=== PATIENT | male | born 1985 | race Caucasian/White ===

== ENCOUNTER 2016-11-23 00:36 | Inpatient (IN) | payer OTHER ==
[~2016-11-23] VITALS: Ht 182.9 cm; Wt 66.9 kg
[2016-11-23 00:46] VITALS: Ht 182.9 cm; Wt 66.9 kg
--- NOTE | 2016-11-23 01:23 | ERD ---
ER Documentation Chief Complaint Date/Time DATE: 11/23/16 TIME: 01:20 Chief Complaint Left Leg abscess. HPI 31 year old male presents here in emergency department for complaints of a left lower leg wound for 2 months now, patient injects heroin on it. Patient's Complaining of pain, swelling, sharp pain, 8/10 scale, is worse upon touching the area. Patient denies any fever or chills. Patient denies any one other parts of the body. Patient denies any discharge coming from the wounds. Patient did not take any medications to help with symptoms. Patient has been also having cough with greenish phlegm, episodes of shortness of breath in the last month. Patient denies any chest pain or palpitations. ROS All systems reviewed and are negative except as per history of present illness. Medications Home Meds Reported Medications [none] Unknown Strength No Conflict Check 11/23/16 Allergies Allergies: Coded Allergies: No Known Allergy (Unverified , 11/23/16) PMhx/Soc Hx Cardiac Disorders: Yes (HTN) Hx Alcohol Use: No Hx Substance Use: Yes (iv heroin use) Hx Tobacco Use: Yes (1ppd) Smoking Status: Current every day smoker FmHx Family History: No coronary disease, No diabetes, No other Physical Exam Vitals Vital Signs Date Time Temp Pulse Resp B/P Pulse Ox O2 Delivery O2 Flow Rate FiO2 11/23/16 00:46 96.8 104 18 103/58 98 Physical Exam GENERAL: The patient is well developed and appropriate for usual state of health, in no apparent distress. CHEST: Crackles bilaterally. There are no rales or rhonchi. HEART: Regular rate and rhythm. No murmurs, clicks, rubs or gallops. No S3 or S4. ABDOMEN: Soft, nontender and nondistended. Good bowel sounds. No rebound or guarding. No gross peritonitis. No gross organomegaly or masses. No Rios sign or McBurney point tenderness. BACK: No midline or flank tenderness. EXTREMITIES: Equal pulses bilaterally. There is no peripheral clubbing, cyanosis or edema. No focal swelling or erythema. Full range of motion. Grossly neurovascularly intact. NEURO: Alert and oriented. Cranial nerves 2-12 intact. Motor strength in all 4 extremities with 5/5 strength. Sensation grossly intact. Normal speech and gait. SKIN: 8 x 4 cm open wound noted in the left lower leg extensive to the subcutaneous tissue, with surrounding erythema, tender on palpation, no purulent discharge noted. Noted some areas to be healing. There is no apparent rash or petechia. The skin is warm and dry. HEMATOLOGIC AND LYMPHATIC: There is no evidence of excessive bruising or lymphedema. No gross cervical, axillary, or inguinal lymphadenopathy. Result Diagram: 11/23/16 0340 11/23/16 0340 Results 24 hrs Laboratory Tests Test 11/23/16 03:40 Alanine Aminotransferase (ALT/SGPT) 46IU/L Albumin 2.6g/dl Albumin/Globulin Ratio 0.55 Alkaline Phosphatase 121IU/L Anion Gap 17 Aspartate Amino Transf (AST/SGOT) 90IU/L Blood Urea Nitrogen 45mg/dl Calcium Level 8.2mg/dl Carbon Dioxide Level 30mmol/L Chloride Level 93mmol/L Creatinine 0.75mg/dl Direct Bilirubin 0.00mg/dl Eosinophils # 10^3/ul Eosinophils % % Globulin 4.70g/dl Glucose Level 86mg/dl Hematocrit 32.3% Hemoglobin 9.9g/dl Indirect Bilirubin 0.1mg/dl Lactic Acid Level 1.9mmol/L Lymphocytes # 10^3/ul Lymphocytes % % Mean Corpuscular Hemoglobin 21.5pg Mean Corpuscular Hemoglobin Concent 30.7g/dl Mean Corpuscular Volume 70.2fl Mean Platelet Volume 9.8fl Monocytes # 10^3/ul Monocytes % % Neutrophils # 10^3/ul Neutrophils % % Platelet Count 59006^3/UL Potassium Level 3.0mmol/L Red Blood Count 4.6010^6/ul Red Cell Distribution Width 16.6% Sodium Level 137mmol/L Total Bilirubin 0.1mg/dl Total Protein 7.3g/dl White Blood Count 26.210^3/ul Current Medications Medications (Trade) Dose Ordered Sig/Renea Route PRN Reason Start Time Stop Time Status Last Admin Dose Admin Sodium Chloride (NS) 1,000 ml @ 1,000 mls/hr Q1H ONCE IV 11/23/16 01:30 11/23/16 02:29 DC 11/23/16 01:30 Ketorolac Tromethamine (Toradol) 30 mg ONCE STAT IV 11/23/16 02:36 11/23/16 02:37 DC 11/23/16 02:36 Normal saline IV bolus was given here in emergency department for rehydration, patient tolerated IV fluids. PROCEDURE: Chest. CLINICAL INDICATION: Shortness of breath. TECHNIQUE: 2 frontal views of the chest were obtained. COMPARISON: None. FINDINGS: The cardiac silhouette is within normal limits. The aortic arch is unremarkable. There are bibasilar patchy consolidations and small right pleural effusion. There is no pneumothorax. IMPRESSION: Bibasilar patchy consolidations and small right pleural effusion. .Todd Ruelas MD, Date Time Electronically viewed and signed by .Todd Ruelas MD, MD on 11/23/2016 02:01 .T/ CC: DENTON HOWARD [employer] MANAGER PROCEDURE: Left tibia and fibula. CLINICAL INDICATION: Pain. TECHNIQUE: 4 views including AP and lateral views of the left tibia and fibula were obtained. COMPARISON: None. FINDINGS: There is no fracture, dislocation or bone destruction. The joint spaces are within normal limits. Bone mineralization is within normal limits. There is no radiopaque foreign body or abnormal calcification. There is soft tissue laceration within the proximal calf. IMPRESSION: No evidence of fracture. Soft tissue injury. .Todd Ruelas MD, Date Time Electronically viewed and signed by .Todd Ruelas MD, on 11/23/2016 02:00 .T/ Procedures/[facility] Medical decision making: Patient's symptoms most likely consistent with a wound infection, cellulitis, patient also has bilateral lung consolidation with pleural effusions, most likely can be pneumonia also, she has elevated white count, was tachycardic, is feeling very weak and fatigued, as per discussion with my attending physician, Dr. Mann, the patient will be transferred to ER 1 for admission for further management and care. Departure Diagnosis: Primary Impression: Pneumonia Pneumonia type: due to unspecified organism Laterality: bilateral Lung location: unspecified part of lung Qualified Code: J18.9 - Pneumonia of both lungs due to infectious organism, unspecified part of lung Additional Impressions: Pleural effusion Cellulitis Site of cellulitis: extremity Site of cellulitis of extremity: lower extremity Laterality: left Qualified Code: L03.116 - Cellulitis of left lower extremity Condition: Fair DENTON HOWARD NP Nov 23, 2016 01:23
[2016-11-23] MEDS ORDERED: SOD CHLORIDE 0.9% 1,000 ML IV ONE (01:30)
--- NOTE | 2016-11-23 02:01 | RADRPT ---
PROCEDURE: Chest. CLINICAL INDICATION: Shortness of breath. TECHNIQUE: 2 frontal views of the chest were obtained. COMPARISON: None. FINDINGS: The cardiac silhouette is within normal limits. The aortic arch is unremarkable. There are bibasil ar patchy consolidations and small right pleural effusion. There is no pneumothorax. IMPRESSION: Bibasilar patchy consolidations and small right pleural effusion. .Todd Ruelas MD, MD Date Time Electronically viewed and signed by .Todd Ruelas MD, MD on 11/23/2016 02:01 .T/
--- NOTE | 2016-11-23 02:01 | RADRPT ---
PROCEDURE: Left tibia and fibula. CLINICAL INDICATION: Pain. TECHNIQUE: 4 views including AP and lateral views of the left tibia and fibula were obtained. COMPARISON: None. FINDINGS: There is no fracture, dislocation or bone destruction. The joint spaces are within normal limits. Bone mineralization is within normal limits. There is no radiopaque foreign body or abnormal calcif ication. There is soft tissue laceration within the proximal calf. IMPRESSION: No evidence of fracture. Soft tissue injury. .Todd Ruelas MD, Date Time Electronically viewed and signed by .Todd Ruelas MD, on 11/23/2016 02:00 .T/
[2016-11-23] MEDS ORDERED: KETOROLAC 30 MG INJ IV STA (02:36)
[2016-11-23 03:51] LABS: ADD SCAN DIFF NO
[2016-11-23 04:00] LABS: HEMATOCRIT 32.3 % (42.0-52.0); HEMOGLOBIN 9.9 g/dl (14.0-18.0); MEAN CORPUSCULAR HEMOGLOBIN 21.5 pg (29.0-33.0); MEAN CORPUSCULAR HGB CONC 30.7 g/dl (32.0-37.0); MEAN CORPUSCULAR VOLUME 70.2 fl (82.0-101.0); MEAN PLATELET VOLUME 9.8 fl (7.4-10.4); PLATELET COUNT 409 10^3/UL (140-415); RED CELL DISTRIBUTION WIDTH 16.6 % (11.5-14.5); WHITE BLOOD COUNT 26.2 10^3/ul (4.8-10.8)
[2016-11-23 04:11] LABS: ALBUMIN 2.6 g/dl (3.3-4.9)
[2016-11-23 04:14] LABS: BILIRUBIN,INDIRECT 0.1 mg/dl (0-1.1); BILIRUBIN,TOTAL 0.1 mg/dl (0.2-1.3); CREATININE 0.75 mg/dl (0.61-1.24)
[2016-11-23 04:15] LABS: ALBUMIN/GLOBULIN RATIO 0.55; CALCIUM 8.2 mg/dl (8.4-10.2); TOTAL PROTEIN 7.3 g/dl (6.1-8.1)
[2016-11-23 04:54] LABS: EOSINOPHILS # 0.5 10^3/ul (0.0-0.5); LYMPHOCYTES # 3.4 10^3/ul (0.8-2.9); MONOCYTE # 1.8 10^3/ul (0.3-0.9)
[2016-11-23 04:55] LABS: ANISOCYTOSIS 1+
[2016-11-23 04:56] LABS: HYPOCHROMASIA 1+; STOMATOCYTES 1+
[2016-11-23 04:57] LABS: POLYCHROMASIA FEW
[2016-11-23 04:59] LABS: PLATELET ESTIMATE PLT APPEAR ADEQUATE
[2016-11-23 05:00] LABS: NEUTROPHIL # 20.4 10^3/ul (1.6-7.5)
[2016-11-23 05:51] VITALS: TEMP 97.2
[2016-11-23] MEDS ORDERED: CEFEPIME 2GM/50 ML (PMX) 50 ML IVPB STA (05:52)
[2016-11-23] MEDS ORDERED: VANCOMYCIN 1 GM (PMX) 250 ML IVPB ONE (06:00)
--- NOTE | 2016-11-23 06:19 | HP ---
Date/Time of Note Date/Time of Note DATE: 11/23/16 TIME: 06:18 Assessment/Plan VTE Prophylaxis VTE Prophylaxis Intervention: other (Enoxeparin) Lines/Catheters IV Catheter Type (from Nrs): Saline Lock Assessment/Plan Assessment/Plan 1) Open wound left leg, chronic, site of Heroin injection, Osteomyelitis suspected, but not seen on X-Ray. WBCs elevated at 26 - CONSULT: Dr. Antony Burnette (message left at his office) - Patient NPO for now, awaiting call back. Advance diet if no surgical plans for today - Wound Culture - IV Antibiotics (Vanco and Cefepim) - CBC in AM 2) Bibasilar Pneumonia - On Vanco and Cefepim 3) Hypokalemia, K+ = 3.0 - Replacement ordered 4) Hypoalbuminemia, likely from poor diet, but with elevated globulin, consider Multiple Myeloma, 5) Dehydration, BUN/Cr = 45/0.75 - IV Hydration with NS - 2 L over 8 hours then IVF to 125 mL/hr 6) Microcytic Hypochromic Anemia, likely from poor diet - Recommend protein supplementation when regular diet started 7) Transamminitis - Etoh? - CMP in AM 8) Heroin Addict - Monitor for withdrawls HPI/ROS Admit Date/Time Admit Date/Time Hx of Present Illness Patient was admitted through the Emergency Department. He currently is sleeping and is arousable, but falls back asleep after answering questions. He has no complaints at this time other than feeling tired and having a dry mouth. He requests his water. He was given Cefepime 2 gm IV in the ER and is currently receiving Vancomycin 1 gm IV. He also received 1 L NS and Toradol 60 mg IV. History obtained from the ER Physician: 31 year old male presents here in emergency department for complaints of a left lower leg wound for 2 months now, patient injects heroin on it. Patient's Complaining of pain, swelling, sharp pain, 8/10 scale, is worse upon touching the area. Patient denies any fever or chills. Patient denies any one other parts of the body. Patient denies any discharge coming from the wounds. Patient did not take any medications to help with symptoms. Patient has been also having cough with greenish phlegm, episodes of shortness of breath in the last month. Patient denies any chest pain or palpitations. PMH/Family/Social Past Medical History Medical History: hypertension Family History Significant Family History: other Social History Smoking Status: Current every day smoker Drug Use: heroin Exam/Review of Systems Vital Signs Vitals Vital Signs Date Time Temp Pulse Resp B/P Pulse Ox O2 Delivery O2 Flow Rate FiO2 11/23/16 05:51 97.2 103 18 105/64 97 Room Air Exam Exam GENERAL: The patient is well-developed, and thin, sleeping and in no apparent distress. EYES: No scleral icterus. ENT: No visible discharge from nose or ears. Poor dentition. Oral mucosa and lips dry. CHEST: Crackles bilaterally. There are no rales or rhonchi. HEART: Regular rate and rhythm. No murmurs, clicks, rubs or gallops. No S3 or S4. ABDOMEN: Soft, nontender and nondistended. Good bowel sounds. No rebound or guarding. No HSM or pulsatile masses. No Rios sign or McBurney point tenderness. EXTREMITIES: Equal pulses bilaterally: +2/4 radial and +14 DP. There is no peripheral clubbing or cyanosis. Left pedal edema, trace, to lower 1/3 leg. Grossly neurovascularly intact. NEURO: Arouses easily, but quickly falls back asleep. Cranial nerves 2-12 grossly intact. Motor strength in all 4 extremities with 5/5 strength. Sensation grossly intact. Normal speech. SKIN: 8 x 4 cm open wound noted on the lateral aspect of the left lower leg extensive to the subcutaneous tissue, with surrounding erythema, tender on palpation, no purulent discharge noted but inferior to the wound the tissue is indurated and warm. No fluctuance appreciated. No visible bone to my eye. Noted some areas to be healing. There is no apparent rash or petechia. The skin is warm and dry. HEMATOLOGIC AND LYMPHATIC: There is no evidence of excessive bruising or lymphedema. No gross cervical, axillary, or inguinal lymphadenopathy. Labs Result Diagram: 11/23/16 0340 11/23/16 0340 Medications Medications Current Medications Vancomycin HCl (Vancocin) 250 ml @ 125 mls/hr ONCE ONCE IVPB ; Start 11/23/16 at 06:00; Stop 11/23/16 at 07:59 Procedures Procedures Laboratory Tests Test 11/23/16 03:40 Alanine Aminotransferase (ALT/SGPT) 46IU/L Albumin 2.6g/dl Albumin/Globulin Ratio 0.55 Alkaline Phosphatase 121IU/L Anion Gap 17 Aspartate Amino Transf (AST/SGOT) 90IU/L Blood Urea Nitrogen 45mg/dl Calcium Level 8.2mg/dl Carbon Dioxide Level 30mmol/L Chloride Level 93mmol/L Creatinine 0.75mg/dl Direct Bilirubin 0.00mg/dl Eosinophils # 10^3/ul Eosinophils % % Globulin 4.70g/dl Glucose Level 86mg/dl Hematocrit 32.3% Hemoglobin 9.9g/dl Indirect Bilirubin 0.1mg/dl Lactic Acid Level 1.9mmol/L Lymphocytes # 10^3/ul Lymphocytes % % Mean Corpuscular Hemoglobin 21.5pg Mean Corpuscular Hemoglobin Concent 30.7g/dl Mean Corpuscular Volume 70.2fl Mean Platelet Volume 9.8fl Monocytes # 10^3/ul Monocytes % % Neutrophils # 10^3/ul Neutrophils % % Platelet Count 20665^3/UL Potassium Level 3.0mmol/L Red Blood Count 4.6010^6/ul Red Cell Distribution Width 16.6% Sodium Level 137mmol/L Total Bilirubin 0.1mg/dl Total Protein 7.3g/dl White Blood Count 26.210^3/ul Radiology Results: PROCEDURE: Left tibia and fibula. CLINICAL INDICATION: Pain. TECHNIQUE: 4 views including AP and lateral views of the left tibia and fibula were obtained. COMPARISON: None. FINDINGS: There is no fracture, dislocation or bone destruction. The joint spaces are within normal limits. Bone mineralization is within normal limits. There is no radiopaque foreign body or abnormal calcification. There is soft tissue laceration within the proximal calf. IMPRESSION: No evidence of fracture. Soft tissue injury. ROCEDURE: Chest. CLINICAL INDICATION: Shortness of breath. TECHNIQUE: 2 frontal views of the chest were obtained. COMPARISON: None. FINDINGS: The cardiac silhouette is within normal limits. The aortic arch is unremarkable. There are bibasilar patchy consolidations and small right pleural effusion. There is no pneumothorax. IMPRESSION: Bibasilar patchy consolidations and small right pleural effusion. JOSE A VINSON DO Nov 23, 2016 06:19
[2016-11-23 07:08] VITALS: BP 96/54; PULSE 85; RESP 19
[2016-11-23] MEDS ORDERED: VANCOMYCIN IV PER PHARMACY XX SCH (08:30)
[2016-11-23] MEDS ORDERED: ONDANSETRON 4 MG INJ IV PRN (08:30)
[2016-11-23] MEDS ORDERED: NACL 0.9% 3 ML SYG IV SCH (08:30)
[2016-11-23] MEDS: FAMOTIDINE 20 MG INJ IV SCH ×2 (10:04→20:50)
[2016-11-23] MEDS: SOD CHLORIDE 0.9% 1,000 ML IV SCH ×3 (10:05→16:30)
[2016-11-23] MEDS: ENOXAPARIN 40 MG/0.4 ML SYG SC SCH (10:15)
[2016-11-23] MEDS ORDERED: POTASSIUM CHLORIDE 250 ML IVPB SCH (10:30)
[2016-11-23] MEDS ORDERED: CHLORDIAZEPOXIDE 25 MG CAP PO SCH (13:00)
[2016-11-23] MEDS: LORATADINE 10 MG TAB PO SCH (13:46)
[2016-11-23] MEDS: NICOTINE (21 MG/24 HR) PATCH TRANSDERM SCH (13:46)
[2016-11-23] MEDS ORDERED: VANCOMYCIN 1.75 GM in NS 500 ML IVPB SCH (14:30)
[2016-11-23] MEDS ORDERED: LORAZEPAM 2 MG INJ IV PRN (14:30)
[2016-11-23] MEDS: QUETIAPINE 25 MG TAB PO SCH ×2 (15:04→21:00)
[2016-11-23] MEDS: METHADONE 10 MG TAB PO SCH (15:05)
[2016-11-23 15:08] LABS: HAAIG REFLEX REFLEX FILED
--- NOTE | 2016-11-23 15:25 | CONS ---
DATE OF ADMISSION: 11/23/2016 DATE OF CONSULTATION: 11/23/2016 TYPE OF CONSULTATION: Infectious Disease. REASON FOR CONSULTATION: Antibiotic management. HISTORY OF PRESENT ILLNESS: Jonathan Sahu is a 31-year-old male who was admitted through the emerg ency room with complaints of left lower leg wound for 2 months. Patient injects heroin. He complai ns of swelling and sharp pain 8/10 in the left leg where he did inject the heroin. He denies fever, chills or any discharge coming from the wounds. He has a cough with greenish sputum and some short ness of breath which began last month. The patient was started on cefepime and vancomycin. PAST MEDICAL HISTORY: Positive for hypertension. PAST SURGICAL HISTORY: None. FAMILY HISTORY: Noncontributory. SOCIAL HISTORY: He smokes daily. He is a heroin abuser. ALLERGIES: NONE TO PENICILLIN, SULFA OR FOODS. MEDICATIONS: Per chart. REVIEW OF SYSTEMS: Noncontributory. PHYSICAL EXAMINATION: GENERAL: The patient is a well-developed, well-nourished male who is thin, ill appearing, in no acu te distress. VITAL SIGNS: Stable. He is afebrile. SKIN: Without generalized rash. HEENT: Within normal limits. NECK: Supple. LYMPH NODES: None palpable. CHEST: Decreased breath sounds at the bases. HEART: Without murmur or gallop. ABDOMEN: Soft, nontender without organosplenomegaly or masses. EXTREMITIES: Without cyanosis, clubbing or edema. He has an 8 x 4 cm open wound on the lateral asp ect of the left leg which extends into subcutaneous tissue. He has surrounding erythema and tendern ess on palpation. There is no purulent discharge but the tissue is indurated and warm. There is no fluctuance. RECTAL AND GENITAL: Deferred. NEUROLOGIC: No focal neurological abnormality. ANCILLARY LABORATORY DATA: White count is 26.2, H and H 9.9 and 32.3, platelet count 49,000. BUN a nd creatinine 45/0.75, glucose of 86. IMPRESSION AND PLAN: The patient has an open wound with left lower extremity cellulitis. Wound car e to see the patient. He was started on vancomycin and cefepime. An x-ray of the tibia and fibula shows no fracture or dislocation, no foreign body. There is soft tissue laceration within the proxi mal calf. Chest x-ray shows bibasilar patchy consolidations, small right pleural effusion. IMPRESSION AND PLAN: The patient is currently on appropriate antibiotic therapy with vancomycin and cefepime. Wound care should evaluate him. In the meantime, serology has been done and he was star leena on methadone. An MRI of the lower extremity was ordered. Blood cultures were done. I concur w ith current therapy. I will dictate my findings to Dr. Gutiérrez. Dictated By: MILAGROS FULTON MD, JD/SHABANA Conf#: [id number] DID#: [id number]
--- NOTE | 2016-11-23 15:42 | CONS ---
DATE OF ADMISSION: 11/23/2016 DATE OF CONSULTATION: 11/23/2016 TYPE OF CONSULTATION: Pain management. HISTORY OF PRESENT ILLNESS: History is taken from the patient's medical records as well as from the patient, although he is somewhat a poor historian and has elected to give me a clear and honest his tory of present illness. Some of this information is taken from his brother, who is at bedside who i s a poor historian, also. This gentleman is a 31-year-old gentleman who has longstanding history of IV drug abuse, combination of heroin and speed/methamphetamine. The last time he used was 1 day justine or to this hospitalization. He has been on methadone. The last time he took methadone 45 mg was ap proximately 1 week ago, but that was questionable. He denies other medications, but his brother sta porsha that he overdosed on Xanax approximately 1 week ago using both heroin and Xanax at that time. H e states he has been in 1 drug treatment program and has not been in another one since that time. W hen he was admitted is unknown. The patient once again is a poor historian. Denies any other recre ational drug use, smokes approximately a pack of cigarettes every 3 days. Denies alcohol consumptio n. Denies a past medical history of overdose on medications and it is unclear what this episode was approximately 1 week ago. He states he has had HIV but that it was many years ago and he has never had a hepatitis panel. He does participate in the use of sharing needles. The patient apparently has been walking around with an open wound of his left lateral calf for some unknown period of time. This is the area where he shoots up heroin. He uses bilateral lower extremities and thighs primar riaz and skin pops on occasion he states with the assistance of another person when he is able to fin d a vein. The patient presented to [facility] with increasing shortness of breath and left lower extremity open wound. MEDICATIONS: Please refer to reconciliation. ALLERGIES: THE PATIENT STATES HE HAS NO KNOWN DRUG ALLERGIES. MAJOR MEDICAL PROBLEMS IN THE PAST: He denies hospitalizations or surgical interventions. SOCIAL HISTORY: As per history of present illness. FAMILY HISTORY: Father . Mother is alive, unknown health history. One brother who activel y uses intravenous heroin also. He is single. He has no children. REVIEW OF SYSTEMS: A 12-point review of systems as per history of present illness, otherwise 12-poi nt is otherwise unremarkable. PHYSICAL EXAMINATION: GENERAL: Shows an ill-appearing male, who looks emaciated on examination. VITAL SIGNS: receiving 96/54, pulse 85 and regular, respirations of 19, temperature 97.5 degrees, 9 3% saturation on room air. HEENT: He is normocephalic and atraumatic. Anicteric, acyanotic. CHEST: Shows bilateral inspiratory and expiratory crackles throughout both lung neville from base to apex. COR: S1, S2, without S3, S4, murmur, gallop, rub. Normal rate, normal rhythm. ABDOMEN: Grossly benign. NEUROLOGICAL: He is oriented x3. Cranial nerves II through XII are grossly intact. Motor and sens ory findings grossly within normal limits. LABORATORY TESTS: White blood cell count of 26.2, hemoglobin 9.9, hematocrit 32.3, MCV of 70.2 and platelet count of 409,000. Chemistries: Serum sodium of 137, potassium 3.0, chloride 93, bicarbona te 30, BUN of 45, creatinine 0.75. ALT 46, AST 90, total bilirubin 0.1, albumin 2.6, globulin 4.70. Chest x-ray shows bibasilar patchy consolidation and right pleural effusion. ASSESSMENT AND PLAN: This is an ill 31-year-old gentleman who has an open wound of his left lower e xtremity and bibasilar pneumonia with a history of IV drug abuse with heroin and crystal methampheta mine and is malnourished and dehydrated. From a pain management standpoint, I agree patient is high risk for withdrawal. I will start him off on methadone 60 mg daily since he was on a small dose pr ior to hospitalization. Also start him off on Seroquel and scheduled Ativan p.r.n. I have asked the patient for permission to check his room for any other drugs. Dictated By: TREVOR MURDOCK MD, LP/SHABANA Conf#: [id number] DID#: [id number]
[2016-11-23 16:00] LABS: ADD UMIC YES; URINE BILIRUBIN (Dip) NEGATIVE (NEGATIVE); URINE BLOOD (Dip) NEGATIVE (NEGATIVE); URINE COLOR YELLOW (YELLOW); URINE GLUCOSE (Dip) NEGATIVE (NEGATIVE); URINE KETONES (Dip) NEGATIVE (NEGATIVE); URINE LEUKOCYTE ESTERASE (Dip) NEGATIVE (NEGATIVE); URINE NITRITE (Dip) NEGATIVE (NEGATIVE); URINE TOTAL PROTEIN (Dip) TRACE (NEGATIVE); URINE UROBILINOGEN (Dip) 0.2 E.U./dL (0.1-1.0)
[2016-11-23 16:07] LABS: HEPATITIS B CORE ANTIBODY NEGATIVE (NEGATIVE)
[2016-11-23 16:14] LABS: SQUAMOUS EPITHELIAL CELL,UR RARE; URINE RBCS 0-2 /HPF (0)
--- NOTE | 2016-11-23 17:15 | RADRPT ---
PROCEDURE: MRI of the left lower extremity CLINICAL INDICATION: Left lower extremity pain and swelling, ulceration, concern for osteomyelitis TECHNIQUE: Multiplanar multisequence images of the left lower extremity without contrast utilizing multiple pulse sequences. Images were interpreted at a independent PACS workstation. COMPARISON: Radiographs of the left tibia and fibula performed same day FINDINGS: There is a very large left lateral skin and subcutaneous defect centered approximately 10 cm below t he knee joint, measuring approximately 9 cm and length and 4 cm in anteroposterior dimension. There is adjacent soft tissue swelling and granulation tissue without drainable fluid collection. There is mild nonspecific edema within the peroneal and anterior musculature at this location which could reflect denervation change or infectious/inflammatory myositis. There is no evidence of acute fracture. There is no evidence of osteomyelitis at this time. Limite d assessment of the knee joint is grossly unremarkable. Limited assessment of the right lower extremity is grossly unremarkable. IMPRESSION: 1. Large lateral skin and subcutaneous defect measuring 9 x 4 cm as described above. There is surr ounding soft tissue swelling and granulation tissue without drainable fluid collection. Mild nonspec ific edema within the adjacent peroneal and anterior compartment musculature may reflect denervation change or mild infectious or inflammatory myositis. 2. No evidence of acute fracture or underlying osteomyelitis at this time. RPTAT: UU .Omar Gaspar MD, Date Time Electronically viewed and signed by .Omar Gaspar MD, on 11/23/2016 17:15 .K/
--- NOTE | 2016-11-23 18:13 | CONS ---
Date/Time of Note Date/Time of Note DATE: 11/23/16 TIME: 18:01 Assessment/Plan Assessment/Plan Problems: (1) Infected wound Status: Acute (2) Cellulitis Status: Acute Qualifiers: Qualified Code: L03.116 - Cellulitis of left lower extremity Additional Assessment/Plan The MRI shows no drainable abscess in the left lower leg. No surgery recommended at this time. Daily dressing change with Santyl ointment to the wound to be done. Patient is to continue IV antibiotic treatment. Infectious disease consultation is highly recommended. Source of infection must be evaluated more carefully. Patient will be followed in-house and will be monitored. Thank you very much for involving me in the care of this patient. Consultation Date/Type/Reason Admit Date/Time Date of Consultation: Nov 23, 2016 Type of Consultation: Foot and ankle surgery consult Reason for Consultation Infected left lower extremity open wound Hx of Present Illness Thank you very much for involving me in the care of this patient. As you very well know this is a 31-year-old male patient who with cellulitis and open wound of the left lower extremity. Patient has an extensive past medical history of drug abuse using heroin. Apparently the wound has been present for about 2 months now and patient injects heroin onto it. Patient is lethargic but arousable and was given methadone via doctor's orders. Most of the history has been obtained through chart review. As per history of present illness. Past Medical History As per history of present illness. Medical History: hypertension Past Surgical History As per history of present illness. Social History As per history of present illness. Smoking Status: Current every day smoker Drug Use: heroin Exam/Review of Systems Vital Signs Vitals Vital Signs Date Time Temp Pulse Resp B/P Pulse Ox O2 Delivery O2 Flow Rate FiO2 11/23/16 07:08 97.5 85 19 96/54 93 11/23/16 05:51 Room Air Exam Patient is lethargic and sleeping, easily arousable but for the most part lethargic. Open wound present on the left lower leg, dry with granulation tissue present. There is no underlying fluctuance and no drainage of pus or bleeding. There is edema of bilateral hands and legs. Patient has palpable pedal pulses and delayed capillary refill time. Temperature gradient is decreased bilaterally. MRI shows no drainable fluid collection in the left lower extremity. Results Result Diagram: 11/23/16 0340 11/23/16 0340 Results 24 hrs Laboratory Tests Test 11/23/16 03:30 11/23/16 03:40 11/23/16 15:00 HIV (1&2) Antibody NEGATIVE Hepatitis B Core Total Antibody NEGATIVE Hepatitis B Surface Antigen NEGATIVE Hepatitis C Antibody REACTIVE H Alanine Aminotransferase (ALT/SGPT) 46 Albumin 2.6 L Albumin/Globulin Ratio 0.55 Alkaline Phosphatase 121 Anion Gap 17 H Anisocytosis 1+ Aspartate Amino Transf (AST/SGOT) 90 H Blood Urea Nitrogen 45 H Calcium Level 8.2 L Carbon Dioxide Level 30 Chloride Level 93 L Creatinine 0.75 Differential Comment MANUAL DIFF Direct Bilirubin 0.00 Dohle Bodies Eosinophils # 0.5 Eosinophils % 2.0 Globulin 4.70 H Glucose Level 86 Hematocrit 32.3 L Hemoglobin 9.9 L Hypochromasia 1+ Indirect Bilirubin 0.1 Lactic Acid Level 1.9 Large Platelets FEW Lymphocytes # 3.4 H Lymphocytes % 13.0 L Macrocytosis 1+ Mean Corpuscular Hemoglobin 21.5 L Mean Corpuscular Hemoglobin Concent 30.7 L Mean Corpuscular Volume 70.2 L Mean Platelet Volume 9.8 Monocytes # 1.8 H Monocytes % 7.0 Neutrophils # 20.4 H Neutrophils % 78.0 H Nucleated Red Blood Cells % 1.0 H Platelet Count 409 Platelet Estimate PLT APPEAR ADEQUATE Polychromasia FEW Potassium Level 3.0 L Red Blood Count 4.60 L Red Cell Distribution Width 16.6 H Sodium Level 137 Stomatocytes 1+ Total Bilirubin 0.1 L Total Protein 7.3 Toxic Granulation White Blood Count 26.2 H Urine Bilirubin NEGATIVE Urine Clarity CLEAR Urine Color YELLOW Urine Glucose NEGATIVE Urine Hemoglobin NEGATIVE Urine Ketones NEGATIVE Urine Leukocyte Esterase NEGATIVE Urine Microscopic RBC 0-2 Urine Microscopic WBC 0-2 Urine Nitrite NEGATIVE Urine Specific [place] 1.010 Urine Squamous Epithelial Cells RARE Urine Total Protein TRACE Urine Urobilinogen 0.2 E.U./dL Urine pH 6.0 Medications Medications Current Medications Ondansetron HCl (Zofran Inj) 4 mg Q6H PRN IV NAUSEA AND/OR VOMITING; Start 11/23 at 08:30 Famotidine (Pepcid Iv) 20 mg Q12 IV Last administered on 11/23/16t 10:04; Admin Dose 20 MG; Start 11/23/16 at 11:00 Enoxaparin Sodium (Lovenox) 40 mg DAILY SC Last administered on 11/23/16 10:15 ; Admin Dose 40 MG; Start 11/23/16 at 11:00 Vancomycin HCl 1 ea 1 ea NOTE XX ; Start 11/23/16 at 08:30 Cefepime HCl 50 ml @ 100 mls/hr Q12 IVPB ; Start 11/23/16 at 21:00 Sodium Chloride (NS) 1,000 ml @ 125 mls/hr Q8H IV ; Start 11/23/16 at 16:30 Nicotine (Nicoderm 21 Mg/ 24hr) 1 patch DAILY TRANSDERM Last administered on 13:46; Admin Dose 1 PATCH; Start 11/23/16 at 13:00 Loratadine 10 mg 10 mg DAILY PO Last administered on 11/23/16 13:46; Admin Dose 10 MG; Start 11/23/16 at 13:00 Vancomycin HCl/ Sodium Chloride (Vancocin/NS) 500 ml @ 125 mls/hr ONCE IVPB Last administered on 11/23/16 15:04; Admin Dose 125 MLS/HR; Start 11/23/16 at 14: 30; Stop 11/23/16 at 18:29 Methadone HCl (Methadone) 60 mg DAILY PO Last administered on 11/23/16 15:05; Admin Dose 60 MG; Start 11/23/16 at 14:00 Lorazepam (Ativan) 1 mg Q6H PRN IV AGITATION; Start 11/23/16 at 14:30 Quetiapine Fumarate 25 mg 25 mg BID PO Last administered on 11/23/16 15:04; Admin Dose 25 MG; Start 11/23/16 at 14:30 Vancomycin HCl (Vancocin) 250 ml @ 125 mls/hr Q8H IVPB ; Start 11/24/16 at 00:00 Miscellaneous Information (*Rx Drug Level Order Reminder*) VANCOMYCIN TROUGH 11/24 AT 1500 ONCE ONCE XX ; Start 11/24/16 at 15:00; Stop 11/24/16 at 15:01 MALINI GONZALEZ DPM Nov 23, 2016 18:13
[2016-11-23] MEDS: COLLAGENASE 30 GM TUBE TOP SCH (20:51)
[2016-11-23 21:10] VITALS: BP 111/69; RESP 24
[2016-11-23] MEDS ORDERED: VANCOMYCIN 1 GM in NS 250 ML IVPB SCH (23:00)
[2016-11-23] MEDS: CEFEPIME 2GM/50 ML (PMX) 50 ML IVPB SCH (23:28)
[2016-11-24] MEDS ORDERED: VANCOMYCIN 1 GM in NS 250 ML IVPB SCH
[2016-11-24] MEDS: SOD CHLORIDE 0.9% 1,000 ML IV SCH ×6 (00:30→23:56)
[2016-11-24] MEDS: VANCOMYCIN 1 GM in NS 250 ML IVPB SCH ×3 (04:42→20:18)
[2016-11-24 06:09] LABS: ADD SCAN DIFF NO
[2016-11-24 06:19] LABS: ABNORMAL IP MESSAGE 1; BASOPHILS % 0.3 % (0.0-2.0); EOSINOPHILS # 0.1 10^3/ul (0.0-0.5); EOSINOPHILS % 0.9 % (0.0-7.0); HEMATOCRIT 29.9 % (42.0-52.0); HEMOGLOBIN 9.3 g/dl (14.0-18.0); LYMPHOCYTES # 2.6 10^3/ul (0.8-2.9); MEAN CORPUSCULAR HEMOGLOBIN 21.8 pg (29.0-33.0); MEAN CORPUSCULAR HGB CONC 31.1 g/dl (32.0-37.0); MEAN PLATELET VOLUME 9.7 fl (7.4-10.4); MONOCYTE # 0.7 10^3/ul (0.3-0.9); MONOCYTES % 5.2 % (0.0-11.0); NEUTROPHIL # 9.3 10^3/ul (1.6-7.5); NEUTROPHILS % 67.6 % (39.0-77.0); NUCLEATED RED BLOOD CELLS # 0.1 10^3/ul (0.0-0.0); NUCLEATED RED BLOOD CELLS% 0.7 /100WBC (0.0-0.0); PLATELET COUNT 379 10^3/UL (140-415); RED BLOOD COUNT 4.27 10^6/ul (4.70-6.10); RED CELL DISTRIBUTION WIDTH 16.8 % (11.5-14.5); WHITE BLOOD COUNT 13.7 10^3/ul (4.8-10.8)
[2016-11-24 06:35] LABS: IRON 31 ug/dl (35-150)
[2016-11-24 06:36] LABS: ALBUMIN 2.3 g/dl (3.3-4.9)
[2016-11-24 06:37] LABS: POTASSIUM 3.2 mmol/L (3.5-5.1)
[2016-11-24 06:39] LABS: ALBUMIN/GLOBULIN RATIO 0.54; BILIRUBIN,INDIRECT 0.2 mg/dl (0-1.1); BILIRUBIN,TOTAL 0.2 mg/dl (0.2-1.3); CREATININE 0.56 mg/dl (0.61-1.24); TOTAL PROTEIN 6.5 g/dl (6.1-8.1)
[2016-11-24 06:40] LABS: CALCIUM 7.4 mg/dl (8.4-10.2)
[2016-11-24 06:45] LABS: TOTAL IRON BINDING CAPACITY 271 ug/dl (241-421)
[2016-11-24 06:46] LABS: MAGNESIUM 1.9 mg/dl (1.7-2.5)
[2016-11-24 07:49] LABS: FOLATE 8.1 ng/ml (2.8-20.0)
[2016-11-24 08:02] VITALS: BP 105/59; RESP 18
[2016-11-24] MEDS: CEFEPIME 2GM/50 ML (PMX) 50 ML IVPB SCH ×2 (08:47→21:25)
[2016-11-24] MEDS: LORATADINE 10 MG TAB PO SCH (08:48)
[2016-11-24] MEDS: QUETIAPINE 25 MG TAB PO SCH ×2 (08:48→21:25)
[2016-11-24] MEDS: METHADONE 10 MG TAB PO SCH (08:48)
[2016-11-24] MEDS: COLLAGENASE 30 GM TUBE TOP SCH (08:49)
[2016-11-24] MEDS: NICOTINE (21 MG/24 HR) PATCH TRANSDERM SCH (08:49)
[2016-11-24] MEDS: ENOXAPARIN 40 MG/0.4 ML SYG SC SCH (08:58)
[2016-11-24] MEDS: FAMOTIDINE 20 MG INJ IV SCH (09:02)
--- NOTE | 2016-11-24 10:13 | PN ---
Date/Time of Note Date/Time of Note DATE: 11/24/16 TIME: 10:11 Assessment/Plan VTE Prophylaxis VTE Prophylaxis Intervention: LMWH Lines/Catheters IV Catheter Type (from Nrsg): Peripheral IV Assessment/Plan Assessment/Plan * Large Open wound left leg, chronic, with surrounding cellulitis -site of Heroin injection -Infected with Staph aureus and diphtheroids * Bibasilar Pneumonia * Hypokalemia * Chronic Malnutrition * Microcytic Hypochromic Anemia, likely from poor diet * Heroin Addict * Hepatitis C * Dehydration Plan: * Continue abx/ wound is non surgical per podiatry / appreciate ID input * replace lytes * continue IVF hydration * Continue methadone per pain mgt / appreciate input * obtain final abx regimen from ID and begin discharge planning with shoe parts caser * Plan for d/c once cleared from isolation. PROPHYLAXIS: lovenox Subjective 24 Hr Interval Summary Free Text/Dictation Patient seen and examined. still feels weak, no new complaints spoke with pain mgt and podiatry Exam/Review of Systems Vital Signs Vitals Vital Signs Date Time Temp Pulse Resp B/P Pulse Ox O2 Delivery O2 Flow Rate FiO2 11/24/16 08:02 98.8 59 18 105/59 91 11/23/16 05:51 Room Air Intake and Output 11/23/16 11/23/16 11/24/16 14:59 22:59 06:59 Intake Total 1480 ml 2320 ml Output Total 1500 ml Balance 1480 ml 820 ml Exam GENERAL: The patient is well-developed, and thin, sleeping and in no apparent distress. EYES: No scleral icterus. ENT: No visible discharge from nose or ears. Poor dentition. Oral mucosa and lips dry. CHEST: Crackles bilaterally. There are no rales or rhonchi. HEART: Regular rate and rhythm. No murmurs, clicks, rubs or gallops. No S3 or S4. ABDOMEN: Soft, nontender and nondistended. Good bowel sounds. No rebound or guarding. No HSM or pulsatile masses. No Rios sign or McBurney point tenderness. EXTREMITIES: Equal pulses bilaterally: +2/4 radial and +14 DP. There is no peripheral clubbing or cyanosis. Left pedal edema, trace, to lower 1/3 leg. Grossly neurovascularly intact. NEURO: No focal deficits SKIN: 8 x 4 cm open wound noted on the lateral aspect of the left lower leg extensive to the subcutaneous tissue, with surrounding erythema, tender on palpation, no purulent discharge noted but inferior to the wound the tissue is indurated and warm. No fluctuance appreciated. No visible bone to my eye. Noted some areas to be healing. There is no apparent rash or petechia. The skin is warm and dry. HEMATOLOGIC AND LYMPHATIC: There is no evidence of excessive bruising or lymphedema. No gross cervical, axillary, or inguinal lymphadenopathy. Results Result Diagram: 11/24/16 0540 11/24/16 0540 Results 24 hrs Laboratory Tests Test 11/23/16 15:00 11/24/16 05:40 Urine Bilirubin NEGATIVE Urine Clarity CLEAR Urine Color YELLOW Urine Glucose NEGATIVE Urine Hemoglobin NEGATIVE Urine Ketones NEGATIVE Urine Leukocyte Esterase NEGATIVE Urine Microscopic RBC 0-2 Urine Microscopic WBC 0-2 Urine Nitrite NEGATIVE Urine Specific [place] 1.010 Urine Squamous Epithelial Cells RARE Urine Total Protein TRACE Urine Urobilinogen 0.2 E.U./dL Urine pH 6.0 Alanine Aminotransferase (ALT/SGPT) 34 Albumin 2.3 L Albumin/Globulin Ratio 0.54 Alkaline Phosphatase 120 Anion Gap 13 Aspartate Amino Transf (AST/SGOT) 61 H Basophils # 0.0 Basophils % 0.3 Blood Urea Nitrogen 16 # Calcium Level 7.4 L Carbon Dioxide Level 28 Chloride Level 106 # Creatinine 0.56 L Direct Bilirubin 0.00 Eosinophils # 0.1 Eosinophils % 0.9 Folate 8.1 Globulin 4.20 H Glucose Level 75 Hematocrit 29.9 L Hemoglobin 9.3 L Indirect Bilirubin 0.2 Iron Level 31 L Lymphocytes # 2.6 Lymphocytes % 19.0 Magnesium Level 1.9 Mean Corpuscular Hemoglobin 21.8 L Mean Corpuscular Hemoglobin Concent 31.1 L Mean Corpuscular Volume 70.0 L Mean Platelet Volume 9.7 Monocytes # 0.7 Monocytes % 5.2 Neutrophils # 9.3 H Neutrophils % 67.6 Nucleated Red Blood Cells # 0.1 H Nucleated Red Blood Cells % 0.7 H Percent Iron Saturation 11 L Platelet Count 379 Potassium Level 3.2 L Red Blood Count 4.27 L Red Cell Distribution Width 16.8 H Sodium Level 144 Total Bilirubin 0.2 Total Iron Binding Capacity 271 Total Protein 6.5 Vitamin B12 Level > 1000 H White Blood Count 13.7 #H Medications Medications Current Medications Ondansetron HCl (Zofran Inj) 4 mg Q6H PRN IV NAUSEA AND/OR VOMITING; Start 11/23 at 08:30 Famotidine (Pepcid Iv) 20 mg Q12 IV Last administered on 11/24/16 09:02; Admin Dose 20 MG; Start 11/23/16 at 11:00 Enoxaparin Sodium (Lovenox) 40 mg DAILY SC Last administered on 11/24/16 08:58 ; Admin Dose 40 MG; Start 11/23/16 at 11:00 Vancomycin HCl 1 ea 1 ea NOTE XX ; Start 11/23/16 at 08:30 Cefepime HCl 50 ml @ 100 mls/hr Q12 IVPB Last administered on 11/24/16 08:47; Admin Dose 100 MLS/HR; Start 11/23/16 at 21:00 Sodium Chloride (NS) 1,000 ml @ 125 mls/hr Q8H IV Last administered on 00:54; Admin Dose 125 MLS/HR; Start 11/23/16 at 16:30 Nicotine (Nicoderm 21 Mg/ 24hr) 1 patch DAILY TRANSDERM Last administered on 08:49; Admin Dose 1 PATCH; Start 11/23/16 at 13:00 Loratadine (Claritin) 10 mg DAILY PO Last administered on 11/24/16 08:48; Admin Dose 10 MG; Start 11/23/16 at 13:00 Methadone HCl (Methadone) 60 mg DAILY PO Last administered on 11/24/16 08:48; Admin Dose 60 MG; Start 11/23/16 at 14:00 Lorazepam (Ativan) 1 mg Q6H PRN IV AGITATION; Start 11/23/16 at 14:30 Quetiapine Fumarate (Seroquel) 25 mg BID PO Last administered on 11/24/16 08:48 ; Admin Dose 25 MG; Start 11/23/16 at 14:30 Miscellaneous Information (*Rx Drug Level Order Reminder*) VANCOMYCIN TROUGH 11/24 AT 1500 ONCE ONCE XX ; Start 11/24/16 at 15:00; Stop 11/24/16 at 15:01 Collagenase 1 applic 1 applic DAILY TOP Last administered on 11/24/16 08:49; Admin Dose 1 APPLIC; Start 11/23/16 at 21:00 Vancomycin HCl (Vancocin) 250 ml @ 125 mls/hr Q8H IVPB Last administered on t 04:42; Admin Dose 125 MLS/HR; Start 11/24/16 at 04:00 Procedures Procedures PROCEDURE: MRI of the left lower extremity CLINICAL INDICATION: Left lower extremity pain and swelling, ulceration, concern for osteomyelitis TECHNIQUE: Multiplanar multisequence images of the left lower extremity without contrast utilizing multiple pulse sequences. Images were interpreted at a independent PACS workstation. COMPARISON: Radiographs of the left tibia and fibula performed same day FINDINGS: There is a very large left lateral skin and subcutaneous defect centered approximately 10 cm below the knee joint, measuring approximately 9 cm and length and 4 cm in anteroposterior dimension. There is adjacent soft tissue swelling and granulation tissue without drainable fluid collection. There is mild nonspecific edema within the peroneal and anterior musculature at this location which could reflect denervation change or infectious/inflammatory myositis. There is no evidence of acute fracture. There is no evidence of osteomyelitis at this time. Limited assessment of the knee joint is grossly unremarkable. Limited assessment of the right lower extremity is grossly unremarkable. IMPRESSION: 1. Large lateral skin and subcutaneous defect measuring 9 x 4 cm as described above. There is surrounding soft tissue swelling and granulation tissue without drainable fluid collection. Mild nonspecific edema within the adjacent peroneal and anterior compartment musculature may reflect denervation change or mild infectious or inflammatory myositis. 2. No evidence of acute fracture or underlying osteomyelitis at this time. RPTAT: UU .Omar Gaspar MD, MD Date Time Electronically viewed and signed by .Omar Gaspar MD, on 11/23/2016 17: 15 JEOVANY GREENBERG Nov 24, 2016 10:13
[2016-11-24] MEDS: SOD FERRIC GLUC COMPLX 125 MG in SOD CHLORIDE 0.9% 100 ML IVPB SCH (13:18)
[2016-11-24] MEDS: POTASSIUM CHLORIDE 250 ML IVPB SCH ×2 (13:18→18:14)
--- NOTE | 2016-11-24 13:19 | PN ---
DATE: 11/24/2016 SUBJECTIVE: He states he is feeling better today. Has eaten. Denies nausea, vomiting, chest pain, shortness of breath. Denies rigors or shakes. He is not hallucinating. He is not diaphoretic. OBJECTIVE: VITAL SIGNS: Blood pressure 105/59, pulse is 59 and regular, respirations of 18, temperature 98.8 d egrees, 91% saturation on room air. HEENT: He is normocephalic and atraumatic. Anicteric, acyanotic, somewhat plethoric on examination . CHEST: Distant inspiratory and expiratory breath sounds. No wheezing, no rhonchi on exam. No rale s. NEUROLOGICAL EXAMINATION: He is oriented x3. Cranial nerves II through XII are grossly intact. Mo tor and sensory findings are grossly within normal limits. CHEMISTRIES: White blood cell count of 13.7, hemoglobin 9.3, hematocrit of 29.9, MCV of 70, platele t count of 379,000. Chemistry: Serum sodium 144, potassium 3.2, chloride 106, bicarbonate 28, BUN of 16, creatinine 0.56. SEROLOGY: Hepatitis C antigen negative, core antibody negative, hepatitis C antibody reactive, HIV 1 and 2 antibodies negative. ASSESSMENT AND PLAN: 1. No evidence of withdrawal. Continue with the current dose of methadone. Follow care with Dr. Adelita Petty. I have given him a low dose of Ultram today. I will not escalate his doses of opioids, other than his maintenance use of methadone and a very low dose of Ultram, but will not give him Vi codin, [place], morphine or Dilaudid. 2. Presentation consistent with bibasilar pneumonia, fluid and electrolyte abnormalities, malnutrit ion, hypochromic microcytic anemia. Will follow. Recommendations as above. Dictated By: TREVOR MURDOCK MD, LP/SHABANA Conf#: [id number] DID#: [id number]
--- NOTE | 2016-11-24 13:24 | PN ---
DATE: 11/24/2016 SUBJECTIVE: Overnight, no fevers. The patient is lying comfortably in bed. LABORATORIES: WBC 13.7, H and H 9.3 and 29.9, platelets 379. BUN 16, creatinine 0.56. MICROBIOLOGY: Urinalysis negative, serology for HIV negative, hepatitis C serology came back reacti ve, blood culture negative. Wound culture growing Staphylococcus aureus. DIAGNOSTICS: Chest x-ray on admission revealed bibasilar patchy consolidations and small right pleu ral effusion. ANTIMICROBIALS: The patient is on 1. IV vancomycin. 2. Cefepime. PHYSICAL EXAMINATION: GENERAL: Well-developed young white man who is lying comfortably in bed. HEENT: Head atraumatic, normocephalic. Sclerae anicteric. Buccal mucosa dry. NECK: Supple. CHEST: Rise symmetrical. Breath sounds diminished. HEART: S1, S2. ABDOMEN: Soft, bowel tones present. EXTREMITIES: Without cyanosis. Left lower extremity dressing intact. ASSESSMENT: 1. Left lower extremity cellulitis with chronic wounds. 2. Pneumonia. 3. Hepatitis C virus. 4. Heroin addiction. PLAN: The patient remains stable. Continue present care, antibiotics. Follow chest x-ray. Follow final wound cultures. Consider, podiatry evaluation if it is not done yet. Dictated By: JOSE ELIAS CASTILLO [employer] for [facility] MARK/SHABANA Conf#: [id number] DID#: [id number]
[2016-11-24 19:33] VITALS: BP 100/62; RESP 18
[2016-11-24] MEDS: FAMOTIDINE 20 MG TAB PO SCH (21:25)
--- NOTE | 2016-11-24 23:54 | PN ---
Date/Time of Note Date/Time of Note DATE: 11/24/16 TIME: 23:54 Assessment/Plan Lines/Catheters IV C[facility]ter Type (from [facility]): Peripheral IV Assessment/Plan Chief Complaint/Hosp Course Thank you very much for involving me in the care of this patient. As you very well know this is a 31-year-old male patient who with cellulitis and open wound of the left lower extremity. Patient has an extensive past medical history of drug abuse using heroin. Apparently the wound has been present for about 2 months now and patient injects heroin onto it. Patient is lethargic but arousable and was given methadone via doctor's orders. Most of the history has been obtained through chart review. Problems: Exam/Review of Systems Vital Signs Vitals Vital Signs Date Time Temp Pulse Resp B/P Pulse Ox O2 Delivery O2 Flow Rate FiO2 11/24/16 19:33 97.8 18 100/62 11/24/16 08:02 59 91 11/23/16 05:51 Room Air Intake and Output 11/23/16 11/23/16 11/24/16 15:00 23:00 07:00 Intake Total 1480 ml 2320 ml Output Total 1500 ml Balance 1480 ml 820 ml Results Result Diagram: 11/24/16 0540 11/24/16 0540 MALINI GONZALEZ DPM Nov 24, 2016 23:54
[2016-11-25] MEDS: VANCOMYCIN 1 GM in NS 250 ML IVPB SCH ×3 (04:19→20:06)
[2016-11-25 08:05] VITALS: BP 110/67; RESP 18
[2016-11-25] MEDS: SOD CHLORIDE 0.9% 1,000 ML IV SCH ×2 (08:30→12:45)
[2016-11-25] MEDS: FAMOTIDINE 20 MG TAB PO SCH ×3 (09:00→20:06)
[2016-11-25] MEDS: METHADONE 10 MG TAB PO SCH (09:46)
[2016-11-25] MEDS: LORATADINE 10 MG TAB PO SCH (09:46)
[2016-11-25] MEDS: QUETIAPINE 25 MG TAB PO SCH ×2 (09:46→20:06)
[2016-11-25] MEDS: CEFEPIME 2GM/50 ML (PMX) 50 ML IVPB SCH (09:47)
[2016-11-25] MEDS: COLLAGENASE 30 GM TUBE TOP SCH (09:47)
[2016-11-25] MEDS: NICOTINE (21 MG/24 HR) PATCH TRANSDERM SCH (09:47)
[2016-11-25 09:51] LABS: ADD SCAN DIFF NO
[2016-11-25 09:59] LABS: ABNORMAL IP MESSAGE 1; HEMATOCRIT 31.1 % (42.0-52.0); HEMOGLOBIN 9.7 g/dl (14.0-18.0); MEAN CORPUSCULAR HGB CONC 31.2 g/dl (32.0-37.0); MEAN CORPUSCULAR VOLUME 70.5 fl (82.0-101.0); MEAN PLATELET VOLUME 10.1 fl (7.4-10.4); PLATELET COUNT 385 10^3/UL (140-415); RED BLOOD COUNT 4.41 10^6/ul (4.70-6.10); RED CELL DISTRIBUTION WIDTH 16.6 % (11.5-14.5); WHITE BLOOD COUNT 12.1 10^3/ul (4.8-10.8)
[2016-11-25] MEDS: ENOXAPARIN 40 MG/0.4 ML SYG SC SCH (10:24)
[2016-11-25 10:26] LABS: POTASSIUM 4.2 mmol/L (3.5-5.1)
[2016-11-25 10:29] LABS: CREATININE 0.52 mg/dl (0.61-1.24)
[2016-11-25 10:30] LABS: CALCIUM 7.6 mg/dl (8.4-10.2)
--- NOTE | 2016-11-25 12:07 | CONS ---
Date/Time of Note Date/Time of Note DATE: 11/25/16 TIME: 12:04 Assessment/Plan Assessment/Plan Chief Complaint/Hosp Course SUBJECTIVE: Overnight, no fevers. The patient is lying comfortably in bed. DIAGNOSTICS: Chest x-ray on admission revealed bibasilar patchy consolidations and small right pleural effusion. ANTIMICROBIALS: The patient is on 1. IV vancomycin. 2. Cefepime. PHYSICAL EXAMINATION: GENERAL: Well-developed young white man who is lying comfortably in bed. HEENT: Head atraumatic, normocephalic. Sclerae anicteric. Buccal mucosa dry. NECK: Supple. CHEST: Rise symmetrical. Breath sounds diminished. HEART: S1, S2. ABDOMEN: Soft, bowel tones present. EXTREMITIES: Without cyanosis. Left lower extremity dressing intact. ASSESSMENT: 1. Left lower extremity cellulitis with chronic wound===> cx + MRSA/Strep/ Corynebact. 2. Pneumonia. 3. Hepatitis C virus. 4. Heroin addiction. PLAN: The patient remains stable. Continue IV antibiotics while in house. Follow chest x-ray in am. Follow podiatry rec-s. ?dc isolation==> no symptoms and no radiographic evidence for TB, will ask pulmonary team to evaluate his cxr DW staff Problems: Consultation Date/Type/Reason Admit Date/Time Nov 23, 2016 at 05:53 Initial Consult Date 11/23/16 Type of Consultation: id Exam/Review of Systems Vital Signs Vitals Vital Signs Date Time Temp Pulse Resp B/P Pulse Ox O2 Delivery O2 Flow Rate FiO2 11/25/16 08:05 97.6 88 18 110/67 91 11/23/16 05:51 Room Air Intake and Output 11/24/16 11/24/16 11/25/16 15:00 23:00 07:00 Intake Total 1882.5 ml 1150 ml Output Total 400 ml 700 ml Balance 1482.5 ml 450 ml Results Result Diagram: 11/25/16 0910 11/25/16 0915 Results 24 hrs Laboratory Tests Test 11/24/16 15:15 11/25/16 03:03 11/25/16 09:10 11/25/16 09:15 Vancomycin Level Trough 19.1 13.8 Hematocrit 31.1 L Hemoglobin 9.7 L Lymphocytes # Lymphocytes % Mean Corpuscular Hemoglobin 22.0 L Mean Corpuscular Hemoglobin Concent 31.2 L Mean Corpuscular Volume 70.5 L Mean Platelet Volume 10.1 Monocytes # Monocytes % Neutrophils # Neutrophils % Platelet Count 385 Red Blood Count 4.41 L Red Cell Distribution Width 16.6 H White Blood Count 12.1 H Anion Gap 12 Blood Urea Nitrogen 9 Calcium Level 7.6 L Carbon Dioxide Level 26 Chloride Level 108 Creatinine 0.52 L Glucose Level 77 Potassium Level 4.2 Sodium Level 142 Medications Medications Current Medications Ondansetron HCl (Zofran Inj) 4 mg Q6H PRN IV NAUSEA AND/OR VOMITING; Start 11/23 at 08:30 Enoxaparin Sodium (Lovenox) 40 mg DAILY SC Last administered on 11/25/16 10:24 ; Admin Dose 40 MG; Start 11/23/16 at 11:00 Vancomycin HCl 1 ea 1 ea NOTE XX ; Start 11/23/16 at 08:30 Cefepime HCl 50 ml @ 100 mls/hr Q12 IVPB Last administered on 11/25/16 09:47 ; Admin Dose 100 MLS/HR; Start 11/23/16 at 21:00 Sodium Chloride (NS) 1,000 ml @ 125 mls/hr Q8H IV Last administered on 20:18; Admin Dose 125 MLS/HR; Start 11/23/16 at 16:30 Nicotine (Nicoderm 21 Mg/ 24hr) 1 patch DAILY TRANSDERM Last administered on 09:47; Admin Dose 1 PATCH; Start 11/23/16 at 13:00 Loratadine (Claritin) 10 mg DAILY PO Last administered on 11/25/16 09:46; Admin Dose 10 MG; Start 11/23/16 at 13:00 Methadone HCl (Methadone) 60 mg DAILY PO Last administered on 11/25/16 09:46; Admin Dose 60 MG; Start 11/23/16 at 14:00 Lorazepam (Ativan) 1 mg Q6H PRN IV AGITATION; Start 11/23/16 at 14:30 Quetiapine Fumarate (Seroquel) 25 mg BID PO Last administered on 11/25/16 09: 46; Admin Dose 25 MG; Start 11/23/16 at 14:30 Collagenase 1 applic 1 applic DAILY TOP Last administered on 11/25/16 09:47; Admin Dose 1 APPLIC; Start 11/23/16 at 21:00 Vancomycin HCl 250 ml @ 125 mls/hr Q8H IVPB Last administered on 11/25/16 04: 19; Admin Dose 125 MLS/HR; Start 11/24/16 at 04:00 Ferric Sodium Gluconate Complex/ Sodium Chloride (Ferrlecit/NS) 110 ml @ 100 mls/hr Q24H IVPB Last administered on 11/24/16 13:18; Admin Dose 100 MLS/HR; Start 11/24/16 at 12:00; Stop 11/26/16 at 13:05 Famotidine (Pepcid) 20 mg Q12 PO Last administered on 11/24/16 21:25; Admin Dose 20 MG; Start 11/24/16 at 21:00 JOSE ELIAS CASTILLO NP Nov 25, 2016 12:07
[2016-11-25] MEDS: SOD FERRIC GLUC COMPLX 125 MG in SOD CHLORIDE 0.9% 100 ML IVPB SCH (12:44)
[2016-11-25 12:58] LABS: BASOPHIL # 0.1 10^3/ul (0.0-0.1); EOSINOPHILS # 0.5 10^3/ul (0.0-0.5); LYMPHOCYTES # 2.4 10^3/ul (0.8-2.9); MONOCYTE # 0.6 10^3/ul (0.3-0.9); MYELOCYTES # 0.2; NEUTROPHIL # 6.9 10^3/ul (1.6-7.5)
--- NOTE | 2016-11-25 13:16 | PN ---
Date/Time of Note Date/Time of Note DATE: 11/25/16 TIME: 13:12 Assessment/Plan VTE Prophylaxis VTE Prophylaxis Intervention: LMWH Lines/Catheters IV Catheter Type (from Nrsg): Peripheral IV Assessment/Plan Assessment/Plan * Large Open wound left leg, chronic, with surrounding cellulitis -site of Heroin injection -Infected with Staph aureus and diphtheroids * Bibasilar Pneumonia * Hypokalemia: repleted * Chronic Malnutrition with iron deficiency * Microcytic Hypochromic Anemia, likely from poor diet * Heroin Addict * Hepatitis C - New diagnosis Plan: * Continue abx/ wound is non surgical per podiatry / appreciate ID input * replace lytes * continue IVF hydration * Continue iron supplementation * Continue methadone per pain mgt / appreciate input * obtain final abx regimen from ID and begin discharge planning with case manager PROPHYLAXIS: lovenox Subjective 24 Hr Interval Summary Free Text/Dictation patient still very lethargic, but feeling better Exam/Review of Systems Vital Signs Vitals Vital Signs Date Time Temp Pulse Resp B/P Pulse Ox O2 Delivery O2 Flow Rate FiO2 11/25/16 08:05 97.6 88 18 110/67 91 11/23/16 05:51 Room Air Intake and Output 11/24/16 11/24/16 11/25/16 14:59 22:59 06:59 Intake Total 1882.5 ml 1150 ml Output Total 400 ml 700 ml Balance 1482.5 ml 450 ml Exam Constitutional: oriented Eyes: PERRL Respiratory: clear to auscultation, normal air movement Cardiovascular: nl pulses, regular rate and rhythm Gastrointestinal: bowel sounds, non-tender, soft Musculoskeletal: other (Large dry crusted ulcer, non oozing on lateral side of R leg 9cm, with surrounding cellulitis), No nl extremities to inspection Extremities: normal pulses Neurological: lethargic, nl mental status, nl speech Results Result Diagram: 11/25/16 0910 11/25/16 0915 Results 24 hrs Laboratory Tests Test 11/24/16 15:15 11/25/16 03:03 11/25/16 09:10 11/25/16 09:15 Vancomycin Level Trough 19.1 13.8 Band Neutrophils % 5.0 Basophils # 0.1 Basophils % 1.0 Differential Comment MANUAL DIFF Eosinophils # 0.5 Eosinophils % 4.0 Hematocrit 31.1 L Hemoglobin 9.7 L Lymphocytes # 2.4 Lymphocytes % 20.0 Mean Corpuscular Hemoglobin 22.0 L Mean Corpuscular Hemoglobin Concent 31.2 L Mean Corpuscular Volume 70.5 L Mean Platelet Volume 10.1 Metamyelocytes # 0.7 Metamyelocytes % 6.0 H Monocytes # 0.6 Monocytes % 5.0 Myelocytes # 0.2 Myelocytes % 2.0 H Neutrophils # 6.9 Neutrophils % 57.0 Platelet Count 385 Red Blood Count 4.41 L Red Cell Distribution Width 16.6 H White Blood Count 12.1 H Anion Gap 12 Blood Urea Nitrogen 9 Calcium Level 7.6 L Carbon Dioxide Level 26 Chloride Level 108 Creatinine 0.52 L Glucose Level 77 Potassium Level 4.2 Sodium Level 142 Medications Medications Current Medications Ondansetron HCl (Zofran Inj) 4 mg Q6H PRN IV NAUSEA AND/OR VOMITING; Start 11/23 at 08:30 Enoxaparin Sodium (Lovenox) 40 mg DAILY SC Last administered on 11/25/16 10:24 ; Admin Dose 40 MG; Start 11/23/16 at 11:00 Vancomycin HCl 1 ea 1 ea NOTE XX ; Start 11/23/16 at 08:30 Cefepime HCl 50 ml @ 100 mls/hr Q12 IVPB Last administered on 11/25/16 09:47 ; Admin Dose 100 MLS/HR; Start 11/23/16 at 21:00 Sodium Chloride (NS) 1,000 ml @ 125 mls/hr Q8H IV Last administered on 12:45; Admin Dose 125 MLS/HR; Start 11/23/16 at 16:30 Nicotine (Nicoderm 21 Mg/ 24hr) 1 patch DAILY TRANSDERM Last administered on 09:47; Admin Dose 1 PATCH; Start 11/23/16 at 13:00 Loratadine (Claritin) 10 mg DAILY PO Last administered on 11/25/16 09:46; Admin Dose 10 MG; Start 11/23/16 at 13:00 Methadone HCl (Methadone) 60 mg DAILY PO Last administered on 11/25/16 09:46; Admin Dose 60 MG; Start 11/23/16 at 14:00 Lorazepam (Ativan) 1 mg Q6H PRN IV AGITATION; Start 3/8/17 at 14:30 Quetiapine Fumarate (Seroquel) 25 mg BID PO Last administered on 11/25/16 09: 46; Admin Dose 25 MG; Start 11/23/16 at 14:30 Collagenase 1 applic 1 applic DAILY TOP Last administered on 11/25/16 09:47; Admin Dose 1 APPLIC; Start 11/23/16 at 21:00 Vancomycin HCl 250 ml @ 125 mls/hr Q8H IVPB Last administered on 11/25/16 12: 44; Admin Dose 125 MLS/HR; Start 11/24/16 at 04:00 Ferric Sodium Gluconate Complex/ Sodium Chloride (Ferrlecit/NS) 110 ml @ 100 mls/hr Q24H IVPB Last administered on 11/25/16 12:44; Admin Dose 100 MLS/HR; Start 11/24/16 at 12:00; Stop 11/26/16 at 13:05 Famotidine (Pepcid) 20 mg Q12 PO Last administered on 11/25/16 12:44; Admin Dose 20 MG; Start 11/24/16 at 21:00 Procedures Procedures PROCEDURE: MRI of the left lower extremity CLINICAL INDICATION: Left lower extremity pain and swelling, ulceration, concern for osteomyelitis TECHNIQUE: Multiplanar multisequence images of the left lower extremity without contrast utilizing multiple pulse sequences. Images were interpreted at a independent PACS workstation. COMPARISON: Radiographs of the left tibia and fibula performed same day FINDINGS: There is a very large left lateral skin and subcutaneous defect centered approximately 10 cm below the knee joint, measuring approximately 9 cm and length and 4 cm in anteroposterior dimension. There is adjacent soft tissue swelling and granulation tissue without drainable fluid collection. There is mild nonspecific edema within the peroneal and anterior musculature at this location which could reflect denervation change or infectious/inflammatory myositis. There is no evidence of acute fracture. There is no evidence of osteomyelitis at this time. Limited assessment of the knee joint is grossly unremarkable. Limited assessment of the right lower extremity is grossly unremarkable. IMPRESSION: 1. Large lateral skin and subcutaneous defect measuring 9 x 4 cm as described above. There is surrounding soft tissue swelling and granulation tissue without drainable fluid collection. Mild nonspecific edema within the adjacent peroneal and anterior compartment musculature may reflect denervation change or mild infectious or inflammatory myositis. 2. No evidence of acute fracture or underlying osteomyelitis at this time. RPTAT: UU .Omar Gaspar MD, MD Date Time Electronically viewed and signed by .Omar Gaspar MD, on 11/23/2016 17: 15 .JEOVANY BENITEZ Nov 25, 2016 13:16
--- NOTE | 2016-11-25 14:46 | CONS ---
Date/Time of Note Date/Time of Note DATE: 11/25/16 TIME: 14:40 Assessment/Plan Assessment/Plan Additional Assessment/Plan Chest x-ray was reviewed from 8 of this month which is showing dense bilateral lower lobe consolidation more pronounced right lower lobe. Next Assessment recommendations; 1. Patient admitted with bilateral lower lobe pneumonia community-acquired. Currently there is no suspicion of pulmonary tuberculosis. 2. Left lower extremity skin ulceration/abscess from intravenous drug use. Next Continue current treatment. Add Levaquin 5 mg IV daily. Obtain follow-up chest x-ray in 48 hours. HIV status is pending. But according to him he has been tested negative multiple times in the past. Consultation Date/Type/Reason Admit Date/Time Nov 23, 2016 at 05:53 Date of Consultation: Nov 25, 2016 Reason for Consultation Pulmonary consultation obtained for evaluation of pneumonia , possibly underlying pulmonary tuberculosis. History presenting any; patient is a 31-year-old white male who came into the hospital on the eighth of this month with complaints of cough with production of yellow sputum going on for the last few days prior to presentation to ER patient also was found to have right lower extremity ulcer owing to intravenous drug use. The patient is feeling better still complains of mild shortness of breath cough and production of yellow sputum. Denies any coughing up of blood. Patient did have low-grade fever for 2 days ago with resolution. Denies any abdominal pain nausea vomiting chills. Past medical history; 1. History of extensive intravenous drug use with extensive skin ulcerations and surgical drainages. 2. According to patient he has always been tested negative for HIV. Next 3. No prior history of pneumonia. 4. Most of any recent travel. Medications; were reviewed. Allergies; are none. Next Social history; patient is active intravenous drug user also smokes tobacco half a pack a day. Family history; patient is single, he is homeless. Next Occupational history; patient is disabled. Next Review of systems; denies any headache, seizures, visual changes, sinus symptoms , postnasal drip. Denies any hearing loss. Any dysphagia odynophagia or sore throat, denies any chest pain, comes of cough with yellow sputum production. Denies any hemoptysis. Has lost little weight. Denies any night sweats any further fever chills. Denies any melena, hematochezia any urinary symptoms. Complains of pain at left lower extremity abscess site. Past Medical History Medical History: hypertension Social History Smoking Status: Current every day smoker Drug Use: heroin Exam/Review of Systems Vital Signs Vitals Vital Signs Date Time Temp Pulse Resp B/P Pulse Ox O2 Delivery O2 Flow Rate FiO2 11/25/16 08:05 97.6 88 18 110/67 91 11/23/16 05:51 Room Air Intake and Output 11/24/16 11/24/16 11/25/16 15:00 23:00 07:00 Intake Total 1882.5 ml 1150 ml Output Total 400 ml 700 ml Balance 1482.5 ml 450 ml Exam HEENT exam is; supple neck, no JVD. No lymphadenopathy. Midline trachea. No thyromegaly. Fair dentition. Pharynx is clear. No thrush. Pupils are midsize and reactive to light. Extra ocular movement are intact. Next Chest examination; upper lobes are clear to auscultation with crackles and bronchial breath sounds involving lower lobes more pronounced in left lower lobe. S1-S2 audible, no murmurs. Regular rhythm. Abdomen examination; soft, nontender. No organomegaly. Bowel sounds audible. Extremity examination; multiple skin scars are present in upper and lower extremities with a dressing applied at mid left lower leg 1+ bilaterally. INSTRUMENT CALIBRATOR examination; no focal deficit. Results Result Diagram: 11/25/16 0910 11/25/16 0915 Results 24 hrs Laboratory Tests Test 11/24/16 15:15 11/25/16 03:03 11/25/16 09:10 11/25/16 09:15 Vancomycin Level Trough 19.1 13.8 Band Neutrophils % 5.0 Basophils # 0.1 Basophils % 1.0 Differential Comment MANUAL DIFF Eosinophils # 0.5 Eosinophils % 4.0 Hematocrit 31.1 L Hemoglobin 9.7 L Lymphocytes # 2.4 Lymphocytes % 20.0 Mean Corpuscular Hemoglobin 22.0 L Mean Corpuscular Hemoglobin Concent 31.2 L Mean Corpuscular Volume 70.5 L Mean Platelet Volume 10.1 Metamyelocytes # 0.7 Metamyelocytes % 6.0 H Monocytes # 0.6 Monocytes % 5.0 Myelocytes # 0.2 Myelocytes % 2.0 H Neutrophils # 6.9 Neutrophils % 57.0 Platelet Count 385 Red Blood Count 4.41 L Red Cell Distribution Width 16.6 H White Blood Count 12.1 H Anion Gap 12 Blood Urea Nitrogen 9 Calcium Level 7.6 L Carbon Dioxide Level 26 Chloride Level 108 Creatinine 0.52 L Glucose Level 77 Potassium Level 4.2 Sodium Level 142 Medications Medications Current Medications Ondansetron HCl (Zofran Inj) 4 mg Q6H PRN IV NAUSEA AND/OR VOMITING; Start 11/23 at 08:30 Enoxaparin Sodium (Lovenox) 40 mg DAILY SC Last administered on 11/25/16 10:24 ; Admin Dose 40 MG; Start 11/23/16 at 11:00 Vancomycin HCl 1 ea 1 ea NOTE XX ; Start 11/23/16 at 08:30 Cefepime HCl 50 ml @ 100 mls/hr Q12 IVPB Last administered on 11/25/16 09:47 ; Admin Dose 100 MLS/HR; Start 11/23/16 at 21:00 Sodium Chloride (NS) 1,000 ml @ 125 mls/hr Q8H IV Last administered on 12:45; Admin Dose 125 MLS/HR; Start 11/23/16 at 16:30 Nicotine (Nicoderm 21 Mg/ 24hr) 1 patch DAILY TRANSDERM Last administered on 09:47; Admin Dose 1 PATCH; Start 11/23/16 at 13:00 Loratadine (Claritin) 10 mg DAILY PO Last administered on 11/25/16 09:46; Admin Dose 10 MG; Start 11/23/16 at 13:00 Methadone HCl (Methadone) 60 mg DAILY PO Last administered on 11/25/16 09:46; Admin Dose 60 MG; Start 11/23/16 at 14:00 Lorazepam (Ativan) 1 mg Q6H PRN IV AGITATION; Start 11/23/16 at 14:30 Quetiapine Fumarate (Seroquel) 25 mg BID PO Last administered on 11/25/16 09: 46; Admin Dose 25 MG; Start 11/23/16 at 14:30 Collagenase 1 applic 1 applic DAILY TOP Last administered on 11/25/16 09:47; Admin Dose 1 APPLIC; Start 11/23/16 at 21:00 Vancomycin HCl 250 ml @ 125 mls/hr Q8H IVPB Last administered on 11/25/16 12: 44; Admin Dose 125 MLS/HR; Start 11/24/16 at 04:00 Ferric Sodium Gluconate Complex/ Sodium Chloride (Ferrlecit/NS) 110 ml @ 100 mls/hr Q24H IVPB Last administered on 11/25/16 12:44; Admin Dose 100 MLS/HR; Start 11/24/16 at 12:00; Stop 11/26/16 at 13:05 Famotidine (Pepcid) 20 mg Q12 PO Last administered on 11/25/16 12:44; Admin Dose 20 MG; Start 11/24/16 at 21:00 ABEL BRIONES Nov 25, 2016 14:45
[2016-11-25] MEDS: LEVOFLOXACIN 500MG/D5W (PMX) 100 ML IVPB SCH ×2 (15:00→16:57)
--- NOTE | 2016-11-25 16:17 | RADRPT ---
PROCEDURE: XR Chest. CLINICAL INDICATION: Cough and fever. TECHNIQUE: Single frontal view. COMPARISON: 11/23/2016. FINDINGS: There is air space disease bilaterally in the mid and lower lung zones consistent with bilateral pne umonia, worse than seen previously. Right is worse than left. The heart size is normal. There are probable small bilateral pleural effusions. There is no pneumothorax. IMPRESSION: 1. Bilateral mid and lower lung zone pneumonia with right worse than left. 2. Small bilateral pleural effusions. 3. Worse appearance when compared with 11/23/2016. RPTAT: QQ .Juan Daniel Manning MD, MD Date Time Electronically viewed and signed by .Juan Daniel Manning MD, on 11/25/2016 16:17 .R/
[2016-11-25 20:53] VITALS: BP 108/64; RESP 18
[2016-11-26] MEDS: SOD CHLORIDE 0.9% 1,000 ML IV SCH ×5 (00:30→21:16)
[2016-11-26] MEDS: VANCOMYCIN 1 GM in NS 250 ML IVPB SCH ×4 (04:30→21:19)
[2016-11-26 07:47] VITALS: BP 113/70; RESP 26
[2016-11-26 08:52] VITALS: BP 112/73; PULSE 94
[2016-11-26] MEDS: NICOTINE (21 MG/24 HR) PATCH TRANSDERM SCH (08:53)
[2016-11-26] MEDS: QUETIAPINE 25 MG TAB PO SCH ×2 (08:54→21:13)
[2016-11-26] MEDS: FAMOTIDINE 20 MG TAB PO SCH ×2 (08:54→21:13)
[2016-11-26] MEDS: LORATADINE 10 MG TAB PO SCH (08:54)
[2016-11-26] MEDS: METHADONE 10 MG TAB PO SCH (08:54)
[2016-11-26] MEDS: COLLAGENASE 30 GM TUBE TOP SCH (08:57)
--- NOTE | 2016-11-26 10:17 | PN ---
Date/Time of Note Date/Time of Note DATE: 11/26/16 TIME: 10:15 Assessment/Plan VTE Prophylaxis VTE Prophylaxis Intervention: LMWH Lines/Catheters IV Catheter Type (from Nrsg): Peripheral IV Assessment/Plan Assessment/Plan * Large Open wound left leg, chronic, with surrounding cellulitis -site of Heroin injection -Infected with Staph aureus and diphtheroids * Bibasilar Pneumonia * Hypokalemia: repleted * Chronic Malnutrition with iron deficiency * Microcytic Hypochromic Anemia, likely from poor diet * Heroin Addict * Hepatitis C - New diagnosis Plan: * Continue abx/ wound is non surgical per podiatry / appreciate ID input * replace lytes * continue IVF hydration * Continue iron supplementation * Will reduce dosing from methadone if ok with pain mgt for severe lethargy * D/c isolation precautions per pulm * obtain final abx regimen from ID and begin discharge planning with rehabilitation case coordinator PROPHYLAXIS: lovenox Subjective 24 Hr Interval Summary Free Text/Dictation has been very lethargic for the last 2 days Exam/Review of Systems Vital Signs Vitals Vital Signs Date Time Temp Pulse Resp B/P Pulse Ox O2 Delivery O2 Flow Rate FiO2 11/26/16 08:52 94 112/73 11/26/16 07:47 98.5 26 87 11/23/16 05:51 Room Air Intake and Output 11/25/16 11/25/16 11/26/16 15:00 23:00 07:00 Intake Total 250 ml 1690 ml 1350 ml Output Total 1500 ml 1800 ml Balance 250 ml 190 ml -450 ml Results Result Diagram: 11/25/16 0910 11/25/16 0915 Medications Medications Current Medications Ondansetron HCl (Zofran Inj) 4 mg Q6H PRN IV NAUSEA AND/OR VOMITING; Start 11/23 at 08:30 Enoxaparin Sodium (Lovenox) 40 mg DAILY SC Last administered on 11/25/16 10:24 ; Admin Dose 40 MG; Start 11/23/16 at 11:00 Vancomycin HCl 1 ea 1 ea NOTE XX ; Start 11/23/16 at 08:30 Sodium Chloride (NS) 1,000 ml @ 125 mls/hr Q8H IV Last administered on 06:22; Admin Dose 125 MLS/HR; Start 11/23/16 at 16:30 Nicotine (Nicoderm 21 Mg/ 24hr) 1 patch DAILY TRANSDERM Last administered on 08:53; Admin Dose 1 PATCH; Start 11/23/16 at 13:00 Loratadine (Claritin) 10 mg DAILY PO Last administered on 11/26/16 08:54; Admin Dose 10 MG; Start 11/23/16 at 13:00 Methadone HCl (Methadone) 60 mg DAILY PO Last administered on 11/26/16 08:54; Admin Dose 60 MG; Start 11/23/16 at 14:00 Lorazepam (Ativan) 1 mg Q6H PRN IV AGITATION; Start 11/23/16 at 14:30 Quetiapine Fumarate (Seroquel) 25 mg BID PO Last administered on 11/26/16 08: 54; Admin Dose 25 MG; Start 11/23/16 at 14:30 Collagenase 1 applic 1 applic DAILY TOP Last administered on 11/26/16 08:57; Admin Dose 1 APPLIC; Start 11/23/16 at 21:00 Vancomycin HCl 250 ml @ 125 mls/hr Q8H IVPB Last administered on 11/26/16 04: 30; Admin Dose 125 MLS/HR; Start 11/24/16 at 04:00 Ferric Sodium Gluconate Complex/ Sodium Chloride (Ferrlecit/NS) 110 ml @ 100 mls/hr Q24H IVPB Last administered on 11/25/16 12:44; Admin Dose 100 MLS/HR; Start 11/24/16 at 12:00; Stop 11/26/16 at 13:05 Famotidine 20 mg 20 mg Q12 PO Last administered on 11/26/16 08:54; Admin Dose 20 MG; Start 11/24/16 at 21:00 Levofloxacin/ Dextrose (Levaquin 500mg/ D5W 100 ml (Pmx)) 100 ml @ 100 mls/hr Q24H IVPB Last administered on 11/25/16 16:57; Admin Dose 100 MLS/HR; Start at 15:00 JEOVANY GREENBERG Nov 26, 2016 10:17
[2016-11-26] MEDS: ENOXAPARIN 40 MG/0.4 ML SYG SC SCH (10:37)
[2016-11-26 10:44] LABS: ADD SCAN DIFF NO
[2016-11-26 10:45] LABS: ABNORMAL IP MESSAGE 1; HEMATOCRIT 31.1 % (42.0-52.0); HEMOGLOBIN 9.2 g/dl (14.0-18.0); MEAN CORPUSCULAR HEMOGLOBIN 21.6 pg (29.0-33.0); MEAN CORPUSCULAR HGB CONC 29.6 g/dl (32.0-37.0); MEAN CORPUSCULAR VOLUME 73.2 fl (82.0-101.0); MEAN PLATELET VOLUME 9.8 fl (7.4-10.4); PLATELET COUNT 370 10^3/UL (140-415); RED BLOOD COUNT 4.25 10^6/ul (4.70-6.10); RED CELL DISTRIBUTION WIDTH 18.5 % (11.5-14.5)
[2016-11-26 10:58] LABS: POTASSIUM 4.2 mmol/L (3.5-5.1)
[2016-11-26 11:00] LABS: CREATININE 0.55 mg/dl (0.61-1.24)
[2016-11-26 11:01] LABS: CALCIUM 7.6 mg/dl (8.4-10.2)
[2016-11-26] MEDS: SOD FERRIC GLUC COMPLX 125 MG in SOD CHLORIDE 0.9% 100 ML IVPB SCH (11:25)
[2016-11-26 11:39] LABS: EOSINOPHILS # 0.6 10^3/ul (0.0-0.5); LYMPHOCYTES # 2.2 10^3/ul (0.8-2.9); MONOCYTE # 0.6 10^3/ul (0.3-0.9); MYELOCYTES # 0.2; NEUTROPHIL # 6.8 10^3/ul (1.6-7.5)
[2016-11-26 11:41] LABS: TOXIC GRANULATION 1+
--- NOTE | 2016-11-26 13:10 | CONS ---
Date/Time of Note Date/Time of Note DATE: 11/26/16 TIME: 13:10 Assessment/Plan Assessment/Plan Chief Complaint/Hosp Course ID PROGRESS NOTE TOTAL ABX DAY #4 => Vanco IV + Levaquin s/p Cefepime 24H INTERVAL SUMMARY * Afebrile, VSS, WBC normalizing, c/o wheezing w/increased productive cough -- difficult to cough up * CXR: 11/25 1. Bilateral mid and lower lung zone pneumonia with right worse than left. 2. Small bilateral pleural effusions. Natalie: 11/24/16-629 Rcvd: 11/24/16-1154 Source: SPUTUM Sp Descrip: Microbiology * AFB SMEAR Final ACID FAST BACILLI NONE SEEN * AFB CULTURE Preliminary (held 6 weeks) PHYSICAL EXAMINATION: GENERAL: yo lethargic HEENT: Unremarkable NECK: Supple, full ROM CHEST: Equal chest rise bilaterally, without dyspnea on observation, (+) expiratory wheeze/rhonchi on auscultation HEART: Pulse RRR ABDOMEN: Soft EXTREMITIES: Warm, LLEXT DSG C/D/I SKIN: See hard chart skin assessment ID ASSESSMENT: 31 yo M w/current IVDU-Heroin, (-)HIV Screening admit with: 1. SIRS vs cold sepsis on admission w/Temp 97.4 range, marked leukocytosis, tachycardia, low norm B/P 2nd/2 #1 #2 2. Left lower extremity cellulitis, (+)Myositis = deep tissue infection chronic open wound x 2 months: Per notes, the patient self-injects heroin into the wound. * The MRI shows no drainable abscess in the left lower leg. 11/23/16 MRI FINDINGS : 1. Large lateral skin and subcutaneous defect measuring 9 x 4 cm as described above. There is surrounding soft tissue swelling and granulation tissue without drainable fluid collection. Mild nonspecific edema within the adjacent peroneal and anterior compartment musculature may reflect denervation change or mild infectious or inflammatory myositis. 2. No evidence of acute fracture or underlying osteomyelitis at this time. * WOUND CULTURE Final Organism 1 METHICILLIN RESISTANT S.AUREUS QUANTITY 3+ . MULTI DRUG RESISTANT ORGANISM Organism 2 CORYNEBACTERIUM SPECIES QUANTITY 3+ Organism 3 STREPTOCOCCUS GROUP C QUANTITY RARE 2. Pneumonia=> Bilateral Community Acquired 3. COPD exacerbation asthmatic-bronchitis 4. Tobaccoism 5. Psych DX NOS -> On Quetiapine 6. Hepatitis C virus w/elevated AST ()MRSA Nares -- will check INVASIVES: PIV ABX ALLERGY: KNDA CURRENT ABX: TOTAL ABX DAY #4 => Vanco IV + Levaquin s/p Cefepime ID RECOMMENDATIONS: 1. Continue IV ABX for deep tissue myositis infection w/chronic open wound anticipate 4 weeks IV ABX 2. Wound care per [facility] team 3. Respiratory cx -- nor ordered to date only AFB x3 ? 4. CXR in am -- pt c/o worsening congestion difficult to expectorate 5. Robitussin DM expectorate 6. HHN Albuterol/Atrovent Q6 H -- Pt wheezing 7. When cleared for DC -> consider DC to SNF for wound care and IV ABX under observation . Problems: Consultation Date/Type/Reason Admit Date/Time Nov 23, 2016 at 05:53 Initial Consult Date 11/25/16 Type of Consultation: id Exam/Review of Systems Vital Signs Vitals Vital Signs Date Time Temp Pulse Resp B/P Pulse Ox O2 Delivery O2 Flow Rate FiO2 11/26/16 08:52 94 112/73 11/26/16 07:47 98.5 26 87 11/23/16 05:51 Room Air Intake and Output 11/25/16 11/25/16 11/26/16 15:00 23:00 07:00 Intake Total 250 ml 1690 ml 1350 ml Output Total 1500 ml 1800 ml Balance 250 ml 190 ml -450 ml Results Result Diagram: 11/26/16 1015 11/26/16 1015 Results 24 hrs Laboratory Tests Test 11/26/16 10:15 Anion Gap 13 Band Neutrophils % 4.0 Blood Urea Nitrogen 9 Calcium Level 7.6 L Carbon Dioxide Level 27 Chloride Level 104 Creatinine 0.55 L Eosinophils # 0.6 H Eosinophils % 5.0 Glucose Level 81 Hematocrit 31.1 L Hemoglobin 9.2 L Lymphocytes # 2.2 Lymphocytes % 20.0 Mean Corpuscular Hemoglobin 21.6 L Mean Corpuscular Hemoglobin Concent 29.6 L Mean Corpuscular Volume 73.2 L Mean Platelet Volume 9.8 Metamyelocytes # 0.1 Metamyelocytes % 1.0 H Monocytes # 0.6 Monocytes % 5.0 Myelocytes # 0.2 Myelocytes % 2.0 H Neutrophils # 6.8 Neutrophils % 62.0 Platelet Count 370 Potassium Level 4.2 Promyelocytes # 0.1 Promyelocytes % 1.0 H Red Blood Count 4.25 L Red Cell Distribution Width 18.5 H Sodium Level 140 Toxic Granulation 1+ White Blood Count 11.0 H Medications Medications Current Medications Ondansetron HCl (Zofran Inj) 4 mg Q6H PRN IV NAUSEA AND/OR VOMITING; Start 11/23 at 08:30 Enoxaparin Sodium (Lovenox) 40 mg DAILY SC Last administered on 11/26/16 10:37 ; Admin Dose 40 MG; Start 11/23/16 at 11:00 Vancomycin HCl 1 ea 1 ea NOTE XX ; Start 11/23/16 at 08:30 Sodium Chloride (NS) 1,000 ml @ 125 mls/hr Q8H IV Last administered on 06:22; Admin Dose 125 MLS/HR; Start 11/23/16 at 16:30 Nicotine (Nicoderm 21 Mg/ 24hr) 1 patch DAILY TRANSDERM Last administered on 08:53; Admin Dose 1 PATCH; Start 11/23/16 at 13:00 Loratadine (Claritin) 10 mg DAILY PO Last administered on 11/26/16 08:54; Admin Dose 10 MG; Start 11/23/16 at 13:00 Lorazepam (Ativan) 1 mg Q6H PRN IV AGITATION; Start 11/23/16 at 14:30 Quetiapine Fumarate (Seroquel) 25 mg BID PO Last administered on 11/26/16 08: 54; Admin Dose 25 MG; Start 11/23/16 at 14:30 Collagenase 1 applic 1 applic DAILY TOP Last administered on 11/26/16 08:57; Admin Dose 1 APPLIC; Start 11/23/16 at 21:00 Vancomycin HCl (Vancocin) 250 ml @ 125 mls/hr Q8H IVPB Last administered on 12:41; Admin Dose 125 MLS/HR; Start 11/24/16 at 04:00 Famotidine 20 mg 20 mg Q12 PO Last administered on 11/26/16 08:54; Admin Dose 20 MG; Start 11/24/16 at 21:00 Levofloxacin/ Dextrose (Levaquin 500mg/ D5W 100 ml (Pmx)) 100 ml @ 100 mls/hr Q24H IVPB Last administered on 11/25/16t 16:57; Admin Dose 100 MLS/HR; Start at 15:00 Methadone HCl (Methadone) 20 mg DAILY PO ; Start 11/27/16 at 09:00 Miscellaneous Information (*Rx Drug Level Order Reminder*) VANCOMYCIN TROUGH AT 1900 ONCE ONCE XX ; Start 11/26/16 at 19:00; Stop 11/26/16 at 19:01 HITESH KHAN NP Nov 26, 2016 13:10
[2016-11-26 14:01] LABS: POLYCHROMASIA 1+; TARGET CELLS OCCASIONAL
[2016-11-26] MEDS ORDERED: ALBUTEROL/IPRATROPIUM (NEB) 3 ML AMP HHN ONE (14:30)
[2016-11-26] MEDS: LEVOFLOXACIN 500MG/D5W (PMX) 100 ML IVPB SCH (15:30)
[2016-11-26] MEDS ORDERED: CLOTRIMAZOLE 10 MG TROCHE MT PRN (16:00)
[2016-11-26] MEDS: GUAIFENESIN 20 MG/ML 5ML CUP PO PRN (17:35)
[2016-11-26] MEDS: ALBUTEROL/IPRATROPIUM (NEB) 3 ML AMP HHN SCH (19:50)
[2016-11-26 20:00] VITALS: BP 107/62; RESP 22
[2016-11-27] MEDS: SOD CHLORIDE 0.9% 1,000 ML IV SCH ×3 (00:10→20:45)
[2016-11-27] MEDS: VANCOMYCIN 1 GM in NS 250 ML IVPB SCH ×4 (04:25→20:59)
[2016-11-27] MEDS: ALBUTEROL/IPRATROPIUM (NEB) 3 ML AMP HHN SCH ×3 (08:00→19:55)
[2016-11-27 08:08] VITALS: BP 105/75; RESP 22
[2016-11-27] MEDS: FAMOTIDINE 20 MG TAB PO SCH ×2 (08:31→20:59)
[2016-11-27] MEDS: LORATADINE 10 MG TAB PO SCH (08:31)
[2016-11-27] MEDS: QUETIAPINE 25 MG TAB PO SCH ×2 (08:31→20:59)
[2016-11-27] MEDS: NICOTINE (21 MG/24 HR) PATCH TRANSDERM SCH (08:32)
[2016-11-27] MEDS: METHADONE 10 MG TAB PO SCH (08:32)
[2016-11-27] MEDS: COLLAGENASE 30 GM TUBE TOP SCH (08:34)
--- NOTE | 2016-11-27 09:22 | PN ---
Date/Time of Note Date/Time of Note DATE: 11/27/16 TIME: 09:17 Assessment/Plan VTE Prophylaxis VTE Prophylaxis Intervention: LMWH Lines/Catheters IV Catheter Type (from Nrs): Peripheral IV Assessment/Plan Assessment/Plan Assessment/Plan * Large Open wound left leg, chronic, with surrounding cellulitis -site of Heroin injection -Infected with Staph aureus and diphtheroids * Bibasilar Pneumonia R>>L * Hypokalemia: repleted * Chronic Malnutrition with iron deficiency * Microcytic Hypochromic Anemia, likely from poor diet * Heroin Addict * Hepatitis C - New diagnosis Plan: * Wound reviewed again by podiatry / still no surgical intervention required * Continue abx / appreciate ID input * replace lytes * continue IVF hydration * Continue iron supplementation * Methadone dosing reduced for severe lethargy * Obtain final abx regimen from ID and begin discharge planning with case checker PROPHYLAXIS: lovenox Subjective 24 Hr Interval Summary Free Text/Dictation Patient seen and examined. more alert still coughing a lot Exam/Review of Systems Vital Signs Vitals Vital Signs Date Time Temp Pulse Resp B/P Pulse Ox O2 Delivery O2 Flow Rate FiO2 11/27/16 08:08 98.0 82 22 105/75 91 11/26/16 19:59 2.0 11/26/16 19:59 Nasal Cannula 11/26/16 19:50 21 Intake and Output 11/26/16 11/26/16 11/27/16 15:00 23:00 07:00 Intake Total 2640 ml 1250 ml Output Total 2800 ml 500 ml Balance -160 ml 750 ml Exam Constitutional: alert, oriented Eyes: PERRL Respiratory: clear to auscultation, normal air movement Cardiovascular: nl pulses, regular rate and rhythm Gastrointestinal: bowel sounds, non-tender, soft Musculoskeletal: other (Large dry crusted ulcer, non oozing on lateral side of R leg 9cm, with surrounding cellulitis), No nl extremities to inspection Extremities: normal pulses Neurological: less lethargic, nl mental status, nl speech Results Result Diagram: 11/26/16 1015 11/26/16 1015 Results 24 hrs Laboratory Tests Test 11/26/16 10:15 11/26/16 19:15 Anion Gap 13 Band Neutrophils % 4.0 Blood Urea Nitrogen 9 Calcium Level 7.6 L Carbon Dioxide Level 27 Chloride Level 104 Creatinine 0.55 L Eosinophils # 0.6 H Eosinophils % 5.0 Glucose Level 81 Hematocrit 31.1 L Hemoglobin 9.2 L Lymphocytes # 2.2 Lymphocytes % 20.0 Mean Corpuscular Hemoglobin 21.6 L Mean Corpuscular Hemoglobin Concent 29.6 L Mean Corpuscular Volume 73.2 L Mean Platelet Volume 9.8 Metamyelocytes # 0.1 Metamyelocytes % 1.0 H Monocytes # 0.6 Monocytes % 5.0 Myelocytes # 0.2 Myelocytes % 2.0 H Neutrophils # 6.8 Neutrophils % 62.0 Platelet Count 370 Polychromasia 1+ Potassium Level 4.2 Promyelocytes # 0.1 Promyelocytes % 1.0 H Red Blood Count 4.25 L Red Cell Distribution Width 18.5 H Sodium Level 140 Target Cells OCCASIONAL Toxic Granulation 1+ White Blood Count 11.0 H Vancomycin Level Trough 14.3 Medications Medications Current Medications Ondansetron HCl (Zofran Inj) 4 mg Q6H PRN IV NAUSEA AND/OR VOMITING; Start 11/23 at 08:30 Enoxaparin Sodium (Lovenox) 40 mg DAILY SC Last administered on 11/26/16 10:37 ; Admin Dose 40 MG; Start 11/23/16 at 11:00 Vancomycin HCl 1 ea 1 ea NOTE XX ; Start 11/23/16 at 08:30 Sodium Chloride (NS) 1,000 ml @ 125 mls/hr Q8H IV Last administered on 21:16; Admin Dose 125 MLS/HR; Start 11/23/16 at 16:30 Nicotine (Nicoderm 21 Mg/ 24hr) 1 patch DAILY TRANSDERM Last administered on 08:32; Admin Dose 1 PATCH; Start 11/23/16 at 13:00 Loratadine (Claritin) 10 mg DAILY PO Last administered on 11/27/16 08:31; Admin Dose 10 MG; Start 11/23/16 at 13:00 Lorazepam (Ativan) 1 mg Q6H PRN IV AGITATION; Start 11/23/16 at 14:30 Quetiapine Fumarate (Seroquel) 25 mg BID PO Last administered on 11/27/16 08: 31; Admin Dose 25 MG; Start 11/23/16 at 14:30 Collagenase 1 applic 1 applic DAILY TOP Last administered on 11/27/16 08:34; Admin Dose 1 APPLIC; Start 11/23/16 at 21:00 Vancomycin HCl (Vancocin) 250 ml @ 125 mls/hr Q8H IVPB Last administered on 04:25; Admin Dose 125 MLS/HR; Start 11/24/16 at 04:00 Famotidine 20 mg 20 mg Q12 PO Last administered on 11/27/16 08:31; Admin Dose 20 MG; Start 11/24/16 at 21:00 Levofloxacin/ Dextrose (Levaquin 500mg/ D5W 100 ml (Pmx)) 100 ml @ 100 mls/hr Q24H IVPB Last administered on 11/26/16 15:30; Admin Dose 100 MLS/HR; Start at 15:00 Methadone HCl (Methadone) 20 mg DAILY PO Last administered on 11/27/16 08:32; Admin Dose 20 MG; Start 11/27/16 at 09:00 Guaifenesin (Robitussin Liquid Cup) 100 mg Q4H PRN PO COUGH Last administered on 11/26/16 17:35; Admin Dose 100 MG; Start 11/26/16 at 16:00 Clotrimazole (Mycelex Milad) 10 mg Q6H PRN MT DRY MOUTH Last administered on 17:36; Admin Dose 10 MG; Start 11/26/16 at 16:00 Procedures Procedures PROCEDURE: XR Chest PA and Lateral CLINICAL INDICATION: Worsening pneumonia TECHNIQUE: PA and Lateral views of the chest were obtained. COMPARISON: 11/25/2016 FINDINGS: Cardiovascular: The cardiovascular silhouette appears unremarkable. Lung Scales: Dense alveolar infiltrate with some volume loss is again seen within the lower lung zones bilaterally, unchanged. Pleural Spaces: The right costophrenic angle is obscured assess the a small right pleural fluid accumulation can again not be excluded. No pneumothorax is evident. Osseous Structures: The osseous structures appear intact. Soft Tissues: The soft tissues appear unremarkable. IMPRESSION: 1. No significant interval change to the dense alveolar infiltrates and possibly atelectatic change involving the lung bases bilaterally, again more extensive on the right. 2. Again, a right pleural fluid accumulation cannot be excluded. Stanley Loco Physician Date Time Electronically viewed and signed by Stanley Loco Physician on 11/27/2016 12:01 RH/ CC: HITESH KHAN NP, B[place]AT[place] M. Nov 27, 2016 09:21
[2016-11-27 10:18] LABS: ADD SCAN DIFF NO
[2016-11-27 10:23] LABS: BASOPHILS % 0.4 % (0.0-2.0); EOSINOPHILS # 0.2 10^3/ul (0.0-0.5); EOSINOPHILS % 3.2 % (0.0-7.0); HEMATOCRIT 31.1 % (42.0-52.0); HEMOGLOBIN 9.1 g/dl (14.0-18.0); LYMPHOCYTES # 1.9 10^3/ul (0.8-2.9); LYMPHOCYTES % 25.9 % (15.0-51.0); MEAN CORPUSCULAR HGB CONC 29.3 g/dl (32.0-37.0); MEAN CORPUSCULAR VOLUME 75.1 fl (82.0-101.0); MEAN PLATELET VOLUME 10.4 fl (7.4-10.4); MONOCYTE # 0.6 10^3/ul (0.3-0.9); MONOCYTES % 7.5 % (0.0-11.0); NEUTROPHIL # 4.4 10^3/ul (1.6-7.5); PLATELET COUNT 228 10^3/UL (140-415); RED BLOOD COUNT 4.14 10^6/ul (4.70-6.10); WHITE BLOOD COUNT 7.4 10^3/ul (4.8-10.8)
[2016-11-27 10:30] LABS: POTASSIUM 4.3 mmol/L (3.5-5.1)
[2016-11-27 10:32] LABS: CREATININE 0.6 mg/dl (0.61-1.24)
[2016-11-27 10:33] LABS: CALCIUM 7.7 mg/dl (8.4-10.2)
[2016-11-27] MEDS: ENOXAPARIN 40 MG/0.4 ML SYG SC SCH (11:41)
--- NOTE | 2016-11-27 12:02 | RADRPT ---
PROCEDURE: XR Chest PA and Lateral CLINICAL INDICATION: Worsening pneumonia TECHNIQUE: PA and Lateral views of the chest were obtained. COMPARISON: 11/25/2016 FINDINGS: Cardiovascular: The cardiovascular silhouette appears unremarkable. Lung Scales: Dense alveolar infiltrate with some volume loss is again seen within the lower lung zon es bilaterally, unchanged. Pleural Spaces: The right costophrenic angle is obscured assess the a small right pleural fluid accu mulation can again not be excluded. No pneumothorax is evident. Osseous Structures: The osseous structures appear intact. Soft Tissues: The soft tissues appear unremarkable. IMPRESSION: 1. No significant interval change to the dense alveolar infiltrates and possibly atelectatic change involving the lung bases bilaterally, again more extensive on the right. 2. Again, a right pleural fluid accumulation cannot be excluded. Physician Shlomo Date Time Electronically viewed and signed by Stanley Loco Physician on 11/27/2016 12:01 /
[2016-11-27] MEDS ORDERED: LIDOCAINE 1% (MDV) 20 ML INJ SC ONE (12:30)
[2016-11-27] MEDS: DOCUSATE SODIUM 100 MG CAP PO SCH ×2 (12:30→21:00)
--- NOTE | 2016-11-27 15:20 | PN ---
Date/Time of Note Date/Time of Note DATE: 11/27/16 TIME: 15:19 Assessment/Plan Lines/Catheters IV C[facility]ter Type (from [facility] Saline Lock Assessment/Plan Problems: (1) Non-pressure ulcer of left lower extremity with fat layer exposed Comment: Sig improved; continue Santyl ointment to the wound with daily dressing changes. No surgery recommended at this time. May discharge as per foot surgery; pending d/c planning. (2) Pneumonia Status: Acute Qualifiers: Pneumonia type: due to unspecified organism Laterality: bilateral Lung location: unspecified part of lung Qualified Code: J18.9 - Pneumonia of both lungs due to infectious organism, unspecified part of lung Exam/Review of Systems Vital Signs Vitals Vital Signs Date Time Temp Pulse Resp B/P Pulse Ox O2 Delivery O2 Flow Rate FiO2 11/27/16 14:17 83 22 92 Nasal Cannula 2.0 11/27/16 08:08 98.0 105/75 11/26/16 19:50 21 Intake and Output 11/26/16 11/26/16 11/27/16 15:00 23:00 07:00 Intake Total 2640 ml 1250 ml Output Total 2800 ml 500 ml Balance -160 ml 750 ml Results Result Diagram: 11/27/16 0950 11/27/16 0958 MALINI GONZALEZ DPM Nov 27, 2016 15:20
[2016-11-27] MEDS: LEVOFLOXACIN 500MG/D5W (PMX) 100 ML IVPB SCH (15:57)
--- NOTE | 2016-11-27 16:18 | CONS ---
Date/Time of Note Date/Time of Note DATE: 11/27/16 TIME: 16:09 Assessment/Plan Assessment/Plan Chief Complaint/Hosp Course ID PROGRESS NOTE TOTAL ABX DAY #5 => Vanco IV + Levaquin s/p Cefepime 24H INTERVAL SUMMARY * Awake, alert, still lethargic and weak Afebrile, VSS, WBC normalized * Started on Robitussin expectorant and HHN due to hx of Asthma w/ c/o wheezing w/increased productive cough -- difficult to cough up * AFB (-) X3 AFB SMEAR Final ACID FAST BACILLI NONE SEEN * CXR: 1. Bilateral mid and lower lung zone pneumonia with right worse than left. 2. Small bilateral pleural effusions. * CXR 11/29/15: IMPRESSION: 1. No significant interval change to the dense alveolar infiltrates and possibly atelectatic change involving the lung bases bilaterally, again more extensive on the right. 2. Again, a right pleural fluid accumulation cannot be excluded. Stanley Loco Physician Date Time Natalie: 11/24/16 Rcvd: 11/24/16-1153 Source: SPUTUM Sp Descrip: Microbiology * AFB SMEAR Final ACID FAST BACILLI NONE SEEN * AFB CULTURE Preliminary (held 6 weeks) PHYSICAL EXAMINATION: GENERAL: yo lethargic HEENT: Unremarkable NECK: Supple, full ROM CHEST: Equal chest rise bilaterally, without dyspnea on observation, (+) expiratory wheeze/rhonchi on auscultation HEART: Pulse RRR ABDOMEN: Soft EXTREMITIES: Warm, LLEXT DSG C/D/I SKIN: See hard chart skin assessment ID ASSESSMENT: 31 yo M w/current IVDU-Heroin, (-)HIV Screening admit with: 1. SIRS vs cold sepsis on admission w/Temp 97.4 range, marked leukocytosis, tachycardia, low norm B/P 2nd/2 #1 #2 * Afebrile * WBC normalized today 2. Left lower extremity cellulitis, (+)Myositis = deep tissue infection chronic open wound x 2 months: Per notes, the patient self-injects heroin into the wound. * The MRI shows no drainable abscess in the left lower leg. 11/23/16 MRI FINDINGS : 1. Large lateral skin and subcutaneous defect measuring 9 x 4 cm as described above. There is surrounding soft tissue swelling and granulation tissue without drainable fluid collection. Mild nonspecific edema within the adjacent peroneal and anterior compartment musculature may reflect denervation change or mild infectious or inflammatory myositis. 2. No evidence of acute fracture or underlying osteomyelitis at this time. * WOUND CULTURE Final Organism 1 METHICILLIN RESISTANT S.AUREUS QUANTITY 3+ . MULTI DRUG RESISTANT ORGANISM Organism 2 CORYNEBACTERIUM SPECIES QUANTITY 3+ Organism 3 STREPTOCOCCUS GROUP C QUANTITY RARE 2. Pneumonia=> Bilateral Community Acquired * AFB (-) X3 AFB SMEARs Final ACID FAST BACILLI NONE SEEN 3. COPD exacerbation asthmatic-bronchitis w/intermittent wheezing 4. Tobaccoism 5. Psych DX NOS -> On Quetiapine 6. Hepatitis C virus w/elevated AST ()MRSA Nares -- ordered, pending INVASIVES: PIV ABX ALLERGY: KNDA CURRENT ABX: TOTAL ABX DAY #5 => Vanco IV + Levaquin s/p Cefepime ID RECOMMENDATIONS: 1. Continue IV ABX for deep tissue myositis infection w/chronic open wound anticipate 4 weeks IV ABX 2. f/u on MRSA nares screen 3. Respiratory cx -- ordered ?if sent ? * Robitussin DM expectorate * HHN Albuterol/Atrovent Q6 H -- Pt wheezing 4. Wound care per [facility] team 5. Tobacco cessation and IVDU cessation strongly advocated - Patient will need continued substance abuse tx OP referral 6. When cleared for DC -> consider DC to SNF for wound care and IV ABX under observation * Not a good candidate for PICC line and HH ABX due to high risk self-harm if he uses PICC for IVDU. * If he must be sent out with PICC - ensure he provides SIGNED written consent to Risk of Self-Harm from infection, OD Heroin if he uses the PICC. . Problems: Consultation Date/Type/Reason Admit Date/Time Nov 23, 2016 at 05:53 Initial Consult Date 11/25/16 Type of Consultation: id Exam/Review of Systems Vital Signs Vitals Vital Signs Date Time Temp Pulse Resp B/P Pulse Ox O2 Delivery O2 Flow Rate FiO2 11/27/16 14:17 83 22 92 Nasal Cannula 2.0 11/27/16 08:08 98.0 105/75 11/26/16 19:50 21 Intake and Output 11/26/16 11/26/16 11/27/16 15:00 23:00 07:00 Intake Total 2640 ml 1250 ml Output Total 2800 ml 500 ml Balance -160 ml 750 ml Results Result Diagram: 11/27/16 0950 11/27/16 0958 Results 24 hrs Laboratory Tests Test 11/26/16 19:15 11/27/16 09:50 11/27/16 09:58 Vancomycin Level Trough 14.3 Basophils # 0.0 Basophils % 0.4 Eosinophils # 0.2 Eosinophils % 3.2 Hematocrit 31.1 L Hemoglobin 9.1 L Lymphocytes # 1.9 Lymphocytes % 25.9 Mean Corpuscular Hemoglobin 22.0 L Mean Corpuscular Hemoglobin Concent 29.3 L Mean Corpuscular Volume 75.1 L Mean Platelet Volume 10.4 Monocytes # 0.6 Monocytes % 7.5 Neutrophils # 4.4 Neutrophils % 59.0 Nucleated Red Blood Cells # 0.0 Nucleated Red Blood Cells % 0.0 Platelet Count 228 # Red Blood Count 4.14 L Red Cell Distribution Width 19.0 H White Blood Count 7.4 # Anion Gap 12 Blood Urea Nitrogen 12 Calcium Level 7.7 L Carbon Dioxide Level 28 Chloride Level 102 Creatinine 0.60 L Glucose Level 101 Potassium Level 4.3 Sodium Level 138 Medications Medications Current Medications Ondansetron HCl (Zofran Inj) 4 mg Q6H PRN IV NAUSEA AND/OR VOMITING; Start 11/23 at 08:30 Enoxaparin Sodium (Lovenox) 40 mg DAILY SC Last administered on 11/27/16 11:41 ; Admin Dose 40 MG; Start 11/23/16 at 11:00 Vancomycin HCl 1 ea 1 ea NOTE XX ; Start 11/23/16 at 08:30 Sodium Chloride (NS) 1,000 ml @ 125 mls/hr Q8H IV Last administered on 21:16; Admin Dose 125 MLS/HR; Start 11/23/16 at 16:30 Nicotine (Nicoderm 21 Mg/ 24hr) 1 patch DAILY TRANSDERM Last administered on 08:32; Admin Dose 1 PATCH; Start 11/23/16 at 13:00 Loratadine (Claritin) 10 mg DAILY PO Last administered on 11/27/16 08:31; Admin Dose 10 MG; Start 11/23/16 at 13:00 Lorazepam (Ativan) 1 mg Q6H PRN IV AGITATION; Start 11/23/16 at 14:30 Quetiapine Fumarate (Seroquel) 25 mg BID PO Last administered on 11/27/16 08: 31; Admin Dose 25 MG; Start 11/23/16 at 14:30 Collagenase 1 applic 1 applic DAILY TOP Last administered on 11/27/16 08:34; Admin Dose 1 APPLIC; Start 11/23/16 at 21:00 Vancomycin HCl (Vancocin) 250 ml @ 125 mls/hr Q8H IVPB Last administered on 12:32; Admin Dose 125 MLS/HR; Start 11/24/16 at 04:00 Famotidine 20 mg 20 mg Q12 PO Last administered on 11/27/16 08:31; Admin Dose 20 MG; Start 11/24/16 at 21:00 Levofloxacin/ Dextrose (Levaquin 500mg/ D5W 100 ml (Pmx)) 100 ml @ 100 mls/hr Q24H IVPB Last administered on 11/27/16 15:57; Admin Dose 100 MLS/HR; Start at 15:00 Methadone HCl (Methadone) 20 mg DAILY PO Last administered on 11/27/16 08:32; Admin Dose 20 MG; Start 11/27/16 at 09:00 Guaifenesin (Robitussin Liquid Cup) 100 mg Q4H PRN PO COUGH Last administered on 11/26/16 17:35; Admin Dose 100 MG; Start 11/26/16 at 16:00 Clotrimazole (Mycelex Milad) 10 mg Q6H PRN MT DRY MOUTH Last administered on 17:36; Admin Dose 10 MG; Start 11/26/16 at 16:00 Docusate Sodium (Colace) 100 mg BID PO ; Start 11/27/16 at 12:30 HITESH KHAN NP Nov 27, 2016 16:18
[2016-11-27 19:00] VITALS: BP 119/64; RESP 20
[2016-11-28] MEDS: SOD CHLORIDE 0.9% 1,000 ML IV SCH ×4 (00:24→16:30)
[2016-11-28] MEDS: VANCOMYCIN 1 GM in NS 250 ML IVPB SCH ×3 (04:10→20:30)
[2016-11-28 07:32] VITALS: BP 103/55; RESP 18
[2016-11-28] MEDS: ALBUTEROL/IPRATROPIUM (NEB) 3 ML AMP HHN SCH ×3 (07:44→19:38)
[2016-11-28] MEDS: LORATADINE 10 MG TAB PO SCH (08:41)
[2016-11-28] MEDS: QUETIAPINE 25 MG TAB PO SCH ×2 (08:41→20:30)
[2016-11-28] MEDS: FAMOTIDINE 20 MG TAB PO SCH ×2 (08:41→20:30)
[2016-11-28] MEDS: METHADONE 10 MG TAB PO SCH (08:41)
[2016-11-28] MEDS: DOCUSATE SODIUM 100 MG CAP PO SCH ×2 (08:42→20:29)
[2016-11-28] MEDS: NICOTINE (21 MG/24 HR) PATCH TRANSDERM SCH (08:43)
[2016-11-28] MEDS: COLLAGENASE 30 GM TUBE TOP SCH (08:43)
[2016-11-28] MEDS: ENOXAPARIN 40 MG/0.4 ML SYG SC SCH ×2 (08:50→20:56)
--- NOTE | 2016-11-28 08:53 | RADRPT ---
PROCEDURE: CT Chest without contrast. CLINICAL INDICATION: Pneumonia. TECHNIQUE: CT scan of the chest without contrast was performed on a multidetector high-resolution CT scanner. Coronal and sagittal reformatted images were obtained from the axial source images. The total exam CTDI equals 6.5 mGy and the total exam DLP equals 277 mGy-cm. One or more of the following dose reduction techniques were used: - Automated exposure control. - Adjustment of the mA and/or kV according to patient size. Use of iterative reconstruction technique. COMPARISON: Chest x-ray 11/27/2016. FINDINGS: There are extensive air bronchograms in the right lower lobe and left lower lobe areas consistent wi th pneumonia. There are patchy infiltrates and/or bronchograms in the right middle lobe. Is consol idative infiltrate and atelectasis in the dorsal aspect of the left lingula. There are bilateral pleural effusions. The trachea, thyroid gland, great vessels of the superior mediastinum, aorta, main pulmonary artery and pulmonary artery outflow tracts are normal. The heart is normal in size. No pericardial effusi on is present. There is a 1.1 cm enlarged lymph node in the left supraclavicular area. There are in termediate size right paratracheal lymph nodes. There is a 1.1 cm enlarged lymph node inferior to t he yvette. The liver measures 16 cm AP. The gallbladder is small and contracted. The spleen is unremarkable. The visible portions of the kidneys are normal. There is particulate matter in the stomach without evidence of gastric wall thickening. The adrenal glands are unremarkable. There is no evidence of a hiatal hernia. The bony elements are unremarkable. IMPRESSION: 1. There are infiltrates in the right left lower lobes and in portions of the lingula and right mid dle lobe areas consistent with pneumonia. 2. There are bilateral pleural effusions. 3. Hepatomegaly. RPTAT:AAJJ Physician Rachel Date Time Electronically viewed and signed by Alex Calle Physician on 11/28/2016 08:53 MARIA ESTHER/
--- NOTE | 2016-11-28 12:04 | CONS ---
Date/Time of Note Date/Time of Note DATE: 11/28/16 TIME: 12:03 Assessment/Plan Assessment/Plan Chief Complaint/Hosp Course SUBJECTIVE: no events per report, no fevers ANTIMICROBIALS: 1. IV vancomycin. 2. Levaquin PHYSICAL EXAMINATION: GENERAL: Well-developed young white man who is lying comfortably in bed. HEENT: Head atraumatic, normocephalic. Sclerae anicteric. Buccal mucosa dry. NECK: Supple. CHEST: Rise symmetrical. Breath sounds diminished. HEART: S1, S2. ABDOMEN: Soft, bowel tones present. EXTREMITIES: Without cyanosis. Left lower extremity dressing intact. ASSESSMENT: 1. Left lower extremity cellulitis with chronic wound===> cx + MRSA/Strep/ Corynebact. 2. Pneumonia. 3. Hepatitis C virus. 4. Heroin addiction. PLAN: The patient remains stable. Cleared for dc by podiatry. Given hx of IVDA consider dc on PO Keflex and Bactrim unless pt will be going to SNF [facility] staff Problems: Consultation Date/Type/Reason Admit Date/Time Nov 23, 2016 at 05:53 Initial Consult Date 11/23/16 Type of Consultation: id Exam/Review of Systems Vital Signs Vitals Vital Signs Date Time Temp Pulse Resp B/P Pulse Ox O2 Delivery O2 Flow Rate FiO2 11/28/16 07:45 103 20 93 21 11/28/16 07:32 97.5 103/55 11/28/16 05:45 2.0 11/27/16 19:53 Nasal Cannula Intake and Output 11/27/16 11/27/16 11/28/16 15:00 23:00 07:00 Intake Total 2020 ml 1570 ml Output Total 2100 ml 2750 ml Balance -80 ml -1180 ml Results Result Diagram: 11/27/16 0950 11/27/16 0958 Medications Medications Current Medications Ondansetron HCl (Zofran Inj) 4 mg Q6H PRN IV NAUSEA AND/OR VOMITING; Start 11/23 at 08:30 Enoxaparin Sodium (Lovenox) 40 mg DAILY SC Last administered on 11/28/16t 08:50 ; Admin Dose 40 MG; Start 11/23/16 at 11:00 Vancomycin HCl 1 ea 1 ea NOTE XX ; Start 11/23/16 at 08:30 Sodium Chloride (NS) 1,000 ml @ 125 mls/hr Q8H IV Last administered on 04:11; Admin Dose 125 MLS/HR; Start 11/23/16 at 16:30 Nicotine (Nicoderm 21 Mg/ 24hr) 1 patch DAILY TRANSDERM Last administered on 08:43; Admin Dose 1 PATCH; Start 11/23/16 at 13:00 Loratadine (Claritin) 10 mg DAILY PO Last administered on 11/28/16 08:41; Admin Dose 10 MG; Start 11/23/16 at 13:00 Lorazepam (Ativan) 1 mg Q6H PRN IV AGITATION; Start 11/23/16 at 14:30 Quetiapine Fumarate (Seroquel) 25 mg BID PO Last administered on 11/28/16 08: 41; Admin Dose 25 MG; Start 11/23/16 at 14:30 Collagenase 1 applic 1 applic DAILY TOP Last administered on 11/28/16 08:43; Admin Dose 1 APPLIC; Start 11/23/16 at 21:00 Vancomycin HCl (Vancocin) 250 ml @ 125 mls/hr Q8H IVPB Last administered on 04:10; Admin Dose 125 MLS/HR; Start 11/24/16 at 04:00 Famotidine 20 mg 20 mg Q12 PO Last administered on 11/28/16 08:41; Admin Dose 20 MG; Start 11/24/16 at 21:00 Levofloxacin/ Dextrose (Levaquin 500mg/ D5W 100 ml (Pmx)) 100 ml @ 100 mls/hr Q24H IVPB Last administered on 11/27/16 15:57; Admin Dose 100 MLS/HR; Start at 15:00 Methadone HCl (Methadone) 20 mg DAILY PO Last administered on 11/28/16 08:41; Admin Dose 20 MG; Start 11/27/16 at 09:00 Guaifenesin (Robitussin Liquid Cup) 100 mg Q4H PRN PO COUGH Last administered on 11/26/16 17:35; Admin Dose 100 MG; Start 11/26/16 at 16:00 Clotrimazole (Mycelex Milad) 10 mg Q6H PRN MT DRY MOUTH Last administered on 17:36; Admin Dose 10 MG; Start 11/26/16 at 16:00 Docusate Sodium (Colace) 100 mg BID PO Last administered on 11/28/16t 08:42; Admin Dose 100 MG; Start 11/27/16 at 12:30 Miscellaneous Information (*Rx Drug Level Order Reminder*) VANCOMYCIN TROUGH AT 1100 ONCE ONCE XX ; Start 11/29/16 at 11:00; Stop 11/29/16 at 11:01 JOSE ELIAS CASTILLO NP Nov 28, 2016 12:04
[2016-11-28] MEDS ORDERED: SOD CHLORIDE 0.9% 100 ML ONE (12:18)
--- NOTE | 2016-11-28 13:03 | RADRPT ---
PROCEDURE: XR Chest. CLINICAL INDICATION: PICC placement. TECHNIQUE: Chest x-ray, single view. COMPARISON: 11/27/2016. FINDINGS: The cardiomediastinal silhouette is normal. Low lung volumes with basilar perihilar consolidation i s present and unchanged. A right pleural effusion is also present. A left upper extremity PICC is in place and terminates within the right atrium which is low in position. Skeletal structures and u pper abdomen are unremarkable. IMPRESSION: Low positioning of left upper extremity PICC. Consider retraction by approximately 4.5 cm. Bibasilar perihilar consolidation with right pleural effusion, unchanged. RPTAT: HLST .Inna Mendez MD, MD Date Time Electronically viewed and signed by .Inna Mendez MD, on 11/28/2016 13:02 .T/
--- NOTE | 2016-11-28 13:04 | RADRPT ---
PROCEDURE: XR Chest. CLINICAL INDICATION: PICC placement. TECHNIQUE: Chest x-ray, single view. COMPARISON: 11/28/2016 at 1150 hours. FINDINGS: The cardiomediastinal silhouette is normal. Bibasilar perihilar consolidation with right pleural ef fusion is unchanged. A left upper extremity PICC has been retracted and now terminates at the SVC/r ight atrial junction. Skeletal structures and upper abdomen are unremarkable. IMPRESSION: Satisfactory positioning of left upper extremity PICC. RPTAT: HLST .Inna Mendez MD, MD Date Time Electronically viewed and signed by .Inna Mendez MD, MD on 11/28/2016 13:03 .T/
--- NOTE | 2016-11-28 13:57 | RADRPT ---
PROCEDURE: Ultrasound, PICC. CLINICAL INDICATION: Venous access for PICC placement. TECHNIQUE: Limited sonography of the left upper extremity veins was performed in anticipation of P ICC placement. COMPARISON: None. FINDINGS: Sonographic images demonstrate a patent left upper extremity vein. The PICC line was inserted by the PICC nurse. IMPRESSION: Ultrasound guidance for needle placement in a left upper extremity vein. RPTAT: HLST .Inna Mendez MD, MD Date Time Electronically viewed and signed by .Inna Mendez MD, on 11/28/2016 13:56 .T/
[2016-11-28 14:35] LABS: ADD SCAN DIFF NO; BASOPHILS % 0.3 % (0.0-2.0); EOSINOPHILS # 0.3 10^3/ul (0.0-0.5); EOSINOPHILS % 3.8 % (0.0-7.0); HEMATOCRIT 31.4 % (42.0-52.0); HEMOGLOBIN 9.3 g/dl (14.0-18.0); LYMPHOCYTES # 2.2 10^3/ul (0.8-2.9); LYMPHOCYTES % 30.3 % (15.0-51.0); MEAN CORPUSCULAR HEMOGLOBIN 22.2 pg (29.0-33.0); MEAN CORPUSCULAR HGB CONC 29.6 g/dl (32.0-37.0); MEAN CORPUSCULAR VOLUME 75.1 fl (82.0-101.0); MEAN PLATELET VOLUME 9.2 fl (7.4-10.4); MONOCYTE # 0.6 10^3/ul (0.3-0.9); MONOCYTES % 8.1 % (0.0-11.0); NEUTROPHILS % 56.1 % (39.0-77.0); PLATELET COUNT 404 10^3/UL (140-415); RED BLOOD COUNT 4.18 10^6/ul (4.70-6.10); RED CELL DISTRIBUTION WIDTH 19.6 % (11.5-14.5); WHITE BLOOD COUNT 7.1 10^3/ul (4.8-10.8)
[2016-11-28 15:01] LABS: POTASSIUM 3.9 mmol/L (3.5-5.1)
[2016-11-28 15:05] LABS: CALCIUM 7.8 mg/dl (8.4-10.2); CREATININE 0.56 mg/dl (0.61-1.24); MAGNESIUM 1.7 mg/dl (1.7-2.5)
[2016-11-28] MEDS: LEVOFLOXACIN 500MG/D5W (PMX) 100 ML IVPB SCH (16:04)
--- NOTE | 2016-11-28 18:01 | PN ---
Date/Time of Note Date/Time of Note DATE: 11/28/16 TIME: 17:56 Assessment/Plan VTE Prophylaxis VTE Prophylaxis Intervention: LMWH Assessment/Plan Chief Complaint/Hosp Course 1. Cellulitis with large Open wound secondary to heroin injection ID following, because of history of IV drug use patient is not a good candidate for PICC line unless he can go to SNF otherwise will DC with p.o. antibiotics Wound culture shows staph aureus and diphtheroids Wound reviewed again by podiatry / still no surgical intervention required 2. Bibasilar Pneumonia R>>L Continue antibiotics 3. Chronic Malnutrition with iron deficiency 4. Hepatitis C secondary to IV drug use- New diagnosis 5. Heroin addiction Methadone dosing reduced for severe lethargy PROPHYLAXIS: lovenox Problems: Subjective 24 Hr Interval Summary Constitutional: no complaints Exam/Review of Systems Vital Signs Vitals Vital Signs Date Time Temp Pulse Resp B/P Pulse Ox O2 Delivery O2 Flow Rate FiO2 11/28/16 14:13 98 20 87 21 11/28/16 14:13 2.0 11/28/16 08:00 Nasal Cannula 11/28/16 07:32 97.5 103/55 Intake and Output 11/27/16 11/27/16 11/28/16 15:00 23:00 07:00 Intake Total 2020 ml 1570 ml Output Total 2100 ml 2750 ml Balance -80 ml -1180 ml Exam Constitutional: alert, oriented Respiratory: clear to auscultation Cardiovascular: regular rate and rhythm Gastrointestinal: soft, No distended Musculoskeletal: No nl extremities to inspection Results Result Diagram: 11/28/16 1425 11/28/16 1425 Results 24 hrs Laboratory Tests Test 11/28/16 14:25 Anion Gap 13 Basophils # 0.0 Basophils % 0.3 Blood Urea Nitrogen 12 Calcium Level 7.8 L Carbon Dioxide Level 28 Chloride Level 100 Creatinine 0.56 L Eosinophils # 0.3 Eosinophils % 3.8 Glucose Level 98 Hematocrit 31.4 L Hemoglobin 9.3 L Lymphocytes # 2.2 Lymphocytes % 30.3 Magnesium Level 1.7 Mean Corpuscular Hemoglobin 22.2 L Mean Corpuscular Hemoglobin Concent 29.6 L Mean Corpuscular Volume 75.1 L Mean Platelet Volume 9.2 Monocytes # 0.6 Monocytes % 8.1 Neutrophils # 4.0 Neutrophils % 56.1 Nucleated Red Blood Cells # 0.0 Nucleated Red Blood Cells % 0.0 Platelet Count 404 # Potassium Level 3.9 Red Blood Count 4.18 L Red Cell Distribution Width 19.6 H Sodium Level 137 White Blood Count 7.1 Medications Medications Current Medications Ondansetron HCl (Zofran Inj) 4 mg Q6H PRN IV NAUSEA AND/OR VOMITING; Start 11/23 at 08:30 Enoxaparin Sodium (Lovenox) 40 mg DAILY SC Last administered on 11/28/16 08:50 ; Admin Dose 40 MG; Start 11/23/16 at 11:00 Vancomycin HCl 1 ea 1 ea NOTE XX ; Start 11/23/16 at 08:30 Sodium Chloride (NS) 1,000 ml @ 125 mls/hr Q8H IV Last administered on 04:11; Admin Dose 125 MLS/HR; Start 11/23/16 at 16:30 Nicotine (Nicoderm 21 Mg/ 24hr) 1 patch DAILY TRANSDERM Last administered on 08:43; Admin Dose 1 PATCH; Start 11/23/16 at 13:00 Loratadine (Claritin) 10 mg DAILY PO Last administered on 11/28/16 08:41; Admin Dose 10 MG; Start 11/23/16 at 13:00 Lorazepam (Ativan) 1 mg Q6H PRN IV AGITATION; Start 11/23/16 at 14:30 Quetiapine Fumarate (Seroquel) 25 mg BID PO Last administered on 11/28/16 08: 41; Admin Dose 25 MG; Start 11/23/16 at 14:30 Collagenase 1 applic 1 applic DAILY TOP Last administered on 11/28/16 08:43; Admin Dose 1 APPLIC; Start 11/23/16 at 21:00 Vancomycin HCl (Vancocin) 250 ml @ 125 mls/hr Q8H IVPB Last administered on 13:56; Admin Dose 125 MLS/HR; Start 11/24/16 at 04:00 Famotidine 20 mg 20 mg Q12 PO Last administered on 11/28/16 08:41; Admin Dose 20 MG; Start 11/24/16 at 21:00 Levofloxacin/ Dextrose (Levaquin 500mg/ D5W 100 ml (Pmx)) 100 ml @ 100 mls/hr Q24H IVPB Last administered on 11/28/16 16:04; Admin Dose 100 MLS/HR; Start at 15:00 Methadone HCl (Methadone) 20 mg DAILY PO Last administered on 11/28/16 08:41; Admin Dose 20 MG; Start 11/27/16 at 09:00 Guaifenesin (Robitussin Liquid Cup) 100 mg Q4H PRN PO COUGH Last administered on 11/26/16 17:35; Admin Dose 100 MG; Start 11/26/16 at 16:00 Clotrimazole (Mycelex Milad) 10 mg Q6H PRN MT DRY MOUTH Last administered on 17:36; Admin Dose 10 MG; Start 11/26/16 at 16:00 Docusate Sodium (Colace) 100 mg BID PO Last administered on 11/28/16 08:42; Admin Dose 100 MG; Start 11/27/16 at 12:30 Miscellaneous Information (*Rx Drug Level Order Reminder*) VANCOMYCIN TROUGH AT 1100 ONCE ONCE XX ; Start 11/29/16 at 11:00; Stop 11/29/16 at 11:01 IV Flush (NS 10 ml) 10 ml PRN PRN IV IV PROTOCOL; Start 11/28/16 at 12:30 TORRIE HAYES Nov 28, 2016 18:01
[2016-11-28 20:17] VITALS: BP 115/56; RESP 22
[2016-11-28] MEDS: GUAIFENESIN 20 MG/ML 5ML CUP PO PRN (20:42)
[2016-11-29] MEDS: SOD CHLORIDE 0.9% 1,000 ML IV SCH ×4 (00:30→20:36)
[2016-11-29] MEDS: VANCOMYCIN 1 GM in NS 250 ML IVPB SCH (04:49)
[2016-11-29 05:38] LABS: ADD SCAN DIFF NO
[2016-11-29 05:41] LABS: BASOPHILS % 0.3 % (0.0-2.0); EOSINOPHILS # 0.2 10^3/ul (0.0-0.5); EOSINOPHILS % 2.4 % (0.0-7.0); HEMATOCRIT 32.1 % (42.0-52.0); HEMOGLOBIN 9.4 g/dl (14.0-18.0); LYMPHOCYTES # 1.9 10^3/ul (0.8-2.9); LYMPHOCYTES % 21.1 % (15.0-51.0); MEAN CORPUSCULAR HEMOGLOBIN 22.1 pg (29.0-33.0); MEAN CORPUSCULAR HGB CONC 29.3 g/dl (32.0-37.0); MEAN CORPUSCULAR VOLUME 75.4 fl (82.0-101.0); MEAN PLATELET VOLUME 9.8 fl (7.4-10.4); MONOCYTE # 0.6 10^3/ul (0.3-0.9); NEUTROPHIL # 6.1 10^3/ul (1.6-7.5); NEUTROPHILS % 67.6 % (39.0-77.0); PLATELET COUNT 422 10^3/UL (140-415); RED BLOOD COUNT 4.26 10^6/ul (4.70-6.10); RED CELL DISTRIBUTION WIDTH 19.9 % (11.5-14.5)
[2016-11-29 06:03] LABS: POTASSIUM 4.2 mmol/L (3.5-5.1)
[2016-11-29 06:05] LABS: CREATININE 0.65 mg/dl (0.61-1.24)
[2016-11-29 06:06] LABS: CALCIUM 8.1 mg/dl (8.4-10.2)
[2016-11-29 08:15] VITALS: BP 118/67; RESP 22
[2016-11-29] MEDS: ALBUTEROL/IPRATROPIUM (NEB) 3 ML AMP HHN SCH ×3 (08:24→20:24)
[2016-11-29] MEDS: NICOTINE (21 MG/24 HR) PATCH TRANSDERM SCH (09:00)
[2016-11-29] MEDS: DOCUSATE SODIUM 100 MG CAP PO SCH ×2 (09:00→20:35)
[2016-11-29] MEDS: LORATADINE 10 MG TAB PO SCH (09:00)
[2016-11-29] MEDS: QUETIAPINE 25 MG TAB PO SCH ×2 (09:02→20:35)
[2016-11-29] MEDS: METHADONE 10 MG TAB PO SCH (09:02)
[2016-11-29] MEDS: FAMOTIDINE 20 MG TAB PO SCH ×2 (09:02→20:35)
[2016-11-29] MEDS: GUAIFENESIN 20 MG/ML 5ML CUP PO PRN (09:04)
[2016-11-29] MEDS: ENOXAPARIN 40 MG/0.4 ML SYG SC SCH (09:12)
[2016-11-29] MEDS: COLLAGENASE 30 GM TUBE TOP SCH (11:16)
[2016-11-29] MEDS: VANCOMYCIN 750 MG in SOD CHLORIDE 0.9% 150 ML IVPB SCH (14:40)
--- NOTE | 2016-11-29 15:42 | CONS ---
Date/Time of Note Date/Time of Note DATE: 11/29/16 TIME: 15:41 Assessment/Plan Assessment/Plan Chief Complaint/Hosp Course SUBJECTIVE: no events,no fevers alert, feels good ANTIMICROBIALS: 1. IV vancomycin. 2. Levaquin PHYSICAL EXAMINATION: GENERAL: Well-developed young white man who is lying comfortably in bed. HEENT: Head atraumatic, normocephalic. Sclerae anicteric. Buccal mucosa dry. NECK: Supple. CHEST: Rise symmetrical. Breath sounds diminished. HEART: S1, S2. ABDOMEN: Soft, bowel tones present. EXTREMITIES: Without cyanosis. Left lower extremity dressing intact. ASSESSMENT: 1. Left lower extremity cellulitis with chronic wound===> cx + MRSA/Strep/ Corynebact. 2. Pneumonia. 3. Hepatitis C virus. 4. Heroin addiction. PLAN: Remains stable. Cleared for dc by podiatry. Given hx of IVDA consider dc on PO Keflex and Bactrim unless pt will be going to SNF, local wound care per podiatry rec-s [facility] staff/pt Problems: Consultation Date/Type/Reason Admit Date/Time Nov 23, 2016 at 05:53 Initial Consult Date 11/23/16 Type of Consultation: id Exam/Review of Systems Vital Signs Vitals Vital Signs Date Time Temp Pulse Resp B/P Pulse Ox O2 Delivery O2 Flow Rate FiO2 11/29/16 13:39 110 22 96 Nasal Cannula 2.0 28 11/29/16 08:15 98.0 118/67 Intake and Output 11/28/16 11/28/16 11/29/16 15:00 23:00 07:00 Intake Total 250 ml 2550 ml 810 ml Output Total 1550 ml 700 ml Balance 250 ml 1000 ml 110 ml Results Result Diagram: 11/29/16 0459 11/29/16 0459 Results 24 hrs Laboratory Tests Test 11/29/16 04:59 11/29/16 11:10 Anion Gap 12 Basophils # 0.0 Basophils % 0.3 Blood Urea Nitrogen 15 Calcium Level 8.1 L Carbon Dioxide Level 30 Chloride Level 103 Creatinine 0.65 Eosinophils # 0.2 Eosinophils % 2.4 Glucose Level 108 Hematocrit 32.1 L Hemoglobin 9.4 L Lymphocytes # 1.9 Lymphocytes % 21.1 Magnesium Level 1.7 Mean Corpuscular Hemoglobin 22.1 L Mean Corpuscular Hemoglobin Concent 29.3 L Mean Corpuscular Volume 75.4 L Mean Platelet Volume 9.8 Monocytes # 0.6 Monocytes % 7.0 Neutrophils # 6.1 Neutrophils % 67.6 Nucleated Red Blood Cells # 0.0 Nucleated Red Blood Cells % 0.0 Platelet Count 422 H Potassium Level 4.2 Red Blood Count 4.26 L Red Cell Distribution Width 19.9 H Sodium Level 141 White Blood Count 9.0 # Vancomycin Level Trough 18.8 Medications Medications Current Medications Ondansetron HCl (Zofran Inj) 4 mg Q6H PRN IV NAUSEA AND/OR VOMITING; Start 11/23 at 08:30 Enoxaparin Sodium (Lovenox) 40 mg DAILY SC Last administered on 11/29/16 09:12 ; Admin Dose 40 MG; Start 11/23/16 at 11:00 Vancomycin HCl 1 ea 1 ea NOTE XX ; Start 11/23/16 at 08:30 Sodium Chloride (NS) 1,000 ml @ 125 mls/hr Q8H IV Last administered on 09:00; Admin Dose 125 MLS/HR; Start 11/23/16 at 16:30 Nicotine (Nicoderm 21 Mg/ 24hr) 1 patch DAILY TRANSDERM Last administered on 09:00; Admin Dose 1 PATCH; Start 11/23/16 at 13:00 Loratadine (Claritin) 10 mg DAILY PO Last administered on 11/29/16 09:00; Admin Dose 10 MG; Start 11/23/16 at 13:00 Lorazepam (Ativan) 1 mg Q6H PRN IV AGITATION; Start 11/23/16 at 14:30 Quetiapine Fumarate (Seroquel) 25 mg BID PO Last administered on 11/29/16 09: 02; Admin Dose 25 MG; Start 11/23/16 at 14:30 Collagenase (Santyl) 1 applic DAILY TOP Last administered on 11/29/16 11:16; Admin Dose 1 APPLIC; Start 11/23/16 at 21:00 Famotidine 20 mg 20 mg Q12 PO Last administered on 11/29/16 09:02; Admin Dose 20 MG; Start 11/24/16 at 21:00 Levofloxacin/ Dextrose (Levaquin 500mg/ D5W 100 ml (Pmx)) 100 ml @ 100 mls/hr Q24H IVPB Last administered on 11/28/16 16:04; Admin Dose 100 MLS/HR; Start at 15:00 Methadone HCl (Methadone) 20 mg DAILY PO Last administered on 11/29/16 09:02; Admin Dose 20 MG; Start 11/27/16 at 09:00 Guaifenesin (Robitussin Liquid Cup) 100 mg Q4H PRN PO COUGH Last administered on 11/29/16 09:04; Admin Dose 100 MG; Start 11/26/16 at 16:00 Clotrimazole (Mycelex Milad) 10 mg Q6H PRN MT DRY MOUTH Last administered on 17:36; Admin Dose 10 MG; Start 11/26/16 at 16:00 Docusate Sodium (Colace) 100 mg BID PO Last administered on 11/29/16 09:00; Admin Dose 100 MG; Start 11/27/16 at 12:30 IV Flush 10 ml 10 ml PRN PRN IV IV PROTOCOL; Start 11/28/16 at 12:30 Vancomycin HCl/ Sodium Chloride (Vancocin/NS) 150 ml @ 75 mls/hr Q8H IVPB Last administered on 11/29/16 14:40; Admin Dose 75 MLS/HR; Start 11/29/16 at 14 :30 JOSE ELIAS CASTILLO NP Nov 29, 2016 15:41
[2016-11-29] MEDS: LEVOFLOXACIN 500MG/D5W (PMX) 100 ML IVPB SCH (16:56)
--- NOTE | 2016-11-29 17:01 | PN ---
Date/Time of Note Date/Time of Note DATE: 11/29/16 TIME: 16:56 Assessment/Plan VTE Prophylaxis VTE Prophylaxis Intervention: LMWH Assessment/Plan Chief Complaint/Hosp Course 1. Cellulitis with large Open wound secondary to heroin injection ID following, because of history of IV drug use patient is not a good candidate to go home with a PICC line unless he can go to SNF otherwise will DC with p.o. antibiotics Wound culture shows staph aureus and diphtheroids Wound reviewed again by podiatry / still no surgical intervention required 2. Bibasilar Pneumonia R>>L Continue antibiotics 3. Chronic Malnutrition with iron deficiency 4. Hepatitis C secondary to IV drug use- New diagnosis 5. Heroin addiction Methadone dosing reduced for severe lethargy Disposal: Likely DC in a.m. PROPHYLAXIS: lovenox Problems: Subjective 24 Hr Interval Summary Constitutional: no complaints Exam/Review of Systems Vital Signs Vitals Vital Signs Date Time Temp Pulse Resp B/P Pulse Ox O2 Delivery O2 Flow Rate FiO2 11/29/16 13:39 110 22 96 Nasal Cannula 2.0 28 11/29/16 08:15 98.0 118/67 Intake and Output 11/28/16 11/28/16 11/29/16 15:00 23:00 07:00 Intake Total 250 ml 2550 ml 810 ml Output Total 1550 ml 700 ml Balance 250 ml 1000 ml 110 ml Exam Constitutional: alert, oriented Respiratory: clear to auscultation Cardiovascular: regular rate and rhythm Gastrointestinal: soft, No distended Musculoskeletal: No nl extremities to inspection Results Result Diagram: 11/29/16 0459 11/29/16 0459 Results 24 hrs Laboratory Tests Test 11/29/16 04:59 11/29/16 11:10 Anion Gap 12 Basophils # 0.0 Basophils % 0.3 Blood Urea Nitrogen 15 Calcium Level 8.1 L Carbon Dioxide Level 30 Chloride Level 103 Creatinine 0.65 Eosinophils # 0.2 Eosinophils % 2.4 Glucose Level 108 Hematocrit 32.1 L Hemoglobin 9.4 L Lymphocytes # 1.9 Lymphocytes % 21.1 Magnesium Level 1.7 Mean Corpuscular Hemoglobin 22.1 L Mean Corpuscular Hemoglobin Concent 29.3 L Mean Corpuscular Volume 75.4 L Mean Platelet Volume 9.8 Monocytes # 0.6 Monocytes % 7.0 Neutrophils # 6.1 Neutrophils % 67.6 Nucleated Red Blood Cells # 0.0 Nucleated Red Blood Cells % 0.0 Platelet Count 422 H Potassium Level 4.2 Red Blood Count 4.26 L Red Cell Distribution Width 19.9 H Sodium Level 141 White Blood Count 9.0 # Vancomycin Level Trough 18.8 Medications Medications Current Medications Ondansetron HCl (Zofran Inj) 4 mg Q6H PRN IV NAUSEA AND/OR VOMITING; Start 11/23 at 08:30 Enoxaparin Sodium (Lovenox) 40 mg DAILY SC Last administered on 11/29/16 09:12 ; Admin Dose 40 MG; Start 11/23/16 at 11:00 Vancomycin HCl 1 ea 1 ea NOTE XX ; Start 11/23/16 at 08:30 Sodium Chloride (NS) 1,000 ml @ 125 mls/hr Q8H IV Last administered on 09:00; Admin Dose 125 MLS/HR; Start 11/23/16 at 16:30 Nicotine (Nicoderm 21 Mg/ 24hr) 1 patch DAILY TRANSDERM Last administered on 09:00; Admin Dose 1 PATCH; Start 11/23/16 at 13:00 Loratadine (Claritin) 10 mg DAILY PO Last administered on 11/29/16 09:00; Admin Dose 10 MG; Start 11/23/16 at 13:00 Lorazepam (Ativan) 1 mg Q6H PRN IV AGITATION; Start 11/23/16 at 14:30 Quetiapine Fumarate (Seroquel) 25 mg BID PO Last administered on 11/29/16 09: 02; Admin Dose 25 MG; Start 11/23/16 at 14:30 Collagenase (Santyl) 1 applic DAILY TOP Last administered on 11/29/16 11:16; Admin Dose 1 APPLIC; Start 11/23/16 at 21:00 Famotidine 20 mg 20 mg Q12 PO Last administered on 11/29/16 09:02; Admin Dose 20 MG; Start 11/24/16 at 21:00 Levofloxacin/ Dextrose (Levaquin 500mg/ D5W 100 ml (Pmx)) 100 ml @ 100 mls/hr Q24H IVPB Last administered on 11/28/16 16:04; Admin Dose 100 MLS/HR; Start at 15:00 Methadone HCl (Methadone) 20 mg DAILY PO Last administered on 11/29/16 09:02; Admin Dose 20 MG; Start 11/27/16 at 09:00 Guaifenesin (Robitussin Liquid Cup) 100 mg Q4H PRN PO COUGH Last administered on 11/29/16 09:04; Admin Dose 100 MG; Start 11/26/16 at 16:00 Clotrimazole (Mycelex Milad) 10 mg Q6H PRN MT DRY MOUTH Last administered on 17:36; Admin Dose 10 MG; Start 11/26/16 at 16:00 Docusate Sodium (Colace) 100 mg BID PO Last administered on 11/29/16 09:00; Admin Dose 100 MG; Start 11/27/16 at 12:30 IV Flush 10 ml 10 ml PRN PRN IV IV PROTOCOL; Start 11/28/16 at 12:30 Vancomycin HCl/ Sodium Chloride (Vancocin/NS) 150 ml @ 75 mls/hr Q8H IVPB Last administered on 11/29/16 14:40; Admin Dose 75 MLS/HR; Start 11/29/16 at 14 :30 TORRIE HAYES Nov 29, 2016 17:00
[2016-11-29 20:42] VITALS: BP 110/59; RESP 20
[2016-11-30] MEDS: VANCOMYCIN 750 MG in SOD CHLORIDE 0.9% 150 ML IVPB SCH ×2 (00:04→05:07)
[2016-11-30 05:26] LABS: ADD SCAN DIFF NO
[2016-11-30 06:01] LABS: CREATININE 0.53 mg/dl (0.61-1.24)
[2016-11-30 07:07] LABS: BASOPHILS % 0.6 % (0.0-2.0); EOSINOPHILS # 0.2 10^3/ul (0.0-0.5); EOSINOPHILS % 3.9 % (0.0-7.0); HEMATOCRIT 30.2 % (42.0-52.0); HEMOGLOBIN 8.8 g/dl (14.0-18.0); LYMPHOCYTES # 1.9 10^3/ul (0.8-2.9); LYMPHOCYTES % 34.8 % (15.0-51.0); MEAN CORPUSCULAR HEMOGLOBIN 22.3 pg (29.0-33.0); MEAN CORPUSCULAR HGB CONC 29.1 g/dl (32.0-37.0); MEAN CORPUSCULAR VOLUME 76.6 fl (82.0-101.0); MEAN PLATELET VOLUME 10.1 fl (7.4-10.4); MONOCYTE # 0.6 10^3/ul (0.3-0.9); MONOCYTES % 10.8 % (0.0-11.0); NEUTROPHIL # 2.6 10^3/ul (1.6-7.5); NEUTROPHILS % 49.3 % (39.0-77.0); PLATELET COUNT 405 10^3/UL (140-415); RED BLOOD COUNT 3.94 10^6/ul (4.70-6.10); WHITE BLOOD COUNT 5.4 10^3/ul (4.8-10.8)
[2016-11-30] MEDS: SOD CHLORIDE 0.9% 1,000 ML IV SCH (07:30)
[2016-11-30] MEDS: ALBUTEROL/IPRATROPIUM (NEB) 3 ML AMP HHN SCH (07:47)
[2016-11-30] MEDS: QUETIAPINE 25 MG TAB PO SCH (09:02)
[2016-11-30] MEDS: LORATADINE 10 MG TAB PO SCH (09:02)
[2016-11-30] MEDS: FAMOTIDINE 20 MG TAB PO SCH (09:03)
[2016-11-30] MEDS: METHADONE 10 MG TAB PO SCH (09:03)
[2016-11-30] MEDS: DOCUSATE SODIUM 100 MG CAP PO SCH (09:03)
[2016-11-30] MEDS: COLLAGENASE 30 GM TUBE TOP SCH (09:05)
[2016-11-30] MEDS: NICOTINE (21 MG/24 HR) PATCH TRANSDERM SCH (09:06)
[2016-11-30] MEDS: ENOXAPARIN 40 MG/0.4 ML SYG SC SCH (09:18)
[2016-11-30] MEDS ORDERED: BACTDS PO ×2 (10:38→11:36)
[2016-11-30] MEDS ORDERED: CEPH750C6 PO ×2 (10:38→11:36)
--- NOTE | 2016-11-30 10:39 | PDOCDIS ---
Discharge Instructions CONDITION Patient Condition: Good HOME CARE INSTRUCTIONS: Diet Instructions: Regular ACTIVITY: Activity Restrictions: No Restrictions FOLLOW UP/APPOINTMENTS Appointments F/U WITH A PCP IN 1-2 WEEKS TORRIE HAYES Nov 30, 2016 10:39
--- NOTE | 2016-11-30 16:38 | DS ---
DATE OF ADMISSION: 11/23/2016 DATE OF DISCHARGE: 11/30/2016 DISCHARGE DIAGNOSES: 1. Cellulitis of wound secondary to heroin injection. Extensive IV antibiotics. Discontinued p.o. antibiotics. Patient not safe for the use of PEG secondary to history of IV drug use. Wound cultu re showed Staph aureus and diphtheroids. The patient to continue with wound care and given supplies . 2. Bibasilar pneumonia, status post antibiotics. 3. Chronic malnutrition and iron deficiency. 4. Hepatitis C secondary to IV drug use, newly diagnosed. The patient was told about his diagnosis . 5. Heroin addiction. The patient was seen by a social organization professor given resources. HOSPITAL COURSE: The patient is a 31-year-old male with a history of IV drug use with heroin depend ence. The patient presents with an open wound in the left leg. The patient was injecting heroin in to the wound. Osteomyelitis was suspected, but was not seen on x-ray. The patient was seen by Dr. Burnette and by ID and was reviewed by podiatry. No surgical intervention required. The patient was given supplies for wound care. It was felt that the patient cannot be discontinued with a PICC line secondary to his IV drug use and hence was felt that the p.o. antibiotics would be suitable for his wound and myositis. The patient was not felt to be suitable for detention and detention was unlikely to take this patient with a history of drug use and noncompliance. The patient did not wan t to go to a detention anyway, hence p.o. antibiotics was felt to be appropriate for this patient . The patient did receive IV antibiotics for his bilateral pneumonia. His condition did improve an d he was felt to be stable for discharge. On the day of discharge, the patient's vitals, labs, phys ical exam were stable. He had no further signs of sepsis. The patient's questions were answered an d he had no other acute issues. Of note, he was seen by a social organization professor and was given resources for his current addiction. CONDITION ON DISCHARGE: Stable. DISPOSITION: To home. MEDICATIONS: The patient was given a prescription for Keflex 500 mg p.o. b.i.d. for 2 weeks and Maria Luisa trim double strength 1 tab p.o. b.i.d. for 2 weeks. The patient is to continue his other home medic ations, which appear to be methadone. He has no other reported medications as his home meds are [facility], but it appears this he is only taking methadone. The patient will continue followup at [facility]. FOLLOWUP: The patient is to followup with a PCP in 1 to 2 weeks. Greater than 30 minutes was spent coordinating discharge of patient. Dictated By: TORRIE HAYES MD BS/NTS Conf#: [id number] DID#: [id number]
[2016-12-05] MEDS ORDERED: BACTDS PO (11:20)
[2016-12-05] MEDS ORDERED: CEPH500C PO (11:21)
== END 2016-11-30 13:40 | disposition home or self-care (01) | DRG 194 ==
LOC: FTE 00:36 → MS2 05:53
PROVIDERS: ADMIT Family Medicine; ATTEND Family Medicine
DX: J18.9 Pneumonia, unspecified organism (principal); L03.116 Cellulitis of left lower limb; E46 Unspecified protein-calorie malnutrition; B17.10 Acute hepatitis C without hepatic coma; F11.20 Opioid dependence, uncomplicated; L97.222 Non-pressure chronic ulcer of left calf with fat layer exposed; F15.10 Other stimulant abuse, uncomplicated; D50.9 Iron deficiency anemia, unspecified; B19.20 Unspecified viral hepatitis C without hepatic coma; E86.0 Dehydration; E87.6 Hypokalemia; M60.9 Myositis, unspecified; B95.62 Methicillin resistant Staphylococcus aureus infection as the cause of diseases classified elsewhere; Z68.20 Body mass index [BMI] 20.0-20.9, adult; Z91.19 Patient's noncompliance with other medical treatment and regimen
CPT/HCPCS: 36569; 71010; 71020; 71250; 73590; 73718; 76937; 80048; 80053; 80202; 81001; 81003; 82607; 82746; 83540; 83605; 83735; 85025; 86703; 86704; 86709; 86803; 87040; 87070; 87081; 87116; 87340; 94640; 94664; 96374; 96375; 97162; J0692; J1650; J1885; J1956; J2916; J3370; J3480; J7030; J7040

== ENCOUNTER 2016-12-05 09:42 | Emergency (ER) | END 2016-12-05 11:48 | disposition home or self-care (01) | DX: Z76.0 Encounter for issue of repeat prescription (principal); F17.210 Nicotine dependence, cigarettes, uncomplicated ==

== ENCOUNTER 2017-04-02 23:29 | Inpatient (IN) | payer OTHER ==
[~2017-04-02] VITALS: Ht 182.9 cm; Wt 73.9 kg
[~2017-04-02 23:29] MED LIST: BACTDS PO; CEPH500C PO; CEPH750C6 PO
[2017-04-02 23:35] VITALS: Ht 182.9 cm; Wt 73.9 kg
[2017-04-03 00:01] LABS: URINE BLOOD (Dip) POC 2+ (NEGATIVE)
[2017-04-03] MEDS ORDERED: morphine 4 MG/ML VIAL IV STA (00:01)
[2017-04-03] MEDS ORDERED: SOD CHLORIDE 0.9% 1,000 ML IV STA (00:01)
[2017-04-03] MEDS ORDERED: ONDANSETRON 4 MG INJ IV STA (00:01)
[2017-04-03 00:15] VITALS: TEMP 97.8
[2017-04-03 00:37] LABS: ADD SCAN DIFF NO
[2017-04-03 00:39] LABS: BASOPHIL # 0.1 10^3/ul (0.0-0.1); BASOPHILS % 0.3 % (0.0-2.0); EOSINOPHILS # 0.2 10^3/ul (0.0-0.5); EOSINOPHILS % 1.3 % (0.0-7.0); HEMATOCRIT 29.3 % (42.0-52.0); LYMPHOCYTES # 2.6 10^3/ul (0.8-2.9); MEAN CORPUSCULAR HEMOGLOBIN 22.3 pg (29.0-33.0); MEAN CORPUSCULAR HGB CONC 30.7 g/dl (32.0-37.0); MEAN CORPUSCULAR VOLUME 72.7 fl (82.0-101.0); MEAN PLATELET VOLUME 9.4 fl (7.4-10.4); MONOCYTE # 1.2 10^3/ul (0.3-0.9); MONOCYTES % 7.9 % (0.0-11.0); NEUTROPHIL # 11.1 10^3/ul (1.6-7.5); NEUTROPHILS % 72.8 % (39.0-77.0); PLATELET COUNT 506 10^3/UL (140-415); RED BLOOD COUNT 4.03 10^6/ul (4.70-6.10); RED CELL DISTRIBUTION WIDTH 16.6 % (11.5-14.5); WHITE BLOOD COUNT 15.3 10^3/ul (4.8-10.8)
[2017-04-03] MEDS ORDERED: HYDROmorphONE 1 MG/ML SYG IV STA (00:52)
[2017-04-03 00:54] LABS: ADD UMIC YES; UR AMORPHOUS CRYSTAL MANY /HPF (NONE SEEN); UR ASCORBIC ACID NEGATIVE (NEGATIVE); UR BACTERIA FEW /HPF (NONE SEEN); UR BILIRUBIN (Dip) NEGATIVE (NEGATIVE); UR BLOOD (Dip) 2+ mg/dL (NEGATIVE); UR CLARITY TURBID (CLEAR); UR COLOR YELLOW (YELLOW); UR GLUCOSE (Dip) NEGATIVE (NEGATIVE); UR KETONES (Dip) NEGATIVE (NEGATIVE); UR LEUKOCYTE ESTERASE (Dip) 3+ Leu/ul (NEGATIVE); UR MUCUS MANY /HPF (NONE SEEN); UR NITRITE (Dip) NEGATIVE (NEGATIVE); UR RBC 10 /HPF (0-5); UR SPECIFIC GRAVITY (Dip) 1.023 (1.003-1.030); UR TOTAL PROTEIN (Dip) 1+ mg/dl (NEGATIVE); UR UROBILINOGEN (Dip) 2+ mg/dL (NEGATIVE); UR WBC CLUMPS OCCASIONAL /HPF (NONE SEEN)
[2017-04-03 01:12] LABS: ALBUMIN 3.6 g/dl (3.3-4.9); ALBUMIN/GLOBULIN RATIO 0.75; CALCIUM 9.1 mg/dl (8.4-10.2); CREATININE 0.81 mg/dl (0.61-1.24); POTASSIUM 3.5 mmol/L (3.5-5.1); TOTAL PROTEIN 8.4 g/dl (6.1-8.1)
[2017-04-03] MEDS ORDERED: PIPER-TAZO 3.375 GM IV (PMX) 100 ML IVPB STA (01:33)
--- NOTE | 2017-04-03 01:37 | RADRPT ---
PROCEDURE: CT Abdomen and pelvis without contrast. CLINICAL INDICATION: Abdominal pain. TECHNIQUE: CT scan of the abdomen and pelvis was performed on a multi-detector high-resolution CT scanner. Contiguous axial images were obtained from the lung bases to the ischial tuberosities wit hout intravenous contrast. Coronal and sagittal reformatted images were also obtained. Images were reviewed on the PACS workstation. One or more of the following dose reduction techniques were used: - Automated exposure control. - Adjustment of the mA and/or kV according to patient size. - Use of iterative reconstruction technique. Exam CTD/vol = 6.50 mGy. Total exam DLP = 417.24 mGy-cm. COMPARISON: None. FINDINGS: Evaluation of the lung bases demonstrates minimal bibasilar atelectasis. Abdomen: The liver is increased in size. There is no focal mass or dilatation of the biliary tree. The gallbladder is not distended. The spleen is mildly enlarged. The pancreas and bilateral adre nal glands are within normal limits. Bilateral kidneys are normal in size with no contour deforming mass identified. There is no radiopaque renal or ureteral calculus identified. There is no hydron ephrosis or hydroureter. There are multiple small periaortic lymph nodes. The abdominal aorta is o f normal caliber. There is increased soft tissue within the right posterior pararenal space extendin g to the posterior upper abdominal wall measuring approximately 4.5 cm AP by 9.0 cm transverse by 8. 0 cm sagittal. There is anterior deviation of the right kidney. There is a small umbilical hernia containing fat. There is moderate retained stool within the colon . There is no bowel obstruction or free air. A normal appendix is identified. There is no diverti culosis or diverticulitis. There is no ascites. Pelvis: The bladder is unremarkable. The prostate is moderately enlarged. There are small inguinal lymph nodes bilaterally with the largest on the left measuring 1.8 x 1.4 cm. There is no significan t pelvic free fluid. Evaluation of the osseous structures demonstrates no suspicious lytic or blastic lesion. IMPRESSION: Soft tissue density within the right posterior pararenal space extending to the posterior upper abdo shayne wall measuring 4.5 x 9.0 x 8.0 cm. Findings could represent hemorrhage, abscess or mass. Furt her evaluation can be made by CT or MRI with contrast. Moderately enlarged prostate suspicious for infectious/inflammatory process or underlying mass. Fur ther evaluation is recommended. Mild hepatosplenomegaly. Shotty retroperitoneal and bilateral inguinal lymph nodes. Moderate retained stool within the colon. Small umbilical hernia containing fat. A call report was made to Dr. Mann at 01:33 a.m. .Todd Ruelas MD, MD Date Time Electronically viewed and signed by .Todd Ruelas MD, MD on 04/03/2017 01:36 .T/
[2017-04-03] MEDS ORDERED: VANCOMYCIN 1 GM (PMX) 250 ML IVPB ONE (02:00)
[2017-04-03] MEDS: HYDROmorphONE 1 MG/ML SYG IV PRN ×5 (02:45→22:24)
[2017-04-03] MEDS ORDERED: IOHEXOL 300MG/ML 150 ML BTL ONE (02:46)
[2017-04-03] MEDS ORDERED: SOD CHLORIDE 0.9% 100 ML ONE (02:46)
--- NOTE | 2017-04-03 03:20 | RADRPT ---
PROCEDURE: CT Abdomen and pelvis with contrast. CLINICAL INDICATION: Abdominal pain. TECHNIQUE: CT scan of the abdomen and pelvis with contrast was performed on a multi-detector high -resolution CT scanner. The patient was scanned following the uncomplicated administration of 100 c c of Omnipaque 300 intravenous contrast. Coronal and sagittal reformatted images were obtained from the axial source images. Images were reviewed on a high-resolution PACS workstation. One or more of the following dose reduction techniques were used: - Automated exposure control. - Adjustment of the mA and/or kV according to patient size. - Use of iterative reconstruction technique. Exam CTD/vol = 6.08 mGy. Total exam DLP = 393.92 mGy-cm. COMPARISON: 04/03/2017. FINDINGS: Evaluation of the lung bases demonstrates minimal bibasilar atelectasis. Abdomen: The liver is increased in size. There is no focal mass or dilatation of the biliary tree. T he gallbladder is contracted. The spleen is mildly enlarged. The pancreas and bilateral adrenal glan ds are within normal limits. Bilateral kidneys are normal in size. There are areas of patchy decrea sed enhancement within the posterior right kidney with mild perinephric stranding and fluid. There i s no focal mass, hydronephrosis or hydroureter. There are multiple small periaortic lymph nodes. The abdominal aorta is of normal caliber. There is a complex collection within the right posterior para renal space extending to the posterior upper abdominal wall measuring approximately 5.5 cm AP by 6.5 cm transverse by 7.7 cm sagittal. There is anterior deviation of the right kidney. There is a small umbilical hernia containing fat. There is moderate retained stool within the colon. There is no bowel obstruction or free air. A normal appendix is identified. There is no diverticulo sis or diverticulitis. There is no ascites. Pelvis: The bladder is unremarkable. The prostate is moderately enlarged and contains a complex hete rogeneous collection measuring 4.8 cm AP by 4.7 cm transverse by 8.0 cm sagittal. There are enlarged lymph nodes along bilateral iliac chains and pelvic sidewall with the largest on the left measuring 2.9 x 2.2 cm. There are small inguinal lymph nodes bilaterally with the largest on the left measur ing 1.8 x 1.4 cm. There is trace pelvic free fluid. Evaluation of the osseous structures demonstrates no suspicious lytic or blastic lesion. IMPRESSION: Complex collection within the right posterior pararenal space extending to the posterior upper abdom inal wall measuring 5.5 x 6.5 x 7.7 cm. Findings are most consistent with an abscess given patient's history of intravenous drug use. Necrotic neoplasm is less likely. Moderately enlarged prostate with a complex collection measuring 4.8 x 4.7 x 8.0 cm most consistent with abscess. Mild hepatosplenomegaly. Mild pelvic lymphadenopathy. Trace pelvic free fluid. Moderate retained stool within the colon. Small umbilical hernia containing fat. .Todd Ruelas MD, MD Date Time Electronically viewed and signed by .Todd Ruelas MD, MD on 04/03/2017 03:20 .T/
[2017-04-03 04:00] VITALS: BP 114/60; RESP 20
--- NOTE | 2017-04-03 04:43 | HP ---
Date/Time of Note Date/Time of Note DATE: 04/03/17 TIME: 04:41 Assessment/Plan VTE Prophylaxis VTE Prophylaxis Intervention: SCD's Assessment/Plan Chief Complaint/Hosp Course This is a 31-year-old male being admitted to the [facility] floor for: #1 multiple abscess: Repeat CT scan with contrast showed: Complex collection within the right posterior pararenal space extending to the posterior upper abdominal wall measuring 5.5 x 6.5 x 7.7 cm. Findings are most consistent with an abscess given patient's history of intravenous drug use. Necrotic neoplasm is less likely. Moderately enlarged prostate with a complex collection measuring 4.8 x 4.7 x 8.0 cm most consistent with abscess. At the current time patient was started on IV vancomycin and Zosyn in the ED will continue this regimen. IV pain control. We will keep the patient n.p.o. and resume will likely need to go to surgery, the on-call surgeon has been contacted by the ED. IV fluid hydration with normal saline. May need urology consult secondary to the enlarged prostate and complex collection around the prostate. #2 urinary tract infection: UA was positive for leukoesterase. Currently on IV antibiotics as per #1. No signs of hydronephrosis on CT scan. #3 IV drug abuse: Patient's most recent use of heroin was within the last 24 hours. Continue to monitor for symptoms of withdrawal. #4 hypertension: Patient is not on any home medications apparently. Will continue to monitor blood pressure, and start on any antihypertensives prior to discharge if indicated. #5 DVT and GI prophylaxis: SCDs, Protonix Further treatment strategy will be implemented as per the clinical course. Problems: HPI/ROS Admit Date/Time Admit Date/Time Apr 03, 2017 at 01:38 Hx of Present Illness Chief complaint: Back pain, abdominal pain 1 week This is a 31-year-old male with a past medical history of IV drug use who comes in today with abdominal pain and back pain 1 week. Patient states his most recent use of heroin was within the last 24 hours. He reports right-sided back pain as well as abdominal pain, he does report dysuria and urinary frequency. Subjective fevers. Denies any shortness of breath or chest pain. Denies any nausea vomiting or bloody stool. Allergies: NKDA Medications: See ALEXYS LE Const: As per HPI Eyes : No pain discharge or redness or change in visual acuity ENT: No pain, sore throat, congestion, congestion, dysphagia or discharge Respiratory: No shortness of breath, cough, sputum, wheezing, or pleuritic pain Cardiovascular: No chest pain, palpitation, PND, or edema GI : As per HPI Genitourinary: As per HPI Musculoskeletal: As per HPI Skin: No rash, bruising or hives Neuro: No headache, dizziness, syncope, seizure, focal weakness Endocrine: No polyuria, polydipsia, temperature intolerance Psych: No hallucination, depression, anxiety or suicidal ideation PMH/Family/Social Past Medical History Hypertension Past Surgical History Past Surgical Hx: no surgical history Family History Significant Family History: no pertinent family hx Social History Smoking Status: Current every day smoker Drug Use: heroin (Most recent injection performed within 24 hours) Exam/Review of Systems Vital Signs Vitals Vital Signs Date Time Temp Pulse Resp B/P Pulse Ox O2 Delivery O2 Flow Rate FiO2 04/03/17 04:00 98.4 84 20 114/60 96 04/03/17 02:09 Room Air Exam Exam General: Patient is lethargic but easily arousable he is able to answer questions appropriately currently in no pain after receiving pain medication. HEENT: Atraumatic, normocephalic. The pupils are equal, round and reactive. Extraocular motor are intact Neck: Supple with full range of motion. No rigidity or meningismus Chest: Nontender Lungs: Clear to auscultation bilaterally no crackles rales or wheezing Heart: Normal S1-S2, Regular rhythm and rate. No murmur, S3, or S4 Abdomen: Right suprapubic pain to palpation, right flank pain to palpation, normal bowel sounds. Extremities: Normal to inspection, no edema no cyanosis Neurologic: Patient is lethargic and sleeping, however he is easily arousable and he is answering questions appropriately. Additional Comments PROCEDURE: CT Abdomen and pelvis without contrast. CLINICAL INDICATION: Abdominal pain. TECHNIQUE: CT scan of the abdomen and pelvis was performed on a multi- detector high-resolution CT scanner. Contiguous axial images were obtained from the lung bases to the ischial tuberosities without intravenous contrast. Coronal and sagittal reformatted images were also obtained. Images were reviewed on the PACS workstation. One or more of the following dose reduction techniques were used: - Automated exposure control. - Adjustment of the mA and/or kV according to patient size. - Use of iterative reconstruction technique. Exam CTD/vol = 6.50 mGy. Total exam DLP = 417.24 mGy-cm. COMPARISON: None. FINDINGS: Evaluation of the lung bases demonstrates minimal bibasilar atelectasis. Abdomen: The liver is increased in size. There is no focal mass or dilatation of the biliary tree. The gallbladder is not distended. The spleen is mildly enlarged. The pancreas and bilateral adrenal glands are within normal limits. Bilateral kidneys are normal in size with no contour deforming mass identified. There is no radiopaque renal or ureteral calculus identified. There is no hydronephrosis or hydroureter. There are multiple small periaortic lymph nodes. The abdominal aorta is of normal caliber. There is increased soft tissue within the right posterior pararenal space extending to the posterior upper abdominal wall measuring approximately 4.5 cm AP by 9.0 cm transverse by 8.0 cm sagittal. There is anterior deviation of the right kidney. There is a small umbilical hernia containing fat. There is moderate retained stool within the colon. There is no bowel obstruction or free air. A normal appendix is identified. There is no diverticulosis or diverticulitis. There is no ascites. Pelvis: The bladder is unremarkable. The prostate is moderately enlarged. There are small inguinal lymph nodes bilaterally with the largest on the left measuring 1.8 x 1.4 cm. There is no significant pelvic free fluid. Evaluation of the osseous structures demonstrates no suspicious lytic or blastic lesion. IMPRESSION: Soft tissue density within the right posterior pararenal space extending to the posterior upper abdominal wall measuring 4.5 x 9.0 x 8.0 cm. Findings could represent hemorrhage, abscess or mass. Further evaluation can be made by CT or MRI with contrast. Moderately enlarged prostate suspicious for infectious/inflammatory process or underlying mass. Further evaluation is recommended. Mild hepatosplenomegaly. Shotty retroperitoneal and bilateral inguinal lymph nodes. Moderate retained stool within the colon. Small umbilical hernia containing fat. A call report was made to Dr. Mann at 01:33 a.m. .Todd Ruelas MD, Date Time Electronically viewed and signed by .Todd Ruelas MD, on 04/03/2017 01:36 PROCEDURE: CT Abdomen and pelvis with contrast. CLINICAL INDICATION: Abdominal pain. TECHNIQUE: CT scan of the abdomen and pelvis with contrast was performed on a multi-detector high-resolution CT scanner. The patient was scanned following the uncomplicated administration of 100 cc of Omnipaque 300 intravenous contrast. Coronal and sagittal reformatted images were obtained from the axial source images. Images were reviewed on a high-resolution PACS workstation. One or more of the following dose reduction techniques were used: - Automated exposure control. - Adjustment of the mA and/or kV according to patient size. - Use of iterative reconstruction technique. Exam CTD/vol = 6.08 mGy. Total exam DLP = 393.92 mGy-cm. COMPARISON: 04/03/2017. FINDINGS: Evaluation of the lung bases demonstrates minimal bibasilar atelectasis. Abdomen: The liver is increased in size. There is no focal mass or dilatation of the biliary tree. The gallbladder is contracted. The spleen is mildly enlarged. The pancreas and bilateral adrenal glands are within normal limits. Bilateral kidneys are normal in size. There are areas of patchy decreased enhancement within the posterior right kidney with mild perinephric stranding and fluid. There is no focal mass, hydronephrosis or hydroureter. There are multiple small periaortic lymph nodes. The abdominal aorta is of normal caliber. There is a complex collection within the right posterior pararenal space extending to the posterior upper abdominal wall measuring approximately 5.5 cm AP by 6.5 cm transverse by 7.7 cm sagittal. There is anterior deviation of the right kidney. There is a small umbilical hernia containing fat. There is moderate retained stool within the colon. There is no bowel obstruction or free air. A normal appendix is identified. There is no diverticulosis or diverticulitis. There is no ascites. Pelvis: The bladder is unremarkable. The prostate is moderately enlarged and contains a complex heterogeneous collection measuring 4.8 cm AP by 4.7 cm transverse by 8.0 cm sagittal. There are enlarged lymph nodes along bilateral iliac chains and pelvic sidewall with the largest on the left measuring 2.9 x 2.2 cm. There are small inguinal lymph nodes bilaterally with the largest on the left measuring 1.8 x 1.4 cm. There is trace pelvic free fluid. Evaluation of the osseous structures demonstrates no suspicious lytic or blastic lesion. IMPRESSION: Complex collection within the right posterior pararenal space extending to the posterior upper abdominal wall measuring 5.5 x 6.5 x 7.7 cm. Findings are most consistent with an abscess given patient's history of intravenous drug use. Necrotic neoplasm is less likely. Moderately enlarged prostate with a complex collection measuring 4.8 x 4.7 x 8.0 cm most consistent with abscess. Mild hepatosplenomegaly. Mild pelvic lymphadenopathy. Trace pelvic free fluid. Moderate retained stool within the colon. Small umbilical hernia containing fat. .Todd Ruelas MD, MD Date Time Electronically viewed and signed by .Todd Ruelas MD, on 04/03/2017 03:20 Labs Result Diagram: 04/03/17 0001 04/03/17 0001 Medications Medications Current Medications Hydromorphone HCl (Dilaudid) 1 mg Q4 PRN IV PAIN Last administered on t 02:45; Admin Dose 1 MG; Start 04/03/17 at 02:30 EVELIA GIL Apr 03, 2017 04:42
--- NOTE | 2017-04-03 04:48 | ERD ---
ER Documentation Chief Complaint Date/Time DATE: 04/03/17 TIME: 04:47 Chief Complaint Pt reports back & Abd pain, dysuria, juandice skin, pt reports using heroin HPI This is a 11 mL who comes in because of back pain abdominal pain for the past week. Result was a fever. No nausea no longer chills but no other current complaints. ROS All systems reviewed and are negative except as per history of present illness. Medications Home Meds Active Scripts Cephalexin* (Cephalexin*) 500 Mg Capsule, 500 MG PO BID for 14 Days, #28 CAP Prov:SAMARA,MIYA C 12/05/16 Sulfamethoxazole-Trimethoprim* (Bactrim* DS) 800-160 Mg Tab, 1 TAB PO BID for 14 Days, TAB Prov:SAMARAMIYA C 12/05/16 Cephalexin* (Cephalexin*) 750 Mg Capsule, 500 MG PO BID for 14 Days, CAP Prov:ABIGAILNICHOLAS LIZARRAGAA 11/30/16 Sulfamethoxazole-Trimethoprim* (Bactrim* DS) 800-160 Mg Tab, 1 TAB PO BID for 14 Days, TAB Prov:NICHOLAS HAYESA 11/30/16 Reported Medications [none] Unknown Strength No Conflict Check 11/23/16 Allergies Allergies: Coded Allergies: No Known Allergy (Unverified , 11/23/16) PMhx/Soc History of Surgery: No Anesthesia Reaction: No Hx Neurological Disorder: No Hx Respiratory Disorders: No Hx Cardiac Disorders: No Hx Psychiatric Problems: No Hx Miscellaneous Medical Probl: No Hx Alcohol Use: No Hx Substance Use: Yes Hx Tobacco Use: Yes Smoking Status: Current every day smoker Physical Exam Vitals Vital Signs Date Time Temp Pulse Resp B/P Pulse Ox O2 Delivery O2 Flow Rate FiO2 04/03/17 00:15 97.8 101 18 111/60 100 Room Air 04/02/17 23:35 98.9 110 16 113/67 98 Physical Exam Const: [] Head: Atraumatic Eyes: Normal Conjunctiva ENT: Normal External Ears, Nose and Mouth. Neck: Full range of motion..~ No meningismus. Resp: Clear to auscultation bilaterally Cardio: Regular rate and rhythm, no murmurs Abd: Soft, non tender, non distended. Normal bowel sounds Skin: No petechiae or rashes Back: No midline or flank tenderness Ext: No cyanosis, or edema Neur: Awake and alert Psych: Normal Mood and Affect Result Diagram: 04/03/17 0001 04/03/17 0001 Results 24 hrs Laboratory Tests Test 04/03/17 00:01 04/03/17 00:05 White Blood Count 15.310^3/ul Red Blood Count 4.0310^6/ul Hemoglobin 9.0g/dl Hematocrit 29.3% Mean Corpuscular Volume 72.7fl Mean Corpuscular Hemoglobin 22.3pg Mean Corpuscular Hemoglobin Concent 30.7g/dl Red Cell Distribution Width 16.6% Platelet Count 75267^3/UL Mean Platelet Volume 9.4fl Neutrophils % 72.8% Lymphocytes % 17.0% Monocytes % 7.9% Eosinophils % 1.3% Basophils % 0.3% Nucleated Red Blood Cells % 0.0/100WBC Neutrophils # 11.110^3/ul Lymphocytes # 2.610^3/ul Monocytes # 1.210^3/ul Eosinophils # 0.210^3/ul Basophils # 0.110^3/ul Nucleated Red Blood Cells # 0.010^3/ul Urine Color YELLOW Urine Clarity TURBID Urine pH 5.0 Urine Specific [place] 1.023 Urine Ketones NEGATIVEmg/dL Urine Nitrite NEGATIVEmg/dL Urine Bilirubin NEGATIVEmg/dL Urine Urobilinogen 2+mg/dL Urine Leukocyte Esterase 3+Cande/ul Urine Microscopic RBC 10/HPF Urine Microscopic WBC 156/HPF Urine Amorphous Crystals MANY/HPF Urine Bacteria FEW/HPF Urine Mucus MANY/HPF Urine Hemoglobin 2+mg/dL Urine Glucose NEGATIVEmg/dL Urine Total Protein 1+mg/dl Sodium Level 140mmol/L Potassium Level 3.5mmol/L Chloride Level 95mmol/L Carbon Dioxide Level 30mmol/L Anion Gap 19 Blood Urea Nitrogen 15mg/dl Creatinine 0.81mg/dl Glucose Level 103mg/dl Calcium Level 9.1mg/dl Total Bilirubin 0.0mg/dl Direct Bilirubin 0.00mg/dl Indirect Bilirubin 0.0mg/dl Aspartate Amino Transf (AST/SGOT) 70IU/L Alanine Aminotransferase (ALT/SGPT) 80IU/L Alkaline Phosphatase 164IU/L Total Protein 8.4g/dl Albumin 3.6g/dl Globulin 4.80g/dl Albumin/Globulin Ratio 0.75 Lipase 33U/L Bedside Urine pH (LAB) 5.5 Bedside Urine Protein (LAB) 2+ Bedside Urine Glucose (UA) Negative Bedside Urine Ketones (LAB) Negative Bedside Urine Blood 2+ Bedside Urine Nitrite (LAB) Negative Bedside Urine Leukocyte Esterase (L Trace Current Medications Medications (Trade) Dose Ordered Sig/Renea Route PRN Reason Start Time Stop Time Status Last Admin Dose Admin Sodium Chloride (NS) 1,000 ml @ 1,000 mls/hr Q1H STAT IV 04/03/17 00:01 04/03/17 01:00 DC 04/03/17 00:23 Morphine Sulfate (morphine) 4 mg ONCE STAT IV 04/03/17 00:01 04/03/17 00:06 DC 04/03/17 00:23 Ondansetron HCl (Zofran Inj) 4 mg ONCE STAT IV 04/03/17 00:01 04/03/17 00:06 DC 04/03/17 00:23 Hydromorphone HCl 1 mg 1 mg ONCE STAT IV 04/03/17 00:52 04/03/17 00:56 DC 04/03/17 01:01 Vancomycin HCl 250 ml @ 125 mls/hr ONCE ONCE IVPB 04/03/17 02:00 04/03/17 03:59 Piperacillin Sod/ Tazobactam Sod (Zosyn 3.375gm/ 100 ml (Pmx)) 100 ml @ 200 mls/hr ONCE STAT IVPB 04/03/17 01:33 04/03/17 02:02 Procedures/MDM CT abdomen shows retroperitoneal ultrasound Medical decision-makin oh retroperitoneal abscess. Patient admitted to hospitalist. Surgery on-call notified. Departure Diagnosis: Primary Impression: Retroperitoneal abscess Condition: Serious ROBER ETIENNE Apr 03, 2017 04:48
[2017-04-03] MEDS ORDERED: ONDANSETRON 4 MG INJ IV PRN (05:00)
[2017-04-03] MEDS ORDERED: NACL 0.9% 3 ML SYG IV SCH (05:00)
[2017-04-03] MEDS ORDERED: ACETAMINOPHEN 325 MG TAB PO PRN (05:00)
[2017-04-03] MEDS ORDERED: HYDROmorphONE 1 MG/ML SYG IV PRN (05:00)
[2017-04-03] MEDS: SOD CHLORIDE 0.9% 1,000 ML IV SCH ×2 (05:19→14:58)
[2017-04-03] MEDS ORDERED: VANCOMYCIN IV PER PHARMACY XX SCH (05:30)
[2017-04-03] MEDS: PANTOPRAZOLE 40 MG INJ IV SCH (06:08)
[2017-04-03] MEDS: PIPER-TAZO 3.375 GM IV (PMX) 100 ML IVPB SCH ×3 (06:09→17:18)
[2017-04-03] MEDS ORDERED: VANCOMYCIN 1.25 GM in SOD CHLORIDE 0.9% 250 ML IVPB SCH (10:00)
[2017-04-03 14:09] VITALS: BP 109/67; RESP 18
--- NOTE | 2017-04-03 16:38 | CONS ---
DATE OF ADMISSION: 04/03/2017 DATE OF CONSULTATION: 04/03/2017 REASON FOR CONSULTATION: Right retroperitoneal abscess. HISTORY OF PRESENT ILLNESS: The patient is a 31-year-old gentleman who is an IV drug abuser. He presented with 1 week history of pain in the right back and abdomen. A CT scan showed a 7.7 cm retroperitoneal abscess. Also shown was a enlarged prostate with a 8 cm fluid collection, most likely abscess. The patient has been started on intravenous antibiotics. A urology consultation has been sought and arrangements are being made for a CT-guided drainage of the right flank. PAST MEDICAL HISTORY: No previous abdominal surgeries. Unknown hospitalizations. REVIEW OF SYSTEMS: HEENT: Unremarkable. PULMONARY: No history of shortness of breath or asthma. CARDIOVASCULAR: No history of chest pain, HI or arrhythmia. ABDOMEN: In the HPI. GENITOURINARY: In the HPI. OUTPATIENT MEDICATIONS: Outlined in the chart. ALLERGIES: NONE. PHYSICAL EXAMINATION: GENERAL APPEARANCE: The patient is a thin 31-year-old male who is awake and is in no acute distress. HEENT: Within normal limits. LUNGS: Clear. HEART: Regular rhythm. ABDOMEN: Soft. There is tenderness in the right flank. There is also tenderness in the right suprapubic area. EXTREMITIES: Unremarkable. LABORATORY: The patient's hematocrit is 29 with a white count of 15,300. Imaging as noted above. IMPRESSION: Right retroperitoneal and prostatic abscess. PLAN: The patient will undergo CT drainage of the flank abscess. The prostatic abscess will be evaluated by urology. Further recommendations will be forthcoming based on the patient's further work up and clinical course. Dictated By: Joel Solomon MD /carlin/ec /Document#: [id number]
[2017-04-03] MEDS: VANCOMYCIN 1 GM in NS 250 ML IVPB SCH (17:18)
[2017-04-03] MEDS ORDERED: VANCOMYCIN 1 GM in NS 250 ML IVPB SCH (18:00)
[2017-04-03 18:34] LABS: INR 1.07; PROTIME 13.9 Sec (12.2-14.2); PT RATIO 1.1
[2017-04-03 18:35] LABS: PARTIAL THROMBOPLASTIN TIME 40.6 Sec (25.0-35.0)
--- NOTE | 2017-04-03 18:47 | CONS ---
Date/Time of Note Date/Time of Note DATE: 04/03/17 TIME: 18:39 Assessment/Plan Assessment/Plan Additional Assessment/Plan Perinephric abscess needs IR drainage Prostaic adscess needs long lines operator IV ab If not improved would require Transurethral drainage and SP tube, pt not interested in that Will observe and repeat CT in 1 week Consultation Date/Type/Reason Admit Date/Time Apr 03, 2017 at 01:38 Date of Consultation: Apr 03, 2017 Type of Consultation: Urology Reason for Consultation brigitte renal abscess, possible prostatic abscess Hx of Present Illness Pt with active IV heroin abuse presents with flank pain and dysuria Ct shows perirenal abscess and enlarged prostate R/o abscess Pt with blunt deraining well,uncomfortable Genitourinary: bleeding, discharge, dysuria, flank pain, hematuria, no complaints, other Past Surgical History Past Surgical Hx: no surgical history Social History Smoking Status: Current every day smoker Drug Use: heroin (Most recent injection performed within 24 hours) Exam/Review of Systems Vital Signs Vitals Vital Signs Date Time Temp Pulse Resp B/P Pulse Ox O2 Delivery O2 Flow Rate FiO2 04/03/17 14:09 97.9 54 18 109/67 100 04/03/17 02:09 Room Air Intake and Output 04/02/17 04/02/17 04/03/17 15:00 23:00 07:00 Intake Total 350 ml Balance 350 ml Exam Genitourinary - Male: CVA tenderness, discharge, nl penis, nl scrotum, other Results Result Diagram: 04/03/17 0001 04/03/17 0001 Results 24 hrs Laboratory Tests Test 04/03/17 00:01 04/03/17 00:05 04/03/17 01:00 04/03/17 18:10 White Blood Count 15.3 #H Red Blood Count 4.03 L Hemoglobin 9.0 L Hematocrit 29.3 L Mean Corpuscular Volume 72.7 L Mean Corpuscular Hemoglobin 22.3 L Mean Corpuscular Hemoglobin Concent 30.7 L Red Cell Distribution Width 16.6 H Platelet Count 506 #H Mean Platelet Volume 9.4 Neutrophils % 72.8 Lymphocytes % 17.0 Monocytes % 7.9 Eosinophils % 1.3 Basophils % 0.3 Nucleated Red Blood Cells % 0.0 Neutrophils # 11.1 H Lymphocytes # 2.6 Monocytes # 1.2 H Eosinophils # 0.2 Basophils # 0.1 Nucleated Red Blood Cells # 0.0 Urine Color YELLOW Urine Clarity TURBID A Urine pH 5.0 Urine Specific [place] 1.023 Urine Ketones NEGATIVE Urine Nitrite NEGATIVE Urine Bilirubin NEGATIVE Urine Urobilinogen 2+ H Urine Leukocyte Esterase 3+ H Urine Microscopic RBC 10 H Urine Microscopic WBC 156 H Urine Amorphous Crystals MANY A Urine Bacteria FEW A Urine Mucus MANY A Urine Hemoglobin 2+ H Urine Glucose NEGATIVE Urine Total Protein 1+ H Sodium Level 140 Potassium Level 3.5 Chloride Level 95 L Carbon Dioxide Level 30 Anion Gap 19 H Blood Urea Nitrogen 15 Creatinine 0.81 Glucose Level 103 Calcium Level 9.1 Total Bilirubin 0.0 L Direct Bilirubin 0.00 Indirect Bilirubin 0.0 Aspartate Amino Transf (AST/SGOT) 70 H Alanine Aminotransferase (ALT/SGPT) 80 H Alkaline Phosphatase 164 H Total Protein 8.4 H Albumin 3.6 Globulin 4.80 H Albumin/Globulin Ratio 0.75 Lipase 33 Bedside Urine pH (LAB) 5.5 Bedside Urine Protein (LAB) 2+ H Bedside Urine Glucose (UA) Negative Bedside Urine Ketones (LAB) Negative Bedside Urine Blood 2+ H Bedside Urine Nitrite (LAB) Negative Bedside Urine Leukocyte Esterase (L Trace H Prostate Specific Antigen 1.0 Prothrombin Time 13.9 Prothrombin Time Ratio 1.1 INR International Normalized Ratio 1.07 Activated Partial Thromboplast Time 40.6 H Medications Medications Current Medications Hydromorphone HCl 1 mg 1 mg Q4 PRN IV PAIN Last administered on 04/03/17 18:13 ; Admin Dose 1 MG; Start 04/03/17 at 02:30 Sodium Chloride (NS) 1,000 ml @ 100 mls/hr Q10H IV Last administered on 05:19; Admin Dose 100 MLS/HR; Start 04/03/17 at 04:58 Ondansetron HCl (Zofran Inj) 4 mg Q6H PRN IV NAUSEA AND/OR VOMITING; Start at 05:00 Acetaminophen (Tylenol Tab) 650 mg Q6H PRN PO PAIN LEVEL 1-3 OR FEVER; Start at 05:00 Pantoprazole 40 mg 40 mg DAILY@06 IV Last administered on 04/03/17 06:08; Admin Dose 40 MG; Start 04/03/17 at 06:00 Piperacillin Sod/ Tazobactam Sod 100 ml @ 200 mls/hr Q6 IVPB Last administered on 04/03/17 17:18; Admin Dose 200 MLS/HR; Start 04/03/17 at 06:00 Vancomycin HCl (Vancocin) 250 ml @ 125 mls/hr Q8H IVPB Last administered on t 17:18; Admin Dose 125 MLS/HR; Start 04/03/17 at 17:00 Miscellaneous Information (*Rx Drug Level Order Reminder*) VANCOMYCIN TROUGH AT 1600 ONCE ONCE XX ; Start 04/04/17 at 16:00; Stop 04/04/17 at 16:01 Methadone HCl (Methadone) 30 mg BID PO ; Start 04/03/17 at 21:00 MARJORIE BURKS MD Apr 03, 2017 18:47
[2017-04-03 19:59] VITALS: BP 116/74; RESP 18
[2017-04-03] MEDS: METHADONE 10 MG TAB PO SCH (21:16)
[2017-04-04] MEDS: SOD CHLORIDE 0.9% 1,000 ML IV SCH ×3 (00:09→18:55)
[2017-04-04] MEDS: PIPER-TAZO 3.375 GM IV (PMX) 100 ML IVPB SCH ×5 (00:09→23:52)
[2017-04-04] MEDS: VANCOMYCIN 1 GM in NS 250 ML IVPB SCH ×3 (01:07→13:03)
[2017-04-04 02:00] VITALS: BP 110/71; RESP 20
[2017-04-04] MEDS: HYDROmorphONE 1 MG/ML SYG IV PRN ×5 (03:04→23:52)
[2017-04-04] MEDS: PANTOPRAZOLE 40 MG INJ IV SCH (06:06)
[2017-04-04 07:54] LABS: ADD SCAN DIFF NO
[2017-04-04 07:56] LABS: BASOPHILS % 0.3 % (0.0-2.0); EOSINOPHILS # 0.2 10^3/ul (0.0-0.5); EOSINOPHILS % 1.1 % (0.0-7.0); HEMATOCRIT 29.7 % (42.0-52.0); HEMOGLOBIN 8.9 g/dl (14.0-18.0); LYMPHOCYTES # 2.3 10^3/ul (0.8-2.9); LYMPHOCYTES % 15.6 % (15.0-51.0); MEAN CORPUSCULAR VOLUME 73.3 fl (82.0-101.0); MEAN PLATELET VOLUME 9.2 fl (7.4-10.4); MONOCYTE # 1.1 10^3/ul (0.3-0.9); MONOCYTES % 7.2 % (0.0-11.0); NEUTROPHIL # 11.3 10^3/ul (1.6-7.5); NEUTROPHILS % 75.3 % (39.0-77.0); PLATELET COUNT 468 10^3/UL (140-415); RED BLOOD COUNT 4.05 10^6/ul (4.70-6.10); RED CELL DISTRIBUTION WIDTH 17.2 % (11.5-14.5)
[2017-04-04 07:59] VITALS: BP 116/69; RESP 20
[2017-04-04 08:14] LABS: ALBUMIN 2.5 g/dl (3.3-4.9); ALBUMIN/GLOBULIN RATIO 0.54; BILIRUBIN,INDIRECT 0.1 mg/dl (0-1.1); BILIRUBIN,TOTAL 0.1 mg/dl (0.2-1.3); CALCIUM 8.4 mg/dl (8.4-10.2); CHOL/HDL RATIO 7.9 RATIO; CREATININE 0.73 mg/dl (0.61-1.24); POTASSIUM 3.7 mmol/L (3.5-5.1); TOTAL PROTEIN 7.1 g/dl (6.1-8.1)
[2017-04-04] MEDS: METHADONE 10 MG TAB PO SCH ×2 (09:05→21:04)
[2017-04-04 09:36] LABS: THYROID STIMULATING HORMONE 0.418 MIU/L (0.465-4.680)
--- NOTE | 2017-04-04 10:03 | CONS ---
Date/Time of Note Date/Time of Note DATE: 04/04/17 TIME: 09:54 Consult Date/Type/Reason Admit Date/Time Apr 03, 2017 at 01:38 Initial Consult Date 04/03/17 Type of Consultation: Pain management Reason for Consultation This is a 31-year-old very unfortunate gentleman who is well known to me from prior hospitalization. He is a history of IV drug abuse heroin. Genia uses at least four times per day but his requirements have increased over the last few days prior to this hospitalization. I am asked to assist with his methadone usage during his hospitalization. This gentleman also has a history of sharing needles he is hepatitis C positive he has not followed up with a physician after last discharge, his last hospitalization showed he is negative for HIV. This admission was prompted for multiple abscesses para [place] region please refer to formal dictate reports from radiology. Urinary tract infection. And patient is homeless. Genia was admitted to a drug rehab program in [place] at formerly named [facility] at least two years prior to his presentation., He is unemployed also. He has had multiple complications related to IV drug abuse last admission was for left lower extremity open complex abscess which required surgical intervention for debridement and follow-up care. Patient did not follow up with primary care physician. My last involvement with this gentleman I started him off on 60 mg of methadone a day based on his current usage in the community. He also states that he does take Xanax as needed but frankly denies any other illicit street drugs. He smokes half a pack of cigarettes per day. Objective he is afebrile vital signs stable gestures clear breath sounds, cardiac regular rate and rhythm abdomen grossly benign neurological examination grossly unremarkable, he is oriented times three, cranial nerves to the trouble grossly intact, motor or sensory findings grossly within normal limitsPlan suggest restarting methadone 60 mg in divided doses hold on any other Pain control medications withhold the use of sedatives for sleepers emphasize the patient and his brother not to use any other non-prescribed medications while hospitalized, close nursing follow-up Objective Vital Signs Date Time Temp Pulse Resp B/P Pulse Ox O2 Delivery O2 Flow Rate FiO2 04/04/17 07:59 97.4 56 20 116/69 100 04/03/17 02:09 Room Air Intake and Output 04/03/17 04/03/17 04/04/17 15:00 23:00 07:00 Intake Total 350 ml 1150 ml 1250 ml Output Total 1700 ml 400 ml Balance 350 ml -550 ml 850 ml Results/Medications Result Diagram: 04/04/1772504/04/17725 Results 24 hrs Laboratory Tests Test 04/03/17 18:10 04/04/17 07:26 04/04/17 07:29 Prothrombin Time 13.9 Prothrombin Time Ratio 1.1 INR International Normalized Ratio 1.07 Activated Partial Thromboplast Time 40.6 H White Blood Count 15.0 H Red Blood Count 4.05 L Hemoglobin 8.9 L Hematocrit 29.7 L Mean Corpuscular Volume 73.3 L Mean Corpuscular Hemoglobin 22.0 L Mean Corpuscular Hemoglobin Concent 30.0 L Red Cell Distribution Width 17.2 H Platelet Count 468 H Mean Platelet Volume 9.2 Neutrophils % 75.3 Lymphocytes % 15.6 Monocytes % 7.2 Eosinophils % 1.1 Basophils % 0.3 Nucleated Red Blood Cells % 0.0 Neutrophils # 11.3 H Lymphocytes # 2.3 Monocytes # 1.1 H Eosinophils # 0.2 Basophils # 0.0 Nucleated Red Blood Cells # 0.0 Sodium Level 143 Potassium Level 3.7 Chloride Level 105 # Carbon Dioxide Level 28 Anion Gap 14 Blood Urea Nitrogen 10 Creatinine 0.73 Glucose Level 88 Calcium Level 8.4 Total Bilirubin 0.1 L Direct Bilirubin 0.00 Indirect Bilirubin 0.1 Aspartate Amino Transf (AST/SGOT) 34 # Alanine Aminotransferase (ALT/SGPT) 53 Alkaline Phosphatase 121 Total Protein 7.1 # Albumin 2.5 #L Globulin 4.60 H Albumin/Globulin Ratio 0.54 Triglycerides Level 130 Cholesterol Level 87 L LDL Cholesterol, Calculated 50 HDL Cholesterol 11 L Cholesterol/HDL Ratio 7.9 Thyroid Stimulating Hormone (TSH) 0.418 L Hemoglobin A1c 5.9 Medications Current Medications Hydromorphone HCl 1 mg 1 mg Q4 PRN IV PAIN Last administered on 04/04/17 08:02 ; Admin Dose 1 MG; Start 04/03/17 at 02:30 Sodium Chloride (NS) 1,000 ml @ 100 mls/hr Q10H IV Last administered on 00:09; Admin Dose 100 MLS/HR; Start 04/03/17 at 04:58 Ondansetron HCl (Zofran Inj) 4 mg Q6H PRN IV NAUSEA AND/OR VOMITING; Start at 05:00 Acetaminophen (Tylenol Tab) 650 mg Q6H PRN PO PAIN LEVEL 1-3 OR FEVER; Start at 05:00 Pantoprazole 40 mg 40 mg DAILY@06 IV Last administered on 04/04/17 06:06; Admin Dose 40 MG; Start 04/03/17 at 06:00 Piperacillin Sod/ Tazobactam Sod 100 ml @ 200 mls/hr Q6 IVPB Last administered on 04/04/17 06:06; Admin Dose 200 MLS/HR; Start 04/03/17 at 06:00 Vancomycin HCl (Vancocin) 250 ml @ 125 mls/hr Q8H IVPB Last administered on 01:07; Admin Dose 125 MLS/HR; Start 04/03/17 at 17:00 Miscellaneous Information (*Rx Drug Level Order Reminder*) VANCOMYCIN TROUGH AT 1600 ONCE ONCE XX ; Start 04/04/17 at 16:00; Stop 04/04/17 at 16:01 Methadone HCl (Methadone) 30 mg BID PO Last administered on 04/04/17 09:05; Admin Dose 30 MG; Start 04/03/17 at 21:00 Assessment/Plan Additional Assessment/Plan Upon discharge this gentleman should be given counseling once again to go to a rehab center. His long-term prognosis is extremely poor especially since his brother has discontinued the use of heroin but he has not. Otherwise he has no other social support system nor family members. TREVOR MURDOCK Apr 04, 2017 10:02
--- NOTE | 2017-04-04 11:45 | RADRPT ---
PROCEDURE: CT guided left posterior flank drainage. CLINICAL INDICATION: Left posterior flank pain. Left renal abscess extending to the left posterio r flank.. TECHNIQUE: Informed consent was obtained. The procedure, risks, benefits, complications and alternatives were explained to the patient. Risks including bleeding and infection were explained. The patient underst ood and was willing to proceed. A procedural pause was performed. The patient's name, date of , and procedure to be performed were verified. One or more of the following dose reduction techniq ues were used: Automated exposure control, adjustment of the mA and/or kV according to patient size, use of iterative reconstruction technique. Using local anesthetic, sterile technique and CT guidance, a 19-gauge Yueh needle was advanced into the fluid collection in the left posterior flank. CT scan was performed confirming position. Purul ent fluid was also aspirated confirming position. The needle from the Yueh catheter was removed, le aving the Yueh catheter in place within the fluid collection. A 0.035-inch Amplatz guidewire was ad vanced through the Yueh catheter into the fluid collection. The Yueh catheter was removed. The tra ct was dilated to 10 Italian and a 10.2 Italian multipurpose drainage catheter was advanced over the g uidewire into the fluid collection. The guidewire was removed. Additional scanning was performed c onfirming position. The catheter was then sutured to the patient's skin with 2-0 silk. Approximate ly 20 ml of purulent fluid was aspirated. The catheter was connected to a drainage bag. A dressing was applied. The patient tolerated procedure well. COMPARISON: CT scan of the abdomen and pelvis dated 04/03/2017. FINDINGS: Final images demonstrate the drainage catheter in satisfactory position within the left posterior fl ank abscess. IMPRESSION: 1. Successful CT guided left posterior flank abscess drainage. RPTAT: QQ .Juan Daniel Manning MD, MD Date Time Electronically viewed and signed by .Juan Daniel Manning MD, on 04/04/2017 11:44 .R/
--- NOTE | 2017-04-04 14:28 | CONS ---
Date/Time of Note Date/Time of Note DATE: 04/04/17 TIME: 14:27 Consultation Date/Type/Reason Admit Date/Time Apr 03, 2017 at 01:38 Type of Consultation: ID Reason for Consultation This is Dr. Milagros Fulton dictating infectious consult on Jonathan Sahu, date of dictation 04/02/2017 date of consultation and dictation 04/04/2017, the reason for consultation is antibiotic management. Jonathan Fitzgerald is a 31-year-old male who is admitted with back pain and abdominal pain for 1 week. He has a past medical history of IV drug abuse his most recent use of heroin was within the last 24 hours. He complains of right-sided back pain as well as abdominal pain. He reports dysuria and urinary frequency as well as subjective fevers. There is no shortness of breath or chest pain. On admission his white count was 15.3 H&H of 9 and 29.3, platelet count of 506, 000. BUN/creatinine 15/0.81 urine was turbid had 3+ leukocyte esterase 156 white cells per high-powered field with few bacteria. Microbiology blood cultures are negative but urine is growing out staph aureus and gram-negative rods. CT scan of the abdomen and pelvis was done and showed a collection complex within the right posterior pararenal space extending to the posterior upper abdominal wall measuring 5.5 x 6.5 x 7.7. Findings are most consistent with an abscess given the patient's history of IV drug abuse he also has moderately enlarged prostate with a complex collection most consistent with abscess. He had a successful CT-guided left posterior flank abscess drainage with the drainage catheter in satisfactory position within the left posterior flank abscess. Patient was being on vancomycin and Zosyn. Past medical history: Hypertension No past surgical history Family history is noncontributory Social history: Patient is a current everyday smoker and a heroin abuser Allergies none to penicillin sulfa foods Medications per chart Review of systems per dictation On physical examination patient is lethargic but easily arousable. Vital signs are stable he is afebrile. Skin without generalized rash HEENT within normal limits Neck is supple without neck vein distention Chest decreased breath sounds at the bases Heart without murmur gallop Abdomen: Right suprapubic pain, right flank pain to palpation. Extremities: Without cyanosis clubbing or edema Rectal/genital exams: Deferred Neurological exam: No focal neurological abnormalities. Impression plan: Patient is an IV drug abuser who now has evidence of a perinephric abscess which was drained and he has most likely a prostatic abscess which if it does not improve will require transurethral drainage and SP tube according to Dr. Madden, urology. Patient should have a 2D echocardiogram done. His blood cultures so far negative. We will continue him on his coverage with vancomycin and Zosyn. I want to thank the hospitalists and consultants for seeing this patient. Thank you for this take up operator. Genitourinary: bleeding, discharge, dysuria, flank pain, hematuria, no complaints, other Past Surgical History Past Surgical Hx: no surgical history Social History Smoking Status: Current every day smoker Drug Use: heroin (Most recent injection performed within 24 hours) Exam/Review of Systems Vital Signs Vitals Vital Signs Date Time Temp Pulse Resp B/P Pulse Ox O2 Delivery O2 Flow Rate FiO2 04/04/17 07:59 97.4 56 20 116/69 100 04/03/17 02:09 Room Air Intake and Output 04/03/17 04/03/17 04/04/17 14:59 22:59 06:59 Intake Total 350 ml 1150 ml 1250 ml Output Total 1700 ml 400 ml Balance 350 ml -550 ml 850 ml Results Result Diagram: 04/04/17 0704/04/17 0726 Results 24 hrs Laboratory Tests Test 04/03/17 18:10 04/04/17 07:26 04/04/17 07:29 Prothrombin Time 13.9 Prothrombin Time Ratio 1.1 INR International Normalized Ratio 1.07 Activated Partial Thromboplast Time 40.6 H White Blood Count 15.0 H Red Blood Count 4.05 L Hemoglobin 8.9 L Hematocrit 29.7 L Mean Corpuscular Volume 73.3 L Mean Corpuscular Hemoglobin 22.0 L Mean Corpuscular Hemoglobin Concent 30.0 L Red Cell Distribution Width 17.2 H Platelet Count 468 H Mean Platelet Volume 9.2 Neutrophils % 75.3 Lymphocytes % 15.6 Monocytes % 7.2 Eosinophils % 1.1 Basophils % 0.3 Nucleated Red Blood Cells % 0.0 Neutrophils # 11.3 H Lymphocytes # 2.3 Monocytes # 1.1 H Eosinophils # 0.2 Basophils # 0.0 Nucleated Red Blood Cells # 0.0 Sodium Level 143 Potassium Level 3.7 Chloride Level 105 # Carbon Dioxide Level 28 Anion Gap 14 Blood Urea Nitrogen 10 Creatinine 0.73 Glucose Level 88 Calcium Level 8.4 Total Bilirubin 0.1 L Direct Bilirubin 0.00 Indirect Bilirubin 0.1 Aspartate Amino Transf (AST/SGOT) 34 # Alanine Aminotransferase (ALT/SGPT) 53 Alkaline Phosphatase 121 Total Protein 7.1 # Albumin 2.5 #L Globulin 4.60 H Albumin/Globulin Ratio 0.54 Triglycerides Level 130 Cholesterol Level 87 L LDL Cholesterol, Calculated 50 HDL Cholesterol 11 L Cholesterol/HDL Ratio 7.9 Thyroid Stimulating Hormone (TSH) 0.418 L Hemoglobin A1c 5.9 Medications Medications Current Medications Hydromorphone HCl 1 mg 1 mg Q4 PRN IV PAIN Last administered on 04/04/17 12:11 ; Admin Dose 1 MG; Start 04/03/17 at 02:30 Sodium Chloride (NS) 1,000 ml @ 100 mls/hr Q10H IV Last administered on 00:09; Admin Dose 100 MLS/HR; Start 04/03/17 at 04:58 Ondansetron HCl (Zofran Inj) 4 mg Q6H PRN IV NAUSEA AND/OR VOMITING; Start at 05:00 Acetaminophen (Tylenol Tab) 650 mg Q6H PRN PO PAIN LEVEL 1-3 OR FEVER; Start at 05:00 Pantoprazole 40 mg 40 mg DAILY@06 IV Last administered on 04/04/17 06:06; Admin Dose 40 MG; Start 04/03/17 at 06:00 Piperacillin Sod/ Tazobactam Sod 100 ml @ 200 mls/hr Q6 IVPB Last administered on 04/04/17 12:19; Admin Dose 200 MLS/HR; Start 04/03/17 at 06:00 Vancomycin HCl (Vancocin) 250 ml @ 125 mls/hr Q8H IVPB Last administered on 13:03; Admin Dose 125 MLS/HR; Start 04/03/17 at 17:00 Methadone HCl (Methadone) 30 mg BID PO Last administered on 04/04/17 09:05; Admin Dose 30 MG; Start 04/03/17 at 21:00 MILAGROS FULTON MD Apr 04, 2017 14:28
--- NOTE | 2017-04-04 14:42 | PN ---
Date/Time of Note Date/Time of Note DATE: 04/04/17 TIME: 14:36 Assessment/Plan VTE Prophylaxis VTE Prophylaxis Intervention: SCD's Lines/Catheters IV Catheter Type (from Nrsg): Saline Lock Urinary Cath still in place: Yes Reason Cath still needed: other (indicate) (montior I&O) Assessment/Plan Chief Complaint/Hosp Course Assessment and plan 1. Pararenal abscess. Patient did undergo CT drainage of abscess. Follow-up in result. ID consult to follow. Continue with antibiotics. Surgeon following. 2. Prostate abscess. Urologist consulted. Continue on antibiotics for now. Possible transurethral drainage is not improved with antibiotics. Will follow up with recommendations. 3. Heroin abuse. Pain management physician and health social work professor to follow. 4. UTI. mrsa. Recommendations. 5. Hypertension. Will provide antihypertensives as needed. 6. Lower extremity wound. Wound care nurse consulted. Will follow up with recommendations. Disposition plan: Follow-up on cultures of her renal abscess drainage. Continue antibiotics per ID. Await for clinical improvement. We will follow-up Discussed plan of care with Dr. Orta Problems: Subjective 24 Hr Interval Summary Free Text/Dictation Reports generalized pain at this time. Exam/Review of Systems Vital Signs Vitals Vital Signs Date Time Temp Pulse Resp B/P Pulse Ox O2 Delivery O2 Flow Rate FiO2 04/04/17 07:59 97.4 56 20 116/69 100 04/03/17 02:09 Room Air Intake and Output 04/03/17 04/03/17 04/04/17 15:00 23:00 07:00 Intake Total 350 ml 1150 ml 1250 ml Output Total 1700 ml 400 ml Balance 350 ml -550 ml 850 ml Exam Constitutional: alert, oriented Psych: anxiety Head: normocephalic Respiratory: clear to auscultation Cardiovascular: other (regular rate ) Gastrointestinal: non-tender, soft Extremities: other (LLE scaby wound ) Neurological: nl mental status, nl speech Results Result Diagram: 04/04/1772504/04/17725 Results 24 hrs Laboratory Tests Test 04/03/17 18:10 04/04/17 07:26 04/04/17 07:29 Prothrombin Time 13.9 Prothrombin Time Ratio 1.1 INR International Normalized Ratio 1.07 Activated Partial Thromboplast Time 40.6 H White Blood Count 15.0 H Red Blood Count 4.05 L Hemoglobin 8.9 L Hematocrit 29.7 L Mean Corpuscular Volume 73.3 L Mean Corpuscular Hemoglobin 22.0 L Mean Corpuscular Hemoglobin Concent 30.0 L Red Cell Distribution Width 17.2 H Platelet Count 468 H Mean Platelet Volume 9.2 Neutrophils % 75.3 Lymphocytes % 15.6 Monocytes % 7.2 Eosinophils % 1.1 Basophils % 0.3 Nucleated Red Blood Cells % 0.0 Neutrophils # 11.3 H Lymphocytes # 2.3 Monocytes # 1.1 H Eosinophils # 0.2 Basophils # 0.0 Nucleated Red Blood Cells # 0.0 Sodium Level 143 Potassium Level 3.7 Chloride Level 105 # Carbon Dioxide Level 28 Anion Gap 14 Blood Urea Nitrogen 10 Creatinine 0.73 Glucose Level 88 Calcium Level 8.4 Total Bilirubin 0.1 L Direct Bilirubin 0.00 Indirect Bilirubin 0.1 Aspartate Amino Transf (AST/SGOT) 34 # Alanine Aminotransferase (ALT/SGPT) 53 Alkaline Phosphatase 121 Total Protein 7.1 # Albumin 2.5 #L Globulin 4.60 H Albumin/Globulin Ratio 0.54 Triglycerides Level 130 Cholesterol Level 87 L LDL Cholesterol, Calculated 50 HDL Cholesterol 11 L Cholesterol/HDL Ratio 7.9 Thyroid Stimulating Hormone (TSH) 0.418 L Hemoglobin A1c 5.9 Medications Medications Current Medications Hydromorphone HCl 1 mg 1 mg Q4 PRN IV PAIN Last administered on 04/04/17 12:11 ; Admin Dose 1 MG; Start 04/03/17 at 02:30 Sodium Chloride (NS) 1,000 ml @ 100 mls/hr Q10H IV Last administered on 00:09; Admin Dose 100 MLS/HR; Start 04/03/17 at 04:58 Ondansetron HCl (Zofran Inj) 4 mg Q6H PRN IV NAUSEA AND/OR VOMITING; Start at 05:00 Acetaminophen (Tylenol Tab) 650 mg Q6H PRN PO PAIN LEVEL 1-3 OR FEVER; Start at 05:00 Pantoprazole 40 mg 40 mg DAILY@06 IV Last administered on 04/04/17 06:06; Admin Dose 40 MG; Start 04/03/17 at 06:00 Piperacillin Sod/ Tazobactam Sod 100 ml @ 200 mls/hr Q6 IVPB Last administered on 04/04/17 12:19; Admin Dose 200 MLS/HR; Start 04/03/17 at 06:00 Vancomycin HCl (Vancocin) 250 ml @ 125 mls/hr Q8H IVPB Last administered on 13:03; Admin Dose 125 MLS/HR; Start 04/03/17 at 17:00 Methadone HCl (Methadone) 30 mg BID PO Last administered on 04/04/17 09:05; Admin Dose 30 MG; Start 04/03/17 at 21:00 JOHN UPTON Apr 04, 2017 14:41
--- NOTE | 2017-04-04 17:18 | RADRPT ---
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 Physician: JOHN UPTON Quality: Adequate Procedures: Transthoracic echocardiogram with complete 2D, M-Mode, and doppler examination. Indications: Bacteremia with possible valve etiology. 2D/M Mode Doppler Measurement Value Normal Ranges Measurement Value Normal Ranges LVIDd 2D 4.7 3.5 - 5.6 cm AV Peak Jeff 1.3 m/sec LVIDs 2D 3.1 2.1 - 4.1 cm AV Peak PG 7.0 mmHg LVPWd 2D 0.9 0.6 - 1.1 cm LVOT Peak Jeff 1.0 m/sec IVSd 2D 0.8 0.6 - 1.1 cm LVOT Peak PG 4.0 mmHg AoR Diam 2D 2.5 2.0 - 3.7 cm MV E Peak Jeff 0.9 m/sec EF 2D 64.4 50.0 - 65.0 % MV A Peak Jeff 0.5 m/sec LA Dimen 2D 3.3 2.3 - 4.0 cm MV E/A 1.9 MV Decel Time 246 msec MV E/A 1.9 TR Peak Jeff 2.0 m/sec TR Peak PG 17.0 mmHg RVSP 20.0 mmHg Findings Left Ventricle: Lower limits of normal systolic function. Normal left ventricular cavity size. Normal left ventricular wall thickness. Ejection fraction is visually estimated at 5055 %. Right Ventricle: Normal right ventricular size. Normal right ventricular systolic function. Left Atrium: The left atrium is normal in size. Right Atrium: The right atrium is normal in size. Mitral Valve: Mild mitral leaflet calcification. Mild mitral annular calcification. Trace mitral regurgitation. Aortic Valve: Normal appearance of the aortic valve. No significant aortic stenosis or insufficiency. Tricuspid Valve: Normal appearance of the tricuspid valve. Estimated peak PA systolic pressure 20 mmHg. There is trace tricuspid regurgitation. Pulmonic Valve: Normal pulmonic valve appearance. There is trace pulmonic regurgitation. Pericardium: Normal pericardium with no significant pericardial effusion. Aorta: Normal aortic root. IVC: Normal size and normal respiratory collapse consistent with normal right atrial pressure. Conclusions 1.Lower limits of normal systolic function. Normal left ventricular cavity size. Normal left ventricular wall thickness. Ejection fraction is visually estimated at 50-55 %. 2.Mild mitral leaflet calcification. Mild mitral annular calcification. Trace mitral regurgitation. 3.Normal appearance of the tricuspid valve. Estimated peak PA systolic pressure 20 mmHg. There is trace tricuspid regurgitation. 4.Normal pulmonic valve appearance. There is trace pulmonic regurgitation. Electronically Signed By: Marc Blair 04-Apr-2017 17:18:13 0700 Patient Name: MAXINE ZIMMER Study Date: 04-Apr-2017 [id number]
[2017-04-04 19:23] VITALS: BP 106/56; RESP 18
[2017-04-04] MEDS ORDERED: VANCOMYCIN 1 GM in NS 250 ML IVPB SCH (21:00)
[2017-04-05 02:00] VITALS: BP 104/59; RESP 18
[2017-04-05 03:49] LABS: ADD SCAN DIFF NO
[2017-04-05 04:10] LABS: CALCIUM 8.2 mg/dl (8.4-10.2); CREATININE 0.85 mg/dl (0.61-1.24); POTASSIUM 3.7 mmol/L (3.5-5.1)
[2017-04-05 04:11] LABS: BASOPHILS % 0.3 % (0.0-2.0); EOSINOPHILS # 0.2 10^3/ul (0.0-0.5); EOSINOPHILS % 1.4 % (0.0-7.0); HEMATOCRIT 28.1 % (42.0-52.0); HEMOGLOBIN 8.6 g/dl (14.0-18.0); LYMPHOCYTES # 2.8 10^3/ul (0.8-2.9); LYMPHOCYTES % 21.1 % (15.0-51.0); MEAN CORPUSCULAR HEMOGLOBIN 22.1 pg (29.0-33.0); MEAN CORPUSCULAR HGB CONC 30.6 g/dl (32.0-37.0); MEAN CORPUSCULAR VOLUME 72.2 fl (82.0-101.0); MEAN PLATELET VOLUME 9.3 fl (7.4-10.4); MONOCYTE # 0.9 10^3/ul (0.3-0.9); MONOCYTES % 7.1 % (0.0-11.0); NEUTROPHIL # 9.2 10^3/ul (1.6-7.5); NEUTROPHILS % 69.3 % (39.0-77.0); PLATELET COUNT 466 10^3/UL (140-415); RED BLOOD COUNT 3.89 10^6/ul (4.70-6.10); RED CELL DISTRIBUTION WIDTH 17.5 % (11.5-14.5); WHITE BLOOD COUNT 13.3 10^3/ul (4.8-10.8)
[2017-04-05] MEDS: HYDROmorphONE 1 MG/ML SYG IV PRN (05:11)
[2017-04-05] MEDS: PANTOPRAZOLE 40 MG INJ IV SCH (05:12)
[2017-04-05] MEDS: PIPER-TAZO 3.375 GM IV (PMX) 100 ML IVPB SCH ×3 (05:13→18:26)
[2017-04-05] MEDS: VANCOMYCIN 750 MG in SOD CHLORIDE 0.9% 150 ML IVPB SCH ×3 (05:55→21:16)
[2017-04-05] MEDS: SOD CHLORIDE 0.9% 1,000 ML IV SCH ×2 (06:58→13:12)
[2017-04-05 08:25] VITALS: BP 107/66; RESP 16
[2017-04-05] MEDS: METHADONE 10 MG TAB PO SCH ×2 (09:35→21:18)
--- NOTE | 2017-04-05 09:35 | CONS ---
Date/Time of Note Date/Time of Note DATE: 04/05/17 TIME: 09:22 Assessment/Plan Assessment/Plan Chief Complaint/Hosp Course Pt with active IV heroin abuse presents with flank pain and dysuria Ct shows perirenal abscess and enlarged prostate R/o abscess Pt with blunt deraining well,uncomfortable Problems: Additional Assessment/Plan Urine c/s MRSA and Ecoli I have reviewed the literature for tx of prostatic abscess which is quite rare Tur drainage is only indicated for failure of multiple US guided aspirations, as risks of sepsis bleeding and retrograde ejaculation is high These are always done under local anesthesia usually by IR Pt only wants general anesthesia for any procedures Pt will padmini IV ab for extended period of time and drain prostate if not improved Would ask IR if willing to do drainage by Transrectal US if abscess not improved by MRI with ROSA next week Consultation Date/Type/Reason Admit Date/Time Apr 03, 2017 at 01:38 Initial Consult Date 04/03/17 Type of Consultation: ID Reason for Consultation prostatic abscess Exam/Review of Systems Vital Signs Vitals Vital Signs Date Time Temp Pulse Resp B/P Pulse Ox O2 Delivery O2 Flow Rate FiO2 04/05/17 08:25 98.1 65 16 107/66 98 04/03/17 02:09 Room Air Intake and Output 04/04/17 04/04/17 04/05/17 15:00 23:00 07:00 Intake Total 350 ml 2190 ml 440 ml Output Total 950 ml 530 ml Balance 350 ml 1240 ml -90 ml Results Rectal exam reveals large soft tender prostate Result Diagram: 04/05/17 0345 04/05/17 0345 Results 24 hrs Laboratory Tests Test 04/05/17 03:45 White Blood Count 13.3 H Red Blood Count 3.89 L Hemoglobin 8.6 L Hematocrit 28.1 L Mean Corpuscular Volume 72.2 L Mean Corpuscular Hemoglobin 22.1 L Mean Corpuscular Hemoglobin Concent 30.6 L Red Cell Distribution Width 17.5 H Platelet Count 466 H Mean Platelet Volume 9.3 Neutrophils % 69.3 Lymphocytes % 21.1 Monocytes % 7.1 Eosinophils % 1.4 Basophils % 0.3 Nucleated Red Blood Cells % 0.0 Neutrophils # 9.2 H Lymphocytes # 2.8 Monocytes # 0.9 Eosinophils # 0.2 Basophils # 0.0 Nucleated Red Blood Cells # 0.0 Sodium Level 141 Potassium Level 3.7 Chloride Level 103 Carbon Dioxide Level 28 Anion Gap 14 Blood Urea Nitrogen 9 Creatinine 0.85 Glucose Level 93 Calcium Level 8.2 L Vancomycin Level Trough 19.0 Medications Medications Current Medications Sodium Chloride (NS) 1,000 ml @ 100 mls/hr Q10H IV Last administered on 18:55; Admin Dose 100 MLS/HR; Start 04/03/17 at 04:58 Ondansetron HCl (Zofran Inj) 4 mg Q6H PRN IV NAUSEA AND/OR VOMITING; Start at 05:00 Acetaminophen (Tylenol Tab) 650 mg Q6H PRN PO PAIN LEVEL 1-3 OR FEVER; Start at 05:00 Pantoprazole 40 mg 40 mg DAILY@06 IV Last administered on 04/05/17 05:12; Admin Dose 40 MG; Start 04/03/17 at 06:00 Piperacillin Sod/ Tazobactam Sod (Zosyn 3.375gm/ 100 ml (Pmx)) 100 ml @ 200 mls /hr Q6 IVPB Last administered on 04/05/17 05:13; Admin Dose 200 MLS/HR; Start 04/03/17 at 06:00 Methadone HCl 30 mg 30 mg BID PO Last administered on 04/04/17 21:04; Admin Dose 30 MG; Start 04/03/17 at 21:00 Vancomycin HCl/ Sodium Chloride (Vancocin/NS) 150 ml @ 75 mls/hr Q8H IVPB Last administered on 04/05/17 05:55; Admin Dose 75 MLS/HR; Start 04/05/17 at 05 :00 Hydromorphone HCl (Dilaudid) 2 mg Q4H PRN PO PAIN; Start 04/05/17 at 09:30; Status UNV Docusate Sodium (Colace) 200 mg BID PO ; Start 04/05/17 at 09:30; Status ALECIAV MARJORIE BURKS MD Apr 05, 2017 09:33
[2017-04-05] MEDS: DOCUSATE SODIUM 100 MG CAP PO SCH ×2 (11:15→21:16)
[2017-04-05] MEDS: NICOTINE (14 MG/24 HR) PATCH TRANSDERM SCH (11:15)
--- NOTE | 2017-04-05 13:04 | CONS ---
Date/Time of Note Date/Time of Note DATE: 04/05/17 TIME: 13:03 Assessment/Plan Assessment/Plan Chief Complaint/Hosp Course No acute events patient is lying comfortably in bed no fevers WBC today 13.3 platelets 4 6 neutrophils 89.3 BN 9 creatinine 0.85 Microbiology: Urine culture grew MRSA and E. coli, abdominal fluid culture growing staph aureus preliminary, blood cultures are negative Antibiotics: Vancomycin Zosyn Physical examination: This is well-nourished well-developed middle-aged white man who is alert in no distress. Head atraumatic normocephalic, sclera nonicteric. Neck is supple, trachea midline. Chest rise symmetrical breath sounds diminished basis. Heart: S1-S2. Abdomen soft bowel sounds present, patient has right perinephric drainage catheter with purulent drainage. Extremities no cyanosis Assessment: 1. Systemic inflammatory response syndrome 2. Left posterior flank abscess status post CT-guided drainage with catheter placement 3. Polymicrobial UTI 4. Prostatic abscess 5. Lower extremity wound 6. Heroin abuse Plan: Remains stable, 2D echo revealed no vegetations, as per urology recommendations will require long-term IV antibiotics if no improvement will require prostatic abscess drainage. Patient is not a candidate for being discharged with a PICC line, rn case manager hospice need to find a placement Problems: Consultation Date/Type/Reason Admit Date/Time Apr 03, 2017 at 01:38 Initial Consult Date 04/03/17 Type of Consultation: ID Exam/Review of Systems Vital Signs Vitals Vital Signs Date Time Temp Pulse Resp B/P Pulse Ox O2 Delivery O2 Flow Rate FiO2 04/05/17 08:25 98.1 65 16 107/66 98 04/03/17 02:09 Room Air Intake and Output 04/04/17 04/04/17 04/05/17 14:59 22:59 06:59 Intake Total 100 ml 2190 ml 690 ml Output Total 950 ml 530 ml Balance 100 ml 1240 ml 160 ml Results Result Diagram: 04/05/17 0345 04/05/17 0345 Results 24 hrs Laboratory Tests Test 04/05/17 03:45 White Blood Count 13.3 H Red Blood Count 3.89 L Hemoglobin 8.6 L Hematocrit 28.1 L Mean Corpuscular Volume 72.2 L Mean Corpuscular Hemoglobin 22.1 L Mean Corpuscular Hemoglobin Concent 30.6 L Red Cell Distribution Width 17.5 H Platelet Count 466 H Mean Platelet Volume 9.3 Neutrophils % 69.3 Lymphocytes % 21.1 Monocytes % 7.1 Eosinophils % 1.4 Basophils % 0.3 Nucleated Red Blood Cells % 0.0 Neutrophils # 9.2 H Lymphocytes # 2.8 Monocytes # 0.9 Eosinophils # 0.2 Basophils # 0.0 Nucleated Red Blood Cells # 0.0 Sodium Level 141 Potassium Level 3.7 Chloride Level 103 Carbon Dioxide Level 28 Anion Gap 14 Blood Urea Nitrogen 9 Creatinine 0.85 Glucose Level 93 Calcium Level 8.2 L Vancomycin Level Trough 19.0 Medications Medications Current Medications Sodium Chloride (NS) 1,000 ml @ 100 mls/hr Q10H IV Last administered on 18:55; Admin Dose 100 MLS/HR; Start 04/03/17 at 04:58 Ondansetron HCl (Zofran Inj) 4 mg Q6H PRN IV NAUSEA AND/OR VOMITING; Start at 05:00 Acetaminophen (Tylenol Tab) 650 mg Q6H PRN PO PAIN LEVEL 1-3 OR FEVER; Start at 05:00 Pantoprazole 40 mg 40 mg DAILY@06 IV Last administered on 04/05/17 05:12; Admin Dose 40 MG; Start 04/03/17 at 06:00 Piperacillin Sod/ Tazobactam Sod (Zosyn 3.375gm/ 100 ml (Pmx)) 100 ml @ 200 mls /hr Q6 IVPB Last administered on 04/05/17 11:15; Admin Dose 200 MLS/HR; Start 04/03/17 at 06:00 Methadone HCl 30 mg 30 mg BID PO Last administered on 04/05/17 09:35; Admin Dose 30 MG; Start 04/03/17 at 21:00 Vancomycin HCl/ Sodium Chloride (Vancocin/NS) 150 ml @ 75 mls/hr Q8H IVPB Last administered on 04/05/17 05:55; Admin Dose 75 MLS/HR; Start 04/05/17 at 05 :00 Hydromorphone HCl (Dilaudid) 2 mg Q4H PRN PO PAIN; Start 04/05/17 at 09:30 Docusate Sodium (Colace) 200 mg BID PO Last administered on 04/05/17 11:15; Admin Dose 200 MG; Start 04/05/17 at 09:30 Nicotine (Nicoderm 14 Mg/ 24hr) 1 patch DAILY TRANSDERM Last administered on t 11:15; Admin Dose 1 PATCH; Start 04/05/17 at 10:00 JOSE ELIAS CASTILLO NP Apr 05, 2017 13:03
[2017-04-05 14:50] VITALS: BP 104/71; RESP 16
--- NOTE | 2017-04-05 16:23 | PN ---
Date/Time of Note Date/Time of Note DATE: 04/05/17 TIME: 16:20 Assessment/Plan VTE Prophylaxis VTE Prophylaxis Intervention: SCD's Lines/Catheters IV Catheter Type (from Nrsg): Peripheral IV Urinary Cath still in place: Yes Reason Cath still needed: other (indicate) (montior I&O) Assessment/Plan Chief Complaint/Hosp Course Assessment and plan 1. Pararenal abscess. Patient did undergo CT drainage of abscess. Wound culture did show staph aureus.. ID consult to follow. Continue with antibiotics. Surgeon following. 2. Prostate abscess. Urologist consulted. Continue on antibiotics for now. Possible transurethral drainage is not improved with antibiotics. Will follow up with recommendations. 3. Heroin abuse. Pain management physician and health social work professor to follow. 4. UTI. MRSA. Recommendations. 5. Hypertension. Will provide antihypertensives as needed. 6. Lower extremity wound. Wound care nurse consulted. Will follow up with recommendations. Disposition plan: Continue antibiotics. Will likely need placement for antibiotics regimen. Will follow up with case management Discussed plan of care with Dr. Orta Problems: Subjective 24 Hr Interval Summary Free Text/Dictation No distress noted at this time. Exam/Review of Systems Vital Signs Vitals Vital Signs Date Time Temp Pulse Resp B/P Pulse Ox O2 Delivery O2 Flow Rate FiO2 04/05/17 14:50 97.5 54 16 104/71 99 04/03/17 02:09 Room Air Intake and Output 04/04/17 04/04/17 04/05/17 15:00 23:00 07:00 Intake Total 350 ml 2190 ml 440 ml Output Total 950 ml 530 ml Balance 350 ml 1240 ml -90 ml Exam Constitutional: alert, oriented Head: normocephalic Neck: supple, No jvd Respiratory: normal air movement Cardiovascular: regular rate and rhythm Gastrointestinal: non-tender, soft Musculoskeletal: nl extremities to inspection Extremities: other (Noted with left lower extremity wound) Neurological: UPSETTER HELPER II-XII intact, nl mental status, nl speech Results Result Diagram: 04/05/17 0345 04/05/17 0345 Results 24 hrs Laboratory Tests Test 04/05/17 03:45 White Blood Count 13.3 H Red Blood Count 3.89 L Hemoglobin 8.6 L Hematocrit 28.1 L Mean Corpuscular Volume 72.2 L Mean Corpuscular Hemoglobin 22.1 L Mean Corpuscular Hemoglobin Concent 30.6 L Red Cell Distribution Width 17.5 H Platelet Count 466 H Mean Platelet Volume 9.3 Neutrophils % 69.3 Lymphocytes % 21.1 Monocytes % 7.1 Eosinophils % 1.4 Basophils % 0.3 Nucleated Red Blood Cells % 0.0 Neutrophils # 9.2 H Lymphocytes # 2.8 Monocytes # 0.9 Eosinophils # 0.2 Basophils # 0.0 Nucleated Red Blood Cells # 0.0 Sodium Level 141 Potassium Level 3.7 Chloride Level 103 Carbon Dioxide Level 28 Anion Gap 14 Blood Urea Nitrogen 9 Creatinine 0.85 Glucose Level 93 Calcium Level 8.2 L Vancomycin Level Trough 19.0 Medications Medications Current Medications Sodium Chloride (NS) 1,000 ml @ 100 mls/hr Q10H IV Last administered on 13:12; Admin Dose 100 MLS/HR; Start 04/03/17 at 04:58 Ondansetron HCl (Zofran Inj) 4 mg Q6H PRN IV NAUSEA AND/OR VOMITING; Start at 05:00 Acetaminophen (Tylenol Tab) 650 mg Q6H PRN PO PAIN LEVEL 1-3 OR FEVER; Start at 05:00 Pantoprazole 40 mg 40 mg DAILY@06 IV Last administered on 04/05/17 05:12; Admin Dose 40 MG; Start 04/03/17 at 06:00 Piperacillin Sod/ Tazobactam Sod (Zosyn 3.375gm/ 100 ml (Pmx)) 100 ml @ 200 mls /hr Q6 IVPB Last administered on 04/05/17 11:15; Admin Dose 200 MLS/HR; Start 04/03/17 at 06:00 Methadone HCl 30 mg 30 mg BID PO Last administered on 04/05/17 09:35; Admin Dose 30 MG; Start 04/03/17 at 21:00 Vancomycin HCl/ Sodium Chloride (Vancocin/NS) 150 ml @ 75 mls/hr Q8H IVPB Last administered on 04/05/17 13:12; Admin Dose 75 MLS/HR; Start 04/05/17 at 05 :00 Hydromorphone HCl (Dilaudid) 2 mg Q4H PRN PO PAIN; Start 04/05/17 at 09:30 Docusate Sodium (Colace) 200 mg BID PO Last administered on 04/05/17 11:15; Admin Dose 200 MG; Start 04/05/17 at 09:30 Nicotine (Nicoderm 14 Mg/ 24hr) 1 patch DAILY TRANSDERM Last administered on 11:15; Admin Dose 1 PATCH; Start 04/05/17 at 10:00 Miscellaneous Information (*Rx Drug Level Order Reminder*) VANCO TROUGH ON 03/19... ONCE ONCE XX ; Start 04/06/17 at 04:00; Stop 04/06/17 at 04:01 JOHN UPTON Apr 05, 2017 16:23
[2017-04-05 17:19] LABS: PSA, FREE <0.1 ng/mL
[2017-04-05 20:00] VITALS: BP 112/70; RESP 16
[2017-04-06] MEDS: PIPER-TAZO 3.375 GM IV (PMX) 100 ML IVPB SCH ×5 (00:33→23:15)
[2017-04-06 02:48] VITALS: BP 102/60; RESP 18
[2017-04-06] MEDS: SOD CHLORIDE 0.9% 1,000 ML IV SCH ×4 (02:58→23:15)
[2017-04-06 04:10] LABS: ADD SCAN DIFF NO
[2017-04-06 04:12] LABS: BASOPHIL # 0.1 10^3/ul (0.0-0.1); BASOPHILS % 0.5 % (0.0-2.0); EOSINOPHILS # 0.3 10^3/ul (0.0-0.5); HEMOGLOBIN 9.1 g/dl (14.0-18.0); LYMPHOCYTES # 2.5 10^3/ul (0.8-2.9); MEAN CORPUSCULAR HEMOGLOBIN 21.6 pg (29.0-33.0); MEAN CORPUSCULAR HGB CONC 29.4 g/dl (32.0-37.0); MEAN CORPUSCULAR VOLUME 73.6 fl (82.0-101.0); MEAN PLATELET VOLUME 8.9 fl (7.4-10.4); MONOCYTE # 0.8 10^3/ul (0.3-0.9); MONOCYTES % 8.5 % (0.0-11.0); NEUTROPHIL # 6.2 10^3/ul (1.6-7.5); NEUTROPHILS % 62.6 % (39.0-77.0); PLATELET COUNT 471 10^3/UL (140-415); RED BLOOD COUNT 4.21 10^6/ul (4.70-6.10); RED CELL DISTRIBUTION WIDTH 17.5 % (11.5-14.5); WHITE BLOOD COUNT 9.9 10^3/ul (4.8-10.8)
[2017-04-06 04:51] LABS: CALCIUM 8.6 mg/dl (8.4-10.2); CREATININE 0.82 mg/dl (0.61-1.24); POTASSIUM 3.6 mmol/L (3.5-5.1)
[2017-04-06] MEDS: PANTOPRAZOLE 40 MG INJ IV SCH (05:08)
[2017-04-06] MEDS: HYDROmorphONE 2 MG TAB PO PRN (05:17)
[2017-04-06] MEDS: VANCOMYCIN 750 MG in SOD CHLORIDE 0.9% 150 ML IVPB SCH ×3 (06:02→21:02)
[2017-04-06 07:51] VITALS: BP 101/62; RESP 18
--- NOTE | 2017-04-06 09:09 | PN ---
Date/Time of Note Date/Time of Note DATE: 04/06/17 TIME: 09:08 Assessment/Plan Lines/Catheters IV Catheter Type (from Nrs): Saline Lock Jackson in Place (from Nrsg): Yes Assessment/Plan Assessment/Plan Continue medical management Repeat CT next week per urology Subjective 24 Hr Interval Summary Continued symptomatic improvement Abdominal examination is benign Leukocytosis improving Exam/Review of Systems Vital Signs Vitals Vital Signs Date Time Temp Pulse Resp B/P Pulse Ox O2 Delivery O2 Flow Rate FiO2 04/06/17 07:51 98.0 60 18 101/62 96 04/03/17 02:09 Room Air Intake and Output 04/05/17 04/05/17 04/06/17 15:00 23:00 07:00 Intake Total 1250 ml 1600 ml 2070 ml Output Total 2605 ml 1510 ml Balance 1250 ml -1005 ml 560 ml Results Result Diagram: 04/06/17 0405 04/06/17 0405 HOLLY BENITEZ MD Apr 06, 2017 09:09
[2017-04-06] MEDS: DOCUSATE SODIUM 100 MG CAP PO SCH ×2 (09:20→21:03)
[2017-04-06] MEDS: NICOTINE (14 MG/24 HR) PATCH TRANSDERM SCH (09:20)
[2017-04-06] MEDS: METHADONE 10 MG TAB PO SCH ×2 (09:21→21:03)
--- NOTE | 2017-04-06 14:37 | CONS ---
Date/Time of Note Date/Time of Note DATE: 04/06/17 TIME: 14:36 Assessment/Plan Assessment/Plan Chief Complaint/Hosp Course No acute events patient is lying comfortably in bed no fevers Microbiology: Urine culture grew MRSA and E. coli, abdominal fluid culture growing staph aureus preliminary, blood cultures are negative Antibiotics: Vancomycin Zosyn Physical examination: This is well-nourished well-developed middle-aged white man who is in no distress. Head atraumatic normocephalic, sclera nonicteric. Neck is supple, trachea midline. Chest rise symmetrical breath sounds diminished basis. Heart: S1-S2. Abdomen soft bowel sounds present, patient has right perinephric drainage catheter with purulent drainage. Extremities no cyanosis Assessment: 1. Systemic inflammatory response syndrome 2. Left posterior flank abscess status post CT-guided drainage with catheter placement 3. Polymicrobial UTI 4. Prostatic abscess 5. Lower extremity wound 6. Heroin abuse Plan: Remains stable, 2D echo revealed no vegetations, as per urology recommendations will require long-term IV antibiotics if no improvement will require prostatic abscess drainage. Pending placement for IV antibiotics Problems: Consultation Date/Type/Reason Admit Date/Time Apr 03, 2017 at 01:38 Initial Consult Date 04/03/17 Type of Consultation: ID Exam/Review of Systems Vital Signs Vitals Vital Signs Date Time Temp Pulse Resp B/P Pulse Ox O2 Delivery O2 Flow Rate FiO2 04/06/17 07:51 98.0 60 18 101/62 96 04/03/17 02:09 Room Air Intake and Output 04/05/17 04/05/17 04/06/17 15:00 23:00 07:00 Intake Total 1250 ml 1600 ml 2070 ml Output Total 2605 ml 1510 ml Balance 1250 ml -1005 ml 560 ml Results Result Diagram: 04/06/17 0405 04/06/17 0405 Results 24 hrs Laboratory Tests Test 04/06/17 04:05 White Blood Count 9.9 # Red Blood Count 4.21 L Hemoglobin 9.1 L Hematocrit 31.0 L Mean Corpuscular Volume 73.6 L Mean Corpuscular Hemoglobin 21.6 L Mean Corpuscular Hemoglobin Concent 29.4 L Red Cell Distribution Width 17.5 H Platelet Count 471 H Mean Platelet Volume 8.9 Neutrophils % 62.6 Lymphocytes % 25.0 Monocytes % 8.5 Eosinophils % 3.0 Basophils % 0.5 Nucleated Red Blood Cells % 0.0 Neutrophils # 6.2 Lymphocytes # 2.5 Monocytes # 0.8 Eosinophils # 0.3 Basophils # 0.1 Nucleated Red Blood Cells # 0.0 Sodium Level 144 Potassium Level 3.6 Chloride Level 106 Carbon Dioxide Level 28 Anion Gap 14 Blood Urea Nitrogen 7 Creatinine 0.82 Glucose Level 86 Calcium Level 8.6 Vancomycin Level Trough 16.5 Medications Medications Current Medications Sodium Chloride (NS) 1,000 ml @ 100 mls/hr Q10H IV Last administered on 06:03; Admin Dose 100 MLS/HR; Start 04/03/17 at 04:58 Ondansetron HCl (Zofran Inj) 4 mg Q6H PRN IV NAUSEA AND/OR VOMITING; Start at 05:00 Acetaminophen (Tylenol Tab) 650 mg Q6H PRN PO PAIN LEVEL 1-3 OR FEVER; Start at 05:00 Pantoprazole 40 mg 40 mg DAILY@06 IV Last administered on 04/06/17 05:08; Admin Dose 40 MG; Start 04/03/17 at 06:00 Piperacillin Sod/ Tazobactam Sod (Zosyn 3.375gm/ 100 ml (Pmx)) 100 ml @ 200 mls /hr Q6 IVPB Last administered on 04/06/17 12:52; Admin Dose 200 MLS/HR; Start 04/03/17 at 06:00 Methadone HCl 30 mg 30 mg BID PO Last administered on 04/06/17 09:21; Admin Dose 30 MG; Start 04/03/17 at 21:00 Vancomycin HCl/ Sodium Chloride (Vancocin/NS) 150 ml @ 75 mls/hr Q8H IVPB Last administered on 04/06/17 13:37; Admin Dose 75 MLS/HR; Start 04/05/17 at 05 :00 Hydromorphone HCl (Dilaudid) 2 mg Q4H PRN PO PAIN Last administered on 05:17; Admin Dose 2 MG; Start 04/05/17 at 09:30 Docusate Sodium (Colace) 200 mg BID PO Last administered on 04/06/17 09:20; Admin Dose 200 MG; Start 04/05/17 at 09:30 Nicotine (Nicoderm 14 Mg/ 24hr) 1 patch DAILY TRANSDERM Last administered on t 09:20; Admin Dose 1 PATCH; Start 04/05/17 at 10:00 JOSE ELIAS CASTILLO NP Apr 06, 2017 14:37
[2017-04-06 14:47] VITALS: BP 107/65; RESP 18
--- NOTE | 2017-04-06 17:54 | PN ---
Date/Time of Note Date/Time of Note DATE: 04/06/17 TIME: 17:52 Assessment/Plan VTE Prophylaxis VTE Prophylaxis Intervention: SCD's Lines/Catheters IV Catheter Type (from Nrsg): Saline Lock Urinary Cath still in place: Yes Reason Cath still needed: other (indicate) (montior I&O) Assessment/Plan Chief Complaint/Hosp Course Assessment and plan 1. Pararenal abscess. Patient did undergo CT drainage of abscess. Wound culture did show staph aureus... Continue with antibiotics. Surgeon following. 2. Prostate abscess. Urologist consulted. Continue on antibiotics for now. Possible transurethral drainage is not improved with antibiotics. Will follow up with recommendations. 3. Heroin abuse. Pain management physician and transition social worker to follow. 4. UTI. Continue antibiotics per ID recommendations 5. Hypertension. Will provide antihypertensives as needed. 6. Lower extremity wound. Wound care nurse consulted. Will follow up with recommendations. Disposition plan: Awaiting placement. continue abx Discussed plan of care with Dr. Orta Problems: Subjective 24 Hr Interval Summary Free Text/Dictation Resting bed. No apparent distress. Exam/Review of Systems Vital Signs Vitals Vital Signs Date Time Temp Pulse Resp B/P Pulse Ox O2 Delivery O2 Flow Rate FiO2 04/06/17 14:47 98.2 68 18 107/65 96 04/03/17 02:09 Room Air Intake and Output 04/05/17 04/05/17 04/06/17 15:00 23:00 07:00 Intake Total 1250 ml 1600 ml 2070 ml Output Total 2605 ml 1510 ml Balance 1250 ml -1005 ml 560 ml Exam Constitutional: alert, oriented Head: normocephalic Neck: supple, No jvd Respiratory: normal air movement Cardiovascular: regular rate and rhythm Gastrointestinal: non-tender, soft Musculoskeletal: nl extremities to inspection Extremities: other (Noted with left lower extremity wound) Neurological: AIR MOTOR REPAIRER II-XII intact, nl mental status, nl speech Results Result Diagram: 04/06/1740404/06/17404 Results 24 hrs Laboratory Tests Test 04/06/17 04:05 White Blood Count 9.9 # Red Blood Count 4.21 L Hemoglobin 9.1 L Hematocrit 31.0 L Mean Corpuscular Volume 73.6 L Mean Corpuscular Hemoglobin 21.6 L Mean Corpuscular Hemoglobin Concent 29.4 L Red Cell Distribution Width 17.5 H Platelet Count 471 H Mean Platelet Volume 8.9 Neutrophils % 62.6 Lymphocytes % 25.0 Monocytes % 8.5 Eosinophils % 3.0 Basophils % 0.5 Nucleated Red Blood Cells % 0.0 Neutrophils # 6.2 Lymphocytes # 2.5 Monocytes # 0.8 Eosinophils # 0.3 Basophils # 0.1 Nucleated Red Blood Cells # 0.0 Sodium Level 144 Potassium Level 3.6 Chloride Level 106 Carbon Dioxide Level 28 Anion Gap 14 Blood Urea Nitrogen 7 Creatinine 0.82 Glucose Level 86 Calcium Level 8.6 Vancomycin Level Trough 16.5 Medications Medications Current Medications Sodium Chloride (NS) 1,000 ml @ 100 mls/hr Q10H IV Last administered on 06:03; Admin Dose 100 MLS/HR; Start 04/03/17 at 04:58 Ondansetron HCl (Zofran Inj) 4 mg Q6H PRN IV NAUSEA AND/OR VOMITING; Start at 05:00 Acetaminophen (Tylenol Tab) 650 mg Q6H PRN PO PAIN LEVEL 1-3 OR FEVER; Start at 05:00 Pantoprazole 40 mg 40 mg DAILY@06 IV Last administered on 04/06/17 05:08; Admin Dose 40 MG; Start 04/03/17 at 06:00 Piperacillin Sod/ Tazobactam Sod (Zosyn 3.375gm/ 100 ml (Pmx)) 100 ml @ 200 mls /hr Q6 IVPB Last administered on 04/06/17 17:46; Admin Dose 200 MLS/HR; Start 04/03/17 at 06:00 Methadone HCl 30 mg 30 mg BID PO Last administered on 04/06/17 09:21; Admin Dose 30 MG; Start 04/03/17 at 21:00 Vancomycin HCl/ Sodium Chloride (Vancocin/NS) 150 ml @ 75 mls/hr Q8H IVPB Last administered on 04/06/17 13:37; Admin Dose 75 MLS/HR; Start 04/05/17 at 05 :00 Hydromorphone HCl (Dilaudid) 2 mg Q4H PRN PO PAIN Last administered on 05:17; Admin Dose 2 MG; Start 04/05/17 at 09:30 Docusate Sodium (Colace) 200 mg BID PO Last administered on 04/06/17 09:20; Admin Dose 200 MG; Start 04/05/17 at 09:30 Nicotine (Nicoderm 14 Mg/ 24hr) 1 patch DAILY TRANSDERM Last administered on 09:20; Admin Dose 1 PATCH; Start 04/05/17 at 10:00 JOHN UPTON Apr 06, 2017 17:53
[2017-04-06 19:52] VITALS: BP 106/7; RESP 20
[2017-04-07 02:00] VITALS: BP 108/68; RESP 20
[2017-04-07] MEDS: PIPER-TAZO 3.375 GM IV (PMX) 100 ML IVPB SCH ×2 (05:29→12:26)
[2017-04-07] MEDS: PANTOPRAZOLE (EC) 40 MG TAB PO SCH (05:30)
[2017-04-07] MEDS: VANCOMYCIN 750 MG in SOD CHLORIDE 0.9% 150 ML IVPB SCH ×3 (06:00→21:13)
[2017-04-07 08:35] VITALS: BP 109/66; RESP 16
[2017-04-07] MEDS: SOD CHLORIDE 0.9% 1,000 ML IV SCH ×3 (08:58→18:58)
[2017-04-07] MEDS: DOCUSATE SODIUM 100 MG CAP PO SCH ×2 (09:00→21:12)
[2017-04-07] MEDS: METHADONE 10 MG TAB PO SCH ×2 (09:01→21:12)
[2017-04-07] MEDS: NICOTINE (14 MG/24 HR) PATCH TRANSDERM SCH (09:01)
--- NOTE | 2017-04-07 09:57 | PN ---
Date/Time of Note Date/Time of Note DATE: 04/07/17 TIME: 09:54 Assessment/Plan VTE Prophylaxis VTE Prophylaxis Intervention: SCD's Lines/Catheters IV Catheter Type (from Nrs): Saline Lock Urinary Cath still in place: Yes Reason Cath still needed: other (indicate) (montior I&O) Assessment/Plan Chief Complaint/Hosp Course Assessment and plan 1. Pararenal abscess. Patient did undergo CT drainage of abscess. Wound culture did show staph aureus... Continue with antibiotics. Surgeon following. 2. Prostate abscess. Urologist consulted. Continue on antibiotics for now. Possible transurethral drainage is not improved with antibiotics. Will follow up with recommendations. 3. Heroin abuse. Pain management physician and social science teacher to follow. 4. UTI. Continue antibiotics per ID recommendations 5. Hypertension. Will provide antihypertensives as needed. 6. Lower extremity wound. Wound care nurse consulted. Will follow up with recommendations. Disposition plan: Patient difficult placement due to age, history of heroin abuse and IV drug use and need for long-term antibiotics. Following up with case management for hopeful placement. Will follow up. Repeat imaging of prostate abscess per urologist. Continue inpatient monitoring for now. Discussed plan of care with Dr. Orta Problems: Subjective 24 Hr Interval Summary Free Text/Dictation Reports this pain at this time. Comfortable at present. No specific complaints. Exam/Review of Systems Vital Signs Vitals Vital Signs Date Time Temp Pulse Resp B/P Pulse Ox O2 Delivery O2 Flow Rate FiO2 04/07/17 08:35 97.8 82 16 109/66 97 Intake and Output 04/06/17 04/06/17 04/07/17 15:00 23:00 07:00 Intake Total 250 ml 1970 ml 1250 ml Output Total 5 ml 2010 ml 10 ml Balance 245 ml -40 ml 1240 ml Exam Constitutional: alert, oriented Psych: nl mood/affect Respiratory: normal air movement Cardiovascular: regular rate and rhythm Gastrointestinal: non-tender, soft Neurological: STEREO EQUIPMENT INSTALLER II-XII intact, nl mental status, nl speech Skin: other (Surgical drain noted on right flank. Noted also with left lower extremity wound) Results Result Diagram: 04/06/1740404/06/17404 Medications Medications Current Medications Sodium Chloride (NS) 1,000 ml @ 100 mls/hr Q10H IV Last administered on t 23:15; Admin Dose 100 MLS/HR; Start 04/03/17 at 04:58 Ondansetron HCl (Zofran Inj) 4 mg Q6H PRN IV NAUSEA AND/OR VOMITING; Start at 05:00 Acetaminophen 650 mg 650 mg Q6H PRN PO PAIN LEVEL 1-3 OR FEVER; Start 04/03/17 at 05:00 Piperacillin Sod/ Tazobactam Sod (Zosyn 3.375gm/ 100 ml (Pmx)) 100 ml @ 200 mls /hr Q6 IVPB Last administered on 04/07/17 05:29; Admin Dose 200 MLS/HR; Start 04/03/17 at 06:00 Methadone HCl 30 mg 30 mg BID PO Last administered on 04/07/17 09:01; Admin Dose 30 MG; Start 04/03/17 at 21:00 Vancomycin HCl/ Sodium Chloride (Vancocin/NS) 150 ml @ 75 mls/hr Q8H IVPB Last administered on 04/07/17 06:00; Admin Dose 75 MLS/HR; Start 04/05/17 at 05 :00 Hydromorphone HCl (Dilaudid) 2 mg Q4H PRN PO PAIN Last administered on 05:17; Admin Dose 2 MG; Start 04/05/17 at 09:30 Docusate Sodium (Colace) 200 mg BID PO Last administered on 04/07/17 09:00; Admin Dose 200 MG; Start 04/05/17 at 09:30 Nicotine (Nicoderm 14 Mg/ 24hr) 1 patch DAILY TRANSDERM Last administered on 09:01; Admin Dose 1 PATCH; Start 04/05/17 at 10:00 Pantoprazole (Protonix Tab) 40 mg DAILY@06 PO Last administered on 04/07/17 05 :30; Admin Dose 40 MG; Start 04/07/17 at 06:00 JOHN UPTON Apr 07, 2017 09:57
[2017-04-07 12:25] LABS: ADD SCAN DIFF NO
[2017-04-07 12:31] LABS: BASOPHILS % 0.3 % (0.0-2.0); EOSINOPHILS # 0.3 10^3/ul (0.0-0.5); EOSINOPHILS % 3.5 % (0.0-7.0); HEMATOCRIT 30.3 % (42.0-52.0); LYMPHOCYTES % 20.9 % (15.0-51.0); MEAN CORPUSCULAR HGB CONC 29.7 g/dl (32.0-37.0); MEAN CORPUSCULAR VOLUME 74.1 fl (82.0-101.0); MEAN PLATELET VOLUME 9.3 fl (7.4-10.4); MONOCYTE # 0.7 10^3/ul (0.3-0.9); NEUTROPHIL # 6.3 10^3/ul (1.6-7.5); NEUTROPHILS % 67.8 % (39.0-77.0); PLATELET COUNT 476 10^3/UL (140-415); RED BLOOD COUNT 4.09 10^6/ul (4.70-6.10); RED CELL DISTRIBUTION WIDTH 17.2 % (11.5-14.5); WHITE BLOOD COUNT 9.3 10^3/ul (4.8-10.8)
[2017-04-07] MEDS: HYDROmorphONE 2 MG TAB PO PRN (12:31)
[2017-04-07 12:50] LABS: CALCIUM 8.6 mg/dl (8.4-10.2); CREATININE 0.82 mg/dl (0.61-1.24); POTASSIUM 3.8 mmol/L (3.5-5.1)
[2017-04-07 14:00] VITALS: BP 100/57; RESP 16
--- NOTE | 2017-04-07 15:18 | CONS ---
Date/Time of Note Date/Time of Note DATE: 04/07/17 TIME: 15:16 Assessment/Plan Assessment/Plan Chief Complaint/Hosp Course No acute events, alert, feels good, no fevers Microbiology: Urine culture grew MRSA and E. coli, abdominal fluid culture growing staph aureus preliminary, blood cultures are negative Antibiotics: Vancomycin Zosyn Physical examination: This is well-nourished well-developed middle-aged white man who is in no distress. Head atraumatic normocephalic, sclera nonicteric. Neck is supple, trachea midline. Chest rise symmetrical breath sounds diminished basis. Heart: S1-S2. Abdomen soft bowel sounds present, patient has right perinephric drainage catheter with purulent drainage. Extremities no cyanosis Assessment: 1. Systemic inflammatory response syndrome 2. Left posterior flank abscess status post CT-guided drainage with catheter placement 3. Polymicrobial UTI 4. Prostatic abscess 5. Lower extremity wound 6. Heroin abuse Plan: Remains stable, 2D echo revealed no vegetations, as per urology recommendations will require long-term IV antibiotics if no improvement will require prostatic abscess drainage. Pending placement for IV vancomycin, change Zosyn to oral ciprofloxacin to cover E. coli, abdominal fluid culture was negative for anaerobes Problems: Consultation Date/Type/Reason Admit Date/Time Apr 03, 2017 at 01:38 Initial Consult Date 04/03/17 Type of Consultation: ID Exam/Review of Systems Vital Signs Vitals Vital Signs Date Time Temp Pulse Resp B/P Pulse Ox O2 Delivery O2 Flow Rate FiO2 04/07/17 14:00 98.1 60 16 100/57 96 Intake and Output 04/06/17 04/06/17 04/07/17 15:00 23:00 07:00 Intake Total 250 ml 1970 ml 1250 ml Output Total 5 ml 2010 ml 10 ml Balance 245 ml -40 ml 1240 ml Results Result Diagram: 04/07/17 1158 04/07/17 1155 Results 24 hrs Laboratory Tests Test 04/07/17 11:55 04/07/17 11:58 Sodium Level 145 H Potassium Level 3.8 Chloride Level 103 Carbon Dioxide Level 30 Anion Gap 16 Blood Urea Nitrogen 6 L Creatinine 0.82 Glucose Level 100 Calcium Level 8.6 White Blood Count 9.3 Red Blood Count 4.09 L Hemoglobin 9.0 L Hematocrit 30.3 L Mean Corpuscular Volume 74.1 L Mean Corpuscular Hemoglobin 22.0 L Mean Corpuscular Hemoglobin Concent 29.7 L Red Cell Distribution Width 17.2 H Platelet Count 476 H Mean Platelet Volume 9.3 Neutrophils % 67.8 Lymphocytes % 20.9 Monocytes % 7.0 Eosinophils % 3.5 Basophils % 0.3 Neutrophils # 6.3 Lymphocytes # 2.0 Monocytes # 0.7 Eosinophils # 0.3 Basophils # 0.0 Nucleated Red Blood Cells # 0.0 Medications Medications Current Medications Sodium Chloride (NS) 1,000 ml @ 100 mls/hr Q10H IV Last administered on 13:35; Admin Dose 100 MLS/HR; Start 04/03/17 at 04:58 Ondansetron HCl (Zofran Inj) 4 mg Q6H PRN IV NAUSEA AND/OR VOMITING; Start at 05:00 Acetaminophen 650 mg 650 mg Q6H PRN PO PAIN LEVEL 1-3 OR FEVER; Start 04/03/17 at 05:00 Piperacillin Sod/ Tazobactam Sod (Zosyn 3.375gm/ 100 ml (Pmx)) 100 ml @ 200 mls /hr Q6 IVPB Last administered on 04/07/17 12:26; Admin Dose 200 MLS/HR; Start 04/03/17 at 06:00 Methadone HCl 30 mg 30 mg BID PO Last administered on 04/07/17 09:01; Admin Dose 30 MG; Start 04/03/17 at 21:00 Vancomycin HCl/ Sodium Chloride (Vancocin/NS) 150 ml @ 75 mls/hr Q8H IVPB Last administered on 04/07/17 13:35; Admin Dose 75 MLS/HR; Start 04/05/17 at 05 :00 Hydromorphone HCl (Dilaudid) 2 mg Q4H PRN PO PAIN Last administered on 12:31; Admin Dose 2 MG; Start 04/05/17 at 09:30 Docusate Sodium (Colace) 200 mg BID PO Last administered on 04/07/17 09:00; Admin Dose 200 MG; Start 04/05/17 at 09:30 Nicotine (Nicoderm 14 Mg/ 24hr) 1 patch DAILY TRANSDERM Last administered on 09:01; Admin Dose 1 PATCH; Start 04/05/17 at 10:00 Pantoprazole (Protonix Tab) 40 mg DAILY@06 PO Last administered on 04/07/17t 05 :30; Admin Dose 40 MG; Start 04/07/17 at 06:00 JOSE ELIAS CASTILLO NP Apr 07, 2017 15:17
[2017-04-07] MEDS: CIPROFLOXACIN 250 MG TAB GTB SCH (18:17)
[2017-04-07 19:49] VITALS: BP 106/57; RESP 18
[2017-04-08] MEDS: HYDROmorphONE 2 MG TAB PO PRN ×2 (03:25→13:01)
[2017-04-08] MEDS: SOD CHLORIDE 0.9% 1,000 ML IV SCH ×3 (04:47→19:15)
[2017-04-08] MEDS: CIPROFLOXACIN 250 MG TAB GTB SCH ×2 (05:11→18:00)
[2017-04-08] MEDS: VANCOMYCIN 750 MG in SOD CHLORIDE 0.9% 150 ML IVPB SCH ×3 (05:11→23:36)
[2017-04-08] MEDS: PANTOPRAZOLE (EC) 40 MG TAB PO SCH (05:11)
[2017-04-08 07:29] LABS: BASOPHIL # 0.1 10^3/ul (0.0-0.1); BASOPHILS % 0.5 % (0.0-2.0); EOSINOPHILS # 0.3 10^3/ul (0.0-0.5); EOSINOPHILS % 2.4 % (0.0-7.0); HEMATOCRIT 30.2 % (42.0-52.0); HEMOGLOBIN 8.8 g/dl (14.0-18.0); LYMPHOCYTES # 2.7 10^3/ul (0.8-2.9); LYMPHOCYTES % 25.1 % (15.0-51.0); MEAN CORPUSCULAR HEMOGLOBIN 21.6 pg (29.0-33.0); MEAN CORPUSCULAR HGB CONC 29.1 g/dl (32.0-37.0); MEAN PLATELET VOLUME 9.2 fl (7.4-10.4); MONOCYTE # 0.8 10^3/ul (0.3-0.9); MONOCYTES % 7.6 % (0.0-11.0); NEUTROPHILS % 63.9 % (39.0-77.0); PLATELET COUNT 470 10^3/UL (140-415); RED BLOOD COUNT 4.08 10^6/ul (4.70-6.10); RED CELL DISTRIBUTION WIDTH 17.4 % (11.5-14.5); WHITE BLOOD COUNT 10.9 10^3/ul (4.8-10.8)
[2017-04-08 07:44] LABS: CALCIUM 8.6 mg/dl (8.4-10.2); CREATININE 0.77 mg/dl (0.61-1.24); POTASSIUM 4.1 mmol/L (3.5-5.1)
[2017-04-08 07:56] VITALS: BP 101/66; RESP 18
--- NOTE | 2017-04-08 08:12 | CONS ---
Date/Time of Note Date/Time of Note DATE: 04/08/17 TIME: 08:05 Consult Date/Type/Reason Admit Date/Time Apr 03, 2017 at 01:38 Initial Consult Date 04/03/17 Type of Consultation: Pain Mnagement Subjective This is a postdated note on this 31-year-old gentleman history of active IV heroin use who presents with bladder abscess . I was asked to see patient for methadone maintenance during his hospitalization and pain management. He is currently stable denies severe discomfort only pain he complains about is from the drain. Denies nausea vomiting chest pain shortness of breath cough. Objective Vital Signs Date Time Temp Pulse Resp B/P Pulse Ox O2 Delivery O2 Flow Rate FiO2 04/08/17 07:56 97.9 63 18 101/66 96 Intake and Output 04/07/17 04/07/17 04/08/17 15:00 23:00 07:00 Intake Total 700 ml 2130 ml 2150 ml Output Total 2135 ml 2825 ml Balance 700 ml -5 ml -675 ml Exam Normocephalic atraumatic anicteric acyanotic In general comfortable appearing Neurological examination He is oriented 3 Cranial nerves II through XII grossly intact Motor sensory findings grossly within normal Results/Medications Result Diagram: 04/08/17 0636 04/08/17 0636 Results 24 hrs Laboratory Tests Test 04/07/17 11:55 04/07/17 11:58 04/08/17 06:36 Sodium Level 145 H 143 Potassium Level 3.8 4.1 Chloride Level 103 101 Carbon Dioxide Level 30 30 Anion Gap 16 16 Blood Urea Nitrogen 6 L 6 L Creatinine 0.82 0.77 Glucose Level 100 76 Calcium Level 8.6 8.6 White Blood Count 9.3 10.9 H Red Blood Count 4.09 L 4.08 L Hemoglobin 9.0 L 8.8 L Hematocrit 30.3 L 30.2 L Mean Corpuscular Volume 74.1 L 74.0 L Mean Corpuscular Hemoglobin 22.0 L 21.6 L Mean Corpuscular Hemoglobin Concent 29.7 L 29.1 L Red Cell Distribution Width 17.2 H 17.4 H Platelet Count 476 H 470 H Mean Platelet Volume 9.3 9.2 Neutrophils % 67.8 63.9 Lymphocytes % 20.9 25.1 Monocytes % 7.0 7.6 Eosinophils % 3.5 2.4 Basophils % 0.3 0.5 Neutrophils # 6.3 7.0 Lymphocytes # 2.0 2.7 Monocytes # 0.7 0.8 Eosinophils # 0.3 0.3 Basophils # 0.0 0.1 Nucleated Red Blood Cells # 0.0 0.0 Nucleated Red Blood Cells % 0.0 Medications Current Medications Sodium Chloride (NS) 1,000 ml @ 100 mls/hr Q10H IV Last administered on 04:47; Admin Dose 100 MLS/HR; Start 04/03/17 at 04:58 Ondansetron HCl (Zofran Inj) 4 mg Q6H PRN IV NAUSEA AND/OR VOMITING; Start at 05:00 Acetaminophen (Tylenol Tab) 650 mg Q6H PRN PO PAIN LEVEL 1-3 OR FEVER; Start at 05:00 Methadone HCl 30 mg 30 mg BID PO Last administered on 04/07/17 21:12; Admin Dose 30 MG; Start 04/03/17 at 21:00 Vancomycin HCl/ Sodium Chloride (Vancocin/NS) 150 ml @ 75 mls/hr Q8H IVPB Last administered on 04/08/17 05:11; Admin Dose 75 MLS/HR; Start 04/05/17 at 05 :00 Hydromorphone HCl (Dilaudid) 2 mg Q4H PRN PO PAIN Last administered on 03:25; Admin Dose 2 MG; Start 04/05/17 at 09:30 Docusate Sodium (Colace) 200 mg BID PO Last administered on 04/07/17 21:12; Admin Dose 200 MG; Start 04/05/17 at 09:30 Nicotine (Nicoderm 14 Mg/ 24hr) 1 patch DAILY TRANSDERM Last administered on 09:01; Admin Dose 1 PATCH; Start 04/05/17 at 10:00 Pantoprazole (Protonix Tab) 40 mg DAILY@06 PO Last administered on 04/08/17 05 :11; Admin Dose 40 MG; Start 04/07/17 at 06:00 Ciprofloxacin (Cipro) 750 mg BID@06,18 GTB Last administered on 04/08/17 05:11 ; Admin Dose 750 MG; Start 04/07/17 at 18:00 Assessment/Plan Additional Assessment/Plan Active heroin use Acute on chronic pain control Bladder abscess Retroperitoneal abscess Past medical history left lower extremity open wound, patient did not follow-up with physicians after prior hospitalization. Home Patient is not complaining of pruritus mental cloudiness sweating fatigue drowsiness overall severity of his pain is mild he is not except for increasing dosages or shorter interval he does not appear to be oversedated, he is unkempt pain level is 3 worst pain level described prior to medication is 10 it is not interfering with his physical functioning at this time mood or sleeping. Plan no changes in his current pain control regimen TREVOR MURDOCK Apr 08, 2017 08:12
[2017-04-08] MEDS: DOCUSATE SODIUM 100 MG CAP PO SCH ×2 (09:27→21:38)
[2017-04-08] MEDS: METHADONE 10 MG TAB PO SCH ×2 (09:28→21:38)
[2017-04-08] MEDS: NICOTINE (14 MG/24 HR) PATCH TRANSDERM SCH (09:29)
--- NOTE | 2017-04-08 13:17 | PN ---
Date/Time of Note Date/Time of Note DATE: 04/08/17 TIME: 13:15 Assessment/Plan VTE Prophylaxis VTE Prophylaxis Intervention: SCD's Lines/Catheters IV Catheter Type (from Nrsg): Saline Lock Urinary Cath still in place: Yes Reason Cath still needed: other (indicate) (montior I&O) Assessment/Plan Chief Complaint/Hosp Course Assessment and plan 1. Pararenal abscess. Patient did undergo CT drainage of abscess. Wound culture did show staph aureus... Continue with antibiotics. Surgeon following. 2. Prostate abscess. Urologist consulted. Continue on antibiotics for now. Possible transurethral drainage is not improved with antibiotics. Will follow up with recommendations. 3. Heroin abuse. Pain management physician and social services technician to follow. 4. UTI. Continue antibiotics per ID recommendations 5. Hypertension. Will provide antihypertensives as needed. 6. Lower extremity wound. Wound care nurse consulted. Will follow up with recommendations. Disposition plan: Patient difficult placement due to age, history of heroin abuse and IV drug use and possible need for long-term antibiotics. Follow-up with urologist recommendations. Await for clinical improvement. Continue in- house monitoring Discussed plan of care with Dr. Orta Problems: Subjective 24 Hr Interval Summary Free Text/Dictation Reports no pain at this time. Comfortable at present. Exam/Review of Systems Vital Signs Vitals Vital Signs Date Time Temp Pulse Resp B/P Pulse Ox O2 Delivery O2 Flow Rate FiO2 04/08/17 07:56 97.9 63 18 101/66 96 Intake and Output 04/07/17 04/07/17 04/08/17 15:00 23:00 07:00 Intake Total 700 ml 2130 ml 2150 ml Output Total 2135 ml 2825 ml Balance 700 ml -5 ml -675 ml Exam Constitutional: alert, oriented Psych: no complaints Eyes: nl conjunctiva Neck: supple, No jvd Respiratory: clear to auscultation Cardiovascular: regular rate and rhythm Gastrointestinal: soft, No non-tender Musculoskeletal: nl extremities to inspection, nl gait and stance Neurological: ELECTRICAL AND [employer] MECH[employer]IC II-XII intact, nl mental status Skin: other (Left lower extremity wound and also noted drainage bag on right flank) Results Result Diagram: 04/08/17 0636 04/08/17 0636 Results 24 hrs Laboratory Tests Test 04/08/17 06:36 White Blood Count 10.9 H Red Blood Count 4.08 L Hemoglobin 8.8 L Hematocrit 30.2 L Mean Corpuscular Volume 74.0 L Mean Corpuscular Hemoglobin 21.6 L Mean Corpuscular Hemoglobin Concent 29.1 L Red Cell Distribution Width 17.4 H Platelet Count 470 H Mean Platelet Volume 9.2 Neutrophils % 63.9 Lymphocytes % 25.1 Monocytes % 7.6 Eosinophils % 2.4 Basophils % 0.5 Nucleated Red Blood Cells % 0.0 Neutrophils # 7.0 Lymphocytes # 2.7 Monocytes # 0.8 Eosinophils # 0.3 Basophils # 0.1 Nucleated Red Blood Cells # 0.0 Sodium Level 143 Potassium Level 4.1 Chloride Level 101 Carbon Dioxide Level 30 Anion Gap 16 Blood Urea Nitrogen 6 L Creatinine 0.77 Glucose Level 76 Calcium Level 8.6 Medications Medications Current Medications Sodium Chloride (NS) 1,000 ml @ 100 mls/hr Q10H IV Last administered on 04:47; Admin Dose 100 MLS/HR; Start 04/03/17 at 04:58 Ondansetron HCl (Zofran Inj) 4 mg Q6H PRN IV NAUSEA AND/OR VOMITING; Start at 05:00 Acetaminophen (Tylenol Tab) 650 mg Q6H PRN PO PAIN LEVEL 1-3 OR FEVER; Start at 05:00 Methadone HCl 30 mg 30 mg BID PO Last administered on 04/08/17 09:28; Admin Dose 30 MG; Start 04/03/17 at 21:00 Vancomycin HCl/ Sodium Chloride (Vancocin/NS) 150 ml @ 75 mls/hr Q8H IVPB Last administered on 04/08/17 12:56; Admin Dose 75 MLS/HR; Start 04/05/17 at 05 :00 Hydromorphone HCl (Dilaudid) 2 mg Q4H PRN PO PAIN Last administered on 13:01; Admin Dose 2 MG; Start 04/05/17 at 09:30 Docusate Sodium (Colace) 200 mg BID PO Last administered on 04/08/17 09:27; Admin Dose 200 MG; Start 04/05/17 at 09:30 Nicotine (Nicoderm 14 Mg/ 24hr) 1 patch DAILY TRANSDERM Last administered on 09:29; Admin Dose 1 PATCH; Start 04/05/17 at 10:00 Pantoprazole (Protonix Tab) 40 mg DAILY@06 PO Last administered on 04/08/17 05 :11; Admin Dose 40 MG; Start 04/07/17 at 06:00 Ciprofloxacin (Cipro) 750 mg BID@06,18 GTB Last administered on 04/08/17 05:11 ; Admin Dose 750 MG; Start 04/07/17 at 18:00 Miscellaneous Information (*Rx Drug Level Order Reminder*) VANCOMYCIN TROUGH AT 2000 ONCE ONCE XX ; Start 04/08/17 at 20:00; Stop 04/08/17 at 20:01 JOHN UPTON Apr 08, 2017 13:17
[2017-04-08 13:20] VITALS: BP_SYST 100; BP_SYST 98; BP_DIAS 60; RESP 20
--- NOTE | 2017-04-08 14:05 | CONS ---
Date/Time of Note Date/Time of Note DATE: 04/08/17 TIME: 14:04 Assessment/Plan Assessment/Plan Chief Complaint/Hosp Course No acute events, alert, feels good, no fevers Microbiology: Urine culture grew MRSA and E. coli, abdominal fluid culture growing staph aureus preliminary, blood cultures are negative Antibiotics: Vancomycin Cipro Physical examination: This is well-nourished well-developed middle-aged white man who is in no distress. Head atraumatic normocephalic, sclera nonicteric. Neck is supple, trachea midline. Chest rise symmetrical breath sounds diminished basis. Heart: S1-S2. Abdomen soft bowel sounds present, patient has right perinephric drainage catheter with purulent drainage. Extremities no cyanosis Assessment: 1. Systemic inflammatory response syndrome 2. Left posterior flank abscess status post CT-guided drainage with catheter placement 3. Polymicrobial UTI 4. Prostatic abscess 5. Lower extremity wound 6. Heroin abuse Plan: Remains stable, 2D echo revealed no vegetations, as per urology recommendations will require long-term IV antibiotics and if no improvement will require prostatic abscess drainage. Pending placement for IV vancomycin, continue oral ciprofloxacin to cover E. coli, abdominal fluid culture was negative for anaerobes, pain management Problems: Consultation Date/Type/Reason Admit Date/Time Apr 03, 2017 at 01:38 Initial Consult Date 04/03/17 Type of Consultation: id Exam/Review of Systems Vital Signs Vitals Vital Signs Date Time Temp Pulse Resp B/P Pulse Ox O2 Delivery O2 Flow Rate FiO2 04/08/17 13:20 97.7 64 20 100/60 95 Intake and Output 04/07/17 04/07/17 04/08/17 15:00 23:00 07:00 Intake Total 700 ml 2130 ml 2150 ml Output Total 2135 ml 2825 ml Balance 700 ml -5 ml -675 ml Results Result Diagram: 04/08/17 0636 04/08/17 0636 Results 24 hrs Laboratory Tests Test 04/08/17 06:36 White Blood Count 10.9 H Red Blood Count 4.08 L Hemoglobin 8.8 L Hematocrit 30.2 L Mean Corpuscular Volume 74.0 L Mean Corpuscular Hemoglobin 21.6 L Mean Corpuscular Hemoglobin Concent 29.1 L Red Cell Distribution Width 17.4 H Platelet Count 470 H Mean Platelet Volume 9.2 Neutrophils % 63.9 Lymphocytes % 25.1 Monocytes % 7.6 Eosinophils % 2.4 Basophils % 0.5 Nucleated Red Blood Cells % 0.0 Neutrophils # 7.0 Lymphocytes # 2.7 Monocytes # 0.8 Eosinophils # 0.3 Basophils # 0.1 Nucleated Red Blood Cells # 0.0 Sodium Level 143 Potassium Level 4.1 Chloride Level 101 Carbon Dioxide Level 30 Anion Gap 16 Blood Urea Nitrogen 6 L Creatinine 0.77 Glucose Level 76 Calcium Level 8.6 Medications Medications Current Medications Sodium Chloride (NS) 1,000 ml @ 100 mls/hr Q10H IV Last administered on 04:47; Admin Dose 100 MLS/HR; Start 04/03/17 at 04:58 Ondansetron HCl (Zofran Inj) 4 mg Q6H PRN IV NAUSEA AND/OR VOMITING; Start at 05:00 Acetaminophen (Tylenol Tab) 650 mg Q6H PRN PO PAIN LEVEL 1-3 OR FEVER; Start at 05:00 Methadone HCl 30 mg 30 mg BID PO Last administered on 04/08/17 09:28; Admin Dose 30 MG; Start 04/03/17 at 21:00 Vancomycin HCl/ Sodium Chloride (Vancocin/NS) 150 ml @ 75 mls/hr Q8H IVPB Last administered on 04/08/17 12:56; Admin Dose 75 MLS/HR; Start 04/05/17 at 05 :00 Hydromorphone HCl (Dilaudid) 2 mg Q4H PRN PO PAIN Last administered on 13:01; Admin Dose 2 MG; Start 04/05/17 at 09:30 Docusate Sodium (Colace) 200 mg BID PO Last administered on 04/08/17 09:27; Admin Dose 200 MG; Start 04/05/17 at 09:30 Nicotine (Nicoderm 14 Mg/ 24hr) 1 patch DAILY TRANSDERM Last administered on 09:29; Admin Dose 1 PATCH; Start 04/05/17 at 10:00 Pantoprazole (Protonix Tab) 40 mg DAILY@06 PO Last administered on 04/08/17 05 :11; Admin Dose 40 MG; Start 04/07/17 at 06:00 Ciprofloxacin (Cipro) 750 mg BID@06,18 GTB Last administered on 04/08/17t 05:11 ; Admin Dose 750 MG; Start 04/07/17 at 18:00 Miscellaneous Information (*Rx Drug Level Order Reminder*) VANCOMYCIN TROUGH AT 2000 ONCE ONCE XX ; Start 04/08/17 at 20:00; Stop 04/08/17 at 20:01 JOSE ELIAS CASTILLO NP Apr 08, 2017 14:05
[2017-04-08 19:46] VITALS: BP 100/62; RESP 19
[2017-04-09] MEDS: SOD CHLORIDE 0.9% 1,000 ML IV SCH ×3 (00:58→20:31)
[2017-04-09 02:00] VITALS: BP 109/62; RESP 16
[2017-04-09] MEDS: CIPROFLOXACIN 250 MG TAB GTB SCH ×2 (05:44→18:22)
[2017-04-09] MEDS: PANTOPRAZOLE (EC) 40 MG TAB PO SCH (05:44)
[2017-04-09] MEDS: VANCOMYCIN 750 MG in SOD CHLORIDE 0.9% 150 ML IVPB SCH ×3 (05:44→20:30)
[2017-04-09 07:44] VITALS: BP 109/63; RESP 20
[2017-04-09] MEDS: DOCUSATE SODIUM 100 MG CAP PO SCH ×2 (08:21→20:30)
[2017-04-09] MEDS: METHADONE 10 MG TAB PO SCH ×2 (08:22→20:30)
[2017-04-09] MEDS: NICOTINE (14 MG/24 HR) PATCH TRANSDERM SCH (08:22)
[2017-04-09 10:09] LABS: BASOPHIL # 0.1 10^3/ul (0.0-0.1); BASOPHILS % 0.6 % (0.0-2.0); EOSINOPHILS # 0.3 10^3/ul (0.0-0.5); EOSINOPHILS % 3.4 % (0.0-7.0); HEMATOCRIT 31.1 % (42.0-52.0); HEMOGLOBIN 9.2 g/dl (14.0-18.0); LYMPHOCYTES # 2.5 10^3/ul (0.8-2.9); LYMPHOCYTES % 24.9 % (15.0-51.0); MEAN CORPUSCULAR HEMOGLOBIN 21.9 pg (29.0-33.0); MEAN CORPUSCULAR HGB CONC 29.6 g/dl (32.0-37.0); MEAN CORPUSCULAR VOLUME 73.9 fl (82.0-101.0); MEAN PLATELET VOLUME 9.7 fl (7.4-10.4); MONOCYTE # 0.7 10^3/ul (0.3-0.9); MONOCYTES % 6.8 % (0.0-11.0); NEUTROPHIL # 6.3 10^3/ul (1.6-7.5); NEUTROPHILS % 63.8 % (39.0-77.0); PLATELET COUNT 475 10^3/UL (140-415); RED BLOOD COUNT 4.21 10^6/ul (4.70-6.10); RED CELL DISTRIBUTION WIDTH 17.5 % (11.5-14.5); WHITE BLOOD COUNT 9.8 10^3/ul (4.8-10.8)
[2017-04-09 10:11] LABS: CREATININE 0.78 mg/dl (0.61-1.24); POTASSIUM 4.1 mmol/L (3.5-5.1)
[2017-04-09] MEDS: HYDROmorphONE 2 MG TAB PO PRN (13:00)
--- NOTE | 2017-04-09 14:02 | PN ---
Date/Time of Note Date/Time of Note DATE: 04/09/17 TIME: 13:58 Assessment/Plan VTE Prophylaxis VTE Prophylaxis Intervention: SCD's Lines/Catheters IV Catheter Type (from Nrs): Saline Lock Urinary Cath still in place: Yes Reason Cath still needed: other (indicate) (montior I&O) Assessment/Plan Chief Complaint/Hosp Course Assessment and plan 1. Pararenal abscess. Patient did undergo CT drainage of abscess. Wound culture did show staph aureus... Continue with antibiotics. Surgeon following. 2. Prostate abscess. Urologist consulted. Continue on antibiotics for now. Possible transurethral drainage is not improved with antibiotics. Will follow up with recommendations. 3. Heroin abuse. Pain management physician and rn social services to follow. 4. UTI. Continue antibiotics per ID recommendations 5. Hypertension. Will provide antihypertensives as needed. 6. Lower extremity wound. Wound care nurse consulted. Will follow up with recommendations. Disposition plan: Patient difficult placement due to age, history of heroin abuse and IV drug use and possible need for long-term antibiotics. Repeat imaging of abdominal and pelvic area per urologist. Will follow up with recommendations. Follow-up with surgeon for removal of drainage back on right flank Discussed plan of care with Dr. Orta Problems: Subjective 24 Hr Interval Summary Free Text/Dictation No reported pain at this time. Comfortable at present Exam/Review of Systems Vital Signs Vitals Vital Signs Date Time Temp Pulse Resp B/P Pulse Ox O2 Delivery O2 Flow Rate FiO2 04/09/17 07:44 97.9 62 20 109/63 97 Intake and Output 04/08/17 04/08/17 04/09/17 15:00 23:00 07:00 Intake Total 150 ml 2060 ml 1050 ml Output Total 2230 ml Balance 150 ml -170 ml 1050 ml Exam Constitutional: alert, oriented Head: normocephalic Neck: No jvd Respiratory: clear to auscultation, normal air movement Cardiovascular: regular rate and rhythm Gastrointestinal: non-tender, soft Extremities: other (Wound seen on left lower extremity) Neurological: DRILL FOREMAN II-XII intact, nl mental status, nl speech Skin: other (Drainage bag noted on) Results Result Diagram: 04/09/17 0844 04/09/17 0844 Results 24 hrs Laboratory Tests Test 04/08/17 22:00 04/09/17 08:44 Vancomycin Level Trough 13.8 White Blood Count 9.8 Red Blood Count 4.21 L Hemoglobin 9.2 L Hematocrit 31.1 L Mean Corpuscular Volume 73.9 L Mean Corpuscular Hemoglobin 21.9 L Mean Corpuscular Hemoglobin Concent 29.6 L Red Cell Distribution Width 17.5 H Platelet Count 475 H Mean Platelet Volume 9.7 Neutrophils % 63.8 Lymphocytes % 24.9 Monocytes % 6.8 Eosinophils % 3.4 Basophils % 0.6 Nucleated Red Blood Cells % 0.0 Neutrophils # 6.3 Lymphocytes # 2.5 Monocytes # 0.7 Eosinophils # 0.3 Basophils # 0.1 Nucleated Red Blood Cells # 0.0 Sodium Level 145 H Potassium Level 4.1 Chloride Level 102 Carbon Dioxide Level 31 Anion Gap 16 Blood Urea Nitrogen 7 Creatinine 0.78 Glucose Level 83 Calcium Level 9.0 Medications Medications Current Medications Sodium Chloride (NS) 1,000 ml @ 100 mls/hr Q10H IV Last administered on 11:18; Admin Dose 100 MLS/HR; Start 04/03/17 at 04:58 Ondansetron HCl (Zofran Inj) 4 mg Q6H PRN IV NAUSEA AND/OR VOMITING; Start at 05:00 Acetaminophen (Tylenol Tab) 650 mg Q6H PRN PO PAIN LEVEL 1-3 OR FEVER; Start at 05:00 Methadone HCl 30 mg 30 mg BID PO Last administered on 04/09/17 08:22; Admin Dose 30 MG; Start 04/03/17 at 21:00 Vancomycin HCl/ Sodium Chloride (Vancocin/NS) 150 ml @ 75 mls/hr Q8H IVPB Last administered on 04/09/17 12:57; Admin Dose 75 MLS/HR; Start 04/05/17 at 05 :00 Hydromorphone HCl (Dilaudid) 2 mg Q4H PRN PO PAIN Last administered on 13:00; Admin Dose 2 MG; Start 04/05/17 at 09:30 Docusate Sodium (Colace) 200 mg BID PO Last administered on 04/09/17 08:21; Admin Dose 200 MG; Start 04/05/17 at 09:30 Nicotine (Nicoderm 14 Mg/ 24hr) 1 patch DAILY TRANSDERM Last administered on 08:22; Admin Dose 1 PATCH; Start 04/05/17 at 10:00 Pantoprazole (Protonix Tab) 40 mg DAILY@06 PO Last administered on 04/09/17 05 :44; Admin Dose 40 MG; Start 04/07/17 at 06:00 Ciprofloxacin (Cipro) 750 mg BID@06,18 GTB Last administered on 04/09/17 05:44 ; Admin Dose 750 MG; Start 04/07/17 at 18:00 JOHN UPTON Apr 09, 2017 14:02
[2017-04-09 14:23] VITALS: BP 108/66; RESP 20
--- NOTE | 2017-04-09 15:06 | CONS ---
Date/Time of Note Date/Time of Note DATE: 04/09/17 TIME: 15:04 Assessment/Plan Assessment/Plan Chief Complaint/Hosp Course No acute events, alert, feels good, no fevers Microbiology: Urine culture grew MRSA and E. coli, abdominal fluid culture growing staph aureus preliminary, blood cultures are negative Antibiotics: Vancomycin Cipro Physical examination: This is well-nourished well-developed middle-aged white man who is in no distress. Head atraumatic normocephalic, sclera nonicteric. Neck is supple, trachea midline. Chest rise symmetrical breath sounds diminished basis. Heart: S1-S2. Abdomen soft bowel sounds present, patient has right perinephric drainage catheter with purulent drainage. Extremities no cyanosis Assessment: 1. Systemic inflammatory response syndrome 2. Left posterior flank abscess status post CT-guided drainage with catheter placement 3. Polymicrobial UTI 4. Prostatic abscess 5. Lower extremity wound 6. Heroin abuse Plan: Remains stable, pending placement, patient will require long-term IV vancomycin. Follow with urology, may require prostatic abscess drainage if no response to antibiotics. Discussed with Problems: Consultation Date/Type/Reason Admit Date/Time Apr 03, 2017 at 01:38 Initial Consult Date 04/03/17 Type of Consultation: id Exam/Review of Systems Vital Signs Vitals Vital Signs Date Time Temp Pulse Resp B/P Pulse Ox O2 Delivery O2 Flow Rate FiO2 04/09/17 14:23 98.5 63 20 108/66 96 Intake and Output 04/08/17 04/08/17 04/09/17 15:00 23:00 07:00 Intake Total 150 ml 2060 ml 1050 ml Output Total 2230 ml Balance 150 ml -170 ml 1050 ml Results Result Diagram: 04/09/17 0844 04/09/17 0844 Results 24 hrs Laboratory Tests Test 04/08/17 22:00 04/09/17 08:44 Vancomycin Level Trough 13.8 White Blood Count 9.8 Red Blood Count 4.21 L Hemoglobin 9.2 L Hematocrit 31.1 L Mean Corpuscular Volume 73.9 L Mean Corpuscular Hemoglobin 21.9 L Mean Corpuscular Hemoglobin Concent 29.6 L Red Cell Distribution Width 17.5 H Platelet Count 475 H Mean Platelet Volume 9.7 Neutrophils % 63.8 Lymphocytes % 24.9 Monocytes % 6.8 Eosinophils % 3.4 Basophils % 0.6 Nucleated Red Blood Cells % 0.0 Neutrophils # 6.3 Lymphocytes # 2.5 Monocytes # 0.7 Eosinophils # 0.3 Basophils # 0.1 Nucleated Red Blood Cells # 0.0 Sodium Level 145 H Potassium Level 4.1 Chloride Level 102 Carbon Dioxide Level 31 Anion Gap 16 Blood Urea Nitrogen 7 Creatinine 0.78 Glucose Level 83 Calcium Level 9.0 Medications Medications Current Medications Sodium Chloride (NS) 1,000 ml @ 100 mls/hr Q10H IV Last administered on 11:18; Admin Dose 100 MLS/HR; Start 04/03/17 at 04:58 Ondansetron HCl (Zofran Inj) 4 mg Q6H PRN IV NAUSEA AND/OR VOMITING; Start at 05:00 Acetaminophen (Tylenol Tab) 650 mg Q6H PRN PO PAIN LEVEL 1-3 OR FEVER; Start at 05:00 Methadone HCl 30 mg 30 mg BID PO Last administered on 04/09/17 08:22; Admin Dose 30 MG; Start 04/03/17 at 21:00 Vancomycin HCl/ Sodium Chloride (Vancocin/NS) 150 ml @ 75 mls/hr Q8H IVPB Last administered on 04/09/17 12:57; Admin Dose 75 MLS/HR; Start 04/05/17 at 05 :00 Hydromorphone HCl (Dilaudid) 2 mg Q4H PRN PO PAIN Last administered on 13:00; Admin Dose 2 MG; Start 04/05/17 at 09:30 Docusate Sodium (Colace) 200 mg BID PO Last administered on 04/09/17 08:21; Admin Dose 200 MG; Start 04/05/17 at 09:30 Nicotine (Nicoderm 14 Mg/ 24hr) 1 patch DAILY TRANSDERM Last administered on 08:22; Admin Dose 1 PATCH; Start 04/05/17 at 10:00 Pantoprazole (Protonix Tab) 40 mg DAILY@06 PO Last administered on 04/09/17 05 :44; Admin Dose 40 MG; Start 04/07/17 at 06:00 Ciprofloxacin (Cipro) 750 mg BID@06,18 GTB Last administered on 04/09/17 05:44 ; Admin Dose 750 MG; Start 04/07/17 at 18:00 JOSE ELIAS CASTILLO NP Apr 09, 2017 15:06
[2017-04-09 19:54] VITALS: BP 101/61; RESP 18
[2017-04-10] MEDS: HYDROmorphONE 2 MG TAB PO PRN (01:25)
[2017-04-10 02:40] VITALS: BP 99/55; RESP 18
[2017-04-10] MEDS: VANCOMYCIN 750 MG in SOD CHLORIDE 0.9% 150 ML IVPB SCH ×3 (05:13→21:00)
[2017-04-10] MEDS: SOD CHLORIDE 0.9% 1,000 ML IV SCH ×2 (06:09→17:06)
[2017-04-10] MEDS: PANTOPRAZOLE (EC) 40 MG TAB PO SCH (06:09)
[2017-04-10] MEDS: CIPROFLOXACIN 250 MG TAB GTB SCH ×2 (06:09→18:01)
[2017-04-10 07:41] VITALS: BP 110/67; RESP 20
[2017-04-10] MEDS: DOCUSATE SODIUM 100 MG CAP PO SCH ×2 (09:28→21:00)
[2017-04-10] MEDS: SENNA TAB PO SCH ×2 (09:28→21:00)
[2017-04-10] MEDS: QUETIAPINE 25 MG TAB PO SCH ×2 (09:28→21:00)
[2017-04-10] MEDS: METHADONE 10 MG TAB PO SCH ×3 (09:28→21:45)
[2017-04-10] MEDS: NICOTINE (14 MG/24 HR) PATCH TRANSDERM SCH (09:28)
[2017-04-10] MEDS ORDERED: BARIUM SULF 2% 450 ML BTL (BERRY SMOOTHIE) PO ONE (09:30)
--- NOTE | 2017-04-10 09:39 | PN ---
Date/Time of Note Date/Time of Note DATE: 04/10/17 TIME: 09:35 Assessment/Plan VTE Prophylaxis VTE Prophylaxis Intervention: ambulation Lines/Catheters IV Catheter Type (from Nrs): Peripheral IV Urinary Cath still in place: Yes Reason Cath still needed: other (indicate) (montior I&O) Assessment/Plan Chief Complaint/Hosp Course Assessment and plan 1. Pararenal abscess. Patient did undergo CT drainage of abscess. Wound culture did show staph aureus... Continue with antibiotics. Surgeon following. 2. Prostate abscess. Urologist consulted. Continue on antibiotics for now. Possible transurethral drainage is not improved with antibiotics. Will follow up with recommendations. 3. Heroin abuse. Pain management physician and social studies teacher to follow. 4. UTI. Continue antibiotics per ID recommendations 5. Hypertension. Will provide antihypertensives as needed. 6. Lower extremity wound. Wound care nurse consulted. Will follow up with recommendations. Disposition plan: Patient difficult placement due to age, history of heroin abuse and IV drug use and possible need for long-term antibiotics. Plan for repeat CT scan of abdomen and pelvis today. Awaiting urology recommendations. We will follow-up with result. Discussed plan of care with Dr. Green Problems: Subjective 24 Hr Interval Summary Free Text/Dictation Comfortable at present. RN at bedside. No specific complaints at this time. Exam/Review of Systems Vital Signs Vitals Vital Signs Date Time Temp Pulse Resp B/P Pulse Ox O2 Delivery O2 Flow Rate FiO2 04/10/17 07:41 97.9 63 20 110/67 97 Intake and Output 04/09/17 04/09/17 04/10/17 15:00 23:00 07:00 Intake Total 920 ml 1410 ml 1700 ml Output Total 2970 ml 2540 ml 2210 ml Balance -2050 ml -1130 ml -510 ml Exam Constitutional: alert, oriented Head: normocephalic Neck: No jvd Respiratory: clear to auscultation, normal air movement Cardiovascular: regular rate and rhythm Gastrointestinal: non-tender, soft Extremities: other (Wound seen on left lower extremity) Neurological: HOGSHEAD INSPECTOR II-XII intact, nl mental status, nl speech Skin: other (Drainage bag noted on) Results Result Diagram: 04/09/17 0844 04/09/1744 Medications Medications Current Medications Sodium Chloride (NS) 1,000 ml @ 100 mls/hr Q10H IV Last administered on 11:18; Admin Dose 100 MLS/HR; Start 04/03/17 at 04:58 Ondansetron HCl (Zofran Inj) 4 mg Q6H PRN IV NAUSEA AND/OR VOMITING; Start at 05:00 Acetaminophen (Tylenol Tab) 650 mg Q6H PRN PO PAIN LEVEL 1-3 OR FEVER; Start at 05:00 Methadone HCl 30 mg 30 mg BID PO Last administered on 04/10/17 09:28; Admin Dose 30 MG; Start 04/03/17 at 21:00 Vancomycin HCl/ Sodium Chloride (Vancocin/NS) 150 ml @ 75 mls/hr Q8H IVPB Last administered on 04/10/17 05:13; Admin Dose 75 MLS/HR; Start 04/05/17 at 05 :00 Hydromorphone HCl (Dilaudid) 2 mg Q4H PRN PO PAIN Last administered on 01:25; Admin Dose 2 MG; Start 04/05/17 at 09:30 Docusate Sodium (Colace) 200 mg BID PO Last administered on 04/10/17 09:28; Admin Dose 200 MG; Start 04/05/17 at 09:30 Nicotine (Nicoderm 14 Mg/ 24hr) 1 patch DAILY TRANSDERM Last administered on 09:28; Admin Dose 1 PATCH; Start 04/05/17 at 10:00 Pantoprazole (Protonix Tab) 40 mg DAILY@06 PO Last administered on 04/10/17 06 :09; Admin Dose 40 MG; Start 04/07/17 at 06:00 Ciprofloxacin (Cipro) 750 mg BID@06,18 GTB Last administered on 04/10/17 06:09 ; Admin Dose 750 MG; Start 04/07/17 at 18:00 Senna (Senokot) 2 tab BID PO Last administered on 04/10/17 09:28; Admin Dose 2 TAB; Start 04/10/17 at 09:30 Quetiapine Fumarate (Seroquel) 25 mg BID PO Last administered on 04/10/17 09: 28; Admin Dose 25 MG; Start 04/10/17 at 09:30 JOHN UPTON Apr 10, 2017 09:39
[2017-04-10] MEDS ORDERED: IOHEXOL 300MG/ML 150 ML BTL ONE (10:09)
[2017-04-10] MEDS ORDERED: SOD CHLORIDE 0.9% 100 ML ONE (10:09)
--- NOTE | 2017-04-10 13:14 | CONS ---
Date/Time of Note Date/Time of Note DATE: 04/10/17 TIME: 13:14 Assessment/Plan Assessment/Plan Chief Complaint/Hosp Course No acute events, no fevers Microbiology: Urine culture grew MRSA and E. coli, abdominal fluid culture growing staph aureus preliminary, blood cultures are negative Antibiotics: Vancomycin Cipro Physical examination: This is well-nourished well-developed middle-aged white man who is in no distress. Head atraumatic normocephalic, sclera nonicteric. Neck is supple, trachea midline. Chest rise symmetrical breath sounds diminished basis. Heart: S1-S2. Abdomen soft bowel sounds present, patient has right perinephric drainage catheter with purulent drainage. Extremities no cyanosis Assessment: 1. Systemic inflammatory response syndrome 2. Left posterior flank abscess status post CT-guided drainage with catheter placement 3. Polymicrobial UTI 4. Prostatic abscess 5. Lower extremity wound 6. Heroin abuse Plan: Remains stable, pending placement, patient will require long-term IV vancomycin. Follow with urology, may require prostatic abscess drainage if no response to antibiotics. Discussed with Problems: Consultation Date/Type/Reason Admit Date/Time Apr 03, 2017 at 01:38 Initial Consult Date 04/03/17 Type of Consultation: id Exam/Review of Systems Vital Signs Vitals Vital Signs Date Time Temp Pulse Resp B/P Pulse Ox O2 Delivery O2 Flow Rate FiO2 04/10/17 07:41 97.9 63 20 110/67 97 Intake and Output 04/09/17 04/09/17 04/10/17 15:00 23:00 07:00 Intake Total 920 ml 1410 ml 1700 ml Output Total 2970 ml 2540 ml 2210 ml Balance -2050 ml -1130 ml -510 ml Results Result Diagram: 04/09/17 0844 04/09/17 0844 Medications Medications Current Medications Sodium Chloride (NS) 1,000 ml @ 100 mls/hr Q10H IV Last administered on t 11:18; Admin Dose 100 MLS/HR; Start 04/03/17 at 04:58 Ondansetron HCl (Zofran Inj) 4 mg Q6H PRN IV NAUSEA AND/OR VOMITING; Start at 05:00 Acetaminophen (Tylenol Tab) 650 mg Q6H PRN PO PAIN LEVEL 1-3 OR FEVER; Start at 05:00 Methadone HCl 30 mg 30 mg BID PO Last administered on 04/10/17 09:28; Admin Dose 30 MG; Start 04/03/17 at 21:00 Vancomycin HCl/ Sodium Chloride (Vancocin/NS) 150 ml @ 75 mls/hr Q8H IVPB Last administered on 04/10/17 12:49; Admin Dose 75 MLS/HR; Start 04/05/17 at 05 :00 Hydromorphone HCl (Dilaudid) 2 mg Q4H PRN PO PAIN Last administered on 01:25; Admin Dose 2 MG; Start 04/05/17 at 09:30 Docusate Sodium (Colace) 200 mg BID PO Last administered on 04/10/17 09:28; Admin Dose 200 MG; Start 04/05/17 at 09:30 Nicotine (Nicoderm 14 Mg/ 24hr) 1 patch DAILY TRANSDERM Last administered on 09:28; Admin Dose 1 PATCH; Start 04/05/17 at 10:00 Pantoprazole (Protonix Tab) 40 mg DAILY@06 PO Last administered on 04/10/17 06 :09; Admin Dose 40 MG; Start 04/07/17 at 06:00 Ciprofloxacin (Cipro) 750 mg BID@06,18 GTB Last administered on 04/10/17 06:09 ; Admin Dose 750 MG; Start 04/07/17 at 18:00 Senna (Senokot) 2 tab BID PO Last administered on 04/10/17 09:28; Admin Dose 2 TAB; Start 04/10/17 at 09:30 Quetiapine Fumarate (Seroquel) 25 mg BID PO Last administered on 04/10/17 09: 28; Admin Dose 25 MG; Start 04/10/17 at 09:30 JOSE ELIAS CASTILLO NP Apr 10, 2017 13:14
--- NOTE | 2017-04-10 14:39 | RADRPT ---
PROCEDURE: CT abdomen and pelvis with contrast. CLINICAL INDICATION: History right flank and prostate apices, status post right flank drain placemen t on 04/04/2017. Reported history of intravenous drug use. TECHNIQUE: CT of the abdomen/pelvis was performed utilizing axial images with reconstructions in s agittal and coronal planes following the intravenous administration of 100 cc Omnipaque-300 contrast . The administered radiation dose is CTDI 5.37 mGy, DLP. 342.92 mGy-cm. One or more of the followin g dose reduction techniques were used: Automated exposure control, Adjustment of the mA and/or kV ac cording to patient size, or Use of iterative reconstruction technique. COMPARISON: There are no similar studies submitted for comparison. FINDINGS: Lung bases: Respiration artifact limits evaluation of the partially imaged lung bases. There is incr eased bibasilar posterior dependent atelectasis. Right middle lobe nonspecific 3 mm pleural based n odule stable. A second nonspecific 3 mm peripheral nodule with adjacent pleural based atelectasis or scarring is stable. A nonspecific 2-3 mm peripheral nodule in the right lower lobe near the major fissure is partially imaged. The partially imaged heart is normal size without evidence of pericard ial effusion. CT ABDOMEN: Gastrointestinal tract: There is no bowel obstruction. There is a large amount of retained fecal mat erial throughout the colon, increased compared to prior study. No abnormal colonic wall thickening is identified.There is no pneumoperitoneum. There is trace perihepatic free fluid. Liver: The liver is enlarged, measuring up to 18.9 cm at the right mid clavicular line. . No discre te hepatic mass lesion is identified. There is no intrahepatic ductal dilatation. Gallbladder: The gallbladder is grossly unremarkable. Pancreas: The pancreas is grossly unremarkable. Spleen: Spleen remains mildly enlarged and again demonstrates a nonspecific heterogeneous enhancemen t. Kidneys: There is a new percutaneous pigtail drainage catheter extending from the right posterior pa rarenal space into the posterior upper abdominal wall. There are small foci of gas and trace fluid w ithin the soft tissues adjacent to the drain, presumably related to its recent placement. The previo usly seen organized loculated collection is no longer seen. There are inflammatory changes and fasc ial thickening extending to the right posterior upper abdominal wall into the right posterior parare nal space and right pararenal space posteriorly. There remain patchy areas of decreased enhancement within the posterior right kidney, although slightly decreased in extent as compared to prior study. No renal calculi are identified.There is no evidence of hydronephrosis. Adrenal glands: The bilateral adrenal glands are unremarkable. Retroperitoneum: Para-aortic lymphadenopathy persists. The aorta is normal in caliber. CT PELVIS: Pelvic organs: The prostate gland remains large and contains complex heterogeneous collection measur ing 4.1 cm x 3.1 cm by 7.2 cm (AP by TR x CC) as compared to 4.8 cm by 4.7 cm x 8.0 cm on prior stud y dated 04/03/2017. Bladder: Urinary bladder contains a Jackson catheter. Newly seen air fluid level within the urinary b ladder is presumably a terminal to recent Jackson catheter insertion. Diffuse mild bladder wall thick ening is nonspecific, but cystitis is not excluded. There is persistent lymphadenopathy is the bilateral iliac chains, pelvic side lyle, and bilateral inguinal regions, not significantly change compared to prior study. Osseous structures: No destructive lytic or blastic osseous lesion is identified. Tiny fat containing umbilical hernia, stable. IMPRESSION: 1. Interval placement of percutaneous pigtail drainage catheter in the right flank/posterior upper abdominal wall and right posterior pararenal space. The previously seen large right posterior parare nal / flank complex fluid collection has nearly completely resolved. Inflammatory changes persist, extending from the right posterior upper abdominal wall into the right posterior pararenal space and into the right perirenal space posteriorly. Patchy hypo enhancement in the right kidney posteriorly persists, but has decreased compared to prior study; this may represent focal pyelonephritis and / or renal infarct. 2. Interval slight decrease in complex heterogeneous collection within an enlarged prostate gland. Although difficult to measure, this collection currently measures .1 cm x 3.1 cm by 7.2 cm (AP by TR x CC) as compared to 4.8 cm by 4.7 cm x 8.0 cm on prior study dated 04/03/2017. 3. Persistent mild para-aortic lymphadenopathy and persistent pelvic and inguinal lymphadenopathy, not significantly changed. 4. Large amount of retained stool throughout the colon, increased compared to prior study. 5. Hepatomegaly. 6. Trace perihepatic fluid. 7. Interval placement of Jackson catheter within the bladder. New gas within the urinary bladder is p resumably related to Jackson catheter insertion. 8. Stable nonspecific peripheral pulmonary nodules measuring up to 3 mm within the partially imaged lung bases. RPTAT: PP Kiran Campos, Physician Date Time Electronically viewed and signed by Kiran Campos, Physician on 04/10/2017 14:39 RC/
[2017-04-10 15:01] VITALS: BP 94/58; RESP 20
[2017-04-10 19:32] VITALS: BP 93/55; RESP 18
[2017-04-11] MEDS: HYDROmorphONE 2 MG TAB PO PRN ×2 (01:49→02:32)
[2017-04-11 02:00] VITALS: BP 93/52; RESP 18
[2017-04-11] MEDS: SOD CHLORIDE 0.9% 1,000 ML IV SCH ×4 (02:58→23:04)
[2017-04-11] MEDS: VANCOMYCIN 750 MG in SOD CHLORIDE 0.9% 150 ML IVPB SCH ×3 (05:21→21:14)
[2017-04-11 05:32] LABS: BASOPHIL # 0.1 10^3/ul (0.0-0.1); BASOPHILS % 0.6 % (0.0-2.0); EOSINOPHILS # 0.3 10^3/ul (0.0-0.5); HEMATOCRIT 31.4 % (42.0-52.0); HEMOGLOBIN 9.6 g/dl (14.0-18.0); LYMPHOCYTES # 2.8 10^3/ul (0.8-2.9); LYMPHOCYTES % 30.4 % (15.0-51.0); MEAN CORPUSCULAR HEMOGLOBIN 22.4 pg (29.0-33.0); MEAN CORPUSCULAR HGB CONC 30.6 g/dl (32.0-37.0); MEAN CORPUSCULAR VOLUME 73.4 fl (82.0-101.0); MEAN PLATELET VOLUME 8.9 fl (7.4-10.4); MONOCYTE # 0.7 10^3/ul (0.3-0.9); MONOCYTES % 7.4 % (0.0-11.0); NEUTROPHIL # 5.4 10^3/ul (1.6-7.5); NEUTROPHILS % 58.2 % (39.0-77.0); PLATELET COUNT 465 10^3/UL (140-415); RED BLOOD COUNT 4.28 10^6/ul (4.70-6.10); RED CELL DISTRIBUTION WIDTH 17.5 % (11.5-14.5); WHITE BLOOD COUNT 9.3 10^3/ul (4.8-10.8)
[2017-04-11] MEDS: PANTOPRAZOLE (EC) 40 MG TAB PO SCH (06:43)
[2017-04-11] MEDS: CIPROFLOXACIN 250 MG TAB GTB SCH ×2 (06:43→18:32)
[2017-04-11 06:48] LABS: CALCIUM 9.3 mg/dl (8.4-10.2); CREATININE 0.89 mg/dl (0.61-1.24); POTASSIUM 4.2 mmol/L (3.5-5.1)
[2017-04-11 07:40] VITALS: BP 99/58; RESP 20
--- NOTE | 2017-04-11 08:41 | CONS ---
Date/Time of Note Date/Time of Note DATE: 04/11/17 TIME: 08:38 Consultation Date/Type/Reason Admit Date/Time Apr 03, 2017 at 01:38 Initial Consult Date 04/03/17 Type of Consultation: Pain Management 24 HR Interval Summary Free Text/Dictation This is a postdated note on this 31-year-old gentleman history of active IV heroin use who presents with bladder abscess . I was asked to see patient for methadone maintenance during his hospitalization and pain management. He is currently stable denies severe discomfort only pain he complains about is from the drain. Denies nausea vomiting chest pain shortness of breath cough. Postdated note for visit April 10, 2017 patient is significantly improved today and is not actively asking for higher doses of pain control. Denies nausea vomiting chest pain shortness of breath cough. Not requesting higher doses or increasing intervals of pain control medication, not negotiating for pain medications or different medications. Pain level is better today to over 10 compared to 10/10 on admission. Denies nausea vomiting itching mental confusion sweating fatigue drowsiness. Overall severity side effects are none physical functioning social relationships mood sleeping patterns unchanged. Exam/Review of Systems Vital Signs Vitals Vital Signs Date Time Temp Pulse Resp B/P Pulse Ox O2 Delivery O2 Flow Rate FiO2 04/11/17 07:40 98.9 67 20 99/58 97 Intake and Output 04/10/17 04/10/17 04/11/17 14:59 22:59 06:59 Intake Total 200 ml 2080 ml 1650 ml Output Total 2910 ml 1860 ml Balance 200 ml -830 ml -210 ml Exam Psych: No anxiety, No confusion, No depression, No nl mood/affect, No no complaints, No other, No suicidal Neurological: No MORTGAGE LOAN FUNDER II-XII intact, No DTR's symmetric, No confused, No focal weakness, No lethargic, No nl mental status, No nl speech, No nl strength, No numbness, No other, No reflexes, No unresponsive Results Result Diagram: 04/11/17 0512 04/11/17511 Results 24 hrs Laboratory Tests Test 04/11/17 05:12 White Blood Count 9.3 Red Blood Count 4.28 L Hemoglobin 9.6 L Hematocrit 31.4 L Mean Corpuscular Volume 73.4 L Mean Corpuscular Hemoglobin 22.4 L Mean Corpuscular Hemoglobin Concent 30.6 L Red Cell Distribution Width 17.5 H Platelet Count 465 H Mean Platelet Volume 8.9 Neutrophils % 58.2 Lymphocytes % 30.4 Monocytes % 7.4 Eosinophils % 3.0 Basophils % 0.6 Nucleated Red Blood Cells % 0.0 Neutrophils # 5.4 Lymphocytes # 2.8 Monocytes # 0.7 Eosinophils # 0.3 Basophils # 0.1 Nucleated Red Blood Cells # 0.0 Sodium Level 145 H Potassium Level 4.2 Chloride Level 101 Carbon Dioxide Level 30 Anion Gap 18 H Blood Urea Nitrogen 14 Creatinine 0.89 Glucose Level 84 Calcium Level 9.3 Medications Medications Current Medications Sodium Chloride (NS) 1,000 ml @ 100 mls/hr Q10H IV Last administered on 05:21; Admin Dose 100 MLS/HR; Start 04/03/17 at 04:58 Ondansetron HCl (Zofran Inj) 4 mg Q6H PRN IV NAUSEA AND/OR VOMITING; Start at 05:00 Acetaminophen (Tylenol Tab) 650 mg Q6H PRN PO PAIN LEVEL 1-3 OR FEVER; Start at 05:00 Methadone HCl 30 mg 30 mg BID PO Last administered on 04/10/17 21:45; Admin Dose 30 MG; Start 04/03/17 at 21:00 Vancomycin HCl/ Sodium Chloride (Vancocin/NS) 150 ml @ 75 mls/hr Q8H IVPB Last administered on 04/11/17 05:21; Admin Dose 75 MLS/HR; Start 04/05/17 at 05 :00 Hydromorphone HCl (Dilaudid) 2 mg Q4H PRN PO PAIN Last administered on 02:32; Admin Dose 2 MG; Start 04/05/17 at 09:30 Docusate Sodium (Colace) 200 mg BID PO Last administered on 04/10/17 21:00; Admin Dose 200 MG; Start 04/05/17 at 09:30 Nicotine (Nicoderm 14 Mg/ 24hr) 1 patch DAILY TRANSDERM Last administered on 09:28; Admin Dose 1 PATCH; Start 04/05/17 at 10:00 Pantoprazole (Protonix Tab) 40 mg DAILY@06 PO Last administered on 04/11/17 06 :43; Admin Dose 40 MG; Start 04/07/17 at 06:00 Ciprofloxacin (Cipro) 750 mg BID@,18 GTB Last administered on 04/11/17 06:43 ; Admin Dose 750 MG; Start 04/07/17 at 18:00 Senna (Senokot) 2 tab BID PO Last administered on 04/10/17 21:00; Admin Dose 2 TAB; Start 04/10/17 at 09:30 Quetiapine Fumarate (Seroquel) 25 mg BID PO Last administered on 04/10/17 21: 00; Admin Dose 25 MG; Start 04/10/17 at 09:30 TREVOR MURDOCK Apr 11, 2017 08:41
[2017-04-11] MEDS: QUETIAPINE 25 MG TAB PO SCH ×2 (09:01→23:03)
[2017-04-11] MEDS: DOCUSATE SODIUM 100 MG CAP PO SCH ×2 (09:01→21:15)
[2017-04-11] MEDS: SENNA TAB PO SCH ×2 (09:01→21:15)
[2017-04-11] MEDS: METHADONE 10 MG TAB PO SCH ×2 (09:02→21:16)
[2017-04-11] MEDS: NICOTINE (14 MG/24 HR) PATCH TRANSDERM SCH (09:03)
--- NOTE | 2017-04-11 12:03 | RADRPT ---
PROCEDURE: US upper extremity Venous. CLINICAL INDICATION: Right arm edema TECHNIQUE: Multiple sonographic images of the right upper extremity venous system was obtained uti lizing grayscale, color-flow, compressive sonography and doppler imaging with augmentation. The jerel ges were reviewed on a PACS workstation. COMPARISON: None. FINDINGS: There is normal compressibility and flow within the right internal jugular vein, subclavian vein, ax illary vein, brachial, basilic, cephalic, radial and ulnar veins. RPTAT: AA IMPRESSION: No sonographic evidence for venous thrombosis. .Naren Simpson MD, MD Date Time Electronically viewed and signed by .Naren Simpson MD, on 04/11/2017 12:03 .S/
--- NOTE | 2017-04-11 12:21 | CONS ---
Date/Time of Note Date/Time of Note DATE: 04/11/17 TIME: 12:16 Assessment/Plan Assessment/Plan Chief Complaint/Hosp Course Assessment/Plan Chief Complaint/Hosp Course No acute events. Denies pain. No Acute Distress. Microbiology: Urine culture grew MRSA and E. coli, abdominal fluid culture growing staph aureus preliminary, blood cultures are negative Antibiotics: Vancomycin Cipro Physical examination: This is well-nourished well-developed middle-aged white man who is in no distress. Head atraumatic normocephalic, sclera nonicteric. Neck is supple, trachea midline. Chest rise symmetrical breath sounds diminished basis. Heart: S1-S2. Abdomen soft bowel sounds present, patient has right perinephric drainage catheter with purulent drainage. Extremities no cyanosis Assessment: 1. Systemic inflammatory response syndrome 2. Left posterior flank abscess status post CT-guided drainage with catheter placement 3. Polymicrobial UTI 4. Prostatic abscess 5. Lower extremity wound 6. Heroin abuse 7. Anemia Plan: Remains stable. Pending placement. Patient will require long-term IV vancomycin. Follow with urology. May require prostatic abscess drainage if no response to antibiotics. Monitor Labs. Discussed with staff. Problems: Consultation Date/Type/Reason Admit Date/Time Apr 03, 2017 at 01:38 Initial Consult Date 04/03/17 Type of Consultation: id Exam/Review of Systems Vital Signs Vitals Vital Signs Date Time Temp Pulse Resp B/P Pulse Ox O2 Delivery O2 Flow Rate FiO2 04/11/17 07:40 98.9 67 20 99/58 97 Intake and Output 04/10/17 04/10/17 04/11/17 15:00 23:00 07:00 Intake Total 200 ml 2230 ml 1500 ml Output Total 2910 ml 1860 ml Balance 200 ml -680 ml -360 ml Results Result Diagram: 04/11/17 0512 04/11/17 0512 Results 24 hrs Laboratory Tests Test 04/11/17 05:12 White Blood Count 9.3 Red Blood Count 4.28 L Hemoglobin 9.6 L Hematocrit 31.4 L Mean Corpuscular Volume 73.4 L Mean Corpuscular Hemoglobin 22.4 L Mean Corpuscular Hemoglobin Concent 30.6 L Red Cell Distribution Width 17.5 H Platelet Count 465 H Mean Platelet Volume 8.9 Neutrophils % 58.2 Lymphocytes % 30.4 Monocytes % 7.4 Eosinophils % 3.0 Basophils % 0.6 Nucleated Red Blood Cells % 0.0 Neutrophils # 5.4 Lymphocytes # 2.8 Monocytes # 0.7 Eosinophils # 0.3 Basophils # 0.1 Nucleated Red Blood Cells # 0.0 Sodium Level 145 H Potassium Level 4.2 Chloride Level 101 Carbon Dioxide Level 30 Anion Gap 18 H Blood Urea Nitrogen 14 Creatinine 0.89 Glucose Level 84 Calcium Level 9.3 Medications Medications Current Medications Sodium Chloride (NS) 1,000 ml @ 100 mls/hr Q10H IV Last administered on 05:21; Admin Dose 100 MLS/HR; Start 04/03/17 at 04:58 Ondansetron HCl (Zofran Inj) 4 mg Q6H PRN IV NAUSEA AND/OR VOMITING; Start at 05:00 Acetaminophen 650 mg 650 mg Q6H PRN PO PAIN LEVEL 1-3 OR FEVER; Start 04/03/17 at 05:00 Vancomycin HCl/ Sodium Chloride (Vancocin/NS) 150 ml @ 75 mls/hr Q8H IVPB Last administered on 04/11/17 05:21; Admin Dose 75 MLS/HR; Start 04/05/17 at 05 :00 Hydromorphone HCl (Dilaudid) 2 mg Q4H PRN PO PAIN Last administered on 02:32; Admin Dose 2 MG; Start 04/05/17 at 09:30 Docusate Sodium (Colace) 200 mg BID PO Last administered on 04/11/17 09:01; Admin Dose 200 MG; Start 04/05/17 at 09:30 Nicotine (Nicoderm 14 Mg/ 24hr) 1 patch DAILY TRANSDERM Last administered on 09:03; Admin Dose 1 PATCH; Start 04/05/17 at 10:00 Pantoprazole (Protonix Tab) 40 mg DAILY@06 PO Last administered on 04/11/17 06 :43; Admin Dose 40 MG; Start 04/07/17 at 06:00 Ciprofloxacin (Cipro) 750 mg BID@06,18 GTB Last administered on 04/11/17 06:43 ; Admin Dose 750 MG; Start 04/07/17 at 18:00 Senna (Senokot) 2 tab BID PO Last administered on 7/25/17at 09:01; Admin Dose 2 TAB; Start 04/10/17 at 09:30 Quetiapine Fumarate (Seroquel) 25 mg BID PO Last administered on 04/11/17 09: 01; Admin Dose 25 MG; Start 04/10/17 at 09:30 Methadone HCl (Methadone) 30 mg BID PO Last administered on 04/11/17 09:02; Admin Dose 30 MG; Start 04/11/17 at 09:00 ARMAAN GROVE NP Apr 11, 2017 12:21
--- NOTE | 2017-04-11 13:29 | PN ---
Date/Time of Note Date/Time of Note DATE: 04/11/17 TIME: 13:27 Assessment/Plan VTE Prophylaxis VTE Prophylaxis Intervention: SCD's Lines/Catheters IV Catheter Type (from Nrs): Peripheral IV Assessment/Plan Chief Complaint/Hosp Course 1. Pararenal abscess-improved status post CT drainage of abscess Wound culture did show staph aureus, Continue with antibiotics ID on case recommendation is for long-term vancomycin 2. Prostate abscess. Urologist consulted. Continue on antibiotics for now. Possible transurethral drainage is not improved with antibiotics. Will follow up with recommendations. 3. Heroin abuse. Pain management physician and social services analyst to follow. 4. UTI. Continue antibiotics per ID recommendations 5. Hypertension. Will provide antihypertensives as needed. 6. Lower extremity wound. Wound care nurse consulted. Will follow up with recommendations. Prophylaxis: SCDs Disposition plan: Patient difficult placement due to age, history of heroin abuse and IV drug use and possible need for long-term antibiotics Problems: Subjective 24 Hr Interval Summary Constitutional: no complaints Exam/Review of Systems Vital Signs Vitals Vital Signs Date Time Temp Pulse Resp B/P Pulse Ox O2 Delivery O2 Flow Rate FiO2 04/11/17 07:40 98.9 67 20 99/58 97 Intake and Output 04/10/17 04/10/17 04/11/17 15:00 23:00 07:00 Intake Total 200 ml 2230 ml 1500 ml Output Total 2910 ml 1860 ml Balance 200 ml -680 ml -360 ml Exam Constitutional: alert Respiratory: clear to auscultation Cardiovascular: regular rate and rhythm Gastrointestinal: soft, No distended Musculoskeletal: No nl extremities to inspection Results Result Diagram: 04/11/17 0512 04/11/17 0512 Results 24 hrs Laboratory Tests Test 04/11/17 05:12 White Blood Count 9.3 Red Blood Count 4.28 L Hemoglobin 9.6 L Hematocrit 31.4 L Mean Corpuscular Volume 73.4 L Mean Corpuscular Hemoglobin 22.4 L Mean Corpuscular Hemoglobin Concent 30.6 L Red Cell Distribution Width 17.5 H Platelet Count 465 H Mean Platelet Volume 8.9 Neutrophils % 58.2 Lymphocytes % 30.4 Monocytes % 7.4 Eosinophils % 3.0 Basophils % 0.6 Nucleated Red Blood Cells % 0.0 Neutrophils # 5.4 Lymphocytes # 2.8 Monocytes # 0.7 Eosinophils # 0.3 Basophils # 0.1 Nucleated Red Blood Cells # 0.0 Sodium Level 145 H Potassium Level 4.2 Chloride Level 101 Carbon Dioxide Level 30 Anion Gap 18 H Blood Urea Nitrogen 14 Creatinine 0.89 Glucose Level 84 Calcium Level 9.3 Medications Medications Current Medications Sodium Chloride (NS) 1,000 ml @ 100 mls/hr Q10H IV Last administered on 05:21; Admin Dose 100 MLS/HR; Start 04/03/17 at 04:58 Ondansetron HCl (Zofran Inj) 4 mg Q6H PRN IV NAUSEA AND/OR VOMITING; Start at 05:00 Acetaminophen 650 mg 650 mg Q6H PRN PO PAIN LEVEL 1-3 OR FEVER; Start 04/03/17 at 05:00 Vancomycin HCl/ Sodium Chloride (Vancocin/NS) 150 ml @ 75 mls/hr Q8H IVPB Last administered on 04/11/17 05:21; Admin Dose 75 MLS/HR; Start 04/05/17 at 05 :00 Hydromorphone HCl (Dilaudid) 2 mg Q4H PRN PO PAIN Last administered on 02:32; Admin Dose 2 MG; Start 04/05/17 at 09:30 Docusate Sodium (Colace) 200 mg BID PO Last administered on 04/11/17 09:01; Admin Dose 200 MG; Start 04/05/17 at 09:30 Nicotine (Nicoderm 14 Mg/ 24hr) 1 patch DAILY TRANSDERM Last administered on 09:03; Admin Dose 1 PATCH; Start 04/05/17 at 10:00 Pantoprazole (Protonix Tab) 40 mg DAILY@06 PO Last administered on 04/11/17 06 :43; Admin Dose 40 MG; Start 04/07/17 at 06:00 Ciprofloxacin (Cipro) 750 mg BID@06,18 GTB Last administered on 04/11/17 06:43 ; Admin Dose 750 MG; Start 04/07/17 at 18:00 Senna (Senokot) 2 tab BID PO Last administered on 04/11/17 09:01; Admin Dose 2 TAB; Start 04/10/17 at 09:30 Quetiapine Fumarate (Seroquel) 25 mg BID PO Last administered on 04/11/17 09: 01; Admin Dose 25 MG; Start 04/10/17 at 09:30 Methadone HCl (Methadone) 30 mg BID PO Last administered on 04/11/17 09:02; Admin Dose 30 MG; Start 04/11/17 at 09:00 TORRIE HAYES Apr 11, 2017 13:29
[2017-04-11 14:21] VITALS: BP 94/51; RESP 20
--- NOTE | 2017-04-11 16:50 | CONS ---
Date/Time of Note Date/Time of Note DATE: 04/11/17 TIME: 16:42 Assessment/Plan Assessment/Plan Chief Complaint/Hosp Course Pt with active IV heroin abuse presents with flank pain and dysuria Ct shows perirenal abscess and enlarged prostate R/o abscess Pt with blunt deraining well,uncomfortable Problems: Additional Assessment/Plan I have reviewed his repeat CT The prostatic abscess is smaller but still significant I have spoken to Dr. Manning from IR about transrectal ultrasonic guided aspiration of the abscess. He told me [facility] does not have the equipment for this procedure. The pt seems to have little symptoms from the prostate except for blunt irritation. Suggest dc blunt and see how he does, and replace it only of he has problem voiding. Would refer him to [facility] facility where he can have outpt drainage of the abscess under local anesthesia Consultation Date/Type/Reason Admit Date/Time Apr 03, 2017 at 01:38 Initial Consult Date 04/03/17 Type of Consultation: id Exam/Review of Systems Vital Signs Vitals Vital Signs Date Time Temp Pulse Resp B/P Pulse Ox O2 Delivery O2 Flow Rate FiO2 04/11/17 14:21 98.8 65 20 94/51 97 Intake and Output 04/10/17 04/10/17 04/11/17 15:00 23:00 07:00 Intake Total 200 ml 2230 ml 1500 ml Output Total 2910 ml 1860 ml Balance 200 ml -680 ml -360 ml Results Result Diagram: 04/11/17 0512 04/11/17 0512 Results 24 hrs Laboratory Tests Test 04/11/17 05:12 White Blood Count 9.3 Red Blood Count 4.28 L Hemoglobin 9.6 L Hematocrit 31.4 L Mean Corpuscular Volume 73.4 L Mean Corpuscular Hemoglobin 22.4 L Mean Corpuscular Hemoglobin Concent 30.6 L Red Cell Distribution Width 17.5 H Platelet Count 465 H Mean Platelet Volume 8.9 Neutrophils % 58.2 Lymphocytes % 30.4 Monocytes % 7.4 Eosinophils % 3.0 Basophils % 0.6 Nucleated Red Blood Cells % 0.0 Neutrophils # 5.4 Lymphocytes # 2.8 Monocytes # 0.7 Eosinophils # 0.3 Basophils # 0.1 Nucleated Red Blood Cells # 0.0 Sodium Level 145 H Potassium Level 4.2 Chloride Level 101 Carbon Dioxide Level 30 Anion Gap 18 H Blood Urea Nitrogen 14 Creatinine 0.89 Glucose Level 84 Calcium Level 9.3 Medications Medications Current Medications Sodium Chloride (NS) 1,000 ml @ 100 mls/hr Q10H IV Last administered on 05:21; Admin Dose 100 MLS/HR; Start 04/03/17 at 04:58 Ondansetron HCl (Zofran Inj) 4 mg Q6H PRN IV NAUSEA AND/OR VOMITING; Start at 05:00 Acetaminophen 650 mg 650 mg Q6H PRN PO PAIN LEVEL 1-3 OR FEVER; Start 04/03/17 at 05:00 Vancomycin HCl/ Sodium Chloride (Vancocin/NS) 150 ml @ 75 mls/hr Q8H IVPB Last administered on 04/11/17 13:47; Admin Dose 75 MLS/HR; Start 04/05/17 at 05 :00 Hydromorphone HCl (Dilaudid) 2 mg Q4H PRN PO PAIN Last administered on 02:32; Admin Dose 2 MG; Start 04/05/17 at 09:30 Docusate Sodium (Colace) 200 mg BID PO Last administered on 04/11/17 09:01; Admin Dose 200 MG; Start 04/05/17 at 09:30 Nicotine (Nicoderm 14 Mg/ 24hr) 1 patch DAILY TRANSDERM Last administered on 09:03; Admin Dose 1 PATCH; Start 04/05/17 at 10:00 Pantoprazole (Protonix Tab) 40 mg DAILY@06 PO Last administered on 04/11/17 06 :43; Admin Dose 40 MG; Start 04/07/17 at 06:00 Ciprofloxacin (Cipro) 750 mg BID@06,18 GTB Last administered on 04/11/17 06:43 ; Admin Dose 750 MG; Start 04/07/17 at 18:00 Senna (Senokot) 2 tab BID PO Last administered on 04/11/17 09:01; Admin Dose 2 TAB; Start 04/10/17 at 09:30 Quetiapine Fumarate (Seroquel) 25 mg BID PO Last administered on 04/11/17 09: 01; Admin Dose 25 MG; Start 04/10/17 at 09:30 Methadone HCl (Methadone) 30 mg BID PO Last administered on 04/11/17 09:02; Admin Dose 30 MG; Start 04/11/17 at 09:00 Miscellaneous Information (*Rx Drug Level Order Reminder*) 1 ONCE ONCE XX ; Start 04/12/17 at 04:00; Stop 04/12/17 at 04:01 MARJORIE BURKS MD Apr 11, 2017 16:50
[2017-04-11 17:15] LABS: BARBITURATES NEGATIVE (NEGATIVE); BENZODIAZEPINES NEGATIVE (NEGATIVE); CANNABINOIDS NEGATIVE (NEGATIVE); COCAINE NEGATIVE (NEGATIVE); OPIATES POSITIVE (NEGATIVE)
[2017-04-11 19:23] VITALS: BP 99/63; RESP 20
[2017-04-11 21:16] VITALS: BP 109/65; PULSE 74
[2017-04-12 01:39] VITALS: BP 105/64; RESP 20
[2017-04-12 04:28] LABS: BASOPHIL # 0.1 10^3/ul (0.0-0.1); BASOPHILS % 0.5 % (0.0-2.0); EOSINOPHILS # 0.3 10^3/ul (0.0-0.5); HEMATOCRIT 32.1 % (42.0-52.0); HEMOGLOBIN 9.6 g/dl (14.0-18.0); LYMPHOCYTES # 2.7 10^3/ul (0.8-2.9); LYMPHOCYTES % 27.7 % (15.0-51.0); MEAN CORPUSCULAR HEMOGLOBIN 21.9 pg (29.0-33.0); MEAN CORPUSCULAR HGB CONC 29.9 g/dl (32.0-37.0); MEAN CORPUSCULAR VOLUME 73.1 fl (82.0-101.0); MEAN PLATELET VOLUME 9.4 fl (7.4-10.4); MONOCYTE # 0.7 10^3/ul (0.3-0.9); MONOCYTES % 7.4 % (0.0-11.0); NEUTROPHIL # 5.9 10^3/ul (1.6-7.5); NEUTROPHILS % 61.1 % (39.0-77.0); PLATELET COUNT 485 10^3/UL (140-415); RED BLOOD COUNT 4.39 10^6/ul (4.70-6.10); RED CELL DISTRIBUTION WIDTH 17.4 % (11.5-14.5); WHITE BLOOD COUNT 9.7 10^3/ul (4.8-10.8)
[2017-04-12 04:52] LABS: CALCIUM 9.2 mg/dl (8.4-10.2); CREATININE 0.97 mg/dl (0.61-1.24); POTASSIUM 4.2 mmol/L (3.5-5.1)
[2017-04-12 04:55] LABS: MAGNESIUM 1.7 mg/dl (1.7-2.5)
[2017-04-12] MEDS: PANTOPRAZOLE (EC) 40 MG TAB PO SCH (05:15)
[2017-04-12] MEDS: CIPROFLOXACIN 250 MG TAB GTB SCH ×2 (05:35→18:22)
--- NOTE | 2017-04-12 05:54 | PN ---
DATE: 04/04/2017 The patient is now status post successful drainage of right psoas abscess. He feels symptomatically improved and overall is in good spirits. His abdominal examination remains benign. LABORATORY DATA: Hematocrit today is 29 with a white count of 15,000. IMPRESSION: Status post successful CT drainage. PLAN: Continue medical management. There are no new surgical recommendations. Dictated By: Joel Solomon MD /carlin/ /Document#: [id number]
--- NOTE | 2017-04-12 05:59 | PN ---
DATE: 04/05/[address] drainage right blank abscess day number 1. The patient has been afebrile throughout and the symptomatically improved. His drainage is 80 cc and less purulent. LABORATORY DATA: Shows white count has come down to 13,300,. IMPRESSION: Improving nicely. PLAN: Continue medical management. We will see again p.r.n. Dictated By: Joel Solomon MD /[email or web address]/jose /Document#: [id number]
[2017-04-12 07:18] VITALS: BP 102/58; RESP 16
[2017-04-12] MEDS: SOD CHLORIDE 0.9% 1,000 ML IV SCH ×2 (08:58→10:46)
[2017-04-12] MEDS ORDERED: VANCOMYCIN 750 MG in SOD CHLORIDE 0.9% 150 ML IVPB SCH (09:00)
[2017-04-12] MEDS: NICOTINE (14 MG/24 HR) PATCH TRANSDERM SCH (09:06)
[2017-04-12] MEDS: SENNA TAB PO SCH ×2 (09:07→21:38)
[2017-04-12] MEDS: DOCUSATE SODIUM 100 MG CAP PO SCH ×2 (09:07→21:38)
[2017-04-12] MEDS: QUETIAPINE 25 MG TAB PO SCH ×2 (09:07→22:30)
[2017-04-12] MEDS: METHADONE 10 MG TAB PO SCH ×2 (09:09→21:39)
[2017-04-12] MEDS ORDERED: VANCOMYCIN 1.25 GM in SOD CHLORIDE 0.9% 250 ML IVPB SCH (10:00)
[2017-04-12 14:17] VITALS: BP 98/55; RESP 18
--- NOTE | 2017-04-12 19:17 | CONS ---
Date/Time of Note Date/Time of Note DATE: 04/12/17 TIME: 18:37 Assessment/Plan Assessment/Plan Chief Complaint/Hosp Course ID PROGRESS NOTE 24H INTERVAL SUMMARY CURRENT ABX DAY #10 => Vanco IV + Cipro * A/A/O -> no fevers, VSS, NAD ->calm, not eager to TNS to SNF for long-term IV ABX * Ct shows pararenal abscess and enlarged prostate R/o abscess-> he is s/p perirenal abscess drainage in IR w/(+)MRSA fluid * He tells me he was offered drainage of 2nd abscess/prostatic and declined, he is interested in re-considering, nurses tell me this must be done at [facility] with anesthesia per Dr. Manning recommendation * Lost IV access today -- pending new IV start difficult stick * LABS: 04/12/17 0349 04/12/17 0345 Exam Constitutional: alert, oriented, well developed Psych: nl mood/affect, no complaints Head: atraumatic, normocephalic Eyes: EOMI, nl conjunctiva, anicteric ENMT: Unremarkable Neck: non-tender, supple Respiratory: Normal air movement, No intercostal retraction, No labored breathing Cardiovascular: nl pulses, regular rate and rhythm, Gastrointestinal: non-tender, soft, : (+) R-flank perinephretic drain w/scant serosanguinous fluid Extremities: WArm, IVDU scars BUEXT extremities Neurological: SOLAR INSTALLER TECHNICIAN II-XII intact, Skin: No rash, no diaphoresis, IVDU scarring extremities ID ASSESSMENT 31 yo M w/current IVDU admit with: 1. SIRS w/leukocytosis on admission -> RESOLVED * 04/03/17 BCx (-) 2. Polymicrobial complicated UTI 04/03/17 URINE CULTURE Final Organism 1 METHICILLIN RESISTANT S.AUREUS COLONY COUNT 60,000 - 70,000 CFU/ml . MULTI DRUG RESISTANT ORGANISM Organism 2 ESCHERICHIA COLI COLONY COUNT <10,000 CFU/ml 3. Prostatic abscess-> needs TNS to [facility] for drainage under anesthesia 4. Left posterior flank pararenal (+)MRSA abscess status post CT-guided drainage with catheter placement on 04/04/17 5. Lower extremity wound 2/2 IVDU 6. BUEXT extensive scarring 2/2 IVDU 7. Poor peripheral BUEXT IV venous access 2/2 hx of IVDU -> Right arm edema 2/2 IV Fluids/ABX, s/p PIV removed 8. Poor candidate for PICC Line due to high risk self injury if he uses PICC -> risk of infection, risk of opioid overdose from mainlining 9. (+)HCV; (-)HBV; (-)HIV screening 11/23/16 10. Tobaccoism -> Nicotine patch 11. Psych Dx; Substance abuse issues, chronic pain 12. Socioeconomic barriers to care: unemployed, self-care deficit MRSA Nares -> ordered screen today ABX ALLERGIES: KNDA CURRENT ABX: DAY #10 => Vanco IV + Cipro po high dose => Lost PIV Access will change to PO Doxy #1 + Bactrim #1 ID RECOMMENDATIONS 1. Swab nares for MRSA screen, swab LLEXT wound for C&S 2. Pt needs PICC line to continue long-term IV ABX; since he is at high risk for self-injury from infection; bleeding; opioid OD if PICC is self-injected mainline would recommend SNF placement observation for continued IV ABX via PICC. 3. Pt has lost PIV access, nurses have difficulty placing PIV which do not last long, now with RUEXT edema PIV infiltration => DC Vanco IV 4. Start Bactrim DS 1 TAB PO BID + Doxycycline 100mg PO Q12 = "Double Cover" for MRSA abscess + continue high dose Cipro PO for E.Coli prostatic abscess coverage * HIgh dose po ABX and "double cover MRSA" warranted due to inability to drain prostatic abscess and concern self harm if PICC line is placed. * NOTE: Zyvox and Rifampin are contraindicated with his psych and methadone meds * All of the above d/w patient who expresses understanding/gratitude/agreement with plan of care. . Problems: Consultation Date/Type/Reason Admit Date/Time Apr 03, 2017 at 01:38 Initial Consult Date 04/03/17 Type of Consultation: id Exam/Review of Systems Vital Signs Vitals Vital Signs Date Time Temp Pulse Resp B/P Pulse Ox O2 Delivery O2 Flow Rate FiO2 04/12/17 14:17 98.1 81 18 98/55 97 Intake and Output 04/11/17 04/11/17 04/12/17 15:00 23:00 07:00 Intake Total 150 ml 2130 ml 3270 ml Output Total 2500 ml 2605 ml Balance 150 ml -370 ml 665 ml Results Result Diagram: 04/12/17 0349 04/12/17 0345 Results 24 hrs Laboratory Tests Test 04/12/17 03:45 04/12/17 03:49 Sodium Level 143 Potassium Level 4.2 Chloride Level 100 Carbon Dioxide Level 30 Anion Gap 17 H Blood Urea Nitrogen 16 Creatinine 0.97 Glucose Level 91 Calcium Level 9.2 White Blood Count 9.7 Red Blood Count 4.39 L Hemoglobin 9.6 L Hematocrit 32.1 L Mean Corpuscular Volume 73.1 L Mean Corpuscular Hemoglobin 21.9 L Mean Corpuscular Hemoglobin Concent 29.9 L Red Cell Distribution Width 17.4 H Platelet Count 485 H Mean Platelet Volume 9.4 Neutrophils % 61.1 Lymphocytes % 27.7 Monocytes % 7.4 Eosinophils % 3.0 Basophils % 0.5 Nucleated Red Blood Cells % 0.0 Neutrophils # 5.9 Lymphocytes # 2.7 Monocytes # 0.7 Eosinophils # 0.3 Basophils # 0.1 Nucleated Red Blood Cells # 0.0 Phosphorus Level 5.0 H Magnesium Level 1.7 Vancomycin Level Trough 19.9 Medications Medications Current Medications Sodium Chloride (NS) 1,000 ml @ 100 mls/hr Q10H IV Last administered on 10:46; Admin Dose 100 MLS/HR; Start 04/03/17 at 04:58 Ondansetron HCl (Zofran Inj) 4 mg Q6H PRN IV NAUSEA AND/OR VOMITING; Start at 05:00 Acetaminophen (Tylenol Tab) 650 mg Q6H PRN PO PAIN LEVEL 1-3 OR FEVER; Start at 05:00 Hydromorphone HCl (Dilaudid) 2 mg Q4H PRN PO PAIN Last administered on 02:32; Admin Dose 2 MG; Start 04/05/17 at 09:30 Docusate Sodium (Colace) 200 mg BID PO Last administered on 04/12/17 09:07; Admin Dose 200 MG; Start 04/05/17 at 09:30 Nicotine (Nicoderm 14 Mg/ 24hr) 1 patch DAILY TRANSDERM Last administered on 09:06; Admin Dose 1 PATCH; Start 04/05/17 at 10:00 Pantoprazole (Protonix Tab) 40 mg DAILY@06 PO Last administered on 04/12/17 05 :15; Admin Dose 40 MG; Start 04/07/17 at 06:00 Ciprofloxacin (Cipro) 750 mg BID@06,18 GTB Last administered on 04/12/17 18:22 ; Admin Dose 750 MG; Start 04/07/17 at 18:00 Senna (Senokot) 2 tab BID PO Last administered on 04/12/17 09:07; Admin Dose 2 TAB; Start 04/10/17 at 09:30 Quetiapine Fumarate (Seroquel) 25 mg BID PO Last administered on 04/12/17 09: 07; Admin Dose 25 MG; Start 04/10/17 at 09:30 Methadone HCl 30 mg 30 mg BID PO Last administered on 04/12/17 09:09; Admin Dose 30 MG; Start 04/11/17 at 09:00 Vancomycin HCl/ Sodium Chloride (Vancocin/NS) 250 ml @ 83.333 mls/ hr Q12H IVPB Last administered on 04/12/17 10:42; Admin Dose 83.333 MLS/HR; Start at 10:00 HITESH KHAN NP Apr 12, 2017 18:47
[2017-04-12 19:27] VITALS: BP 109/61; RESP 20
[2017-04-12] MEDS ORDERED: DOXYCYCLINE 100 MG TAB PO SCH (19:30)
[2017-04-12] MEDS: DOXYCYCLINE 100 MG TAB PO SCH (19:48)
[2017-04-12] MEDS: TRIMETHOPRIM/SULFAMETHOX (DS) TAB PO SCH (21:39)
[2017-04-13 01:50] VITALS: BP 109/65; RESP 20
[2017-04-13] MEDS: HYDROmorphONE 2 MG TAB PO PRN ×3 (02:33→23:32)
[2017-04-13] MEDS: CIPROFLOXACIN 250 MG TAB GTB SCH ×2 (05:59→17:15)
[2017-04-13] MEDS: PANTOPRAZOLE (EC) 40 MG TAB PO SCH (05:59)
[2017-04-13 06:49] LABS: BASOPHIL # 0.1 10^3/ul (0.0-0.1); BASOPHILS % 0.9 % (0.0-2.0); EOSINOPHILS # 0.3 10^3/ul (0.0-0.5); EOSINOPHILS % 3.2 % (0.0-7.0); HEMOGLOBIN 9.8 g/dl (14.0-18.0); LYMPHOCYTES # 2.8 10^3/ul (0.8-2.9); LYMPHOCYTES % 26.6 % (15.0-51.0); MEAN CORPUSCULAR HEMOGLOBIN 21.7 pg (29.0-33.0); MEAN CORPUSCULAR HGB CONC 29.7 g/dl (32.0-37.0); MEAN PLATELET VOLUME 9.3 fl (7.4-10.4); MONOCYTE # 0.8 10^3/ul (0.3-0.9); MONOCYTES % 7.7 % (0.0-11.0); NEUTROPHIL # 6.4 10^3/ul (1.6-7.5); NEUTROPHILS % 61.2 % (39.0-77.0); PLATELET COUNT 488 10^3/UL (140-415); RED BLOOD COUNT 4.52 10^6/ul (4.70-6.10); RED CELL DISTRIBUTION WIDTH 17.7 % (11.5-14.5); WHITE BLOOD COUNT 10.5 10^3/ul (4.8-10.8)
[2017-04-13 07:31] VITALS: BP 107/59; RESP 16
[2017-04-13 07:41] LABS: CALCIUM 9.6 mg/dl (8.4-10.2); POTASSIUM 4.3 mmol/L (3.5-5.1)
[2017-04-13] MEDS: DOXYCYCLINE 100 MG TAB PO SCH ×2 (08:10→21:27)
[2017-04-13] MEDS: DOCUSATE SODIUM 100 MG CAP PO SCH ×2 (08:12→21:27)
[2017-04-13] MEDS: SENNA TAB PO SCH ×2 (08:12→21:28)
[2017-04-13] MEDS: METHADONE 10 MG TAB PO SCH ×2 (08:13→21:28)
[2017-04-13] MEDS: TRIMETHOPRIM/SULFAMETHOX (DS) TAB PO SCH ×2 (08:13→21:28)
[2017-04-13] MEDS: QUETIAPINE 25 MG TAB PO SCH ×2 (08:14→21:28)
[2017-04-13] MEDS: NICOTINE (14 MG/24 HR) PATCH TRANSDERM SCH (08:15)
--- NOTE | 2017-04-13 08:39 | PN ---
Date/Time of Note Date/Time of Note DATE: 04/13/17 TIME: 08:35 Assessment/Plan VTE Prophylaxis VTE Prophylaxis Intervention: SCD's Lines/Catheters IV Catheter Type (from Nrsg): Peripheral IV Urinary Cath still in place: Yes Reason Cath still needed: urinary retention Assessment/Plan Chief Complaint/Hosp Course A/P: 31 M with: 1. Pararenal abscess-improved status post CT drainage of abscess - Wound culture did show staph aureus. - per ID, continue with Bactrim DS 1 TAB PO BID + Doxycycline 100mg PO Q12 = "Double Cover" for MRSA abscess + continue high dose Cipro PO for E.Coli prostatic abscess coverage - ID on [place], f/u their recommendation 2. Prostate abscess. Urologist consulted. - Continue on antibiotics for now. Possible transurethral drainage if not improved with antibiotics (but [facility] - Will follow up with recommendations. 3. Heroin abuse. Pain management physician and certified social workers in health care to follow. 4. UTI. Continue antibiotics per ID recommendations (see # 1) 5. Hypertension. Will provide antihypertensives as needed. 6. Lower extremity wound. Wound care nurse consulted. Will follow up with recommendations. Prophylaxis: SCDs Disposition plan: Patient difficult placement due to age, history of heroin abuse and IV drug use and possible need for long-term antibiotics Problems: Subjective 24 Hr Interval Summary Free Text/Dictation No acute events overnight. Exam/Review of Systems Vital Signs Vitals Vital Signs Date Time Temp Pulse Resp B/P Pulse Ox O2 Delivery O2 Flow Rate FiO2 04/13/17 07:31 98.0 75 16 107/59 97 Intake and Output 04/12/17 04/12/17 04/13/17 15:00 23:00 07:00 Intake Total 650 ml 1480 ml 1040 ml Output Total 2100 ml 1450 ml Balance 650 ml -620 ml -410 ml Exam Constitutional: alert, eating food Respiratory: clear to auscultation Cardiovascular: regular rate and rhythm Gastrointestinal: soft, No distended Musculoskeletal: No nl extremities to inspection Results Result Diagram: 04/13/17 0557 04/13/17 0557 Results 24 hrs Laboratory Tests Test 04/13/17 05:57 White Blood Count 10.5 Red Blood Count 4.52 L Hemoglobin 9.8 L Hematocrit 33.0 L Mean Corpuscular Volume 73.0 L Mean Corpuscular Hemoglobin 21.7 L Mean Corpuscular Hemoglobin Concent 29.7 L Red Cell Distribution Width 17.7 H Platelet Count 488 H Mean Platelet Volume 9.3 Neutrophils % 61.2 Lymphocytes % 26.6 Monocytes % 7.7 Eosinophils % 3.2 Basophils % 0.9 Nucleated Red Blood Cells % 0.0 Neutrophils # 6.4 Lymphocytes # 2.8 Monocytes # 0.8 Eosinophils # 0.3 Basophils # 0.1 Nucleated Red Blood Cells # 0.0 Sodium Level 143 Potassium Level 4.3 Chloride Level 98 Carbon Dioxide Level 31 Anion Gap 18 H Blood Urea Nitrogen 16 Creatinine 1.00 Glucose Level 90 Calcium Level 9.6 Medications Medications Current Medications Ondansetron HCl (Zofran Inj) 4 mg Q6H PRN IV NAUSEA AND/OR VOMITING; Start at 05:00 Acetaminophen (Tylenol Tab) 650 mg Q6H PRN PO PAIN LEVEL 1-3 OR FEVER; Start at 05:00 Hydromorphone HCl (Dilaudid) 2 mg Q4H PRN PO PAIN Last administered on 02:33; Admin Dose 2 MG; Start 04/05/17 at 09:30 Docusate Sodium (Colace) 200 mg BID PO Last administered on 04/13/17 08:12; Admin Dose 200 MG; Start 04/05/17 at 09:30 Nicotine (Nicoderm 14 Mg/ 24hr) 1 patch DAILY TRANSDERM Last administered on 08:15; Admin Dose 1 PATCH; Start 04/05/17 at 10:00 Pantoprazole (Protonix Tab) 40 mg DAILY@06 PO Last administered on 04/13/17 05 :59; Admin Dose 40 MG; Start 04/07/17 at 06:00 Ciprofloxacin (Cipro) 750 mg BID@06,18 GTB Last administered on 04/13/17 05:59 ; Admin Dose 750 MG; Start 04/07/17 at 18:00 Senna (Senokot) 2 tab BID PO Last administered on 04/13/17 08:12; Admin Dose 2 TAB; Start 04/10/17 at 09:30 Quetiapine Fumarate (Seroquel) 25 mg BID PO Last administered on 04/13/17 08: 14; Admin Dose 25 MG; Start 04/10/17 at 09:30 Methadone HCl (Methadone) 30 mg BID PO Last administered on 04/13/17 08:13; Admin Dose 30 MG; Start 04/11/17 at 09:00 Trimethoprim/ Sulfamethoxazole (Bactrim (Ds)) 1 tab BID PO Last administered on 04/13/17 08:13; Admin Dose 1 TAB; Start 04/12/17 at 21:00 Doxycycline Hyclate (Vibramycin) 100 mg BID PO Last administered on 04/13/17 08:10; Admin Dose 100 MG; Start 04/12/17 at 19:30 ABRAHAM ERNST Apr 13, 2017 08:39
--- NOTE | 2017-04-13 09:17 | PN ---
Date/Time of Note Date/Time of Note DATE: 04/13/17 TIME: 09:15 Assessment/Plan Lines/Catheters IV Catheter Type (from Nrs): Peripheral IV Jackson in Place (from Nrsg): Yes Assessment/Plan Assessment/Plan I removed the pigtail catheter at the bedside. Further recommendations per urology As there are no further general surgical recommendations, will sign off and see again prn your request Subjective 24 Hr Interval Summary Yesterday's CT shows complete resolution of right flank abscess The patient's abdominal examination is benign Exam/Review of Systems Vital Signs Vitals Vital Signs Date Time Temp Pulse Resp B/P Pulse Ox O2 Delivery O2 Flow Rate FiO2 04/13/17 07:31 98.0 75 16 107/59 97 Intake and Output 04/12/17 04/12/17 04/13/17 15:00 23:00 07:00 Intake Total 650 ml 1480 ml 1040 ml Output Total 2100 ml 1450 ml Balance 650 ml -620 ml -410 ml Results Result Diagram: 04/13/17 0557 04/13/17 0557 HOLLY BENITEZ MD Apr 13, 2017 09:17
[2017-04-13 13:33] VITALS: BP 102/58; RESP 16
[2017-04-13 17:16] VITALS: PULSE 82
--- NOTE | 2017-04-13 18:15 | CONS ---
Date/Time of Note Date/Time of Note DATE: 04/13/17 TIME: 18:06 Assessment/Plan Assessment/Plan Chief Complaint/Hosp Course ID PROGRESS NOTE 24H INTERVAL SUMMARY CURRENT ABX DAY #12 => Cipro #12 + Bactrim DS 1 TAB PO BID + Doxycycline 100mg PO Q12 = "Double Cover" for MRSA abscess * Pigtail catheter removed today * Lost PIV access == poor venous access due to IVDU * s/p perirenal abscess drainage in IR w/(+)MRSA fluid * Drainage of 2nd abscess/prostatic must be done at [facility] with anesthesia per Dr. 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 SIRS w/leukocytosis on admission -> RESOLVED * 04/03/17 BCx (-) 2. Polymicrobial complicated UTI 04/03/17 URINE CULTURE Final Organism 1 METHICILLIN RESISTANT S.AUREUS COLONY COUNT 60,000 - 70,000 CFU/ml . MULTI DRUG RESISTANT ORGANISM Organism 2 ESCHERICHIA COLI COLONY COUNT <10,000 CFU/ml 3. Prostatic abscess-> needs TNS to [facility] for drainage under anesthesia 4. Left posterior flank pararenal (+)MRSA abscess status post CT-guided drainage with catheter placement on 04/04/17 * Pigtail drain removed 04/13/17 5. Lower extremity wound 2/2 IVDU 6. BUEXT extensive scarring 2/2 IVDU 7. Poor peripheral BUEXT IV venous access 2/2 hx of IVDU -> Right arm edema 2/2 IV Fluids/ABX, s/p PIV removed 8. Poor candidate for PICC Line due to high risk self injury if he uses PICC -> risk of infection, risk of opioid overdose from mainlining 9. (+)HCV; (-)HBV; (-)HIV screening 11/23/16 10. Tobaccoism -> Nicotine patch 11. Psych Dx; Substance abuse issues, chronic pain 12. Socioeconomic barriers to care: unemployed, self-care deficit MRSA Nares -> ordered screen today ABX ALLERGIES: KNDA CURRENT ABX: DAY #11 => Cipro #12 + Bactrim DS 1 TAB PO BID + Doxycycline 100mg PO Q12 = "Double Cover" for MRSA abscess s/p Vanco ID RECOMMENDATIONS 1. Swab nares for MRSA screen, swab LLEXT wound for C&S 2. Pt lost IV access -> changed to PO ABX * Pt needs PICC line to continue long-term IV ABX; since he is at high risk for self-injury from infection; bleeding; opioid OD if PICC is self-injected mainline would recommend SNF placement observation for continued IV ABX via PICC. 3. Continue Bactrim DS 1 TAB PO BID + Doxycycline 100mg PO Q12 = "Double Cover" for MRSA abscess + continue high dose Cipro PO for E.Coli prostatic abscess coverage * HIgh dose po ABX and "double cover MRSA" warranted due to inability to drain prostatic abscess and concern self harm if PICC line is placed. * NOTE: Zyvox and Rifampin are contraindicated with his psych and methadone meds 4. MRSA nares and LLEXT wound cx pending 5. Anticipate DC on PO ABX 4 weeks with repeat imaging to see if prostatic abscess has resolved. . . Problems: Consultation Date/Type/Reason Admit Date/Time Apr 03, 2017 at 01:38 Initial Consult Date 04/03/17 Type of Consultation: id Exam/Review of Systems Vital Signs Vitals Vital Signs Date Time Temp Pulse Resp B/P Pulse Ox O2 Delivery O2 Flow Rate FiO2 04/13/17 17:16 82 04/13/17 13:33 98.2 16 102/58 96 Intake and Output 04/12/17 04/12/17 04/13/17 15:00 23:00 07:00 Intake Total 650 ml 1480 ml 1040 ml Output Total 2100 ml 1450 ml Balance 650 ml -620 ml -410 ml Results Result Diagram: 04/13/17 0557 04/13/17 0557 Results 24 hrs Laboratory Tests Test 04/13/17 05:57 White Blood Count 10.5 Red Blood Count 4.52 L Hemoglobin 9.8 L Hematocrit 33.0 L Mean Corpuscular Volume 73.0 L Mean Corpuscular Hemoglobin 21.7 L Mean Corpuscular Hemoglobin Concent 29.7 L Red Cell Distribution Width 17.7 H Platelet Count 488 H Mean Platelet Volume 9.3 Neutrophils % 61.2 Lymphocytes % 26.6 Monocytes % 7.7 Eosinophils % 3.2 Basophils % 0.9 Nucleated Red Blood Cells % 0.0 Neutrophils # 6.4 Lymphocytes # 2.8 Monocytes # 0.8 Eosinophils # 0.3 Basophils # 0.1 Nucleated Red Blood Cells # 0.0 Sodium Level 143 Potassium Level 4.3 Chloride Level 98 Carbon Dioxide Level 31 Anion Gap 18 H Blood Urea Nitrogen 16 Creatinine 1.00 Glucose Level 90 Calcium Level 9.6 Medications Medications Current Medications Ondansetron HCl (Zofran Inj) 4 mg Q6H PRN IV NAUSEA AND/OR VOMITING; Start at 05:00 Acetaminophen (Tylenol Tab) 650 mg Q6H PRN PO PAIN LEVEL 1-3 OR FEVER; Start at 05:00 Hydromorphone HCl (Dilaudid) 2 mg Q4H PRN PO PAIN Last administered on 17:15; Admin Dose 2 MG; Start 04/05/17 at 09:30 Docusate Sodium (Colace) 200 mg BID PO Last administered on 04/13/17 08:12; Admin Dose 200 MG; Start 04/05/17 at 09:30 Nicotine (Nicoderm 14 Mg/ 24hr) 1 patch DAILY TRANSDERM Last administered on 08:15; Admin Dose 1 PATCH; Start 04/05/17 at 10:00 Pantoprazole (Protonix Tab) 40 mg DAILY@06 PO Last administered on 04/13/17 05 :59; Admin Dose 40 MG; Start 04/07/17 at 06:00 Ciprofloxacin (Cipro) 750 mg BID@06,18 GTB Last administered on 04/13/17 17:15 ; Admin Dose 750 MG; Start 04/07/17 at 18:00 Senna (Senokot) 2 tab BID PO Last administered on 04/13/17 08:12; Admin Dose 2 TAB; Start 04/10/17 at 09:30 Quetiapine Fumarate (Seroquel) 25 mg BID PO Last administered on 04/13/17 08: 14; Admin Dose 25 MG; Start 04/10/17 at 09:30 Methadone HCl (Methadone) 30 mg BID PO Last administered on 04/13/17 08:13; Admin Dose 30 MG; Start 04/11/17 at 09:00 Trimethoprim/ Sulfamethoxazole (Bactrim (Ds)) 1 tab BID PO Last administered on 04/13/17 08:13; Admin Dose 1 TAB; Start 04/12/17 at 21:00 Doxycycline Hyclate (Vibramycin) 100 mg BID PO Last administered on 04/13/17 08:10; Admin Dose 100 MG; Start 04/12/17 at 19:30 HITESH KHAN NP Apr 13, 2017 18:15
[2017-04-13 20:07] VITALS: BP 106/59; RESP 16
[2017-04-14 02:00] VITALS: BP 106/63; RESP 16
[2017-04-14] MEDS: PANTOPRAZOLE (EC) 40 MG TAB PO SCH (06:21)
[2017-04-14] MEDS: CIPROFLOXACIN 250 MG TAB GTB SCH ×2 (06:21→18:06)
[2017-04-14 06:23] LABS: BASOPHIL # 0.1 10^3/ul (0.0-0.1); BASOPHILS % 0.8 % (0.0-2.0); EOSINOPHILS # 0.3 10^3/ul (0.0-0.5); EOSINOPHILS % 3.2 % (0.0-7.0); HEMATOCRIT 34.8 % (42.0-52.0); HEMOGLOBIN 10.3 g/dl (14.0-18.0); LYMPHOCYTES # 2.7 10^3/ul (0.8-2.9); LYMPHOCYTES % 27.4 % (15.0-51.0); MEAN CORPUSCULAR HEMOGLOBIN 22.2 pg (29.0-33.0); MEAN CORPUSCULAR HGB CONC 29.6 g/dl (32.0-37.0); MEAN CORPUSCULAR VOLUME 74.8 fl (82.0-101.0); MEAN PLATELET VOLUME 10.6 fl (7.4-10.4); MONOCYTE # 0.8 10^3/ul (0.3-0.9); MONOCYTES % 7.9 % (0.0-11.0); NEUTROPHIL # 5.9 10^3/ul (1.6-7.5); NEUTROPHILS % 60.2 % (39.0-77.0); PLATELET COUNT 342 10^3/UL (140-415); RED BLOOD COUNT 4.65 10^6/ul (4.70-6.10); RED CELL DISTRIBUTION WIDTH 17.6 % (11.5-14.5); WHITE BLOOD COUNT 9.8 10^3/ul (4.8-10.8)
[2017-04-14 07:36] VITALS: BP 104/60; RESP 16
[2017-04-14 07:39] LABS: CALCIUM 9.6 mg/dl (8.4-10.2); CREATININE 0.93 mg/dl (0.61-1.24); POTASSIUM 4.9 mmol/L (3.5-5.1)
[2017-04-14] MEDS: DOCUSATE SODIUM 100 MG CAP PO SCH ×2 (08:10→21:20)
[2017-04-14] MEDS: TRIMETHOPRIM/SULFAMETHOX (DS) TAB PO SCH ×2 (08:11→21:20)
[2017-04-14] MEDS: SENNA TAB PO SCH ×2 (08:11→21:21)
[2017-04-14] MEDS: QUETIAPINE 25 MG TAB PO SCH ×2 (08:11→21:20)
[2017-04-14] MEDS: DOXYCYCLINE 100 MG TAB PO SCH ×2 (08:11→21:20)
[2017-04-14] MEDS: NICOTINE (14 MG/24 HR) PATCH TRANSDERM SCH (08:11)
[2017-04-14] MEDS: METHADONE 10 MG TAB PO SCH ×2 (09:25→21:21)
[2017-04-14] MEDS: LACTULOSE 30ML CUP GTB SCH ×2 (12:23→18:00)
--- NOTE | 2017-04-14 19:02 | CONS ---
Date/Time of Note Date/Time of Note DATE: 04/14/17 TIME: 18:50 Assessment/Plan Assessment/Plan Chief Complaint/Hosp Course ID PROGRESS NOTE 24H INTERVAL SUMMARY CURRENT ABX DAY #13 => Cipro #1 + Bactrim DS 1 TAB PO BID + Doxycycline 100mg PO Q12 = "Double Cover" for MRSA abscess * A/A/O -- doing well tolerating PO ABX well -- no complaints * Pigtail catheter removed yesterday -- patient tells me surgery wanted to follow him weekly to see if abscess resolves ? weekly CT scans> * Lost PIV access == poor venous access due to IVDU * s/p perirenal abscess drainage in IR w/(+)MRSA fluid * Drainage of 2nd abscess/prostatic must be done at [facility] with anesthesia per Dr. 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 SIRS w/leukocytosis on admission -> RESOLVED * 04/03/17 BCx (-) 2. Polymicrobial complicated UTI 04/03/17 URINE CULTURE Final Organism 1 METHICILLIN RESISTANT S.AUREUS COLONY COUNT 60,000 - 70,000 CFU/ml . MULTI DRUG RESISTANT ORGANISM Organism 2 ESCHERICHIA COLI COLONY COUNT <10,000 CFU/ml 3. Prostatic abscess-> needs TNS to [facility] for drainage under anesthesia 4. Left posterior flank pararenal (+)MRSA abscess status post CT-guided drainage with catheter placement on 04/04/17 * Pigtail drain removed 04/13/17 5. Lower extremity wound 2/2 IVDU 6. BUEXT extensive scarring 2/2 IVDU 7. Poor peripheral BUEXT IV venous access 2/2 hx of IVDU -> Right arm edema 2/2 IV Fluids/ABX, s/p PIV removed 8. Poor candidate for PICC Line due to high risk self injury if he uses PICC -> risk of infection, risk of opioid overdose from mainlining 9. (+)HCV; (-)HBV; (-)HIV screening 11/23/16 10. Tobaccoism -> Nicotine patch 11. Psych Dx; Substance abuse issues, chronic pain 12. Socioeconomic barriers to care: unemployed, self-care deficit (+)MRSA Nares -> Start Bactroban & Hibiclens Bath [id number] ABX ALLERGIES: KNDA CURRENT ABX: DAY #13 => Cipro #13 + Bactrim DS 1 TAB PO BID + Doxycycline 100mg PO Q12 = "Double Cover" for MRSA abscess s/p Vanco ID RECOMMENDATIONS 1. Patient needs 28 days PO ABX for concern prostatic abscess with weekly f/u with Dr. Solomon and repeat imaging next week. * Pt lost IV access -> changed to PO ABX Since he is high risk for self-injury , including if PICC line where to be placed, and patient were to be sent out with IV; it is reasonable to attempt PO ABX treatment for total of 28 days. 2. When cleared for DC home: patient may DC home on current PO ABX for a total of 28 days. 3. Continue Bactrim DS 1 TAB PO BID + Doxycycline 100mg PO Q12 = "Double Cover" for MRSA abscess + continue high dose Cipro PO for E.Coli prostatic abscess coverage * HIgh dose po ABX and "double cover MRSA" warranted due to inability to drain prostatic abscess and concern self harm if PICC line is placed. * NOTE: Zyvox and Rifampin are contraindicated with his psych and methadone meds 4. Bactroban oint-> bilateral nares Q12 hours x 10 days + Hibiclens bath Q12 hours while inpatient ordered. * Patient tells me he has enough money to purchase 28 days supply of ABX and I encouraged him to discuss possible for DC on PO ABX with primary team tomorrow. . . . Problems: Consultation Date/Type/Reason Admit Date/Time Apr 03, 2017 at 01:38 Initial Consult Date 04/03/17 Type of Consultation: id Exam/Review of Systems Vital Signs Vitals Vital Signs Date Time Temp Pulse Resp B/P Pulse Ox O2 Delivery O2 Flow Rate FiO2 7/28/17 07:36 97.6 71 16 104/60 97 Intake and Output 04/13/17 04/13/17 04/14/17 15:00 23:00 07:00 Intake Total 840 ml 750 ml Output Total 0 ml 1200 ml 650 ml Balance 0 ml -360 ml 100 ml Results Result Diagram: 04/14/17 0521 04/14/17 0521 Results 24 hrs Laboratory Tests Test 04/14/17 05:21 White Blood Count 9.8 Red Blood Count 4.65 L Hemoglobin 10.3 L Hematocrit 34.8 L Mean Corpuscular Volume 74.8 L Mean Corpuscular Hemoglobin 22.2 L Mean Corpuscular Hemoglobin Concent 29.6 L Red Cell Distribution Width 17.6 H Platelet Count 342 # Mean Platelet Volume 10.6 H Neutrophils % 60.2 Lymphocytes % 27.4 Monocytes % 7.9 Eosinophils % 3.2 Basophils % 0.8 Nucleated Red Blood Cells % 0.0 Neutrophils # 5.9 Lymphocytes # 2.7 Monocytes # 0.8 Eosinophils # 0.3 Basophils # 0.1 Nucleated Red Blood Cells # 0.0 Sodium Level 142 Potassium Level 4.9 Chloride Level 99 Carbon Dioxide Level 24 Anion Gap 24 H Blood Urea Nitrogen 15 Creatinine 0.93 Glucose Level 79 Calcium Level 9.6 Medications Medications Current Medications Ondansetron HCl (Zofran Inj) 4 mg Q6H PRN IV NAUSEA AND/OR VOMITING; Start at 05:00 Acetaminophen (Tylenol Tab) 650 mg Q6H PRN PO PAIN LEVEL 1-3 OR FEVER Last administered on 04/14/17 18:17; Admin Dose 650 MG; Start 04/03/17 at 05:00 Hydromorphone HCl (Dilaudid) 2 mg Q4H PRN PO PAIN Last administered on 23:32; Admin Dose 2 MG; Start 04/05/17 at 09:30 Docusate Sodium (Colace) 200 mg BID PO Last administered on 04/14/17 08:10; Admin Dose 200 MG; Start 04/05/17 at 09:30 Nicotine (Nicoderm 14 Mg/ 24hr) 1 patch DAILY TRANSDERM Last administered on 08:11; Admin Dose 1 PATCH; Start 04/05/17 at 10:00 Pantoprazole (Protonix Tab) 40 mg DAILY@06 PO Last administered on 04/14/17 06 :21; Admin Dose 40 MG; Start 04/07/17 at 06:00 Ciprofloxacin (Cipro) 750 mg BID@06,18 GTB Last administered on 04/14/17 18:06 ; Admin Dose 750 MG; Start 04/07/17 at 18:00 Senna (Senokot) 2 tab BID PO Last administered on 04/14/17 08:11; Admin Dose 2 TAB; Start 04/10/17 at 09:30 Quetiapine Fumarate (Seroquel) 25 mg BID PO Last administered on 04/14/17 08: 11; Admin Dose 25 MG; Start 04/10/17 at 09:30 Methadone HCl (Methadone) 30 mg BID PO Last administered on 04/14/17 09:25; Admin Dose 30 MG; Start 04/11/17 at 09:00 Trimethoprim/ Sulfamethoxazole (Bactrim (Ds)) 1 tab BID PO Last administered on 04/14/17 08:11; Admin Dose 1 TAB; Start 04/12/17 at 21:00 Doxycycline Hyclate (Vibramycin) 100 mg BID PO Last administered on 04/14/17 08:11; Admin Dose 100 MG; Start 04/12/17 at 19:30 Lactulose (Enulose) 20 gm Q6 GTB Last administered on 04/14/17 12:23; Admin Dose 20 GM; Start 04/14/17 at 12:00 HITESH KHAN NP Apr 14, 2017 19:02
[2017-04-14 20:00] VITALS: BP 112/65; RESP 18
[2017-04-14] MEDS: MUPIROCIN 2% 22 GM OINT TOP SCH (21:20)
[2017-04-15] MEDS: LACTULOSE 30ML CUP GTB SCH ×3 (00:32→12:00)
[2017-04-15 02:00] VITALS: BP 115/64; RESP 20
[2017-04-15] MEDS: CIPROFLOXACIN 250 MG TAB GTB SCH (05:23)
[2017-04-15] MEDS: PANTOPRAZOLE (EC) 40 MG TAB PO SCH (05:23)
[2017-04-15 07:47] LABS: BASOPHIL # 0.1 10^3/ul (0.0-0.1); BASOPHILS % 0.9 % (0.0-2.0); EOSINOPHILS # 0.4 10^3/ul (0.0-0.5); EOSINOPHILS % 3.6 % (0.0-7.0); HEMATOCRIT 33.1 % (42.0-52.0); LYMPHOCYTES # 2.2 10^3/ul (0.8-2.9); LYMPHOCYTES % 22.7 % (15.0-51.0); MEAN CORPUSCULAR HEMOGLOBIN 22.2 pg (29.0-33.0); MEAN CORPUSCULAR HGB CONC 30.2 g/dl (32.0-37.0); MEAN CORPUSCULAR VOLUME 73.4 fl (82.0-101.0); MEAN PLATELET VOLUME 9.3 fl (7.4-10.4); MONOCYTE # 0.8 10^3/ul (0.3-0.9); MONOCYTES % 7.6 % (0.0-11.0); NEUTROPHIL # 6.4 10^3/ul (1.6-7.5); NEUTROPHILS % 64.5 % (39.0-77.0); PLATELET COUNT 462 10^3/UL (140-415); RED BLOOD COUNT 4.51 10^6/ul (4.70-6.10); RED CELL DISTRIBUTION WIDTH 17.3 % (11.5-14.5); WHITE BLOOD COUNT 9.8 10^3/ul (4.8-10.8)
[2017-04-15 08:08] LABS: ALBUMIN 3.9 g/dl (3.3-4.9); ALBUMIN/GLOBULIN RATIO 0.68; CALCIUM 9.7 mg/dl (8.4-10.2); CREATININE 1.04 mg/dl (0.61-1.24); POTASSIUM 4.3 mmol/L (3.5-5.1); TOTAL PROTEIN 9.6 g/dl (6.1-8.1)
[2017-04-15 08:15] VITALS: BP 109/63; RESP 18
[2017-04-15] MEDS: DOCUSATE SODIUM 100 MG CAP PO SCH (09:00)
[2017-04-15] MEDS: SENNA TAB PO SCH (09:00)
[2017-04-15] MEDS: NICOTINE (14 MG/24 HR) PATCH TRANSDERM SCH (09:16)
[2017-04-15] MEDS: METHADONE 10 MG TAB PO SCH (09:16)
[2017-04-15] MEDS: DOXYCYCLINE 100 MG TAB PO SCH (09:16)
[2017-04-15] MEDS: QUETIAPINE 25 MG TAB PO SCH (09:16)
[2017-04-15] MEDS: TRIMETHOPRIM/SULFAMETHOX (DS) TAB PO SCH (09:16)
[2017-04-15] MEDS: MUPIROCIN 2% 22 GM OINT TOP SCH (09:19)
--- NOTE | 2017-04-15 09:36 | PN ---
Date/Time of Note Date/Time of Note DATE: 04/14/17 TIME: 09:35 Assessment/Plan VTE Prophylaxis VTE Prophylaxis Intervention: SCD's Lines/Catheters IV Catheter Type (from Nrsg): Peripheral IV Urinary Cath still in place: Yes Reason Cath still needed: terminal illness/intractable pain Assessment/Plan Assessment/Plan 1. Pararenal abscess-improved status post CT drainage of abscess - Wound culture MRSA - cont abx per ID - CT from 04/10: shows the previously seen large right posterior pararenal / flank complex fluid collection has nearly completely resolved. 2. Prostate abscess. Urologist consulted. - Continue on antibiotics for now. IR recommending transurethral drainage to be at [facility] under anesthesia - Will follow up with recommendations. 3. Heroin abuse. Pain management physician and social media coordinator following. 4. UTI. Continue antibiotics per ID recommendations 5. Hypertension. Will provide antihypertensives as needed. 6. Lower extremity wound. Wound care nurse following. cont abx. ID following Prophylaxis: SCDs Subjective 24 Hr Interval Summary Free Text/Dictation no acute overnight issues Exam/Review of Systems Vital Signs Vitals Vital Signs Date Time Temp Pulse Resp B/P Pulse Ox O2 Delivery O2 Flow Rate FiO2 04/15/17 08:15 98.3 94 18 109/63 96 Intake and Output 04/14/17 04/14/17 04/15/17 15:00 23:00 07:00 Intake Total 1200 ml 480 ml Output Total 1200 ml 750 ml Balance 0 ml -270 ml Exam Constitutional: alert, oriented Head: atraumatic, normocephalic Eyes: EOMI, PERRL Respiratory: clear to auscultation, normal air movement Cardiovascular: nl pulses, regular rate and rhythm Gastrointestinal: soft Results Result Diagram: 04/15/17 0725 04/15/17 0725 Results 24 hrs Laboratory Tests Test 04/15/17 07:25 White Blood Count 9.8 Red Blood Count 4.51 L Hemoglobin 10.0 L Hematocrit 33.1 L Mean Corpuscular Volume 73.4 L Mean Corpuscular Hemoglobin 22.2 L Mean Corpuscular Hemoglobin Concent 30.2 L Red Cell Distribution Width 17.3 H Platelet Count 462 #H Mean Platelet Volume 9.3 Neutrophils % 64.5 Lymphocytes % 22.7 Monocytes % 7.6 Eosinophils % 3.6 Basophils % 0.9 Nucleated Red Blood Cells % 0.0 Neutrophils # 6.4 Lymphocytes # 2.2 Monocytes # 0.8 Eosinophils # 0.4 Basophils # 0.1 Nucleated Red Blood Cells # 0.0 Sodium Level 144 Potassium Level 4.3 Chloride Level 100 Carbon Dioxide Level 30 Anion Gap 18 H Blood Urea Nitrogen 16 Creatinine 1.04 Glucose Level 87 Calcium Level 9.7 Total Bilirubin 0.0 L Direct Bilirubin 0.00 Indirect Bilirubin 0.0 Aspartate Amino Transf (AST/SGOT) 27 Alanine Aminotransferase (ALT/SGPT) 23 Alkaline Phosphatase 116 Total Protein 9.6 H Albumin 3.9 Globulin 5.70 H Albumin/Globulin Ratio 0.68 Medications Medications Current Medications Ondansetron HCl (Zofran Inj) 4 mg Q6H PRN IV NAUSEA AND/OR VOMITING; Start at 05:00 Acetaminophen (Tylenol Tab) 650 mg Q6H PRN PO PAIN LEVEL 1-3 OR FEVER Last administered on 04/14/17 18:17; Admin Dose 650 MG; Start 04/03/17 at 05:00 Hydromorphone HCl (Dilaudid) 2 mg Q4H PRN PO PAIN Last administered on 23:32; Admin Dose 2 MG; Start 04/05/17 at 09:30 Docusate Sodium (Colace) 200 mg BID PO Last administered on 04/14/17 21:20; Admin Dose 200 MG; Start 04/05/17 at 09:30 Nicotine (Nicoderm 14 Mg/ 24hr) 1 patch DAILY TRANSDERM Last administered on 09:16; Admin Dose 1 PATCH; Start 04/05/17 at 10:00 Pantoprazole (Protonix Tab) 40 mg DAILY@06 PO Last administered on 04/15/17 05 :23; Admin Dose 40 MG; Start 04/07/17 at 06:00 Ciprofloxacin (Cipro) 750 mg BID@06,18 GTB Last administered on 04/15/17 05:23 ; Admin Dose 750 MG; Start 04/07/17 at 18:00 Senna (Senokot) 2 tab BID PO Last administered on 04/14/17 21:21; Admin Dose 2 TAB; Start 04/10/17 at 09:30 Quetiapine Fumarate (Seroquel) 25 mg BID PO Last administered on 7/29/17at 09: 16; Admin Dose 25 MG; Start 04/10/17 at 09:30 Methadone HCl (Methadone) 30 mg BID PO Last administered on 04/15/17 09:16; Admin Dose 30 MG; Start 04/11/17 at 09:00 Trimethoprim/ Sulfamethoxazole (Bactrim (Ds)) 1 tab BID PO Last administered on 04/15/17 09:16; Admin Dose 1 TAB; Start 04/12/17 at 21:00 Doxycycline Hyclate (Vibramycin) 100 mg BID PO Last administered on 04/15/17 09:16; Admin Dose 100 MG; Start 04/12/17 at 19:30 Lactulose (Enulose) 20 gm Q6 GTB Last administered on 04/15/17 05:23; Admin Dose 20 GM; Start 04/14/17 at 12:00 Mupirocin (Bactroban) 1 applic BID TOP Last administered on 04/15/17 09:19; Admin Dose 1 APPLIC; Start 04/14/17 at 21:00 ROBER JAQUEZ MD Apr 15, 2017 09:36 ROBER JAQUEZ MD Apr 15, 2017 09:36
[2017-04-15] MEDS ORDERED: LACT20SO12 GTB (09:55)
[2017-04-15] MEDS ORDERED: HYDR-902 PO (09:55)
[2017-04-15] MEDS ORDERED: SENN-53 PO (09:55)
[2017-04-15] MEDS ORDERED: ACET325T40 PO (09:55)
[2017-04-15] MEDS ORDERED: Nicotine (14 Mg/24 Hr) TRANSDERM (09:55)
[2017-04-15] MEDS ORDERED: Trimethoprim/Sulfamethox (Ds) PO (09:55)
--- NOTE | 2017-04-15 09:58 | PDOCDIS ---
Discharge Instructions CONDITION Patient Condition: Stable HOME CARE INSTRUCTIONS: Special Diet: REGULAR ACTIVITY: Activity Restrictions: Slowly Increase Activity FOLLOW UP/APPOINTMENTS Follow-up Plan follow-up at [facility] for prostate drainage OTHER ORDERS: Other Orders: Call 911 and go to the nearest emergency department if you have any fever, severe abdominal pain, shortness of breath, vomiting or bleeding ROBER JAQUEZ MD Apr 15, 2017 09:58
[2017-04-15] MEDS ORDERED: CIPR-193 GTB (10:01)
[2017-04-15] MEDS ORDERED: DOXY100T2 PO (10:01)
--- NOTE | 2017-04-15 12:19 | CONS ---
Date/Time of Note Date/Time of Note DATE: 04/15/17 TIME: 12:09 Assessment/Plan Assessment/Plan Chief Complaint/Hosp Course ID PROGRESS NOTE 24H INTERVAL SUMMARY CURRENT ABX DAY #14 => Cipro #14 + Bactrim DS 1 TAB PO BID + Doxycycline 100mg PO Q12 = "Double Cover" for MRSA abscess * Doing well -- working with PTx with plans to DC home on "Triple-ABX" for prostatic/pelvic abscess not easily drainable by IR. * Per CM, insurance will pay for Doxy and Bactrim; however not clear if prior auth needed for high dose Cipro? 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 SIRS w/leukocytosis on admission -> RESOLVED * 04/03/17 BCx (-) 2. Polymicrobial complicated UTI 04/03/17 URINE CULTURE Final Organism 1 METHICILLIN RESISTANT S.AUREUS COLONY COUNT 60,000 - 70,000 CFU/ml . MULTI DRUG RESISTANT ORGANISM Organism 2 ESCHERICHIA COLI COLONY COUNT <10,000 CFU/ml 3. Prostatic abscess-> needs TNS to [facility] for drainage under anesthesia 4. Left posterior flank pararenal (+)MRSA abscess status post CT-guided drainage with catheter placement on 04/04/17 * Pigtail drain removed 04/13/17 5. Lower extremity wound 2/2 IVDU 6. BUEXT extensive scarring 2/2 IVDU 7. Poor peripheral BUEXT IV venous access 2/2 hx of IVDU -> Right arm edema 2/2 IV Fluids/ABX, s/p PIV removed 8. Poor candidate for PICC Line due to high risk self injury if he uses PICC -> risk of infection, risk of opioid overdose from mainlining 9. (+)HCV; (-)HBV; (-)HIV screening 11/23/16 10. Tobaccoism -> Nicotine patch 11. Psych Dx; Substance abuse issues, chronic pain 12. Socioeconomic barriers to care: unemployed, self-care deficit (+)MRSA Nares -> Start Bactroban & Hibiclens Bath [id number] ABX ALLERGIES: KNDA CURRENT ABX: DAY #14 => Cipro #14 + Bactrim DS 1 TAB PO BID + Doxycycline 100mg PO Q12 = "Double Cover" for MRSA abscess s/p Vanco ID RECOMMENDATIONS 1. Patient needs 28 days PO ABX for concern prostatic abscess with weekly f/u with Dr. Solomon and repeat imaging next week. * Pt lost IV access -> changed to PO ABX Since he is high risk for self-injury , including if PICC line where to be placed, and patient were to be sent out with IV; it is reasonable to attempt PO ABX treatment for total of 28 days. 2. When cleared for DC home: => DC home PO ABX below for a total of 28 days w/OP follow up for repeat CT and appointment w/Dr. Solomon. * Bactrim DS 1 tab po Q12H with full glass H20 x28 days * Doxycycline 100mg PO Q12H x 28 days * Cipro 500mg po Q12 x 28 days . . . . Problems: Consultation Date/Type/Reason Admit Date/Time Apr 03, 2017 at 01:38 Initial Consult Date 04/03/17 Type of Consultation: id Exam/Review of Systems Vital Signs Vitals Vital Signs Date Time Temp Pulse Resp B/P Pulse Ox O2 Delivery O2 Flow Rate FiO2 04/15/17 08:15 98.3 94 18 109/63 96 Intake and Output 04/14/17 04/14/17 04/15/17 15:00 23:00 07:00 Intake Total 1200 ml 480 ml Output Total 1200 ml 750 ml Balance 0 ml -270 ml Results Result Diagram: 04/15/17 0725 04/15/17 0725 Results 24 hrs Laboratory Tests Test 04/15/17 07:25 White Blood Count 9.8 Red Blood Count 4.51 L Hemoglobin 10.0 L Hematocrit 33.1 L Mean Corpuscular Volume 73.4 L Mean Corpuscular Hemoglobin 22.2 L Mean Corpuscular Hemoglobin Concent 30.2 L Red Cell Distribution Width 17.3 H Platelet Count 462 #H Mean Platelet Volume 9.3 Neutrophils % 64.5 Lymphocytes % 22.7 Monocytes % 7.6 Eosinophils % 3.6 Basophils % 0.9 Nucleated Red Blood Cells % 0.0 Neutrophils # 6.4 Lymphocytes # 2.2 Monocytes # 0.8 Eosinophils # 0.4 Basophils # 0.1 Nucleated Red Blood Cells # 0.0 Sodium Level 144 Potassium Level 4.3 Chloride Level 100 Carbon Dioxide Level 30 Anion Gap 18 H Blood Urea Nitrogen 16 Creatinine 1.04 Glucose Level 87 Calcium Level 9.7 Total Bilirubin 0.0 L Direct Bilirubin 0.00 Indirect Bilirubin 0.0 Aspartate Amino Transf (AST/SGOT) 27 Alanine Aminotransferase (ALT/SGPT) 23 Alkaline Phosphatase 116 Total Protein 9.6 H Albumin 3.9 Globulin 5.70 H Albumin/Globulin Ratio 0.68 Medications Medications Current Medications Ondansetron HCl (Zofran Inj) 4 mg Q6H PRN IV NAUSEA AND/OR VOMITING; Start at 05:00 Acetaminophen (Tylenol Tab) 650 mg Q6H PRN PO PAIN LEVEL 1-3 OR FEVER Last administered on 04/14/17 18:17; Admin Dose 650 MG; Start 04/03/17 at 05:00 Hydromorphone HCl (Dilaudid) 2 mg Q4H PRN PO PAIN Last administered on 23:32; Admin Dose 2 MG; Start 04/05/17 at 09:30 Docusate Sodium (Colace) 200 mg BID PO Last administered on 04/14/17 21:20; Admin Dose 200 MG; Start 04/05/17 at 09:30 Nicotine (Nicoderm 14 Mg/ 24hr) 1 patch DAILY TRANSDERM Last administered on 09:16; Admin Dose 1 PATCH; Start 04/05/17 at 10:00 Pantoprazole (Protonix Tab) 40 mg DAILY@06 PO Last administered on 04/15/17 05 :23; Admin Dose 40 MG; Start 04/07/17 at 06:00 Ciprofloxacin (Cipro) 750 mg BID@06,18 GTB Last administered on 04/15/17 05:23 ; Admin Dose 750 MG; Start 04/07/17 at 18:00 Senna (Senokot) 2 tab BID PO Last administered on 04/14/17 21:21; Admin Dose 2 TAB; Start 04/10/17 at 09:30 Quetiapine Fumarate (Seroquel) 25 mg BID PO Last administered on 04/15/17 09: 16; Admin Dose 25 MG; Start 04/10/17 at 09:30 Methadone HCl (Methadone) 30 mg BID PO Last administered on 04/15/17 09:16; Admin Dose 30 MG; Start 04/11/17 at 09:00 Trimethoprim/ Sulfamethoxazole (Bactrim (Ds)) 1 tab BID PO Last administered on 04/15/17 09:16; Admin Dose 1 TAB; Start 04/12/17 at 21:00 Doxycycline Hyclate (Vibramycin) 100 mg BID PO Last administered on 04/15/17 09:16; Admin Dose 100 MG; Start 04/12/17 at 19:30 Lactulose (Enulose) 20 gm Q6 GTB Last administered on 04/15/17 05:23; Admin Dose 20 GM; Start 04/14/17 at 12:00 Mupirocin (Bactroban) 1 applic BID TOP Last administered on 04/15/17 09:19; Admin Dose 1 APPLIC; Start 04/14/17 at 21:00 HITESH KHAN NP Apr 15, 2017 12:19
[2017-04-15 14:06] VITALS: BP 105/63; RESP 18
[2017-04-15] MEDS ORDERED: CIPROFLOXACIN 500 MG TAB GTB SCH (18:00)
--- NOTE | 2017-04-16 11:32 | PQ ---
Date/Time of Note Date/Time of Note DATE: 04/16/17 TIME: 11:28 Physician Query Documentation Clarification Dear Dr. Crump, A review of the medical record found a need for documentation clarification. progress note --Pararenal abscess-improved status post CT drainage of abscess - Wound culture MRSA Prostate abscess. Urologist consulted. UTI ID consult -- SIRS w/leukocytosis on admission -> RESOLVED 04/15 WBC = 15.3 (adm) HR = 110 ABT - Vancomycin , Ciprofloxacin Please clarify a diagnosis being treated. To facilitate accurate and complete coding, please jonh ( x ) the suspected diagnosis that apply: ( ) SIRS with Sepsis ( ) SIRS without Sepsis ( ) Others Please provide your response by clicking edit document, making your choice ( x ), click ok/save and finally click sign. You may also document your response on your progress notes. Thank you for your time. With appreciation, Jovanni Davila RN, BSN, CCS, CCDS Clinical Grab Setter Health Information Management, CDI and Coding Services [phone] Room # 1525 - [address]~ [id number] JOVANNI DAVILA Apr 16, 2017 11:32
== END 2017-04-15 16:45 | disposition home or self-care (01) | DRG 690 ==
LOC: E/R 23:29 → MS2 04-03 01:38
PROVIDERS: ADMIT Family Medicine; ATTEND Family Medicine
PROC: 0W9H30Z Drainage of Retroperitoneum with Drainage Device, Percutaneous Approach (ICD-10-PCS; principal; 2017-04-04)
DX: N15.1 Renal and perinephric abscess (principal); R65.10 Systemic inflammatory response syndrome (SIRS) of non-infectious origin without acute organ dysfunction; N41.2 Abscess of prostate; F17.210 Nicotine dependence, cigarettes, uncomplicated; F11.10 Opioid abuse, uncomplicated; I10 Essential (primary) hypertension; B95.62 Methicillin resistant Staphylococcus aureus infection as the cause of diseases classified elsewhere; S81.802A Unspecified open wound, left lower leg, initial encounter; N30.80 Other cystitis without hematuria; D64.9 Anemia, unspecified; G89.29 Other chronic pain
CPT/HCPCS: 36415; 74176; 74177; 77012; 80048; 80053; 80061; 80202; 80307; 81001; 81003; 83036; 83690; 83735; 84100; 84153; 84154; 84443; 85025; 85610; 85730; 87040; 87070; 87075; 87081; 87086; 88104; 88305; 93306; 93971; 96365; 96375; 96376; 97162; C9113; J1170; J2270; J2405; J2543; J3370; J7030; J7050; Q9967

== ENCOUNTER 2017-08-31 03:49 | Inpatient (IN) | END 2017-10-03 09:25 | disposition left against medical advice (07) | DRG 871 ==

== ENCOUNTER 2018-05-20 01:28 | Inpatient (IN) | END 2018-05-25 17:54 | disposition home or self-care (01) | DRG 871 ==

== ENCOUNTER 2018-08-09 09:59 | Emergency (ER) | END 2018-08-09 13:50 | disposition left against medical advice (07) ==

== ENCOUNTER 2018-09-17 03:03 | Inpatient (IN) | payer OTHER ==
[~2018-09-17] VITALS: Ht 172.7 cm; Wt 71.5 kg
[2018-09-17] VITALS (11 sets, daily range): BP systolic 87–110; BP diastolic 44–66; PULSE 66–111; RESP 18–22; Ht 172.7 cm; Wt 71.5 kg
[2018-09-17] MEDS ORDERED: ONDANSETRON 4 MG INJ IV PRN (04:30)
[2018-09-17] MEDS ORDERED: ACETAMINOPHEN 325 MG TAB PO PRN ×2 (04:30→05:30)
[2018-09-17] MEDS ORDERED: DOCUSATE SODIUM 100 MG CAP PO PRN (05:30)
[2018-09-17] MEDS ORDERED: LORAZEPAM 4 MG/ML VIAL IV PRN (05:30)
[2018-09-17] MEDS ORDERED: NACL 0.9% 3 ML SYG IV SCH (05:30)
[2018-09-17] MEDS ORDERED: BISACODYL (EC) 5 MG TAB PO PRN (05:30)
[2018-09-17] MEDS ORDERED: ONDANSETRON 4 MG TAB PO PRN (05:30)
--- NOTE | 2018-09-17 05:38 | ERD ---
ER Documentation Chief Complaint Chief Complaint states still feels worse after leaving ama at [facility] for sepsis HPI This is a 33-year-old male with a past medical history of IV drug use, acute on chronic renal failure previously requiring dialysis, a recent diagnosis of a right lower lobe pneumonia and sepsis, admitted to the [facility] 2 days ago for which he left AGAINST MEDICAL ADVICE today with concerns of poor treatment regarding his withdrawal symptoms. The patient reports last using heroin a few hours prior to coming to the emergency department at [place]. When he was admitted to the hospital, the patient had a left tunneled dialysis catheter that was removed due to concerns of bacteremia. This was removed. The patient was being treated with vancomycin and Zosyn, with the help of pharmacy due to his renal failure. The patient does continue to urinate. The patient remains tachycardic and endorses continued fever, shortness of breath and a congested cough. He left today because he was feeling withdrawal effects of tremulous, anxiety, nausea, general body aches and pains. The patient reports that last time he was admitted to [facility], they managed his withdrawal symptoms better. The patient has had no headache or vision changes. The patient does not endorse neck or back pain. The patient denies lightheadedness or dizziness. The patient has had no chest pain. The patient denies vomiting. The patient denies abdominal pain. The patient denies changes to bowel movements or urination. The patient has had no focal deficits. The patient has had no weakness or numbness or tingling to the face or extremities. ROS All systems reviewed and are negative except as per history of present illness. Medications Home Meds No Active Prescriptions or Reported Meds Allergies Allergies: Coded Allergies: No Known Allergy (Unverified , 08/09/18) PMhx/Soc History of Surgery: Yes (COSMETIC SCAR) Anesthesia Reaction: No Hx Neurological Disorder: No Hx Respiratory Disorders: No Hx Cardiac Disorders: Yes (HTN) Hx Psychiatric Problems: No Hx Miscellaneous Medical Probl: Yes (Heroin abuse. Hep C.ESRD) Hx Alcohol Use: No Hx Substance Use: No Hx Tobacco Use: Yes Smoking Status: Current every day smoker FmHx Family History: No diabetes Physical Exam Vitals Vital Signs Date Temp Pulse Resp B/P (MAP) Pulse Ox O2 O2 Flow FiO2 Time Delivery Rate 09/17/18 99.8 112 20 114/66 97 03:08 (82) Physical Exam Const: No apparent distress, well-developed. Cachectic. Head: Normocephalic, Atraumatic Eyes: Normal Conjunctiva. Extraocular movements intact. Pupils equal, round and reactive to light ENT: Normal External Ears, Nose and Mouth. Neck: Full range of motion. No meningismus. Resp: Coarse breath sounds. Cardio: Regular rhythm. Tachycardia. No murmurs, rubs or gallops Abd: Soft, non tender, non distended. Normal bowel sounds Skin: No petechiae or rashes. Multiple tattoos. Back: No midline tenderness. No CVA tenderness Ext: No cyanosis, or edema Neur: Awake and alert, oriented 4. Cranial nerves intact. No facial droop. Normal strength, sensation and coordination. Psych: Anxious Result Diagram: 09/17/18 0432 09/17/18 0432 Results 24 hrs Laboratory Tests Test 09/17/18 04:30 09/17/18 04:32 09/17/18 04:33 09/17/18 04:44 Random 9.5 ug/ml Vancomycin Level White Blood 17.4 10^3/ul Count Red Blood Count 3.07 10^6/ul Hemoglobin 7.5 g/dl Hematocrit 23.2 % Mean 75.6 fl Corpuscular Volume Mean 24.4 pg Corpuscular Hemoglobin Mean 32.3 g/dl Corpuscular Hemoglobin Conc ent Red Cell 18.9 % Distribution Width Platelet Count 124 10^3/UL Mean Platelet 10.9 fl Volume Immature 1.400 % Granulocytes % Neutrophils % 72.5 % Lymphocytes % 15.8 % Monocytes % 9.1 % Eosinophils % 0.9 % Basophils % 0.3 % Nucleated Red 0.0 /100WBC Blood Cells % Immature 0.240 10^3/ul Granulocytes # Neutrophils # 12.6 10^3/ul Lymphocytes # 2.8 10^3/ul Monocytes # 1.6 10^3/ul Eosinophils # 0.2 10^3/ul Basophils # 0.1 10^3/ul Nucleated Red 0.0 10^3/ul Blood Cells # Prothrombin 15.3 Sec Time Prothrombin 1.2 Time Ratio INR 1.19 International Normalized Rati o Activated 49.0 Sec Partial Thrombo plast Time Sodium Level 138 mmol/L Potassium Level 3.0 mmol/L Chloride Level 103 mmol/L Carbon Dioxide 24 mmol/L Level Anion Gap 11 Blood Urea 41 mg/dl Nitrogen Creatinine 3.97 mg/dl Est Glomerular 18 mL/min Filtrat Rate mL/min Glucose Level 111 mg/dl POC Venous 1.3 mmol/L 1.2 mmol/L Lactate Calcium Level 8.6 mg/dl Troponin I < 0.012 ng/ml Urine Color RED Urine Clarity CLOUDY Urine pH 6.0 Urine Specific 1.008 [place] Urine Ketones NEGATIVE mg/dL Urine Nitrite NEGATIVE mg/dL Urine Bilirubin NEGATIVE mg/dL Urine NEGATIVE mg/dL Urobilinogen Urine Leukocyte NEGATIVE Cande/ul Esterase Urine > 182 /HPF Microscopic RBC Urine 16 /HPF Microscopic WBC Urine Squamous FEW /HPF Epithelial Cell s Urine Bacteria FEW /HPF Urine Mucus FEW /HPF Urine 3+ mg/dL Hemoglobin Urine Glucose 1+ mg/dL Urine Total 2+ mg/dl Protein Current Medications Medications Dose Sig/Renea Start Time Status Last (Trade) Ordered Route PRN Stop Time Admin Dose Reason Admin Ondansetron 4 mg ER BRIDGE 09/17/18 HCl (Zofran PRN IV 04:30 09/18/18 Inj) NAUSEA AND/OR 04:29 VOMITING 650 mg ER BRIDGE 09/17/18 Acetaminophen PRN PO MILD 04:30 09/18/18 (Tylenol PAIN(1-3)OR 04:29 Tab) ELEVATED TEMP Procedures/MDM MDM The patient's presentation warrants further investigation. Previous medical records, if available, were reviewed. LABS The patient's laboratory testing was obtained and reviewed. No emergent treatment was required unless described below. CBC: Leukocytosis concerning for an infection. Microcytic anemia and thrombocytopenia also evident. BMP: No E/o severe acidosis or alkalosis or diabetic ketoacidosis. Elevated BUN and creatinine, concerning for acute on chronic renal failure. Hypokalemia, nonemergent. PT/INR: No E/o significant coagulopathy Lactate: No E/o severe sepsis Urine: E/o acute infection with hematuria Tox: UDS pending EKG EKG read by me: Rate/Rhythm: Sinus tachycardia at 103 bpm Intervals: Normal [place]: Normal Impression: Nonspecific repolarization changes without evidence of acute ischemia. Sinus tachycardia. IMAGING Imaging and Radiology interpretation reviewed. CXR FINDINGS: SUPPORT DEVICES: None CARDIAC AND MEDIASTINAL SILHOUETTES: Normal in size. . LUNGS AND PLEURAL SPACE: There is interval appearing dense bibasilar at electasis and/or pneumonia. Probable small bilateral pleural effusions. PNEUMOTHORAX: None. OSSEOUS STRUCTURES: Unremarkable. IMPRESSION: 1. Interval appearing dense bibasilar atelectasis and/or pneumonia. 2. Probable small bilateral pleural effusions. Electronically viewed and signed by Marni Phelps Physician on 09/17/2018 04:09 TREATMENT/DISPOSITION The patient presents to the [facility] emergency department after leaving AGAINST MEDICAL ADVICE from [place]. I actually assessed the patient during my shift at [facility] and admitted the patient to the facility. The patient is quite sick. He has acute on chronic renal failure. He has a right lower lobe pneumonia. The patient was actively being treated for sepsis. He is tachycardic with a significant leukocytosis. The patient does meet criteria for severe sepsis with his acute renal failure. I do not imm ediately treat the patient with antibiotics as he has been actively treated with vancomycin and Zosyn over the last 2 days at [facility]. The patient will require renal dosed antibiotics in the hospital. Vancomycin levels will be sent off. The patient was given a liter of normal saline. The patient's lactic acid is normal. He already received his sepsis bolus of fluids when he was first adm itted to [facility]. I do not feel the patient requires a repeat sepsis bolus. SEPSIS NOTE Sepsis Criteria: Tachycardia, leukocytosis Infectious source: PNA End organ damage indicated by: Cr > 2.0 SEPSIS MANAGEMENT Time of recognition of sepsis: Upon arrival Time of recognition of severe sepsis: Upon arrival Time of recognition of septic shock: No septic shock at this time. 3 HOUR BUNDLE Blood cultures x 2 before broad-spectrum antibiotics: Yes 30 ml/kg NS bolus Not completed, as the patient's sepsis course was initiated 2 days ago at a different hospital Initial lactate 1.3 Repeat lactate 1.2 SEPTIC SHOCK ASSESSMENT: NO lactic acid > 4.0 NO persistent hypotension (SBP < 90 or 40 mmHg drop, MAP < 65) despite 30 L/kg IV fluid bolus CRITICAL CARE Critical care time 35 minutes Emergent fluid management while maintaining close respiratory support. Provision of immediate and broad-spectrum antibiotic therapy. Simultaneous assessment for possible sources in order to direct targeted therapy. Consideration for invasive and chemical support to prevent cardiopulmonary collapse. Critical care time is independent of procedures performed. ADMISSION The patient will be admitted to [facility] in accordance with the patient's insurance. The patient was accepted by Dr. Kraus to Telemetry on 09/17/2018. Disclaimer: Inadvertent spelling and grammatical errors are likely due to EHR/dictation software use and do not reflect on the overall quality of patient care. Note that the electronic time recorded on this note does not necessarily reflect the actual time of the patient encounter. Departure Diagnosis: Primary Impression: Severe sepsis Additional Impressions: Shortness of breath Cough Right lower lobe pneumonia Pneumonia type: due to unspecified organism Qualified Codes: J18.1 - Lobar pneumonia, unspecified organism Tachycardia Leukocytosis Leukocytosis type: unspecified Qualified Codes: D72.829 - Elevated white blood cell count, unspecified Microcytic anemia Thrombocytopenia Hyponatremia Acute on chronic renal failure Acute renal failure type: unspecified Chronic kidney disease stage: unspecified stage Qualified Codes: N17.9 - Acute kidney failure, unspecified; N18.9 - Chronic kidney disease, unspecified Heroin withdrawal Urinary tract infection with hematuria Urinary tract infection type: acute cystitis Qualified Codes: N30.01 - Acute cystitis with hematuria Condition: Serious DEUCE SALAS MD Sep 17, 2018 05:38
[2018-09-17] MEDS ORDERED: POTASSIUM CHLORIDE (SR) 20 MEQ TAB PO STA (05:50)
[2018-09-17] MEDS ORDERED: SOD CHLORIDE 0.9% 1,000 ML IV ONE (06:00)
[2018-09-17] MEDS ORDERED: PIPER-TAZO 2.25 GM (PMX) 50 ML IVPB SCH (06:00)
--- NOTE | 2018-09-17 06:20 | NUR ---
Received patient at 0615, vitals stable at this time, patient sitting comfortably in bed, no complaints at this time. Will endorse to day shift.
--- NOTE | 2018-09-17 06:34 | HP ---
Date/Time of Note Date/Time of Note DATE: 09/17/18 TIME: 05:57 Assessment/Plan VTE Prophylaxis SCD applied (from Nsg): Yes Pharmacological prophylaxis: NA/contraindicated Pharm contraindication: low risk/ambulating Lines/Catheters IV Catheter Type (from Nrsg): Mid Line Assessment/Plan Hospital Course This is a 33-year-old male being admitted to the telemetry floor for: #1 sepsis: Secondary to pneumonia and possible line sepsis: Patient did have a permacatheter which she was using for dialysis while hospitalized that was removed at [facility]. Chest x-ray does show signs of pneumonia. At the current time we will resume patient on vancomycin and Zosyn, renally dose. Lactic acid is within normal limits. Patient has been recultured in the emergency department, will also need to confirm any culture results with [facility]. Consult infectious disease Dr. Haskins. #2 community acquired pneumonia: Given his history of IV drug use as well as his bacteremia, we will put the patient on vancomycin and Zosyn at the current time #3 bacteremia: Possibly secondary to his permacatheter which was removed at [facility]. Continue vancomycin and Zosyn. He has been recultured here at [facility]. #4 nonoliguric, acute versus acute on chronic kidney disease: Patient in May had normal renal function, in July he did have elevated creatinine of 3.5. 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 Upon review of lab work from [facility] on 09/15 his creatinine there was 5 with a potassium of 2.8. Will provide IV fluid hydration with supplementation of KCl. Monitor renal function. Consult nephrology Dr. Barba. #5 iron deficiency anemia: Patient had a hemoglobin of 5.4/hematocrit of 17 on 09/15 at [facility]. We will need to confirm regarding blood transfusion, he did receive IV iron. At the current time his hemoglobin is 7.5. Will check a stool occult blood. CBC every 6 hours. #6 History of IV drug use: Patient has a history of IV drug use. He has been on methadone in the past. Of note he does have a history of being found to using drugs while in his inpatient room. And he also had bradycardia which were at likely was brought on by methadone use along with increased illicit drug use. At the current time I will put him on 20 mg twice daily of methadone. We will need to monitor heart rate closely on telemetry. Consider consultation with pain management. #7 DVT GI prophylaxis: SCDs, no GI prophylaxis indicated Further treatment strategy will be implemented as per the clinical course. We will need to maintain a close eye on the patient as he does have a history of using illicit drugs as an inpatient in the past. Result Diagram: 09/17/18 0432 09/17/18 0432 Results 24hrs Laboratory Tests Test 09/17/18 04:30 09/17/18 04:32 09/17/18 04:33 09/17/18 04:44 Random 9.5 Vancomycin Level White Blood 17.4 #H Count Red Blood Count 3.07 L Hemoglobin 7.5 L Hematocrit 23.2 L Mean Corpuscular 75.6 L Volume Mean Corpuscular 24.4 L Hemoglobin Mean Corpuscular 32.3 Hemoglobin Sabrina nt Red Cell 18.9 H Distribution Width Platelet Count 124 #L Mean Platelet 10.9 H Volume Immature 1.400 H Granulocytes % Neutrophils % 72.5 Lymphocytes % 15.8 Monocytes % 9.1 Eosinophils % 0.9 Basophils % 0.3 Nucleated Red 0.0 Blood Cells % Immature 0.240 H Granulocytes # Neutrophils # 12.6 H Lymphocytes # 2.8 Monocytes # 1.6 H Eosinophils # 0.2 Basophils # 0.1 Nucleated Red 0.0 Blood Cells # Prothrombin Time 15.3 H Prothrombin Time 1.2 Ratio INR 1.19 International Normalized Ratio Activated 49.0 H Partial Thrombop last Time Sodium Level 138 Potassium Level 3.0 L Chloride Level 103 Carbon Dioxide 24 Level Anion Gap 11 Blood Urea 41 H Nitrogen Creatinine 3.97 H Est Glomerular 18 L Filtrat Rate mL/min Glucose Level 111 POC Venous 1.3 1.2 Lactate Calcium Level 8.6 Troponin I < 0.012 Urine Color RED Urine Clarity CLOUDY A Urine pH 6.0 Urine Specific 1.008 [place] Urine Ketones NEGATIVE Urine Nitrite NEGATIVE Urine Bilirubin NEGATIVE Urine NEGATIVE Urobilinogen Urine Leukocyte NEGATIVE Esterase Urine > 182 H Microscopic RBC Urine 16 H Microscopic WBC Urine Squamous FEW Epithelial Cells Urine Bacteria FEW A Urine Mucus FEW A Urine Hemoglobin 3+ H Urine Glucose 1+ H Urine Total 2+ H Protein HPI/ROS Admit Date/Time Admit Date/Time Hx of Present Illness Chief complaint: Feeling worse after being diagnosed with sepsis at [facility] This is a 33-year-old male with a past medical history of IV drug use who presents to [facility] after leaving AMA from [facility]. Patient was admitted to [facility] recently and was diagnosed with sepsis, pneumonia and bacteremia possibly from a permacath. Patient was started vancomycin and Zosyn. Patient reported that he left the hospital AGAINST MEDICAL ADVICE as his pain was was not being properly treated according to him. he does have a significant history of IV drug use. He does report that he receives methadone from his clinic and is on 30 mg twice daily. Pertinent laboratory findings from the transfer facility: 09/15: White blood eric ls 27.7/hemoglobin 5.4/hematocrit 17/platelets 117/MCV 17/potassium 2.8/creatinine 5.0/magnesium 1.2. His most recent labs from 09/16 showed a hemoglobin of 7.4/potassium of 2.9 and creatinine of 4.4. Allergies: NKDA Medications: None ROS Const: As per HPI Eyes : No pain discharge or redness or change in visual acuity ENT: No pain, sore throat, congestion, congestion, dysphagia or discharge Respiratory: As per HPI Cardiovascular: No chest pain, palpitation, PND, or edema GI : no change in appetite, abdominal pain, nausea, vomiting, diarrhea, constipation, or change in the color his stool Genitourinary: No dysuria, hematuria, flank pain , discharge or CVA tenderness Musculoskeletal: No joint pain, back pain, neck pain, restricted range of motion in neck or joints Skin: No rash, bruising or hives Neuro: No headache, dizziness, syncope, seizure, focal weakness Endocrine: No polyuria, polydipsia, temperature intolerance Psych: No hallucination, depression, anxiety or suicidal ideation PMH/Family/Social Past Medical History IV drug use disorder, 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, iron deficiency anemia, history of infectious glomerulonephritis requiring HD,History of sternal osteomyelitis, MRSA flank abscess and MRSA bacteremia Medications Current Medications Ondansetron HCl (Zofran Inj) 4 mg ER BRIDGE PRN IV NAUSEA AND/OR VOMITING; Start 09/17/18 at 04:30; Stop 09/18/18 at 04:29 Acetaminophen (Tylenol Tab) 650 mg ER BRIDGE PRN PO MILD PAIN(1-3)OR ELEVATED TEMP; Start 09/17/18 at 04:30; Stop 09/18/18 at 04:29 IV Flush (NS 3 ml) 3 ml PER PROTOCOL IV ; Start 09/17/18 at 05:30 Lorazepam (Ativan) 0.5 mg Q6H PRN IV ANXIETY; Start 09/17/18 at 05:30 Ondansetron HCl (Zofran Tab) 4 mg Q6H PRN PO NAUSEA AND/OR VOMITING; Start 09/17/18 at 05:30 Acetaminophen (Tylenol Tab) 650 mg Q6H PRN PO PAIN LEVEL 1-3 OR FEVER; Start 09/17/18 at 05:30 Docusate Sodium (Colace) 100 mg Q12H PRN PO CONSTIPATION; Start 09/17/18 at 05:30 Bisacodyl (Dulcolax) 5 mg DAILY PRN PO CONSTIPATION; Start 09/17/18 at 05:30 Methadone HCl (Methadone) 20 mg Q12 PO ; Start 09/17/18 at 09:00 Vancomycin HCl (Vanco Iv Per Pharmacy) VANCOMYCIN PER PHARMACY PER PROTOCOL XX ; Start 09/17/18 at 07:00 Piperacillin Sod/ Tazobactam Sod 50 ml @ 100 mls/hr Q12 IVPB ; Start 09/17/18 at 06:00 Sodium Chloride 1,000 ml @ 1,000 mls/hr Q1H ONCE IV ; Start 09/17/18 at 06:00; Stop 09/17/18 at 06:59 Potassium Chloride 30 meq/ Sodium Chloride 1,015 ml @ 75 mls/hr [id number] IV ; Start 09/17/18 at 06:00 Coded Allergies: No Known Allergy (Unverified , 08/09/18) Past Surgical History Multiple abscess I&D, permacath placement and subsequent removal Past Surgical Hx: other Family History Significant Family History: no pertinent family hx Social History Illicit IV drug use Smoking Status: Current every day smoker Drug Use: other (Illicit IV drug use with meth) Exam/Review of Systems Vital Signs Vitals Vital Signs Date Temp Pulse Resp B/P (MAP) Pulse Ox O2 O2 Flow FiO2 Time Delivery Rate 09/17/18 98.7 97 17 110/59 100 Room Air 05:09 (76) Exam Exam General: Patient is disheveled currently lying in bed in no acute distress HEENT: Atraumatic, normocephalic. The pupils are equal, round and reactive. Extraocular motor are intact Neck: Supple with full range of motion. No rigidity or meningismus Chest: Nontender Lungs: Coarse breath sounds bilaterally Heart: Sinus tachycardia Abdomen: Soft , nontender, nondistended , bowel sounds are present. No guarding no rebound tenderness , No masses or organomegaly. No costovertebral temporal angle mass Extremities: Normal to inspection, no edema no cyanosis Neurologic: Normal mental status, speech normal, cranial nerves II through XII are intact, motor and sensory are intact, no focal weakness Skin: Multiple old healing wounds from IV drug use/abscesses Additional Comments PROCEDURE: Chest x-ray CLINICAL INDICATION: Possible sepsis TECHNIQUE: VIEWS: 1 COMPARISON: SD CR CHEST 09/14/2018; SD CR CHEST 09/14/2018; SD CR CHEST 08/13/2018; SD DX CHEST 08/07/2018 FINDINGS: SUPPORT DEVICES: None CARDIAC AND MEDIASTINAL SILHOUETTES: Normal in size. . LUNGS AND PLEURAL SPACE: There is interval appearing dense bibasilar atelectasis and/or pneumonia. Probable small bilateral pleural effusions. PNEUMOTHORAX: None. OSSEOUS STRUCTURES: Unremarkable. IMPRESSION: 1. Interval appearing dense bibasilar atelectasis and/or pneumonia. 2. Probable small bilateral pleural effusions. RPTAT: HRSR Physician Yi Date Time Electronically viewed and signed by Marni Phelps Physician on 09/17/2018 04:09 RR/ CC: DEUCE SALAS MD [id number] EVELIA GIL Sep 17, 2018 06:21
[2018-09-17] MEDS ORDERED: VANCOMYCIN IV PER PHARMACY XX SCH (07:00)
--- NOTE | 2018-09-17 08:11 | NUR ---
Vancomycin per Rx 33 y/o M 6' 71.4kg SCr 3.97 NKDA Random Vancomycin level = 9.5 Give Vancomycin 1gm IV x1 dose today - recheck random in a couple of days Monitor renal function
--- NOTE | 2018-09-17 08:44 | CONS ---
DATE OF ADMISSION: 09/17/2018 DATE OF CONSULTATION: 09/17/2018 REASON FOR CONSULTATION: Acute kidney injury, chronic kidney disease. PHYSICIAN REQUESTING CONSULTATION: Dr. Juan Gil. HISTORY OF PRESENT ILLNESS: This is a 33-year-old male with a past medical history of IV drug abuse, previous history of perirenal abscess, history of anemia, history of chronic kidney disease who pres ents to [facility] with complaints of fevers, and chills. The patient was recently at [facility], where he left against medical advice. During [place] he was diagnosed with sepsis, pneumonia, bacteremia, possibly from Perm-A-Cath. The patient was giv en IV antibiotics for a period of time and was subsequently left against medical advice. As a result , the patient was brought into [facility] where in the emergency room, he was compl aining of aches and chills. The patient was placed on IV antibiotics and admitted to telemetry for f urther evaluation. The patient was diagnosed with pneumonia in the emergency room. In terms of patient's renal history, the patient states that he was on hemodialysis, but was disconti nued approximately 1 month ago, but the patient's PermCath was removed. The patient stated that his kidney functions around 30%, although he has not recently seen a sand molder. The patient is compla ining of chills. He denies any hemoptysis, hematemesis or hematochezia. PAST MEDICAL HISTORY: History of chronic kidney disease, history of heroin abuse, history of hepatit is C. PAST SURGICAL HISTORY: Status post Perm-A-Cath placement and removal. FAMILY HISTORY: No family history of kidney disease. SOCIAL HISTORY: Positive drug abuse. MEDICATIONS: The patient's medications have been reviewed. REVIEW OF SYSTEMS: A 14-point review of systems was conducted. Pertinent positives stated in HPI, o therwise negative. PHYSICAL EXAMINATION: VITAL SIGNS: Blood pressure is 108/58, respirations 18, pulse 111, temperature 98.4. HEENT: Head is normocephalic. NECK: Supple. HEART: Regular rate. LUNGS: Show diminished breath sounds at the base. ABDOMEN: Soft, nontender to palpation. No rebound or guarding. EXTREMITIES: Negative for clubbing, cyanosis, no edema. DERMATOLOGIC: No rashes. MUSCULOSKELETAL: No joint effusions. NEUROLOGIC: No focal deficits. LABORATORY DATA: Shows sodium 138, potassium 3.0, BUN 41, creatinine 4.97. White count 17.4, hemogl obin 7.5, platelet count is 124. Blood cultures are pending. IMAGING STUDIES: The patient's chest x-ray was reviewed. ASSESSMENT AND PLAN: This is a 33-year-old male who presents with: 1. Nonoliguric acute kidney injury on top of chronic kidney disease with unknown baseline creatinine . Etiology of previous acute kidney injury was felt to be secondary to acute tubular necrosis. The patient apparently is off hemodialysis, but baseline creatinine is unknown. At this point, plan woul d be to check UA with microanalysis, check urine electrolytes. We will repeat a renal ultrasound. W e will attempt to obtain old medical records. We will monitor renal function closely. If renal func tion remains stable around a creatinine of 4.0 mg/dL, his estimated EGFR of approximately 15 to 20 mL per minute, we will continue to monitor without any immediate need for dialysis. However, if renal function should further decline or if patient should overt uremic symptoms we will reintroduce hemodi alysis. 2. Hypokalemia, replete with potassium chloride. 3. Anemia. Monitor hemoglobin and hematocrit levels. Also, check iron panel. 4. Mineral bone disorder, monitor calcium and phosphorus levels. 5. Sepsis secondary to pneumonia. Continue current antibiotic regimen. Continue IV fluids. 6. History of IV drug abuse. Monitor for withdrawal. Continue methadone. 7. Gastrointestinal and deep vein thrombosis prophylaxis. Thank you, Dr. Gil, for this interesting consult. It will be a pleasure to follow patient with y ou throughout the hospital course. Dictated By: KHANH AGUILAR DO NR/NTS Conf#: [id number] DID#: [id number] CC: JUAN GIL MD;*EndCC*
[2018-09-17] MEDS: METHADONE 10 MG TAB PO SCH ×2 (09:00→20:06)
[2018-09-17] MEDS ORDERED: VANCOMYCIN 1 GM 250 ML IVPB SCH (09:00)
[2018-09-17] MEDS ORDERED: METHADONE 10 MG TAB PO SCH (09:00)
--- NOTE | 2018-09-17 11:30 | QN ---
Documentation Comment 33-year-old male who was recently admitted at [facility] where he was treated for sepsis secondary to pneumonia and possible permacath Infection. Permacath was discontinued at outside hospital and he was treated with a prison course of IV antibiotic. Apparently, patient left hospital AGAINST MEDICAL ADVICE and now he presented to emergency room with fever, chills and cough, found to have pneumonia and sepsis. Patient w/hx of IV drug abuse and he is on methadone treatment currently. Patient is on appropriate antimicrobial which we will continue. We will also try to obtain previous blood culture result from [facility]. Nevertheless, a repeat blood culture has been sent at [facility] which we will follow-up. Patient also with chronic kidney disease and he just came off hemodialysis. Nephrology following. Continue to monitor renal function. At present, unclear baseline creatinine and most likely acute kidney injury secondary to sepsis. Follow-up nephrology recommendations. Re-philip in [place] Case d/w SURAJ Brown NP Sep 17, 2018 11:29
--- NOTE | 2018-09-17 12:25 | CONS ---
Date/Time of Note Date/Time of Note DATE: 09/17/18 TIME: 12:22 Assessment/Plan Assessment/Plan Assessment/Plan #1 sepsis: Secondary to pneumonia and possible line sepsis: On IV antibiotic coverage per internal medicine #2history of IV drug abuse heroin for many years status post at least 5 hospitalizations in the past that I am aware of for complications due to infection #3 acute renal failure Nephrology evaluating Had long discussion with patient once again concerning IV drug abuse and drug treatment programs. Patient has refused any intervention in the past and so far his rehabilitation and has had recurrent hospitalizations with complications related to IV drug abuse. He currently lives on the [address] with his brother, continues to shoot up proximally 4 times a day in spite of the fact these had multiple serious complications including renal failure respiratory failure, encephalopathy. Prognosis is extremely poor Discussed with him that we will start him off his methadone dose once again at 30 mg twice daily follow closely patient is also hepatitis C positive Result Diagram: 09/17/1843109/17/18 043 Result Diagram: 09/17/1843109/17/18431 Results 24hrs Laboratory Tests Test 09/17/18 04:30 09/17/18 04:32 09/17/18 04:33 09/17/18 04:44 Magnesium Level 2.0 Iron Level 28 L Total Iron 220 L Binding Capacity Percent Iron 13 L Saturation Ferritin 1610.0 H Random 9.5 Vancomycin Level White Blood 17.4 #H Count Red Blood Count 3.07 L Hemoglobin 7.5 L Hematocrit 23.2 L Mean 75.6 L Corpuscular Volume Mean 24.4 L Corpuscular Hemoglobin Mean 32.3 Corpuscular Hemoglobin Conc ent Red Cell 18.9 H Distribution Width Platelet Count 124 #L Mean Platelet 10.9 H Volume Immature 1.400 H Granulocytes % Neutrophils % 72.5 Lymphocytes % 15.8 Monocytes % 9.1 Eosinophils % 0.9 Basophils % 0.3 Nucleated Red 0.0 Blood Cells % Immature 0.240 H Granulocytes # Neutrophils # 12.6 H Lymphocytes # 2.8 Monocytes # 1.6 H Eosinophils # 0.2 Basophils # 0.1 Nucleated Red 0.0 Blood Cells # Prothrombin 15.3 H Time Prothrombin 1.2 Time Ratio INR 1.19 International Normalized Rati o Activated 49.0 H Partial Thrombo plast Time Sodium Level 138 Potassium Level 3.0 L Chloride Level 103 Carbon Dioxide 24 Level Anion Gap 11 Blood Urea 41 H Nitrogen Creatinine 3.97 H Est Glomerular 18 L Filtrat Rate mL/min Glucose Level 111 POC Venous 1.3 1.2 Lactate Calcium Level 8.6 Troponin I < 0.012 Urine Color RED Urine Clarity CLOUDY A Urine pH 6.0 Urine Specific 1.008 [place] Urine Ketones NEGATIVE Urine Nitrite NEGATIVE Urine Bilirubin NEGATIVE Urine NEGATIVE Urobilinogen Urine Leukocyte NEGATIVE Esterase Urine > 182 H Microscopic RBC Urine 16 H Microscopic WBC Urine Squamous FEW Epithelial Cell s Urine Bacteria FEW A Urine Mucus FEW A Urine 3+ H Hemoglobin Urine Glucose 1+ H Urine Total 2+ H Protein Test 09/17/18 08:32 09/17/18 11:15 Lactic Acid 1.3 Level Urine Color YELLOW Urine Clarity SLIGHTLY CLOUDY A Urine pH 5.0 Urine Specific 1.005 [place] Urine Ketones NEGATIVE Urine Nitrite NEGATIVE Urine Bilirubin NEGATIVE Urine NEGATIVE Urobilinogen Urine Leukocyte NEGATIVE Esterase Urine > 182 H Microscopic RBC Urine 18 H Microscopic WBC Urine 3+ H Hemoglobin Urine Random 29.33 Creatinine Urine Random 53 Sodium Urine Glucose 1+ H Urine Total 82.0 H Protein Urine Opiates Positive Screen Urine Negative Barbiturates Urine POSITIVE Amphetamines Screen Urine Negative Benzodiazepines Screen Urine Cocaine Negative Screen Urine Negative Cannabinoids Consultation Date/Type/Reason Admit Date/Time Type of Consult Pain management, drug withdrawal Hx of Present Illness 33-year-old gentleman well-known to me from multiple prior hospitalizations. Has history of IV drug abuse with heroin patient does not use any other street drugs. He smokes, and he states he does not drink and does not use crystal methamphetamine cocaine any other illicit drugs he is. He has had multiple hospitalizations for infections associated with IV drug abuse including abscesses, fasciitis, rectal abscess, pneumonia, sepsis syndrome and renal failure. Patient states he still has heroin up to 5 times per day. Last time used was 1 day prior to this hospitalization. Patient has never been admitted to the treatment program, is not in contact with his family other than his brother lives on the street with him mother and father not involved with his lifestyle. And to the best my knowledge she has never visited him during prior hospitalizations. She is lethargic is unable to give a apprehensive review of systems Constitutional: no complaints, improved Eyes: no complaints ENT: no complaints Respiratory: no complaints Cardiovascular: no complaints Gastrointestinal: no complaints Genitourinary: no complaints Musculoskeletal: no complaints Skin: no complaints Neurologic: no complaints Endocrine: no complaints Lymphatic: no complaints Psychological: no complaints, nl mood/affect Immunologic: no complaints Past Medical History Medical History: renal disease Medications Current Medications Ondansetron HCl (Zofran Inj) 4 mg ER BRIDGE PRN IV NAUSEA AND/OR VOMITING; Start 09/17/18 at 04:30; Stop 09/18/18 at 04:29 Acetaminophen (Tylenol Tab) 650 mg ER BRIDGE PRN PO MILD PAIN(1-3)OR ELEVATED TE MP; Start 09/17/18 at 04:30; Stop 09/18/18 at 04:29 IV Flush (NS 3 ml) 3 ml PER PROTOCOL IV ; Start 09/17/18 at 05:30 Lorazepam (Ativan) 0.5 mg Q6H PRN IV ANXIETY; Start 09/17/18 at 05:30 Ondansetron HCl (Zofran Tab) 4 mg Q6H PRN PO NAUSEA AND/OR VOMITING; Start 09/17/18 at 05:30 Acetaminophen (Tylenol Tab) 650 mg Q6H PRN PO PAIN LEVEL 1-3 OR FEVER; Start 09/17/18 at 05:30 Docusate Sodium (Colace) 100 mg Q12H PRN PO CONSTIPATION; Start 09/17/18 at 05:30 Bisacodyl (Dulcolax) 5 mg DAILY PRN PO CONSTIPATION; Start 09/17/18 at 05:30 Methadone HCl (Methadone) 20 mg Q12 PO ; Start 09/17/18 at 09:00 Vancomycin HCl (Vanco Iv Per Pharmacy) VANCOMYCIN PER PHARMACY PER PROTOCOL XX ; Start 09/17/18 at 07:00 Potassium Chloride 30 meq/ Sodium Chloride 1,015 ml @ 75 mls/hr [id number] IV ; Start 09/17/18 at 06:00 Piperacillin Sod/ Tazobactam Sod 50 ml @ 100 mls/hr Q8 IVPB ; Start 09/17/18 at 14:00 Vancomycin HCl 250 ml @ 125 mls/hr 0900 IVPB Last administered on 09/17/18at 10:46; Admin Dose 125 MLS/HR; Start 09/17/18 at 09:00; Stop 09/17/18 at 19:00 Allergies: Coded Allergies: No Known Allergy (Unverified , 08/09/18) Past Surgical History Past Surgical Hx: other Social History Alcohol Use: none Smoking Status: Current every day smoker Drug Use: heroin, other (Illicit IV drug use with meth) Exam/Review of Systems Vital Signs Vitals Vital Signs Date Temp Pulse Resp B/P (MAP) Pulse Ox O2 O2 Flow FiO2 Time Delivery Rate 09/17/18 98.5 108 18 96/51 (66) 94 11:19 09/17/18 Room Air 06:15 Exam Constitutional: distress, frail, other (Unkempt, malnourished, dehydrated.... Patient is having an procedure at this time. Comprehensive physical examination pain) Psych: anxiety Head: normocephalic, atraumatic; No lacerations, No hematomas, No other Eyes: nl conjunctiva, EOMI, nl lids, nl sclera, PERRL; No icteric, No fundi, disc, No other Neurological: TALENT AGENT II-XII intact, nl mental status, nl speech, nl strength; No confused, No DTR's symmetric, No focal weakness, No lethargic, No numbness, No reflexes, No unresponsive, No other Medications Medications Current Medications Ondansetron HCl (Zofran Inj) 4 mg ER BRIDGE PRN IV NAUSEA AND/OR VOMITING; Start 09/17/18 at 04:30; Stop 09/18/18 at 04:29 Acetaminophen (Tylenol Tab) 650 mg ER BRIDGE PRN PO MILD PAIN(1-3)OR ELEVATED TEMP; Start 09/17/18 at 04:30; Stop 09/18/18 at 04:29 IV Flush (NS 3 ml) 3 ml PER PROTOCOL IV ; Start 09/17/18 at 05:30 Lorazepam (Ativan) 0.5 mg Q6H PRN IV ANXIETY; Start 09/17/18 at 05:30 Ondansetron HCl (Zofran Tab) 4 mg Q6H PRN PO NAUSEA AND/OR VOMITING; Start 09/17/18 at 05:30 Acetaminophen (Tylenol Tab) 650 mg Q6H PRN PO PAIN LEVEL 1-3 OR FEVER; Start 09/17/18 at 05:30 Docusate Sodium (Colace) 100 mg Q12H PRN PO CONSTIPATION; Start 09/17/18 at 05:30 Bisacodyl (Dulcolax) 5 mg DAILY PRN PO CONSTIPATION; Start 09/17/18 at 05:30 Methadone HCl (Methadone) 20 mg Q12 PO ; Start 09/17/18 at 09:00 Vancomycin HCl (Vanco Iv Per Pharmacy) VANCOMYCIN PER PHARMACY PER PROTOCOL XX ; Start 09/17/18 at 07:00 Potassium Chloride 30 meq/ Sodium Chloride 1,015 ml @ 75 mls/hr [id number] IV ; Start 09/17/18 at 06:00 Piperacillin Sod/ Tazobactam Sod 50 ml @ 100 mls/hr Q8 IVPB ; Start 09/17/18 at 14:00 Vancomycin HCl 250 ml @ 125 mls/hr 0900 IVPB Last administered on 09/17/18at 10:46; Admin Dose 125 MLS/HR; Start 09/17/18 at 09:00; Stop 09/17/18 at 19:00 TREVOR MURDOCK Sep 17, 2018 12:25
[2018-09-17] MEDS: PIPER-TAZO 2.25 GM (PMX) 50 ML IVPB SCH ×2 (13:07→22:13)
[2018-09-17] MEDS: POTASSIUM CHLORIDE 30 MEQ in SOD CHLORIDE 0.9% 1,000 ML IV SCH ×2 (13:11→22:04)
[2018-09-17] MEDS ORDERED: SOD CHLORIDE 0.9% 250 ML IV* ONE (13:20)
--- NOTE | 2018-09-17 13:25 | QN ---
Documentation Comment Critical result proceed for hemoglobin 6.5, hematocrit 19.6 with microcytic indicis. Will give 2 units PRBC and IV iron transfusion. Patient's UA is positive for microscopic RBC greater than 182, urine hemoglobin 3+-This can be 2/2 renal disease.However in he setting of HH drop and drug abuse hx, I will also request a urology evaluation. Nursing staff was instructed to collect a stool OB to rule out any occult GI blood loss. Meanwhile, we will also obtain GI consult for ruling out GI bleed in the setting of alcohol abuse. Case discussed with Dr. Petty. SURAJ AIKEN NP Sep 17, 2018 13:25
--- NOTE | 2018-09-17 13:38 | CONS ---
DATE OF ADMISSION: 09/17/2018 DATE OF CONSULTATION: 09/17/2018 TYPE OF CONSULTATION: Infectious disease. REASON FOR CONSULTATION: Antibiotic management. HISTORY OF PRESENT ILLNESS: Jonathan Sahu is a 33-year-old male who is being admitted to telemetry unit for sepsis. The patient was at [facility] and left against medical advice. He has a past medical history of: 1. IV drug abuse. 2. Acute on chronic renal failure, previously requiring dialysis. 3. Recent diagnosis of right lower lobe pneumonia and sepsis. He was admitted to [facility] 2 days ago and left against medical advice today with concer ns for treatment regarding his withdrawal symptoms. He reports last using heroin a few hours prior t o coming to the emergency room at [place]. When he was admitted to the hospital, he had a tunne led dialysis catheter that was removed due to concerns for bacteremia. The patient is being treated with vancomycin and Zosyn with modifications by pharmacy due to renal failure. The patient remains t achycardic and has continued fever with shortness of breath and congestion. He felt tremulous with w ithdrawal effects. He had nausea and generalized body aches and pains. He has no headache, lighthea dedness or dizziness. On admission, his white count was 17.4, H and H of 7.5 and 23.2, platelet coun t 124,000. BUN and creatinine is 41/3.97. PAST SURGICAL HISTORY: He has a cosmetic scar. PAST MEDICAL HISTORY: Positive also for hypertension, hepatitis C and as noted, end-stage renal dise ase. FAMILY HISTORY: Noncontributory. SOCIAL HISTORY: He smokes everyday. He does not use alcohol. He obviously abuses drugs and uses IV drugs including heroin. ALLERGIES: NONE TO PENICILLIN, SULFA OR FOODS. MEDICATIONS: Per chart. REVIEW OF SYSTEMS: As per HPI. PHYSICAL EXAMINATION: GENERAL: The patient is in no apparent distress. He is cachectic. VITAL SIGNS: Stable. He is afebrile. SKIN: Without generalized rash. He has multiple tattoos. HEENT: Within normal limits. NECK: Supple. LYMPH NODES: None palpable. CHEST: Decreased breath sounds at the bases. HEART: Without murmur or gallop. He is tachycardic. ABDOMEN: Soft, nontender without organosplenomegaly or masses. EXTREMITIES: Without cyanosis, clubbing or edema. RECTAL AND GENITAL: Deferred. NEUROLOGIC: No focal neurological abnormality. ANCILLARY LABORATORY DATA: As noted, he has leukocytosis, elevated BUN and creatinine consistent wit h acute on chronic renal failure. His urine was negative for leukocyte esterase or nitrite negative. He had greater than 182 red cells, 16 white cells per high powered field. DIAGNOSTIC DATA: EKG showed sinus tachycardia. Chest x-ray: Interval appearing dense bibasilar ate lectasis and/or pneumonia, probable small bilateral pleural effusion. IMPRESSION AND PLAN: The patient was begun on vancomycin and Zosyn. He was seen in consultation by Dr. Barba for his renal failure. Dr. Barba noted he had a history of perirenal abscess in the me st, status post PermCath placement and removal. From our perspective, we will continue him on vancom ycin and Zosyn. Check on the cultures from [place]. Repeat blood cultures, urine and stool cul tures here. I will dictate my findings to the hospitalist and Dr. Barba. Dictated By: MILAGROS FULTON MD, JD/NTS Conf#: [id number] DID#: [id number] CC: EFRAIN MARLEY MD; EVELIA GIL MD;*End*
--- NOTE | 2018-09-17 16:00 | NUR ---
NUTRITION NOTE: Consult received. Pt with hx of IV drug use, homelessness, HTN, H/O MIGUEL A on CKD, was on dialysis. Per MD order, on renal diet. Pt seen asleep, unable to interview at this time. Encourage PO intake when alert and awake. Due to hx of socioeconomic status, pt at risk of malnutrition. 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 Will f/u when able to. Noted K+ 3, rec lyte repletion as needed/as per MD. Will continue to monitor and reassess appropriateness of education at f/u. Rec to add daily MVI. Will add daily Boost Breeze BID to help optimize nutritional status.
[2018-09-17] MEDS: PANTOPRAZOLE 40 MG INJ IV SCH (17:39)
--- NOTE | 2018-09-17 18:40 | NUR ---
EOSS PT. IS MORE ALERT, ABLE TO ANSWER QUESTION. HE SIGNED THE CONSENT FOR BLOOD TRANSFUSION AND HE SAID HE HAD BLOOD TRANSFUSION BEFORE AND HE HAD NO REACTIONS. ON GOING BLOOD TRANSFUSION 1ST UNIT BEING TRANSFUSED. SURAJ ROSE IS AWARE OF THE LOW H/H. ON SCD ON THE RT. LEG BECAUSE THE LEFT LEG HAS A VENOUS ULCER. BODY CHECKED WAS DONE WITH GUILLE CHING. NEW MIDLINE WAS PLACE THIS PM BY PINEDA HAN. PENDING STOOL FOR OCCULT BLOOD. WILL ENDORSED TO NEXT SHIFT.
[2018-09-18] VITALS (13 sets, daily range): BP systolic 98–112; BP diastolic 47–64; PULSE 85–150; RESP 16–22
[2018-09-18] MEDS: PIPER-TAZO 2.25 GM (PMX) 50 ML IVPB SCH ×2 (05:37→16:49)
[2018-09-18] MEDS: PANTOPRAZOLE 40 MG INJ IV SCH ×2 (05:37→17:54)
--- NOTE | 2018-09-18 06:58 | NUR ---
EOSS N: Patient still lethargic, but arousable. CV: NSR, unremarkable. Vitals stable. Afebrile throughout 2x pRBC transfusions. R: Unremarkable GI: Maintained on renal diet. Occult stool not collected due to no BM : Good output, > 2L this PM Integ: Wound care completed for venous ulcer. Blood transfusions given x2 with no reactions noted. Last Hgb 8.8. Continuing IV abx. Last blood cultures negative. All of patient's needs attended to. Bed in locked and low position. Will endorse care to AM nurse.
[2018-09-18] MEDS ORDERED: POTASSIUM CHLORIDE (SR) 20 MEQ TAB PO STA (07:42)
[2018-09-18] MEDS: METHADONE 10 MG TAB PO SCH ×2 (08:10→21:01)
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
--- NOTE | 2018-09-18 09:42 | PN ---
DATE: 09/18/2018 SUBJECTIVE: The patient is stable, no events overnight. No fevers, chills, nausea, vomiting. OBJECTIVE: VITAL SIGNS: Blood pressure is 108/58, respirations 22, pulse 100, temperature 99.9. HEENT: Head is normocephalic. NECK: Supple. HEART: Regular rate. LUNGS: Show diminished breath sounds at the base. ABDOMEN: Soft, nontender to palpation without rebound or guarding. EXTREMITIES: Negative for clubbing, cyanosis, no edema. DERMATOLOGIC: No rashes. MUSCULOSKELETAL: No joint effusion. NEUROLOGIC: No change in exam. MEDICATIONS: The patient's medications have been reviewed. LABORATORY DATA: Shows white count 15.9, hemoglobin 8.8, hematocrit 26.8, platelet count is 140, sod ium 141, potassium 3.1, chloride 107, BUN 36, creatinine 3.63. ASSESSMENT AND PLAN: 1. Nonoliguric acute kidney injury on top of chronic kidney disease with unknown baseline creatinine . Etiology is felt to be secondary to acute tubular necrosis. The patient was previously on hemodia lysis, has been off hemodialysis for approximately 1 month. Baseline creatinine unknown. The patien t's renal function during this hospital course has been improved with IV hydration. At this point, gisele marshallue current treatment plan, supportive care, renally dose all meds. We will try to obtain old sc dical records. 2. Hypokalemia, replete potassium chloride. 3. Anemia. Monitor hemoglobin and hematocrit levels. 4. Mineral bone disorder. Monitor calcium and phosphorus levels. 5. Sepsis secondary to pneumonia. Continue current antibiotic regimen. Continue IV fluids. 6. History of IV drug use. Continue to monitor for withdrawal. Continue methadone. 7. Gastrointestinal and deep vein thrombosis prophylaxis. Dictated By: KHANH AGUILAR DO NR/NTS Conf#: [id number] DID#: [id number] CC: EVELIA GIL MD;*EndCC*
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
--- NOTE | 2018-09-18 10:32 | PN ---
Date/Time of Note Date/Time of Note DATE: 09/18/18 TIME: 10:30 Assessment/Plan VTE Prophylaxis Risk score (from Ns)>0 risk: 3 SCD applied (from Ns): Yes Pharmacological prophylaxis: NA/contraindicated Pharm contraindication: other (R/O GIB) Lines/Catheters IV C[facility]ter Type (from [facility]): Mid Line Urinary Cath still in place: No Assessment/Plan Hospital Course SUBJECTIVE: Lying in bed. Denies any acute discomfort. Mostly sleepy. Denied nausea, vomiting, abdominal pain, diarrhea, fever, chills, hematemesis, melena, hematochezia or other discomfort. Patient also denied cough, shortness of breath, wheezing or others. He just "does not want to be bothered". OBJECTIVE: Vital signs-see below PHYSICAL EXAM: Constitutional: Well-developed, adequately built, sleeping in no acute distress. Psych: Does not interact much with lack of interest in converse. Nl mood/affect, no complaints Head: atraumatic, normocephalic Eyes: nl conjunctiva, nl sclera ENMT: mucosa pink and moist, nl external ears & nose Neck: non-tender, supple Respiratory: clear to auscultation, normal air movement Cardiovascular: nl pulses, regular rate and rhythm Gastrointestinal: non-tender, soft, bowel sounds active in all 4 quadrants. Musculoskeletal/extremities: nl extremities to inspection, motor strength equal bilaterally, no focal deficit. Normal pulses,no cyanosis, no edema. Neurological: Alert oriented 3,nl speech, nl strength Skin: nl turgor ASSESSMENT/PLAN: 33-year-old male with history of IV drug abuse, alcoholism, who was recently admitted at [facility] where he was treated for sepsis thought to be secondary to pneumonia and possible line infection, went home AGAINST MEDICAL ADVICE, presented to [facility] with ongoing fever, chills and cough found to have unresolved pneumonia and sepsis. 1. Sepsis, likely secondary to unresolved pneumonia. -Symptoms improving. -Continue antibiotics -ID managing antibiotic 2. Severe microcytic anemia requiring blood transfusion. -After 2 units blood transfusion, hemoglobin remained stable. Continue with IV iron transfusion. -Patient with microscopic hematuria for which urology following. -In light of patient's social history of alcoholism/substance abuse, it is imperative to rule out acute GI bleed as such, GI consult has been requested and plan is EGD and colonoscopy in a.m. -Recommend transfusing 1 more PRBC if hemoglobin is less than 9 in AM in preparation for EGD/colonoscopy. -Pending stool OB. 3. Substance abuse/IV drug abuse history. -Toxicology positive for opiates and amphetamines. -Recent echocardiogram in May 2018 with no evidence of vegetation. -life skills worker to see patient. 4. Acute kidney injury on CKD. -Nephrology following. Patient just came off hemodialysis and his dialysis catheter has been discontinued secondary to line sepsis a few weeks ago. -Currently creatinine remained stable at 3.6. Nephrology following and will follow up recommendations. -Avoid nephrotoxins. 5. Subclinical hypothyroidism. -Commended outpatient repeat labs in 4 weeks. DVT prophylaxis: SCDs PUD prophylaxis: Protonix CODE STATUS: Full code Diet: Renal diet. N.p.o. post midnight for EGD/colonoscopy. Disposition: Continue current medical management. Follow-up final cultures. Patient was seen in collaboration with Dr. Orta. Result Diagram: 09/18/18 0437 09/18/18 0436 Results 24hrs Laboratory Tests Test 09/17/18 11:15 09/17/18 12:53 09/17/18 17:35 09/18/18 00:29 Urine Color YELLOW Urine Clarity SLIGHTLY CLOUDY A Urine pH 5.0 Urine Specific 1.005 [place] Urine Ketones NEGATIVE Urine Nitrite NEGATIVE Urine Bilirubin NEGATIVE Urine NEGATIVE Urobilinogen Urine Leukocyte NEGATIVE Esterase Urine > 182 H Microscopic RBC Urine 18 H Microscopic WBC Urine Hemoglobin 3+ H Urine Random 29.33 Creatinine Urine Random 53 Sodium Urine Glucose 1+ H Urine Total 82.0 H Protein Urine Opiates Positive Screen Urine Negative Barbiturates Urine POSITIVE Amphetamines Screen Urine Negative Benzodiazepines Screen Urine Cocaine Negative Screen Urine Negative Cannabinoids White Blood 13.9 #H 13.0 H 13.8 H Count Red Blood Count 2.63 L 2.66 L 2.86 L Hemoglobin 6.5 *L 6.5 *L 7.3 L Hematocrit 19.6 L 20.1 L 22.0 L Mean Corpuscular 74.5 L 75.6 L 76.9 L Volume Mean Corpuscular 24.7 L 24.4 L 25.5 L Hemoglobin Mean Corpuscular 33.2 32.3 33.2 Hemoglobin Sabrina nt Red Cell 19.0 H 19.2 H 18.6 H Distribution Width Platelet Count 110 L 128 L 122 L Mean Platelet 9.4 10.1 9.8 Volume Immature 1.100 H 1.200 H 1.300 H Granulocytes % Neutrophils % 67.3 64.0 63.1 Lymphocytes % 20.4 22.3 22.7 Monocytes % 10.1 11.4 H 10.8 Eosinophils % 0.9 0.9 1.7 Basophils % 0.2 0.2 0.4 Nucleated Red 0.0 0.0 0.0 Blood Cells % Immature 0.150 H 0.150 H 0.180 H Granulocytes # Neutrophils # 9.4 H 8.4 H 8.7 H Lymphocytes # 2.8 2.9 3.1 H Monocytes # 1.4 H 1.5 H 1.5 H Eosinophils # 0.1 0.1 0.2 Basophils # 0.0 0.0 0.1 Nucleated Red 0.0 0.0 0.0 Blood Cells # Segmented 76 Neutrophils % (Manual) Band Neutrophils 2 % (Manual) Lymphocytes % 10 L (Manual) Reactive 3 H Lymphocytes % (Manual) Monocytes % 8 (Manual) Basophils % 1 (Manual) Neutrophils # 9.9 H (Manual) Band Neutrophils 0.2 # Lymphocytes 1.3 (Manual) Reactive 0.3 H Lymphocytes # Monocytes # 1.0 H (Manual) Basophils # 0.1 H (Manual) Platelet DECREASED Estimate Giant Platelets 3 H Polychromasia 3+ Hypochromasia 1+ Poikilocytosis 1+ Test 09/18/18 04:34 09/18/18 04:36 09/18/18 04:37 Free Thyroxine 1.50 Sodium Level 141 Potassium Level 3.1 L Chloride Level 107 Carbon Dioxide 23 Level Anion Gap 11 Blood Urea 36 H Nitrogen Creatinine 3.63 H Est Glomerular 20 L Filtrat Rate mL/min Glucose Level 105 Calcium Level 8.4 Magnesium Level 1.7 Total Bilirubin 0.3 Direct Bilirubin 0.00 Indirect 0.3 Bilirubin Aspartate Amino 12 L Transf (AST/SGOT ) Alanine 14 Aminotransferase (ALT/SGPT) Alkaline 115 Phosphatase Total Protein 6.3 Albumin 2.5 L Globulin 3.80 H Albumin/Globulin 0.65 Ratio Thyroid 4.690 H Stimulating Hormone (TSH) White Blood 15.9 H Count Red Blood Count 3.43 L Hemoglobin 8.8 #L Hematocrit 26.8 #L Mean Corpuscular 78.1 L Volume Mean Corpuscular 25.7 L Hemoglobin Mean Corpuscular 32.8 Hemoglobin Sabrina nt Red Cell 18.2 H Distribution Width Platelet Count 140 Mean Platelet 10.3 Volume Immature 1.400 H Granulocytes % Neutrophils % 69.7 Lymphocytes % 18.2 Monocytes % 9.1 Eosinophils % 1.3 Basophils % 0.3 Nucleated Red 0.0 Blood Cells % Immature 0.220 H Granulocytes # Neutrophils # 11.1 H Lymphocytes # 2.9 Monocytes # 1.5 H Eosinophils # 0.2 Basophils # 0.1 Nucleated Red 0.0 Blood Cells # Hemoglobin A1c 6.0 H Exam/Review of Systems Vital Signs Vitals Vital Signs Date Temp Pulse Resp B/P (MAP) Pulse Ox O2 O2 Flow FiO2 Time Delivery Rate 09/18/18 102 08:00 09/18/18 99.4 22 108/58 96 Room Air 07:38 (75) Intake and Output 09/17/18 09/17/18 09/18/18 1515:00 23:00 07:00 IntakeIntake Total 2050 ml 2775 ml OutputOutput Total 1850 ml 2200 ml BalanceBalance 200 ml 575 ml Medications Medications Current Medications IV Flush (NS 3 ml) 3 ml PER PROTOCOL IV ; Start 09/17/18 at 05:30 Ondansetron HCl (Zofran Tab) 4 mg Q6H PRN PO NAUSEA AND/OR VOMITING; Start 09/17/18 at 05:30 Acetaminophen (Tylenol Tab) 650 mg Q6H PRN PO PAIN LEVEL 1-3 OR FEVER Last administered on 09/17/18at 17:47; Admin Dose 650 MG; Start 09/17/18 at 05:30 Docusate Sodium (Colace) 100 mg Q12H PRN PO CONSTIPATION; Start 09/17/18 at 05:30 Bisacodyl (Dulcolax) 5 mg DAILY PRN PO CONSTIPATION; Start 09/17/18 at 05:30 Methadone HCl (Methadone) 20 mg Q12 PO Last administered on 09/18/18at 08:10; Admin Dose 20 MG; Start 09/17/18 at 09:00 Vancomycin HCl (Vanco Iv Per Pharmacy) VANCOMYCIN PER PHARMACY PER PROTOCOL XX ; Start 09/17/18 at 07:00 Potassium Chloride 30 meq/ Sodium Chloride 1,015 ml @ 75 mls/hr [id number] IV Last administered on 09/17/18at 22:04; Admin Dose 75 MLS/HR; Start 09/17/18 at 06:00 Piperacillin Sod/ Tazobactam Sod 50 ml @ 100 mls/hr Q8 IVPB Last administered on 09/18/18at 05:37; Admin Dose 100 MLS/HR; Start 09/17/18 at 14:00 Ferric Sodium Gluconate Complex 125 mg/Sodium Chloride 100 ml @ 100 mls/hr DAILY@1300 IVPB ; Start 09/18/18 at 13:00; Stop 09/20/18 at 13:59 Pantoprazole (Protonix Iv) 40 mg BID@06,18 IV Last administered on 09/18/18at 05:37; Admin Dose 40 MG; Start 09/17/18 at 18:00 Miscellaneous Information (*Rx Drug Level Order Reminder*) RANDOM VANCOMYCIN LEVEL ... ONCE ONCE XX ; Start 09/19/18 at 05:00; Stop 09/19/18 at 05:01 Bisacodyl (Dulcolax) 10 mg ONCE ONCE PO ; Start 09/18/18 at 12:00; Stop 09/18/18 at 12:01; Status UNV Polyethylene Glycol/ Electrolytes (Golytely) 2,000 ml ONCE ONCE PO ; Start 09/18/18 at 13:00; Stop 09/18/18 at 13:01; Status UNV Polyethylene Glycol/ Electrolytes (Golytely) 2,000 ml 2nd Dose (GI Prep) ONCE PO ; Start 09/18/18 at 21:00; Stop 09/18/18 at 21:01; Status UNV Bisacodyl (Dulcolax) 10 mg 2nd Dose (GI Prep) ONCE PO ; Start 09/18/18 at 22:00; Stop 09/18/18 at 22:01; Status UNV SURAJ AIKEN NP Sep 18, 2018 10:32
[2018-09-18] MEDS ORDERED: BISACODYL (EC) 5 MG TAB PO ONE ×2 (12:00→22:00)
[2018-09-18] MEDS ORDERED: PEG/ELECTROLYTES 4L BTL PO ONE ×2 (13:00→21:00)
--- NOTE | 2018-09-18 13:13 | NUR ---
6 episodes of 6-17 beat of VT noted on the monitor, pt unaware, paging Sudha Watt [employer] for instructions
--- NOTE | 2018-09-18 13:22 | NUR ---
Sudha Watt NP notified of VT episodes
--- NOTE | 2018-09-18 13:41 | QN ---
Documentation Comment RN Called, reported 20 beats VTach, asymptomatic while patient asleep sustained 3-4 mins.Currently NSR 80's. Morning K level was repleted Ordered stat labs/lites level 12lead ekg, [facility] cardi[facility] consult w/ case d/w . SURAJ AIKEN NP Sep 18, 2018 13:41
[2018-09-18] MEDS: POTASSIUM CHLORIDE 30 MEQ in SOD CHLORIDE 0.9% 1,000 ML IV SCH (14:00)
[2018-09-18] MEDS ORDERED: METOPROLOL 5 MG INJ IV PRN (14:00)
[2018-09-18] MEDS ORDERED: MAGNESIUM SULFATE 2 GM/50 ML 50 ML IVPB ONE (15:00)
[2018-09-18] MEDS: SOD FERRIC GLUC COMPLX 125 MG in SOD CHLORIDE 0.9% 100 ML IVPB SCH (15:15)
--- NOTE | 2018-09-18 15:35 | CONS ---
DATE OF ADMISSION: 09/17/2018 DATE OF CONSULTATION: 09/18/2018 REASON FOR CONSULTATION: Wide complex tachycardia. Rule out NSVT. REQUESTING PHYSICIAN: Sudha Aiken MD HISTORY OF PRESENT ILLNESS: Mr. Sahu is a 33-year-old male with history of IV drug abuse, who presented with fevers and chills after signing out AMA from another hospital, [place]. Initially upon arrival, temperature 99.8, blood pressure 114/66, pulse 112, respiratory rate 20, sat 97%. The patient's labs revealed white blood cell count of 70.4, hemoglobin 7.5, platelet count 124. Sodium 138, potassium 3, creatinine 3.9, BUN 41. Troponin negative. Tox screen positive for amphetamines and opiates. The patient underwent a renal ultrasound revealing internal appearing dense bibasilar atelectasis and pneumonia, probable small bilateral pleural effusions, had a chest x-ray and a renal ultrasound that demonstrated increased cortical echogenicity in keeping with medical renal disease. The patient's electrocardiogram revealed sinus tachycardia, rate 103, normal axis, normal intervals, nonspecific ST abnormalities. This patient subsequently admitted to the floor, where he was placed on broad spectrum antibiotics. Blood and urine cultures have been negative to date. The patient had a wide complex tachycardia at a rate of approximately 150, concerning for possible Atrial flutter with frequent PVCs thereafter. Given these findings, current consult requested. PAST MEDICAL HISTORY: As above in HPI. MEDICATIONS CURRENTLY IN HOSPITAL: 1. Dulcolax. 1. GoLYTELY. 2. Protonix. 3. Zosyn. 4. Methadone. 5. Vancomycin. 6. Zofran. 7. Tylenol. 8. Colace. ALLERGIES: No known drug allergies. SOCIAL HISTORY: History of IV drug abuse, methamphetamines by tox screen. FAMILY HISTORY: No history of sudden cardiac or early CAD. REVIEW OF SYSTEMS: As above in HPI. CONSTITUTIONAL: Subjective fevers, chills. PULMONARY: No current shortness of breath. CARDIOVASCULAR: Wide complex tachycardia. GASTROINTESTINAL: No vomiting. GENITOURINARY: No hematuria. MUSCULOSKELETAL: No degenerative joint disease. PSYCHIATRIC: No documented psych history. PHYSICAL EXAMINATION: VITAL SIGNS: Temperature 98.4, blood pressure 105/57, pulse 94, saturating 95%. GENERAL: The patient is alert, awake, in no acute distress. NECK: JVP approximately 8 to 9 cm of water. CHEST: Fair air movement throughout. HEART: Regular rate and rhythm. Normal S1, S2, I/ systolic murmur, nondisplaced PMI. ABDOMEN: Positive bowel sounds, soft. EXTREMITIES: No edema, 1+ pulses bilaterally posterior tibial. LABORATORY DATA: Most recently from today, sodium 141, potassium 3.1, creatinine 3.6, BUN 36. Troponin negative x1. White blood count 15.9, hemoglobin 8.8, platelet count of 140. IMAGING STUDIES: As above in HPI. No further imaging studies for my review at this time. ECG: As above in HPI. No further electrocardiograms for my review at this time. Most recent 2D echo from 05/22/2018 revealing a preserved EF at that time of 55%. IMPRESSION: 1. Wide complex tachycardia concerning for possible non-SVT versus aberrant SVT with the patient's EFP normal recently in favor of the latter. 2. Abnormal electrocardiogram with nonspecific ST-T abnormalities, assess for acute coronary syndrome. 3. Hypotension, borderline. 4. History of drug abuse with methamphetamines by tox screen. 5. Status post sepsis. 6. History of sternal osteomyelitis, chronic anemia. 7. Left lower extremity wounds. RECOMMENDATIONS: 1. At this time, would maintain patient on telemetry monitoring to follow rhythm and rate control closely. 2. Check a TSH to be sure subclinical hyperthyroid is not due to any bouts of tachyarrhythmia. 3. Would initiate patient on beta kaur to suppress further bouts of tachyarrhythmia. 4. Complete a rule out for myocardial infarction to ensure the patient's tachyarrhythmia is not due to acute coronary syndromes such as acute myocardial infarction. 5. Continue patient's antibiotics and follow up all culture data. 6. A fasting lipid panel for general risk stratification and initiate lipid- lowering medication. Thank you for allowing me to take part in the care of this patient. I will continue to follow very closely with you with further recommendations to be made as the patient progresses through his inpatient hospital clinical course. Dictated By: COLLIN BANERJEE/SHABANA Conf#: [id number] DID#: [id number] CC: SUDHA AIKEN NP; EVELIA GIL MD;*EndCC* LIUDMILA
--- NOTE | 2018-09-18 17:10 | CONS ---
Date/Time of Note Date/Time of Note DATE: 09/18/18 TIME: 16:38 Assessment/Plan Assessment/Plan Hospital Course ID PROGRESS NOTE CURRENT ABX: DAY # => Vanco IV + Zosyn == change to Unasyn + Doxycycline 09/18/18 1404 09/18/18 1404 24H INTERVAL SUMMARY * Lethargic, disheveled, low grade temps, leukocytosis * NEW PICC Line Place @ [facility] on 09/14/18 * 09/17/18 CXR IMPRESSION:1. Interval appearing dense bibasilar atelectasis and/or pneumonia. 2. Probable small bilateral pleural effusions. MICRO * 09/17/18 (-)Urine day #1 -- UA / Pyuria > 182 RBCs * 09/17/18 BCx (-) * 09/14/18 BCx @ [facility] = Alpha Strep NOT GRP D 2/2 Bottles * 08/13/18 BCx @ [facility] = Alpha Strep NOT GRP D 2/2 Bottles * 08/01/18 WOUND CX @ [facility] * = Alpha Strep NOT GRP D 2/2 Bottles * = STAPH AUREUS = Sensitive to Oxacillin, Bactrim, Rifampin, Clindamycin PHYSICAL EXAMINATION: GENERAL: Afebrile, VSS, HEENT: AT, NC, anicteric NECK: Supple, trach CHEST: Equal chest rise bilaterally, without dyspnea on observation HEART: Pulse RRR ABDOMEN: Soft / NT EXTREMITIES: Warm, dry, SKIN: No rash, no diaphoresis ID ASSESSMENT 33 yo HOMELESS M w/current IVDU Opioids + METH, ETOH admit with: 1. Sepsis w/fevers, leukocytosis, tachycardia on admission due to recent infected IVDU skin abscess, Line sepsis, and HCAP * s/p admission [facility] w/(+)BCx -- left AMA 2. Persistent Alpha Strep NOT GRP D Bacteremia -- PERMCATH REMOVED @ [facility] -- r/o SBE * 09/17/18 BCx (-) * NEW PICC Line Place @ [facility] on 09/14/18 * 09/14/18 BCx @ [facility] = Alpha Strep NOT GRP D 2/2 Bottles * 08/13/18 BCx @ [facility] = Alpha Strep NOT GRP D 2/2 Bottles 3. Acute new Right sided ASP PNA on 09/12/18 @ [facility] -- now with bilateral PNA 4. Multiple wounds due to IVDU * Chronic LEFT-LEXT wound s/p I&D * 08/02/18 CT RLEXT inguinal & iliac lymphadenopathy 5. Sacral Decub 6. s/p IVDU abscess/wound I&D @ [facility] 08/01/18 * 08/01/18 WOUND CX @ [facility] * = Alpha Strep NOT GRP D 10/20 Bottles * = STAPH AUREUS = Sensitive to Oxacillin, Bactrim, Rifampin, Clindamycin 6. MIGUEL A on CKD- -pt was previously on HD x1 week and recently had perm-a-cath removed for concern line sepsis 7. Severe microcytic anemia 8. Thrombocytopenia- resolved 9. History of Hep C- has not been treated 10.ETOH abuse 11. ?ETOH/HCV liver disease 12. History of IV drug use 13. Hx of Psych DX NOS w/recent METH PSYCHOSIS @ [facility] 14. Hx of MRSA BACTEREMIA 15. Hx of prior MRSA flank abscess & sternal osteomyelitis == > TREATED 16. Tobaccoism (-)MRSA Nares ABX ALLERGIES: NKDA INVASIVES: NEW PICC Line Place @ [facility] on 09/14/18 CURRENT ABX: DAY # = Unasyn + Doxycycline Vanco IV + Zosyn ID RECOMMENDATIONS/PLAN: 1. Per RENAL == plan is to monitor renal fx, rather than initial HD * AVOID RENAL TOXIC ABX 2. DC Vanco IV & Zosyn ABX as both are toxic renal combo -- will change to Unasyn + Doxycycline * NOTE: Dapto will not treat PNA, Zyvox deferred due to thrombocytopenia and drug drug interactions 3. I placed some of [facility] records on chart for reference. . Result Diagram: 09/18/18 1404 09/18/18 1404 Results 24hrs Laboratory Tests Test 09/17/18 17:35 09/18/18 00:29 09/18/18 04:34 09/18/18 04:36 White Blood Count 13.0 H 13.8 H Red Blood Count 2.66 L 2.86 L Hemoglobin 6.5 *L 7.3 L Hematocrit 20.1 L 22.0 L Mean Corpuscular 75.6 L 76.9 L Volume Mean Corpuscular 24.4 L 25.5 L Hemoglobin Mean Corpuscular 32.3 33.2 Hemoglobin Concent Red Cell Distribution 19.2 H 18.6 H Width Platelet Count 128 L 122 L Mean Platelet Volume 10.1 9.8 Immature Granulocytes 1.200 H 1.300 H % Neutrophils % 64.0 63.1 Segmented Neutrophils 76 % (Manual) Band Neutrophils % 2 (Manual) Lymphocytes % 22.3 22.7 Lymphocytes % (Manual) 10 L Reactive Lymphocytes 3 H % (Manual) Monocytes % 11.4 H 10.8 Monocytes % (Manual) 8 Eosinophils % 0.9 1.7 Basophils % 0.2 0.4 Basophils % (Manual) 1 Nucleated Red Blood 0.0 0.0 Cells % Immature Granulocytes 0.150 H 0.180 H # Neutrophils # 8.4 H 8.7 H Neutrophils # (Manual) 9.9 H Band Neutrophils # 0.2 Lymphocytes (Manual) 1.3 Lymphocytes # 2.9 3.1 H Reactive Lymphocytes # 0.3 H Monocytes # 1.5 H 1.5 H Monocytes # (Manual) 1.0 H Eosinophils # 0.1 0.2 Basophils # 0.0 0.1 Basophils # (Manual) 0.1 H Nucleated Red Blood 0.0 0.0 Cells # Platelet Estimate DECREASED Giant Platelets 3 H Polychromasia 3+ Hypochromasia 1+ Poikilocytosis 1+ Free Thyroxine 1.50 Sodium Level 141 Potassium Level 3.1 L Chloride Level 107 Carbon Dioxide Level 23 Anion Gap 11 Blood Urea Nitrogen 36 H Creatinine 3.63 H Est Glomerular Filtrat 20 L Rate mL/min Glucose Level 105 Calcium Level 8.4 Magnesium Level 1.7 Total Bilirubin 0.3 Direct Bilirubin 0.00 Indirect Bilirubin 0.3 Aspartate Amino 12 L Transf (AST/SGOT) Alanine 14 Aminotransferase (ALT/ SGPT) Alkaline Phosphatase 115 Total Protein 6.3 Albumin 2.5 L Globulin 3.80 H Albumin/Globulin Ratio 0.65 Thyroid Stimulating 4.690 H Hormone (TSH) Test 09/18/18 04:37 09/18/18 14:04 White Blood Count 15.9 H 15.9 H Red Blood Count 3.43 L 3.29 L Hemoglobin 8.8 #L 8.3 L Hematocrit 26.8 #L 25.2 L Mean Corpuscular 78.1 L 76.6 L Volume Mean Corpuscular 25.7 L 25.2 L Hemoglobin Mean Corpuscular 32.8 32.9 Hemoglobin Concent Red Cell Distribution 18.2 H 17.9 H Width Platelet Count 140 144 Mean Platelet Volume 10.3 9.8 Immature Granulocytes 1.400 H 1.300 H % Neutrophils % 69.7 70.7 Lymphocytes % 18.2 17.9 Monocytes % 9.1 8.9 Eosinophils % 1.3 0.9 Basophils % 0.3 0.3 Nucleated Red Blood 0.0 0.0 Cells % Immature Granulocytes 0.220 H 0.210 H # Neutrophils # 11.1 H 11.3 H Lymphocytes # 2.9 2.9 Monocytes # 1.5 H 1.4 H Eosinophils # 0.2 0.2 Basophils # 0.1 0.0 Nucleated Red Blood 0.0 0.0 Cells # Hemoglobin A1c 6.0 H Sodium Level 140 Potassium Level 3.4 L Chloride Level 106 Carbon Dioxide Level 21 Anion Gap 13 Blood Urea Nitrogen 32 H Creatinine 3.39 H Est Glomerular Filtrat 21 L Rate mL/min Glucose Level 96 Calcium Level 8.2 L Magnesium Level 1.6 L Thyroid Stimulating 3.170 Hormone (TSH) Consultation Date/Type/Reason Admit Date/Time Sep 17, 2018 at 05:02 Initial Consult Date 09/18/18 Requesting Provider: EVELIA GIL Exam/Review of Systems Vital Signs Vitals Vital Signs Date Temp Pulse Resp B/P (MAP) Pulse Ox O2 O2 Flow FiO2 Time Delivery Rate 09/18/18 98.6 90 22 106/64 96 Room Air 16:00 (78) Intake and Output 09/17/18 09/17/18 09/18/18 1515:00 23:00 07:00 IntakeIntake Total 2050 ml 2775 ml OutputOutput Total 1850 ml 2200 ml BalanceBalance 200 ml 575 ml Medications Medications Current Medications IV Flush (NS 3 ml) 3 ml PER PROTOCOL IV ; Start 09/17/18 at 05:30 Ondansetron HCl (Zofran Tab) 4 mg Q6H PRN PO NAUSEA AND/OR VOMITING; Start 09/17/18 at 05:30 Acetaminophen (Tylenol Tab) 650 mg Q6H PRN PO PAIN LEVEL 1-3 OR FEVER Last administered on 09/17/18at 17:47; Admin Dose 650 MG; Start 09/17/18 at 05:30 Docusate Sodium (Colace) 100 mg Q12H PRN PO CONSTIPATION; Start 09/17/18 at 05:30 Bisacodyl (Dulcolax) 5 mg DAILY PRN PO CONSTIPATION; Start 09/17/18 at 05:30 Methadone HCl (Methadone) 20 mg Q12 PO Last administered on 09/18/18at 08:10; Admin Dose 20 MG; Start 09/17/18 at 09:00 Vancomycin HCl (Vanco Iv Per Pharmacy) VANCOMYCIN PER PHARMACY PER PROTOCOL XX ; Start 09/17/18 at 07:00 Potassium Chloride 30 meq/ Sodium Chloride 1,015 ml @ 75 mls/hr [id number] IV Last administered on 09/18/18at 14:00; Admin Dose 75 MLS/HR; Start 09/17/18 at 06:00 Piperacillin Sod/ Tazobactam Sod 50 ml @ 100 mls/hr Q8 IVPB Last administered on 09/18/18at 05:37; Admin Dose 100 MLS/HR; Start 09/17/18 at 14:00 Ferric Sodium Gluconate Complex 125 mg/Sodium Chloride 100 ml @ 100 mls/hr DAILY@1300 IVPB Last administered on 09/18/18at 15:15; Admin Dose 100 MLS/HR; Start 09/18/18 at 13:00; Stop 09/20/18 at 13:59 Pantoprazole (Protonix Iv) 40 mg BID@06,18 IV Last administered on 09/18/18at 05:37; Admin Dose 40 MG; Start 09/17/18 at 18:00 Miscellaneous Information (*Rx Drug Level Order Reminder*) RANDOM VANCOMYCIN LEVEL ... ONCE ONCE XX ; Start 09/19/18 at 05:00; Stop 09/19/18 at 05:01 Polyethylene Glycol/ Electrolytes (Golytely) 2,000 ml 2nd Dose (GI Prep) ONCE PO ; Start 09/18/18 at 21:00; Stop 09/18/18 at 21:01 Bisacodyl (Dulcolax) 10 mg 2nd Dose (GI Prep) ONCE PO ; Start 09/18/18 at 22:00; Stop 09/18/18 at 22:01 Metoprolol Tartrate (Lopressor) 25 mg BID PO ; Start 09/18/18 at 21:00 Magnesium Sulfate 50 ml @ 25 mls/hr ONCE ONCE IVPB ; Start 09/18/18 at 15:00; Stop 09/18/18 at 16:59 Metoprolol Tartrate (Lopressor) 5 mg Q4H PRN IV HR>110 Hold SBP<100; Start 09/18/18 at 14:00 HITESH KHAN NP Sep 18, 2018 16:50
[2018-09-18] MEDS: AMPICILLIN/SULB 1.5GM/NS (PMX) 50 ML IVPB SCH (20:54)
[2018-09-18] MEDS: METOPROLOL 25 MG TAB PO SCH (21:09)
[2018-09-18] MEDS: DOXYCYCLINE 100 MG in SOD CHLORIDE 0.9% 250 ML IVPB SCH (23:01)
[2018-09-19] VITALS (21 sets, daily range): BP systolic 87–110; BP diastolic 35–60; PULSE 66–92; RESP 11–22
[2018-09-19] MEDS: AMPICILLIN/SULB 1.5GM/NS (PMX) 50 ML IVPB SCH ×5 (01:11→23:44)
[2018-09-19] MEDS: PANTOPRAZOLE 40 MG INJ IV SCH (05:35)
[2018-09-19] MEDS: POTASSIUM CHLORIDE 30 MEQ in SOD CHLORIDE 0.9% 1,000 ML IV SCH ×2 (05:37→14:27)
[2018-09-19] MEDS ORDERED: POTASSIUM CHLORIDE (SR) 20 MEQ TAB PO STA (07:28)
--- NOTE | 2018-09-19 08:09 | CONS ---
Date/Time of Note Date/Time of Note DATE: 09/19/18 TIME: 08:09 Consult Date/Type/Reason Admit Date/Time Sep 17, 2018 at 05:02 Initial Consult Date 09/18/18 Requesting Provider: EVELIA GIL Subjective Hx of Present Illness 33-year-old gentleman well-known to me from multiple prior hospitalizations. Has history of IV drug abuse with heroin patient does not use any other street drugs. He smokes, and he states he does not drink and does not use crystal methamphetamine cocaine any other illicit drugs he is. He has had multiple hospitalizations for infections associated with IV drug abuse including abscesses, fasciitis, rectal abscess, pneumonia, sepsis syndrome and renal failure. Patient states he still has heroin up to 5 times per day. Last time used was 1 day prior to this hospitalization. Patient has never been admitted to the treatment program, is not in contact with his family other than his brother lives on the street with him mother and father not involved with his lifestyle. And to the best my knowledge she has never visited him during prior hospitalizations. Objective Vital Signs Date Temp Pulse Resp B/P (MAP) Pulse Ox O2 O2 Flow FiO2 Time Delivery Rate 09/19/18 98.0 74 22 92/60 (71) 96 Room Air 07:31 Intake and Output 09/18/18 09/18/18 09/19/18 1515:00 23:00 07:00 IntakeIntake Total 965 ml 2675 ml OutputOutput Total 350 ml 2825 ml BalanceBalance 615 ml -150 ml Results/Medications Result Diagram: 09/19/18 0451 09/19/18 0451 Results 24 hrs Laboratory Tests Test 09/18/18 14:04 09/18/18 19:14 09/19/18 00:15 09/19/18 04:51 White Blood Count 15.9 H 14.1 H Red Blood Count 3.29 L 3.32 L Hemoglobin 8.3 L 8.6 L Hematocrit 25.2 L 25.6 L Mean Corpuscular 76.6 L 77.1 L Volume Mean Corpuscular 25.2 L 25.9 L Hemoglobin Mean Corpuscular 32.9 33.6 Hemoglobin Concent Red Cell 17.9 H 17.8 H Distribution Width Platelet Count 144 152 Mean Platelet 9.8 10.0 Volume Immature 1.300 H 1.200 H Granulocytes % Neutrophils % 70.7 66.6 Lymphocytes % 17.9 22.2 Monocytes % 8.9 8.8 Eosinophils % 0.9 0.8 Basophils % 0.3 0.4 Nucleated Red Blood 0.0 0.0 Cells % Immature 0.210 H 0.170 H Granulocytes # Neutrophils # 11.3 H 9.4 H Lymphocytes # 2.9 3.1 H Monocytes # 1.4 H 1.3 H Eosinophils # 0.2 0.1 Basophils # 0.0 0.1 Nucleated Red Blood 0.0 0.0 Cells # Sodium Level 140 144 Potassium Level 3.4 L 3.3 L Chloride Level 106 108 Carbon Dioxide 21 23 Level Anion Gap 13 13 Blood Urea Nitrogen 32 H 26 H Creatinine 3.39 H 2.89 H Est Glomerular 21 L 26 L Filtrat Rate mL/min Glucose Level 96 87 Calcium Level 8.2 L 8.3 L Magnesium Level 1.6 L 1.9 Thyroid Stimulating 3.170 Hormone (TSH) Troponin I < 0.012 < 0.012 < 0.012 Prothrombin Time 15.2 H Prothrombin Time 1.2 Ratio INR International 1.19 Normalized Ratio Phosphorus Level 4.7 Test 09/19/18 06:40 Lab Scanned Report BLOOD TRANSFUSION Medications Current Medications IV Flush (NS 3 ml) 3 ml PER PROTOCOL IV ; Start 09/17/18 at 05:30 Ondansetron HCl (Zofran Tab) 4 mg Q6H PRN PO NAUSEA AND/OR VOMITING Last admi nistered on 09/19/18at 00:21; Admin Dose 4 MG; Start 09/17/18 at 05:30 Acetaminophen (Tylenol Tab) 650 mg Q6H PRN PO PAIN LEVEL 1-3 OR FEVER Last administered on 09/17/18at 17:47; Admin Dose 650 MG; Start 09/17/18 at 05:30 Docusate Sodium (Colace) 100 mg Q12H PRN PO CONSTIPATION; Start 09/17/18 at 05:30 Bisacodyl (Dulcolax) 5 mg DAILY PRN PO CONSTIPATION; Start 09/17/18 at 05:30 Methadone HCl (Methadone) 20 mg Q12 PO Last administered on 09/18/18at 21:01; Admin Dose 20 MG; Start 09/17/18 at 09:00 Potassium Chloride 30 meq/ Sodium Chloride 1,015 ml @ 50 mls/hr [id number] IV Last administered on 09/19/18at 05:37; Admin Dose 75 MLS/HR; Start 09/17/18 at 06:00 Ferric Sodium Gluconate Complex 125 mg/Sodium Chloride 100 ml @ 100 mls/hr DAILY@1300 IVPB Last administered on 09/18/18at 15:15; Admin Dose 100 MLS/HR; Start 09/18/18 at 13:00; Stop 09/20/18 at 13:59 Pantoprazole (Protonix Iv) 40 mg BID@06,18 IV Last administered on 09/19/18at 05:35; Admin Dose 40 MG; Start 09/17/18 at 18:00 Metoprolol Tartrate (Lopressor) 25 mg BID PO Last administered on 09/18/18at 21:09; Admin Dose 25 MG; Start 09/18/18 at 21:00 Metoprolol Tartrate (Lopressor) 5 mg Q4H PRN IV HR>110 Hold SBP<100; Start 09/18/18 at 14:00 Ampicillin Sodium/ Sulbactam Sodium 50 ml @ 100 mls/hr Q6 IVPB Last administered on 09/19/18at 05:34; Admin Dose 100 MLS/HR; Start 09/18/18 at 18:00 Doxycycline Hyclate 100 mg/ Sodium Chloride 250 ml @ 250 mls/hr Q12 IVPB Last administered on 09/18/18at 23:01; Admin Dose 250 MLS/HR; Start 09/18/18 at 21:00 Assessment/Plan Additional Assessment/Plan #1 sepsis: Secondary to pneumonia and possible line sepsis: On IV antibiotic coverage per internal medicine #2history of IV drug abuse heroin for many years status post at least 5 hospitalizations in the past that I am aware of for complications due to infection #3 acute renal failure Nephrology evaluating Continue current methadone maintenance during his hospitalization to milligrams twice daily. Continue conservative use of any other opioids or anxiolytics. TREVOR MURDOCK Sep 19, 2018 08:09
--- NOTE | 2018-09-19 08:19 | NUR ---
Eoss. At the beginning of the shift, received patient lethargic but easily arousable, Patient is on methadone bid, 20 mg. 4 Liters Golytely ordered, RN reported that patient is not drinking golytely as planned, 3 more liters of golytely at bedside, RN reported that Patient had BM x1 on day shift. Started to encouraged patient to drink golytely, Dr ku office called last light, around 1950 and notified the office that patient is not drinking the golytely as ordered, dr Andrade covering for the night, called back and aware and asked to keep encouraging patient. Patient then begin to drink the golytely with maximal encouragement from RN over night, Patient drink 3.5 Liters of the 4 liters and had several loose watery BM, this am Bm is clear yellow liquid with no stools noted. Patient signed consent last night for EGD and colonoscopy.
--- NOTE | 2018-09-19 08:25 | PN ---
DATE: 09/19/2018 SUBJECTIVE: The patient is stable, no events overnight. The patient is pending esophagogastroduoden oscopy and colonoscopy. OBJECTIVE: VITAL SIGNS: Blood pressure is 110/55, respirations 20, pulse 92, temperature 97.8. HEENT: Head is normocephalic. NECK: Supple. HEART: Regular rate. LUNGS: Show diminished breath sounds at the base. ABDOMEN: Soft, nontender to palpation without rebound or guarding. EXTREMITIES: Negative for clubbing, cyanosis, no edema. DERMATOLOGIC: No rashes. MUSCULOSKELETAL: No joint effusions. NEUROLOGIC: No change in exam. MEDICATIONS: The patient's medications have been reviewed. LABORATORY DATA: Shows white count 14.1, hemoglobin 8.6, platelet count is 152. Sodium 144, potassi um 3.3, BUN 26, creatinine 2.89. ASSESSMENT AND PLAN: 1. Nonoliguric acute kidney injury on top of chronic kidney disease with unknown baseline creatinine . Etiology is felt to be secondary to acute tubular necrosis. The patient is status post dialysis, has been off hemodialysis for approximately 1 month. The patient's renal function has been improving during hospital course with IV hydration, which suggests a component of volume depletion. At this p oint, continue current treatment plan, supportive care, renally dose all medicines, continue to monit or renal function closely. 2. Hypokalemia. Continue to monitor and replete. 3. Microcytic anemia, etiology may be multifactorial, questionable gastrointestinal bleed, possible component of chronic kidney disease. The patient is pending esophagogastroduodenoscopy, colonoscopy. The patient is status post blood transfusion. Continue to monitor closely. Consider giving Epogen . 4. Mineral bone disorder, monitor calcium and phosphorus levels. 5. Sepsis secondary to pneumonia. Continue current antibiotic regimen. 6. History of polysubstance abuse. Continue to monitor. 7. History of hepatitis C. Follow up with GI. 8. Gastrointestinal and deep vein thrombosis prophylaxis. Dictated By: KHANH AGUILAR DO NR/NTS Conf#: [id number] DID#: [id number] CC: EVELIA GIL MD; EFRAIN MARLEY MD;*EndCC*
[2018-09-19] MEDS: METOPROLOL 25 MG TAB PO SCH ×2 (09:10→20:20)
[2018-09-19] MEDS: METHADONE 10 MG TAB PO SCH ×2 (09:11→20:25)
[2018-09-19] MEDS: DOXYCYCLINE 100 MG in SOD CHLORIDE 0.9% 250 ML IVPB SCH ×2 (09:12→21:44)
--- NOTE | 2018-09-19 10:17 | PN ---
Date/Time of Note Date/Time of Note DATE: 09/19/18 TIME: 10:17 Assessment/Plan VTE Prophylaxis Risk score (from Nsg)>0 risk: 3 SCD applied (from Nsg): Yes Pharmacological prophylaxis: NA/contraindicated Pharm contraindication: low risk/ambulating Lines/Catheters IV Catheter Type (from Nrsg): Mid Line Urinary Cath still in place: No Assessment/Plan Hospital Course SUBJECTIVE: Patient had runs of wide-complex tachycardia at a rate approximately 150s yesterday lasted for a couple minutes while patient was asleep. No further episodes. Currently lying in bed, no acute distress. No chest pain or other discomfort. OBJECTIVE: Vital signs-see below PHYSICAL EXAM: Constitutional: Well-developed, adequately built, sleeping in no acute distress. Psych: Does not interact much with lack of interest in converse. Nl mood/affect, no complaints Head: atraumatic, normocephalic Eyes: nl conjunctiva, nl sclera ENMT: mucosa pink and moist, nl external ears & nose Neck: non-tender, supple Respiratory: clear to auscultation, normal air movement Cardiovascular: nl pulses, regular rate and rhythm Gastrointestinal: non-tender, soft, bowel sounds active in all 4 quadrants. Musculoskeletal/extremities: nl extremities to inspection, motor strength equal bilaterally, no focal deficit. Normal pulses,no cyanosis, no edema. Neurological: Alert oriented 3,nl speech, nl strength Skin: Ulcers on left lateral lower leg secondary to IV drug use. Nl turgor ASSESSMENT/PLAN:33-year-old male with history of IV drug abuse, alcoholism, CKD- Off HD 1 month ago, who was recently admitted at [facility] where he was treated for sepsis thought to be secondary to pneumonia and possible line infection with removal of line and iv abx treatment, went home AGAINST MEDICAL ADVICE, presented to [facility] with ongoing fever, chills and cough found to have unresolved pneumonia and sepsis. 1. Sepsis, multifactorial with unresolved pneumonia/skin ulcers from IVDU. -Symptoms improving. -Antibiotics per ID-appreciate recs from [facility] [employer]. 2. Healthcare associated pneumonia. -Symptoms improving. -Again, antimicrobials per ID -Repeat Xray in AM 3. Severe microcytic anemia requiring blood transfusion. -After 2 units blood transfusion, hemoglobin remained stable. -Continue with IV iron transfusion. -For EGD/colonoscopy today to rule out GI bleed. -Pending stool OB. 4. Non-sustained single episode wide-complex tachycardia, most likely aberrant SVT -Appreciate cardiology evaluation and patient has been started on beta-blockers. -Continue telemetry. -Monitor lites and replete as needed. 5. Substance abuse/IV drug abuse history. -Toxicology positive for opiates and amphetamines. -Recent echocardiogram in May 2018 with no evidence of vegetation. 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 -Cessation advised. 6. Acute kidney injury on CKD. -Has been off hemodialysis for about a month ago. -Nephrology following, continue to monitor renal function closely. Avoid nephrotoxins and renally dose all medicines. 7. Subclinical hypothyroidism. -Recommed outpatient repeat labs in 4 weeks. 8. History of hepatitis C. -Recommend outpatient follow-up. DVT prophylaxis: SCDs PUD prophylaxis: Protonix CODE STATUS: Full code Diet: Renal diet. N.p.o. post midnight for EGD/colonoscopy. Disposition: Continue current medical management. Follow-up final cultures. Patient was seen in collaboration with Dr. GREENBERG Result Diagram: 09/19/18 0451 09/19/18 0451 Results 24hrs Laboratory Tests Test 09/18/18 14:04 09/18/18 19:14 09/19/18 00:15 09/19/18 04:51 White Blood Count 15.9 H 14.1 H Red Blood Count 3.29 L 3.32 L Hemoglobin 8.3 L 8.6 L Hematocrit 25.2 L 25.6 L Mean Corpuscular 76.6 L 77.1 L Volume Mean Corpuscular 25.2 L 25.9 L Hemoglobin Mean Corpuscular 32.9 33.6 Hemoglobin Concent Red Cell 17.9 H 17.8 H Distribution Width Platelet Count 144 152 Mean Platelet 9.8 10.0 Volume Immature 1.300 H 1.200 H Granulocytes % Neutrophils % 70.7 66.6 Lymphocytes % 17.9 22.2 Monocytes % 8.9 8.8 Eosinophils % 0.9 0.8 Basophils % 0.3 0.4 Nucleated Red Blood 0.0 0.0 Cells % Immature 0.210 H 0.170 H Granulocytes # Neutrophils # 11.3 H 9.4 H Lymphocytes # 2.9 3.1 H Monocytes # 1.4 H 1.3 H Eosinophils # 0.2 0.1 Basophils # 0.0 0.1 Nucleated Red Blood 0.0 0.0 Cells # Sodium Level 140 144 Potassium Level 3.4 L 3.3 L Chloride Level 106 108 Carbon Dioxide 21 23 Level Anion Gap 13 13 Blood Urea Nitrogen 32 H 26 H Creatinine 3.39 H 2.89 H Est Glomerular 21 L 26 L Filtrat Rate mL/min Glucose Level 96 87 Calcium Level 8.2 L 8.3 L Magnesium Level 1.6 L 1.9 Thyroid Stimulating 3.170 Hormone (TSH) Troponin I < 0.012 < 0.012 < 0.012 Prothrombin Time 15.2 H Prothrombin Time 1.2 Ratio INR International 1.19 Normalized Ratio Phosphorus Level 4.7 Test 09/19/18 06:40 Lab Scanned Report BLOOD TRANSFUSION Exam/Review of Systems Vital Signs Vitals Vital Signs Date Temp Pulse Resp B/P (MAP) Pulse Ox O2 O2 Flow FiO2 Time Delivery Rate 09/19/18 84 08:00 09/19/18 98.0 22 92/60 (71) 96 Room Air 07:31 Intake and Output 09/18/18 09/18/18 09/19/18 1515:00 23:00 07:00 IntakeIntake Total 965 ml 2675 ml 4550 ml OutputOutput Total 350 ml 2825 ml 2250 ml BalanceBalance 615 ml -150 ml 2300 ml Medications Medications Current Medications IV Flush (NS 3 ml) 3 ml PER PROTOCOL IV ; Start 09/17/18 at 05:30 Ondansetron HCl (Zofran Tab) 4 mg Q6H PRN PO NAUSEA AND/OR VOMITING Last administered on 09/19/18at 00:21; Admin Dose 4 MG; Start 09/17/18 at 05:30 Acetaminophen (Tylenol Tab) 650 mg Q6H PRN PO PAIN LEVEL 1-3 OR FEVER Last administered on 09/17/18at 17:47; Admin Dose 650 MG; Start 09/17/18 at 05:30 Docusate Sodium (Colace) 100 mg Q12H PRN PO CONSTIPATION; Start 09/17/18 at 05:30 Bisacodyl (Dulcolax) 5 mg DAILY PRN PO CONSTIPATION; Start 09/17/18 at 05:30 Methadone HCl (Methadone) 20 mg Q12 PO Last administered on 09/19/18at 09:11; Admin Dose 20 MG; Start 09/17/18 at 09:00 Potassium Chloride 30 meq/ Sodium Chloride 1,015 ml @ 50 mls/hr [id number] IV Last administered on 09/19/18at 05:37; Admin Dose 75 MLS/HR; Start 09/17/18 at 06:00 Ferric Sodium Gluconate Complex 125 mg/Sodium Chloride 100 ml @ 100 mls/hr DAILY@1300 IVPB Last administered on 09/18/18at 15:15; Admin Dose 100 MLS/HR; Start 09/18/18 at 13:00; Stop 09/20/18 at 13:59 Pantoprazole (Protonix Iv) 40 mg BID@06,18 IV Last administered on 09/19/18 05:35; Admin Dose 40 MG; Start 09/17/18 at 18:00 Metoprolol Tartrate (Lopressor) 25 mg BID PO Last administered on 09/19/18at 09:10; Admin Dose 25 MG; Start 09/18/18 at 21:00 Metoprolol Tartrate (Lopressor) 5 mg Q4H PRN IV HR>110 Hold SBP<100; Start 09/18/18 at 14:00 Ampicillin Sodium/ Sulbactam Sodium 50 ml @ 100 mls/hr Q6 IVPB Last administered on 09/19/18at 05:34; Admin Dose 100 MLS/HR; Start 09/18/18 at 18:00 Doxycycline Hyclate 100 mg/ Sodium Chloride 250 ml @ 250 mls/hr Q12 IVPB Last administered on 09/19/18at 09:12; Admin Dose 250 MLS/HR; Start 09/18/18 at 21:00 SURAJ AIKEN NP Sep 19, 2018 10:17
--- NOTE | 2018-09-19 11:29 | CONS ---
Date/Time of Note Date/Time of Note DATE: 09/19/18 TIME: 11:22 Assessment/Plan Assessment/Plan Hospital Course IMPRESSION: 1. Wide complex tachycardia concerning for possible non-SVT versus aberrant SVT with the patient's EF normal recently in favor of the latter.- no recurrence on BB, neg trop x 3. NL TSH 2. Abnormal electrocardiogram with nonspecific ST-T abnormalities, assess for acute coronary syndrome 3. Hypotension, borderline. 4. History of drug abuse with methamphetamines by tox screen. 5. Status post sepsis. 6. History of sternal osteomyelitis, chronic anemia. 7. Left lower extremity wounds. Recc -Continue BB and follow rhythm closely -pain control Result Diagram: 09/19/18 0451 09/19/18 0451 Results 24hrs Laboratory Tests Test 09/18/18 14:04 09/18/18 19:14 09/19/18 00:15 09/19/18 04:51 White Blood Count 15.9 H 14.1 H Red Blood Count 3.29 L 3.32 L Hemoglobin 8.3 L 8.6 L Hematocrit 25.2 L 25.6 L Mean Corpuscular 76.6 L 77.1 L Volume Mean Corpuscular 25.2 L 25.9 L Hemoglobin Mean Corpuscular 32.9 33.6 Hemoglobin Concent Red Cell 17.9 H 17.8 H Distribution Width Platelet Count 144 152 Mean Platelet 9.8 10.0 Volume Immature 1.300 H 1.200 H Granulocytes % Neutrophils % 70.7 66.6 Lymphocytes % 17.9 22.2 Monocytes % 8.9 8.8 Eosinophils % 0.9 0.8 Basophils % 0.3 0.4 Nucleated Red Blood 0.0 0.0 Cells % Immature 0.210 H 0.170 H Granulocytes # Neutrophils # 11.3 H 9.4 H Lymphocytes # 2.9 3.1 H Monocytes # 1.4 H 1.3 H Eosinophils # 0.2 0.1 Basophils # 0.0 0.1 Nucleated Red Blood 0.0 0.0 Cells # Sodium Level 140 144 Potassium Level 3.4 L 3.3 L Chloride Level 106 108 Carbon Dioxide 21 23 Level Anion Gap 13 13 Blood Urea Nitrogen 32 H 26 H Creatinine 3.39 H 2.89 H Est Glomerular 21 L 26 L Filtrat Rate mL/min Glucose Level 96 87 Calcium Level 8.2 L 8.3 L Magnesium Level 1.6 L 1.9 Thyroid Stimulating 3.170 Hormone (TSH) Troponin I < 0.012 < 0.012 < 0.012 Prothrombin Time 15.2 H Prothrombin Time 1.2 Ratio INR International 1.19 Normalized Ratio Phosphorus Level 4.7 Test 09/19/18 06:40 Lab Scanned Report BLOOD TRANSFUSION Consultation Date/Type/Reason Admit Date/Time Sep 17, 2018 at 05:02 Initial Consult Date 09/18/18 Type of Consult cardiology Reason for Consultation rahi Requesting Provider: EVELIA GIL Exam/Review of Systems Vital Signs Vitals Vital Signs Date Temp Pulse Resp B/P (MAP) Pulse Ox O2 O2 Flow FiO2 Time Delivery Rate 09/19/18 84 08:00 09/19/18 98.0 22 92/60 (71) 96 Room Air 07:31 Intake and Output 09/18/18 09/18/18 09/19/18 1515:00 23:00 07:00 IntakeIntake Total 965 ml 2675 ml 4550 ml OutputOutput Total 350 ml 2825 ml 2250 ml BalanceBalance 615 ml -150 ml 2300 ml Exam Review of Systems: CONSTITUTIONAL: No fevers, chills. PULMONARY: No sob CARDIOVASCULAR: No chest pain/palpitations GASTROINTESTINAL: No nausea/vomiting. GENITOURINARY: No hematuria/dysuria. MUSCULOSKELETAL: No myagias/arthalgias. PSYCHIATRIC: The patient denies depression. NEUROLOGIC: No weakness Constitutional: alert, oriented Psych: no complaints Head: normocephalic Neck: supple, jvd (9 cm water) Respiratory: diminished breath sounds (at bases/B) Cardiovascular: regular rate and rhythm Gastrointestinal: soft, non-tender Musculoskeletal: muscle tone (normal) Extremities: edema (none) Neurological: other (NO focal deficits) Medications Medications Current Medications IV Flush (NS 3 ml) 3 ml PER PROTOCOL IV ; Start 09/17/18 at 05:30 Ondansetron HCl (Zofran Tab) 4 mg Q6H PRN PO NAUSEA AND/OR VOMITING Last administered on 09/19/18at 00:21; Admin Dose 4 MG; Start 09/17/18 at 05:30 Acetaminophen (Tylenol Tab) 650 mg Q6H PRN PO PAIN LEVEL 1-3 OR FEVER Last administered on 09/17/18at 17:47; Admin Dose 650 MG; Start 09/17/18 at 05:30 Docusate Sodium (Colace) 100 mg Q12H PRN PO CONSTIPATION; Start 09/17/18 at 05:30 Bisacodyl (Dulcolax) 5 mg DAILY PRN PO CONSTIPATION; Start 09/17/18 at 05:30 Methadone HCl (Methadone) 20 mg Q12 PO Last administered on 09/19/18 09:11; Admin Dose 20 MG; Start 09/17/18 at 09:00 Potassium Chloride 30 meq/ Sodium Chloride 1,015 ml @ 50 mls/hr [id number] IV L ast administered on 09/19/18 05:37; Admin Dose 75 MLS/HR; Start 09/17/18 at 06:00 Ferric Sodium Gluconate Complex 125 mg/Sodium Chloride 100 ml @ 100 mls/hr DAILY@1300 IVPB Last administered on 09/18/18at 15:15; Admin Dose 100 MLS/HR; Start 09/18/18 at 13:00; Stop 09/20/18 at 13:59 Pantoprazole (Protonix Iv) 40 mg BID@06,18 IV Last administered on 09/19/18 05:35; Admin Dose 40 MG; Start 09/17/18 at 18:00 Metoprolol Tartrate (Lopressor) 25 mg BID PO Last administered on 09/19/18 09:10; Admin Dose 25 MG; Start 09/18/18 at 21:00 Metoprolol Tartrate (Lopressor) 5 mg Q4H PRN IV HR>110 Hold SBP<100; Start 09/18/18 at 14:00 Ampicillin Sodium/ Sulbactam Sodium 50 ml @ 100 mls/hr Q6 IVPB Last admi nistered on 09/19/18 05:34; Admin Dose 100 MLS/HR; Start 09/18/18 at 18:00 Doxycycline Hyclate 100 mg/ Sodium Chloride 250 ml @ 250 mls/hr Q12 IVPB Last administered on 09/19/18 09:12; Admin Dose 250 MLS/HR; Start 09/18/18 at 21:00 COLLIN HOANG Sep 19, 2018 11:29
--- NOTE | 2018-09-19 12:55 | CONS ---
Date/Time of Note Date/Time of Note DATE: 09/19/18 TIME: 12:52 Consult Date/Type/Reason Admit Date/Time Sep 17, 2018 at 05:02 Initial Consult Date 09/18/18 Type of Consultation: Urology Reason for Consultation Microscopic hematuria Requesting Provider: EVELIA GIL Subjective Patient states that he is voiding well, he denies any dysuria and no gross hematuria Objective Vital Signs Date Temp Pulse Resp B/P (MAP) Pulse Ox O2 O2 Flow FiO2 Time Delivery Rate 09/19/18 98.3 69 20 94/53 (67) 92 11:52 09/19/18 Room Air 07:31 Intake and Output 09/18/18 09/18/18 09/19/18 1515:00 23:00 07:00 IntakeIntake Total 965 ml 2675 ml 4550 ml OutputOutput Total 350 ml 2825 ml 2250 ml BalanceBalance 615 ml -150 ml 2300 ml Exam Abdomen is soft, there is no flank tenderness and the external genitalia are normal. Urine culture no growth . Urine cytology is pending Results/Medications Result Diagram: 09/19/18 0451 09/19/18 0451 Results 24 hrs Laboratory Tests Test 09/18/18 14:04 09/18/18 19:14 09/19/18 00:15 09/19/18 04:51 White Blood Count 15.9 H 14.1 H Red Blood Count 3.29 L 3.32 L Hemoglobin 8.3 L 8.6 L Hematocrit 25.2 L 25.6 L Mean Corpuscular 76.6 L 77.1 L Volume Mean Corpuscular 25.2 L 25.9 L Hemoglobin Mean Corpuscular 32.9 33.6 Hemoglobin Concent Red Cell 17.9 H 17.8 H Distribution Width Platelet Count 144 152 Mean Platelet 9.8 10.0 Volume Immature 1.300 H 1.200 H Granulocytes % Neutrophils % 70.7 66.6 Lymphocytes % 17.9 22.2 Monocytes % 8.9 8.8 Eosinophils % 0.9 0.8 Basophils % 0.3 0.4 Nucleated Red Blood 0.0 0.0 Cells % Immature 0.210 H 0.170 H Granulocytes # Neutrophils # 11.3 H 9.4 H Lymphocytes # 2.9 3.1 H Monocytes # 1.4 H 1.3 H Eosinophils # 0.2 0.1 Basophils # 0.0 0.1 Nucleated Red Blood 0.0 0.0 Cells # Sodium Level 140 144 Potassium Level 3.4 L 3.3 L Chloride Level 106 108 Carbon Dioxide 21 23 Level Anion Gap 13 13 Blood Urea Nitrogen 32 H 26 H Creatinine 3.39 H 2.89 H Est Glomerular 21 L 26 L Filtrat Rate mL/min Glucose Level 96 87 Calcium Level 8.2 L 8.3 L Magnesium Level 1.6 L 1.9 Thyroid Stimulating 3.170 Hormone (TSH) Troponin I < 0.012 < 0.012 < 0.012 Prothrombin Time 15.2 H Prothrombin Time 1.2 Ratio INR International 1.19 Normalized Ratio Phosphorus Level 4.7 Test 09/19/18 06:40 Lab Scanned Report BLOOD TRANSFUSION Medications Current Medications IV Flush (NS 3 ml) 3 ml PER PROTOCOL IV ; Start 09/17/18 at 05:30 Ondansetron HCl (Zofran Tab) 4 mg Q6H PRN PO NAUSEA AND/OR VOMITING Last administered on 09/19/18 00:21; Admin Dose 4 MG; Start 09/17/18 at 05:30 Acetaminophen (Tylenol Tab) 650 mg Q6H PRN PO PAIN LEVEL 1-3 OR FEVER Last administered on 09/17/18at 17:47; Admin Dose 650 MG; Start 09/17/18 at 05:30 Docusate Sodium (Colace) 100 mg Q12H PRN PO CONSTIPATION; Start 09/17/18 at 05:30 Bisacodyl (Dulcolax) 5 mg DAILY PRN PO CONSTIPATION; Start 09/17/18 at 05:30 Methadone HCl (Methadone) 20 mg Q12 PO Last administered on 09/19/18 09:11; Admin Dose 20 MG; Start 09/17/18 at 09:00 Potassium Chloride 30 meq/ Sodium Chloride 1,015 ml @ 50 mls/hr [id number] IV Last administered on 09/19/18 05:37; Admin Dose 75 MLS/HR; Start 09/17/18 at 06:00 Ferric Sodium Gluconate Complex 125 mg/Sodium Chloride 100 ml @ 100 mls/hr DAILY@1300 IVPB Last administered on 09/18/18 15:15; Admin Dose 100 MLS/HR; Start 09/18/18 at 13:00; Stop 09/20/18 at 13:59 Pantoprazole (Protonix Iv) 40 mg BID@06,18 IV Last administered on 09/19/18at 05:35; Admin Dose 40 MG; Start 09/17/18 at 18:00 Metoprolol Tartrate (Lopressor) 25 mg BID PO Last administered on 09/19/18at 09:10; Admin Dose 25 MG; Start 09/18/18 at 21:00 Metoprolol Tartrate (Lopressor) 5 mg Q4H PRN IV HR>110 Hold SBP<100; Start 09/18/18 at 14:00 Ampicillin Sodium/ Sulbactam Sodium 50 ml @ 100 mls/hr Q6 IVPB Last administered on 09/19/18at 05:34; Admin Dose 100 MLS/HR; Start 09/18/18 at 18:00 Doxycycline Hyclate 100 mg/ Sodium Chloride 250 ml @ 250 mls/hr Q12 IVPB Last administered on 09/19/18at 09:12; Admin Dose 250 MLS/HR; Start 09/18/18 at 21:00 Assessment/Plan Chief Complaint/Hosp Course 33-year-old male with a past medical history of IV drug use came to [facility] after leaving [place] from [facility]. Patient was admitted to [facility] recently and was diagnosed with sepsis, pneumonia and bacteremia possibly from a permacath. Patient was started vancomycin and Zosyn. Patient reported that he left the hospital AGAINST MEDICAL ADVICE as his pain was was not being properly treated according to him. Urology consultation was requested because of microscopic hematuria on his urine analysis. Patient states that he does have nocturia 1-2 times during the day he urinates 3 times, he has no urgency or urgency incontinence his urinary stream is strong and he feels he empties his bladder well. No prior history of gross hematuria. Urine cytology has been ordered and the result is pending. EFRAIN AMRLEY MD Sep 19, 2018 12:55
--- NOTE | 2018-09-19 13:10 | NUR ---
To GI lab for EGD/colonoscopy per stretcher in stble condition
[2018-09-19] MEDS ORDERED: LIDOCAINE 2% (SDV) 5 ML INJ ONE (13:28)
[2018-09-19] MEDS ORDERED: PROPOFOL 60 ML ONE (13:28)
[2018-09-19] MEDS ORDERED: VASOPRESSIN 20 UNITS INJ ONE (13:28)
[2018-09-19] MEDS ORDERED: FENTAnyl 50 MCG/ML VIAL ONE (13:30)
--- NOTE | 2018-09-19 14:03 | HPN ---
Date/Time of Note Date/Time of Note DATE: 09/19/18 TIME: 14:03 Interval H&P Admission Note Pt. seen H&P reviewed: No system changes CHARISSE NICHOLS Sep 19, 2018 14:03
--- NOTE | 2018-09-19 14:19 | NUR ---
RECEIVED AWAKE AND ALERT, DENIES PAIN. ABDOMEN SOFT.
--- NOTE | 2018-09-19 14:26 | CONS ---
Date/Time of Note Date/Time of Note DATE: 09/19/18 TIME: 14:25 Assessment/Plan Assessment/Plan Hospital Course Alert feels good looks comfortable, no fevers WBC 14.1 H&H 8.6 and 25.6 platelets 152 neutrophils 66.6 BUN 26 creatinine 2.89 Microbiology: All cultures negative Chest x-ray this morning revealed bibasilar pulmonary infiltrates consistent with history of pneumonia, slightly improved small pleural effusions Antimicrobials: Doxycycline Unasyn, status post Vanco Zosyn Physical examination: Well-developed well-nourished middle-aged white man who is alert in no distress. Head atraumatic normocephalic sclera nonicteric. Neck is supple chest rise symmetrical breath sounds diminished bases. Heart: S1-S2 abdomen soft bowel sounds present extremities without cyanosis left lower extremity dressing clean dry and intact Assessment: 1. Resolving sepsis 2. Resolving pneumonia 3. Streptococcal bacteremia on September 14, 2018 with repeat cultures negative 4. Chronic left lower extremity wound status post multiple I&D 5. Acute on chronic kidney disease status post hemodialysis, line was removed recently 6. IV drug abuse and medical noncompliance 7. Acute on chronic anemia Plan: Patient is stable, blood cultures since September 17 negative, continue present care and antibiotics, pending EGD and colonoscopy today Result Diagram: 09/19/18 0451 09/19/18 0451 Results 24hrs Laboratory Tests Test 09/18/18 19:14 09/19/18 00:15 09/19/18 04:51 09/19/18 06:40 Troponin I < 0.012 < 0.012 < 0.012 White Blood Count 14.1 H Red Blood Count 3.32 L Hemoglobin 8.6 L Hematocrit 25.6 L Mean Corpuscular 77.1 L Volume Mean Corpuscular 25.9 L Hemoglobin Mean Corpuscular 33.6 Hemoglobin Concent Red Cell 17.8 H Distribution Width Platelet Count 152 Mean Platelet 10.0 Volume Immature 1.200 H Granulocytes % Neutrophils % 66.6 Lymphocytes % 22.2 Monocytes % 8.8 Eosinophils % 0.8 Basophils % 0.4 Nucleated Red Blood 0.0 Cells % Immature 0.170 H Granulocytes # Neutrophils # 9.4 H Lymphocytes # 3.1 H Monocytes # 1.3 H Eosinophils # 0.1 Basophils # 0.1 Nucleated Red Blood 0.0 Cells # Prothrombin Time 15.2 H Prothrombin Time 1.2 Ratio INR International 1.19 Normalized Ratio Sodium Level 144 Potassium Level 3.3 L Chloride Level 108 Carbon Dioxide 23 Level Anion Gap 13 Blood Urea Nitrogen 26 H Creatinine 2.89 H Est Glomerular 26 L Filtrat Rate mL/min Glucose Level 87 Calcium Level 8.3 L Phosphorus Level 4.7 Magnesium Level 1.9 Lab Scanned Report BLOOD TRANSFUSION Consultation Date/Type/Reason Admit Date/Time Sep 17, 2018 at 05:02 Initial Consult Date 09/18/18 Type of Consult id Requesting Provider: EVELIA GIL Exam/Review of Systems Vital Signs Vitals Vital Signs Date Temp Pulse Resp B/P (MAP) Pulse Ox O2 O2 Flow FiO2 Time Delivery Rate 09/19/18 98.6 77 12 95/53 (67) 96 Room Air 13:32 Intake and Output 09/18/18 09/18/18 09/19/18 1515:00 23:00 07:00 IntakeIntake Total 965 ml 2675 ml 4550 ml OutputOutput Total 350 ml 2825 ml 2250 ml BalanceBalance 615 ml -150 ml 2300 ml Medications Medications Current Medications IV Flush (NS 3 ml) 3 ml PER PROTOCOL IV ; Start 09/17/18 at 05:30 Ondansetron HCl (Zofran Tab) 4 mg Q6H PRN PO NAUSEA AND/OR VOMITING Last administered on 09/19/18 00:21; Admin Dose 4 MG; Start 09/17/18 at 05:30 Acetaminophen (Tylenol Tab) 650 mg Q6H PRN PO PAIN LEVEL 1-3 OR FEVER Last administered on 09/17/18at 17:47; Admin Dose 650 MG; Start 09/17/18 at 05:30 Docusate Sodium (Colace) 100 mg Q12H PRN PO CONSTIPATION; Start 09/17/18 at 05:30 Bisacodyl (Dulcolax) 5 mg DAILY PRN PO CONSTIPATION; Start 09/17/18 at 05:30 Methadone HCl (Methadone) 20 mg Q12 PO Last administered on 09/19/18 09:11; Adm in Dose 20 MG; Start 09/17/18 at 09:00 Potassium Chloride 30 meq/ Sodium Chloride 1,015 ml @ 50 mls/hr [id number] IV Last administered on 09/19/18 05:37; Admin Dose 75 MLS/HR; Start 09/17/18 at 06:00 Ferric Sodium Gluconate Complex 125 mg/Sodium Chloride 100 ml @ 100 mls/hr DAILY@1300 IVPB Last administered on 09/18/18at 15:15; Admin Dose 100 MLS/HR; Start 09/18/18 at 13:00; Stop 09/20/18 at 13:59 Pantoprazole (Protonix Iv) 40 mg BID@06,18 IV Last administered on 09/19/18at 05:35; Admin Dose 40 MG; Start 09/17/18 at 18:00 Metoprolol Tartrate (Lopressor) 25 mg BID PO Last administered on 09/19/18at 09:10; Admin Dose 25 MG; Start 09/18/18 at 21:00 Metoprolol Tartrate (Lopressor) 5 mg Q4H PRN IV HR>110 Hold SBP<100; Start 09/18/18 at 14:00 Ampicillin Sodium/ Sulbactam Sodium 50 ml @ 100 mls/hr Q6 IVPB Last administered on 09/19/18at 05:34; Admin Dose 100 MLS/HR; Start 09/18/18 at 18:00 Doxycycline Hyclate 100 mg/ Sodium Chloride 250 ml @ 250 mls/hr Q12 IVPB Last administered on 09/19/18at 09:12; Admin Dose 250 MLS/HR; Start 09/18/18 at 21:00 Hydromorphone HCl (Dilaudid) 0.2 mg PACU PRN IV MILD PAIN LEVEL 1-3; Start 09/19/18 at 14:30; Status UNV Hydromorphone HCl (Dilaudid) 0.4 mg PACU PRN IV MODERATE PAIN LEVEL 4-6; Start 09/19/18 at 14:30; Status UNV Fentanyl (Sublimaze) 25 mcg PACU ORDER PRN IV MILD PAIN LEVEL 1-3; Start 09/19/18 at 14:30; Status UNV Fentanyl (Sublimaze) 50 mcg PACU ORDER PRN IV MODERATE PAIN LEVEL 4-6; Start 09/19/18 at 14:30; Status UNV Oxycodone/ Acetaminophen (Percocet (5/ 325)) 1 tab PACU ORDER PRN PO PAIN LEVEL 1-5; Start 09/19/18 at 14:30; Status UNV Oxycodone/ Acetaminophen (Percocet (5/ 325)) 2 tab PACU ORDER PRN PO PAIN LEVEL 6-10; Start 09/19/18 at 14:30; Status UNV Ondansetron HCl (Zofran Inj) 4 mg PACU ORDER PRN IV NAUSEA AND/OR VOMITING; Start 09/19/18 at 14:30; Status UNV Ephedrine Sulfate 5 mg PACU ORDER PRN IV BLOOD PRESSURE SUPPORT; Start 09/19/18 at 14:30; Status UNV Albuterol (Proventil 0.083% (Neb)) 2.5 mg PACU ORDER PRN HHN WHEEZING; Start 09/19/18 at 14:30; Status UNV Meperidine HCl (Demerol) 25 mg PACU ORDER PRN IV POST OPERATIVE SHIVERING; Start 09/19/18 at 14:30; Status UNV Diphenhydramine HCl (Benadryl) 25 mg PACU ORDER PRN IV PRURITUS; Start 09/19/18 at 14:30; Status UNV JOSEE LIAS CASTILLO NP Sep 19, 2018 14:26
[2018-09-19] MEDS ORDERED: MEPERIDINE 25 MG INJ IV PRN (14:30)
[2018-09-19] MEDS ORDERED: FENTAnyl 50 MCG/ML VIAL IV PRN ×2 (14:30)
[2018-09-19] MEDS ORDERED: ALBUTEROL 0.083% (NEB) 2.5 MG/3 ML AMP HHN PRN (14:30)
[2018-09-19] MEDS ORDERED: OXYCODONE/ACETAMINOPHEN (5/325) TAB PO PRN ×2 (14:30)
[2018-09-19] MEDS ORDERED: EPHEDrine SULFATE 50 MG/5 ML SYG IV PRN (14:30)
[2018-09-19] MEDS ORDERED: ONDANSETRON 4 MG INJ IV PRN (14:30)
[2018-09-19] MEDS ORDERED: HYDROmorphONE 1 MG/5 ML IV SYRINGE IV PRN ×2 (14:30)
[2018-09-19] MEDS ORDERED: DIPHENHYDRAMINE 50 MG INJ IV PRN (14:30)
--- NOTE | 2018-09-19 14:33 | NUR ---
AWAKE AND ALERT, TOOK SIPS OF WATER, TOLERATED WELL. DENIES PAIN.
--- NOTE | 2018-09-19 15:07 | NUR ---
STABLE, COMFORTABLE. REPORT TO VERONICA HAN. WAITING FOR DOCTOR OF NURSING PRACTICE TO TRANSFER BACK TO ROOM.
--- NOTE | 2018-09-19 15:15 | NUR ---
Returned from GI lab, alert and fully awake, Renal diet given
--- NOTE | 2018-09-19 15:18 | NUR ---
STABLE, FULLY AWAKE AND ALERT. TRANSFERRED TO ROOM 614 A, ON TELEMETRY CONFIRMED WITH TECH.
[2018-09-19] MEDS: PANTOPRAZOLE (EC) 40 MG TAB PO SCH (17:32)
[2018-09-19] MEDS: SOD FERRIC GLUC COMPLX 125 MG in SOD CHLORIDE 0.9% 100 ML IVPB SCH (18:01)
[2018-09-20] VITALS (13 sets, daily range): BP systolic 92–102; BP diastolic 51–59; PULSE 63–100; RESP 17–20
[2018-09-20] MEDS: POTASSIUM CHLORIDE 30 MEQ in SOD CHLORIDE 0.9% 1,000 ML IV SCH (04:14)
--- NOTE | 2018-09-20 05:26 | NUR ---
eoss; pt is resting comfortably no apparent distress.ivf infusing well.telemetry sr 80 .awaiting labs this am will continue to monitor.needs attended to.
[2018-09-20] MEDS: PANTOPRAZOLE (EC) 40 MG TAB PO SCH ×2 (05:49→17:15)
[2018-09-20] MEDS: AMPICILLIN/SULB 1.5GM/NS (PMX) 50 ML IVPB SCH ×3 (05:49→17:15)
[2018-09-20] MEDS ORDERED: POTASSIUM CHLORIDE (SR) 20 MEQ TAB PO STA (07:37)
[2018-09-20] MEDS: METOPROLOL 25 MG TAB PO SCH ×2 (07:56→21:00)
[2018-09-20] MEDS: METHADONE 10 MG TAB PO SCH ×2 (08:15→21:49)
--- NOTE | 2018-09-20 08:29 | PN ---
DATE: 09/20/2018 SUBJECTIVE: The patient had EGD and colonoscopy which showed evidence of gastritis. No other events noted. No hemoptysis, hematemesis or hematochezia. OBJECTIVE: VITAL SIGNS: Blood pressure is 95/53, respiration 18, pulse 74, temperature 99.1. HEENT: Head is normocephalic. NECK: Supple. HEART: Regular rate. LUNGS: Show diminished breath sounds at the base. ABDOMEN: Soft, nontender to palpation without rebound or guarding. EXTREMITIES: Negative for clubbing, cyanosis, no edema. DERMATOLOGIC: No rashes. MUSCULOSKELETAL: No joint effusion. NEUROLOGIC: No change in exam. MEDICATIONS: Reviewed. LABORATORY DATA: Shows sodium 142, potassium 2.3, BUN 19, creatinine 2.22, calcium 7.9, magnesium 1. 4. White count 11.9, hemoglobin 7.7, platelet count is 174. ASSESSMENT AND PLAN: 1. Nonoliguric acute kidney injury on top of chronic kidney disease with unknown baseline creatinine . Etiology of acute kidney injury secondary to hemodynamics. The patient was previously on hemodial ysis, has been off dialysis for over 1 month. Patient's renal functions currently improved with IV h ydration. We will continue current treatment plan. Continue gentle IV hydration. Continue supporti ve care, renally dose meds, avoid nephrotoxins. 2. Hypokalemia and hypomagnesemia. Will replete. Continue to monitor. 3. Anemia. The patient is status post EGD with evidence of gastritis. Continue to monitor hemoglob in and hematocrit levels. Continue proton pump inhibitor. Patient is status post blood transfusion. Monitor closely. 4. Mineral bone disorder, monitor calcium and phosphorus levels. 5. Sepsis secondary to pneumonia. Continue current antibiotic regimen. 6. History of hepatitis C. Continue medical management. 7. History of polysubstance abuse. 8. Episode of hematuria. Continue to monitor. We will follow up with urology. 9. Lower extremity wounds. Continue wound care. 10. Episodes of arrhythmia. Continue to monitor. Dictated By: KHANH AGUILAR DO NR/NTS Conf#: [id number] DID#: [id number] CC: EVELIA GIL MD; EFRAIN MARLEY MD;*End*
[2018-09-20] MEDS ORDERED: SOD CHLORIDE 0.9% 250 ML IV* ONE (08:40)
--- NOTE | 2018-09-20 08:50 | PN ---
Date/Time of Note Date/Time of Note DATE: 09/20/18 TIME: 08:46 Assessment/Plan VTE Prophylaxis Risk score (from Nsg)>0 risk: 3 SCD applied (from Nsg): Yes Pharmacological prophylaxis: NA/contraindicated Pharm contraindication: low risk/ambulating Lines/Catheters IV Catheter Type (from Nrsg): Mid Line Urinary Cath still in place: No Assessment/Plan Hospital Course SUBJECTIVE:s/p EGD.No acute distress. OBJECTIVE: Vital signs-see below PHYSICAL EXAM: Constitutional: Well-developed, adequately built, sleeping in no acute distress. Psych: Does not interact much with lack of interest in converse. Nl mood/affect, no complaints Head: atraumatic, normocephalic Eyes: nl conjunctiva, nl sclera ENMT: mucosa pink and moist, nl external ears & nose Neck: non-tender, supple Respiratory: clear to auscultation, normal air movement Cardiovascular: nl pulses, regular rate and rhythm Gastrointestinal: non-tender, soft, bowel sounds active in all 4 quadrants. Musculoskeletal/extremities: nl extremities to inspection, motor strength equal bilaterally, no focal deficit. Normal pulses,no cyanosis, no edema. Neurological: Alert oriented 3,nl speech, nl strength Skin: Ulcers on left lateral lower leg secondary to IV drug use. Nl turgor ASSESSMENT/PLAN:33-year-old male with history of IV drug abuse, alcoholism, CKD- Off HD 1 month ago, who was recently admitted at [facility] where he was treated for sepsis thought to be secondary to pneumonia and possible line infection with removal of line and iv abx treatment, went home AGAINST MEDICAL A DVICE, presented to [facility] with ongoing fever, chills and cough found to have unresolved pneumonia and sepsis. 1. Sepsis, multifactorial with unresolved pneumonia/skin ulcers from IVDU. -Resolved. -Antibiotics per ID-consider de-escalation to p.o. for discharge planning. 2. Healthcare associated pneumonia. -w/clinical and diagnostic evidence of improvement. -Again, antimicrobials per ID 3. Anemia w/iron deficiency/CKD -today HH dropped-tx 1 PRBC -give 1 dose epogen -cont.iron -monitor 4. Non-sustained single episode wide-complex tachycardia, most likely aberrant SVT -now stable -cont.BB -Monitor lites and replete as needed. 5. Substance abuse/IV drug abuse history. -Toxicology positive for opiates and amphetamines. -Recent echocardiogram in May 2018 with no evidence of vegetation. 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 -Cessation advised. 6. Acute kidney injury on CKD. -Has been off hemodialysis for about a month ago. -Nephrology following, continue to monitor renal function closely. Avoid nephrotoxins and renally dose all medicines. 7. History of hepatitis C. -Recommend outpatient follow-up. 8.Gastric ulcers -s/p EGD/Colonoscopy 09/19 -cont.PPI/Carafate DVT prophylaxis: SCDs PUD prophylaxis: Protonix CODE STATUS: Full code Diet: Renal diet. Disposition: Overall, patient did well. No leukocytosis, no fevers. We will transfuse 1 more PRBC to improve hemoglobin. Continue current medical management and anticipate discharge in a.m. on p.o. antibiotics. Discontinue PICC line on discharge. Patient was seen in collaboration with Dr. GREENBERG Result Diagram: 09/20/18 0518 09/20/18 0518 Results 24hrs Laboratory Tests Test 09/20/18 05:18 White Blood Count 11.9 H Red Blood Count 3.00 L Hemoglobin 7.7 L Hematocrit 24.0 L Mean Corpuscular Volume 80.0 L Mean Corpuscular Hemoglobin 25.7 L Mean Corpuscular Hemoglobin Concent 32.1 Red Cell Distribution Width 18.0 H Platelet Count 174 Mean Platelet Volume 9.9 Immature Granulocytes % 0.800 H Neutrophils % 58.3 Lymphocytes % 29.3 Monocytes % 9.4 Eosinophils % 1.8 Basophils % 0.4 Nucleated Red Blood Cells % 0.0 Immature Granulocytes # 0.100 H Neutrophils # 6.9 Lymphocytes # 3.5 H Monocytes # 1.1 H Eosinophils # 0.2 Basophils # 0.1 Nucleated Red Blood Cells # 0.0 Sodium Level 142 Potassium Level 3.3 L Chloride Level 109 Carbon Dioxide Level 22 Anion Gap 11 Blood Urea Nitrogen 19 Creatinine 2.22 H Est Glomerular Filtrat Rate mL/min 35 L Glucose Level 83 Calcium Level 7.9 L Phosphorus Level 4.2 Magnesium Level 1.4 L Exam/Review of Systems Vital Signs Vitals Vital Signs Date Temp Pulse Resp B/P (MAP) Pulse Ox O2 O2 Flow FiO2 Time Delivery Rate 09/20/18 99.1 74 18 95/53 (67) 95 Room Air 07:20 Intake and Output 09/19/18 09/19/18 09/20/18 1515:00 23:00 07:00 IntakeIntake Total 370 ml 1150 ml 1450 ml OutputOutput Total 550 ml 1700 ml 3500 ml BalanceBalance -180 ml -550 ml -2050 ml Medications Medications Current Medications IV Flush (NS 3 ml) 3 ml PER PROTOCOL IV ; Start 09/17/18 at 05:30 Ondansetron HCl (Zofran Tab) 4 mg Q6H PRN PO NAUSEA AND/OR VOMITING Last administered on 09/19/18 00:21; Admin Dose 4 MG; Start 09/17/18 at 05:30 Acetaminophen (Tylenol Tab) 650 mg Q6H PRN PO PAIN LEVEL 1-3 OR FEVER Last administered on 09/17/18at 17:47; Admin Dose 650 MG; Start 09/17/18 at 05:30 Docusate Sodium (Colace) 100 mg Q12H PRN PO CONSTIPATION; Start 09/17/18 at 05:30 Bisacodyl (Dulcolax) 5 mg DAILY PRN PO CONSTIPATION; Start 09/17/18 at 05:30 Methadone HCl (Methadone) 20 mg Q12 PO Last administered on 09/20/18 08:15; Admin Dose 20 MG; Start 09/17/18 at 09:00 Potassium Chloride 30 meq/ Sodium Chloride 1,015 ml @ 20 mls/hr Q24H IV Last administered on 09/20/18 04:14; Admin Dose 50 MLS/HR; Start 09/17/18 at 06:00 Ferric Sodium Gluconate Complex 125 mg/Sodium Chloride 100 ml @ 100 mls/hr DAILY@1300 IVPB Last administered on 09/19/18 18:01; Admin Dose 100 MLS/HR; Start 09/18/18 at 13:00; Stop 09/20/18 at 13:59 Metoprolol Tartrate (Lopressor) 25 mg BID PO Last administered on 09/19/18 09:10; Admin Dose 25 MG; Start 09/18/18 at 21:00 Metoprolol Tartrate (Lopressor) 5 mg Q4H PRN IV HR>110 Hold SBP<100; Start 09/18/18 at 14:00 Ampicillin Sodium/ Sulbactam Sodium 50 ml @ 100 mls/hr Q6 IVPB Last administered on 09/20/18at 05:49; Admin Dose 100 MLS/HR; Start 09/18/18 at 18:00 Doxycycline Hyclate 100 mg/ Sodium Chloride 250 ml @ 250 mls/hr Q12 IVPB Last administered on 09/19/18at 21:44; Admin Dose 250 MLS/HR; Start 09/18/18 at 21:00 Pantoprazole (Protonix Tab) 40 mg BID@0600,1800 PO Last administered on 09/20/18at 05:49; Admin Dose 40 MG; Start 09/19/18 at 18:00 Magnesium Sulfate 50 ml @ 25 mls/hr ONCE ONCE IVPB ; Start 09/20/18 at 09:00; Stop 09/20/18 at 10:59 SURAJ AIKEN NP Sep 20, 2018 08:50
[2018-09-20] MEDS: DOXYCYCLINE 100 MG in SOD CHLORIDE 0.9% 250 ML IVPB SCH ×2 (08:51→21:48)
[2018-09-20] MEDS ORDERED: MAGNESIUM SULFATE 2 GM/50 ML 50 ML IVPB ONE ×2 (09:00→11:30)
[2018-09-20] MEDS: SUCRALFATE (100 MG/ML) 10ML CUP PO SCH ×4 (09:59→21:49)
[2018-09-20] MEDS ORDERED: EPOETIN ALFA (NESRD) 3,000 UNITS/ML VIAL SC SCH (10:00)
--- NOTE | 2018-09-20 10:52 | NUR ---
WOUND CONSULT: 33 year old male admitted with pneumonia per record. History of IV drug use per medical history. Patient awake, alert, oriented. WBC 11.9. H&H 7.7/24. Albumin 2.5. Dietitian on case. BUN/Cr 2.22/35. ASSESSMENT/RECOMMENDATIONS: - Left lateral lower extremity venous ulcer. Full thickness wound with red wound bed and dry blood. 8cmx3.5cmx0.3cm. Periwound intact. Moderate serosanguineous drainage. No odor. Cleans with normal saline. Cover with Silver Alginate (Melgisorb) dressing. Then, cover with dry dressing. Change daily. Encourage frequent reposition. Assessed patient with RNYrn. RN to obtain wound care recommendation from . Skyla Briscoe BSN RN CWOCN
--- NOTE | 2018-09-20 12:51 | PN ---
Date/Time of Note Date/Time of Note DATE: 09/20/18 TIME: 12:47 Assessment/Plan VTE Prophylaxis Risk score (from Nsg)>0 risk: 5 SCD applied (from Nsg): Yes Pharmacological prophylaxis: other (scds) Lines/Catheters IV Catheter Type (from Nrsg): Mid Line Urinary Cath still in place: No Assessment/Plan Hospital Course Summary Assessment and Plan: Assessment: Severe microcytic anemia EGD 09/19/18 Multiple shallow gastric ulcers/erosions Colonoscopy 09/19/18 Suboptimal preparation, incomplete colonoscopy due to poor prep Anemia does not appear to be from colonic source Can repeat colonoscopy as an outpatient, if anemia persists with better prep MIGUEL A on CKD- -pt was previously on HD x1 week and recently had perm-a-cath removed Sepsis- 10/20 to PNA vs line PNA- ABX per ID Thrombocytopenia- resolved History of Hep C- has not been treated History of IV drug use ETOH abuse Plan: PPI 5 twice daily times 2 months Carafate 1 g 4 times daily times 1 month Repeat EGD in 4-6 weeks to verify ulcer healing Alcohol cessation ABX per ID D/c planning per hospitalist Patient seen in collaboration with Dr. Nunez Subjective/Free text: Course reviewed with nursing staff Patient interviewed and examined All labs, imaging and other results reviewed The patient resting in bed, 1 point drop in HGB, 1 unit PRBCs ordered Discussed results of EGD/colonoscopy Pt to f/u as an out-pt for repeat endoscopies and treatment of Hep C Rehab was offered, patient refused PHYSICAL EXAMINATION: GENERAL: Alert & oriented x 3 SKIN: Wound LLE HEAD: Normocephalic, atraumatic, no tenderness. EYES: Pupils equal reactive to light, no discharge. EARS/NOSE AND THROAT: Ears normal, nose normal NECK: Supple, no masses CHEST: Inspection within normal limits. CARDIOVASCULAR: Heart: Regular rate and rhythm RESPIRATORY: Lungs clear to auscultation GASTROINTESTINAL AND LIVER: Abdomen: Soft, non tenderness, non-distended, no hernias, no masses, no organomegaly, no ascites, no guarding, no rebound tenderness, normoactive bowel sounds. Rectal: Deferred. GENITOURINARY: Male genitalia within normal limits. EXTREMITIES: Edema BUE Result Diagram: 09/20/1818 09/20/1818 Results 24hrs Laboratory Tests Test 09/20/18 05:18 White Blood Count 11.9 H Red Blood Count 3.00 L Hemoglobin 7.7 L Hematocrit 24.0 L Mean Corpuscular Volume 80.0 L Mean Corpuscular Hemoglobin 25.7 L Mean Corpuscular Hemoglobin Concent 32.1 Red Cell Distribution Width 18.0 H Platelet Count 174 Mean Platelet Volume 9.9 Immature Granulocytes % 0.800 H Neutrophils % 58.3 Lymphocytes % 29.3 Monocytes % 9.4 Eosinophils % 1.8 Basophils % 0.4 Nucleated Red Blood Cells % 0.0 Immature Granulocytes # 0.100 H Neutrophils # 6.9 Lymphocytes # 3.5 H Monocytes # 1.1 H Eosinophils # 0.2 Basophils # 0.1 Nucleated Red Blood Cells # 0.0 Sodium Level 142 Potassium Level 3.3 L Chloride Level 109 Carbon Dioxide Level 22 Anion Gap 11 Blood Urea Nitrogen 19 Creatinine 2.22 H Est Glomerular Filtrat Rate mL/min 35 L Glucose Level 83 Calcium Level 7.9 L Phosphorus Level 4.2 Magnesium Level 1.4 L Exam/Review of Systems Vital Signs Vitals Vital Signs Date Temp Pulse Resp B/P (MAP) Pulse Ox O2 O2 Flow FiO2 Time Delivery Rate 09/20/18 86 12:01 09/20/18 98.1 18 92/51 (65) 95 Room Air 11:05 Intake and Output 09/19/18 09/19/18 09/20/18 1515:00 23:00 07:00 IntakeIntake Total 370 ml 1150 ml 1450 ml OutputOutput Total 550 ml 1700 ml 3500 ml BalanceBalance -180 ml -550 ml -2050 ml Medications Medications Current Medications IV Flush (NS 3 ml) 3 ml PER PROTOCOL IV ; Start 09/17/18 at 05:30 Ondansetron HCl (Zofran Tab) 4 mg Q6H PRN PO NAUSEA AND/OR VOMITING Last administered on 09/19/18at 00:21; Admin Dose 4 MG; Start 09/17/18 at 05:30 Acetaminophen (Tylenol Tab) 650 mg Q6H PRN PO PAIN LEVEL 1-3 OR FEVER Last administered on 09/17/18at 17:47; Admin Dose 650 MG; Start 09/17/18 at 05:30 Docusate Sodium (Colace) 100 mg Q12H PRN PO CONSTIPATION; Start 09/17/18 at 05 :30 Bisacodyl (Dulcolax) 5 mg DAILY PRN PO CONSTIPATION; Start 09/17/18 at 05:30 Methadone HCl (Methadone) 20 mg Q12 PO Last administered on 09/20/18 08:15; Admin Dose 20 MG; Start 09/17/18 at 09:00 Potassium Chloride 30 meq/ Sodium Chloride 1,015 ml @ 20 mls/hr Q24H IV Last administered on 09/20/18 04:14; Admin Dose 50 MLS/HR; Start 09/17/18 at 06:00 Ferric Sodium Gluconate Complex 125 mg/Sodium Chloride 100 ml @ 100 mls/hr DAILY@1300 IVPB Last administered on 09/19/18 18:01; Admin Dose 100 MLS/HR; Start 09/18/18 at 13:00; Stop 09/20/18 at 13:59 Metoprolol Tartrate (Lopressor) 25 mg BID PO Last administered on 09/19/18 09:10; Admin Dose 25 MG; Start 09/18/18 at 21:00 Metoprolol Tartrate (Lopressor) 5 mg Q4H PRN IV HR>110 Hold SBP<100; Start 09/18/18 at 14:00 Ampicillin Sodium/ Sulbactam Sodium 50 ml @ 100 mls/hr Q6 IVPB Last administered on 09/20/18 11:04; Admin Dose 100 MLS/HR; Start 09/18/18 at 18:00 Doxycycline Hyclate 100 mg/ Sodium Chloride 250 ml @ 250 mls/hr Q12 IVPB Last administered on 09/20/18 08:51; Admin Dose 250 MLS/HR; Start 09/18/18 at 21:00 Pantoprazole (Protonix Tab) 40 mg BID@0600,1800 PO Last administered on 09/20/18 05:49; Admin Dose 40 MG; Start 09/19/18 at 18:00 Sucralfate (Carafate Susp) 1 gm QID PO Last administered on 09/20/18 12:32; Admin Dose 1 GM; Start 09/20/18 at 09:00 Epoetin Aj (Epogen (Neserd)) 3,000 units ONCE SC Last administered on 09/20/18 11:04; Admin Dose 3,000 UNITS; Start 09/20/18 at 10:00; Stop 09/20/18 at 23:59 Magnesium Sulfate 50 ml @ 25 mls/hr ONCE ONCE IVPB ; Start 09/20/18 at 11:30; Stop 09/20/18 at 13:29 TITI MCCONNELL Sep 20, 2018 12:51
--- NOTE | 2018-09-20 15:41 | NUR ---
pr refused midline dressing changed. explained risks and benefits. will try again anf if cont to refuse, will endorse
--- NOTE | 2018-09-20 15:51 | NUR ---
SW: IV DRUG USE SW met with this 33-year-old Sudanese speaking male at bedside regarding IV drug abuse. Robin states he lives with a friend at [address] [place] [address]. States he is unemployed and receives [employer] benefits. Denies having an AHCD, and he verbally designated his mother Babs Sahu ([phone]) as his surrogate medical spokesperson. States he sees his PMD regularly at the [facility]. States he is single and does not have any children. MH: Patient denies having any history of anxiety, depression or mental illness. Denies any past/ present thoughts ideations or plans of suicide/ homicide. Substance use: Patient states he uses heroin daily, a "couple times a day." States that he does not remember when he started using heroin. States that he has quit using heroin about 1 year ago and was on methadone, but states that he relapsed and started using heroin again. Patient states he does not want to talk about it, and declined to provide any information on reason for his relapse. SW offered resources for outpatient psychotherapy, which were declined by patient. SW offered patient with resources for outpatient and residential drug treatment programs, detox centers and methadone clinics, however patient declined all resources. Patient states that he plans to quit using heroin again and plans to go back to the methadone clinic he was going to, and states it is located on [facility]. Patient denies any other drug or substance use. Patient denies any questions/ concerns at this time. Patient declined any/ all substance abuse treatment programs at this time. Patient aware that SW continues to remain available as needed throughout his treatment process.
[2018-09-20] MEDS: SOD FERRIC GLUC COMPLX 125 MG in SOD CHLORIDE 0.9% 100 ML IVPB SCH (15:55)
--- NOTE | 2018-09-20 16:25 | CONS ---
Date/Time of Note Date/Time of Note DATE: 09/20/18 TIME: 16:24 Assessment/Plan Assessment/Plan Hospital Course Alert feels good, no fevers Microbiology: All cultures negative. Blood culture on September 14 grew strep Chest x-ray this morning revealed bibasilar pulmonary infiltrates consistent with history of pneumonia, slightly improved small pleural effusions Antimicrobials: Doxycycline Unasyn, status post Vanco Zosyn Physical examination: Well-developed well-nourished middle-aged white man who is alert in no distress. Head atraumatic normocephalic sclera nonicteric. Neck is supple chest rise symmetrical breath sounds diminished bases. Heart: S1-S2 abdomen soft bowel sounds present extremities without cyanosis left lower extremity dressing clean dry and intact Assessment: 1. Resolving sepsis 2. Resolving pneumonia 3. Streptococcal bacteremia on September 14, 2018 with repeat cultures negative 4. Chronic left lower extremity wound status post multiple I&D 5. Acute on chronic kidney disease status post hemodialysis, line was removed recently 6. IV drug abuse and medical noncompliance 7. Acute on chronic anemia Plan: Patient is stable, blood cultures since September 15 negative, patient will require to complete 2 weeks antibiotics for bacteremia, anticipate dc on oral Ampicillin and Levaquin for 7 more days Result Diagram: 09/20/18 0518 09/20/18 0518 Results 24hrs Laboratory Tests Test 09/20/18 05:18 White Blood Count 11.9 H Red Blood Count 3.00 L Hemoglobin 7.7 L Hematocrit 24.0 L Mean Corpuscular Volume 80.0 L Mean Corpuscular Hemoglobin 25.7 L Mean Corpuscular Hemoglobin Concent 32.1 Red Cell Distribution Width 18.0 H Platelet Count 174 Mean Platelet Volume 9.9 Immature Granulocytes % 0.800 H Neutrophils % 58.3 Lymphocytes % 29.3 Monocytes % 9.4 Eosinophils % 1.8 Basophils % 0.4 Nucleated Red Blood Cells % 0.0 Immature Granulocytes # 0.100 H Neutrophils # 6.9 Lymphocytes # 3.5 H Monocytes # 1.1 H Eosinophils # 0.2 Basophils # 0.1 Nucleated Red Blood Cells # 0.0 Sodium Level 142 Potassium Level 3.3 L Chloride Level 109 Carbon Dioxide Level 22 Anion Gap 11 Blood Urea Nitrogen 19 Creatinine 2.22 H Est Glomerular Filtrat Rate mL/min 35 L Glucose Level 83 Calcium Level 7.9 L Phosphorus Level 4.2 Magnesium Level 1.4 L Consultation Date/Type/Reason Admit Date/Time Sep 17, 2018 at 05:02 Initial Consult Date 09/18/18 Type of Consult id Requesting Provider: EVELIA GIL Exam/Review of Systems Vital Signs Vitals Vital Signs Date Temp Pulse Resp B/P (MAP) Pulse Ox O2 O2 Flow FiO2 Time Delivery Rate 09/20/18 98.5 75 18 95/55 (68) 96 Room Air 15:10 Intake and Output 09/19/18 09/19/18 09/20/18 1515:00 23:00 07:00 IntakeIntake Total 370 ml 1150 ml 1450 ml OutputOutput Total 550 ml 1700 ml 3500 ml BalanceBalance -180 ml -550 ml -2050 ml Medications Medications Current Medications IV Flush (NS 3 ml) 3 ml PER PROTOCOL IV ; Start 09/17/18 at 05:30 Ondansetron HCl (Zofran Tab) 4 mg Q6H PRN PO NAUSEA AND/OR VOMITING Last administered on 09/19/18at 00:21; Admin Dose 4 MG; Start 09/17/18 at 05:30 Acetaminophen (Tylenol Tab) 650 mg Q6H PRN PO PAIN LEVEL 1-3 OR FEVER Last administered on 09/17/18at 17:47; Admin Dose 650 MG; Start 09/17/18 at 05:30 Docusate Sodium (Colace) 100 mg Q12H PRN PO CONSTIPATION; Start 09/17/18 at 0 5:30 Bisacodyl (Dulcolax) 5 mg DAILY PRN PO CONSTIPATION; Start 09/17/18 at 05:30 Methadone HCl (Methadone) 20 mg Q12 PO Last administered on 09/20/18at 08:15; Admin Dose 20 MG; Start 09/17/18 at 09:00 Potassium Chloride 30 meq/ Sodium Chloride 1,015 ml @ 20 mls/hr Q24H IV Last administered on 09/20/18at 04:14; Admin Dose 50 MLS/HR; Start 09/17/18 at 06:00 Metoprolol Tartrate (Lopressor) 25 mg BID PO Last administered on 09/19/18at 09:10; Admin Dose 25 MG; Start 09/18/18 at 21:00 Metoprolol Tartrate (Lopressor) 5 mg Q4H PRN IV HR>110 Hold SBP<100; Start 09/18/18 at 14:00 Ampicillin Sodium/ Sulbactam Sodium 50 ml @ 100 mls/hr Q6 IVPB Last administered on 09/20/18at 11:04; Admin Dose 100 MLS/HR; Start 09/18/18 at 18:00 Doxycycline Hyclate 100 mg/ Sodium Chloride 250 ml @ 250 mls/hr Q12 IVPB Last administered on 09/20/18at 08:51; Admin Dose 250 MLS/HR; Start 09/18/18 at 21:00 Pantoprazole (Protonix Tab) 40 mg BID@0600,1800 PO Last administered on 09/20/18at 05:49; Admin Dose 40 MG; Start 09/19/18 at 18:00 Sucralfate (Carafate Susp) 1 gm QID PO Last administered on 09/20/18at 12:32; Admin Dose 1 GM; Start 09/20/18 at 09:00 Epoetin Aj (Epogen (Neserd)) 3,000 units ONCE SC Last administered on 09/20/18at 11:04; Admin Dose 3,000 UNITS; Start 09/20/18 at 10:00; Stop 09/20/18 at 23:59 JOSE ELIAS CASTILLO NP Sep 20, 2018 16:25
--- NOTE | 2018-09-20 18:05 | NUR ---
eoss pt completed 1 unit prbc with no a/r noted. total of 4 gm mag sulfate. bs stable @ 90's. systolic. denies pain.stable.
--- NOTE | 2018-09-20 18:53 | CONS ---
Date/Time of Note Date/Time of Note DATE: 09/20/18 TIME: 18:48 Consult Date/Type/Reason Admit Date/Time Sep 17, 2018 at 05:02 Initial Consult Date 09/18/18 Type of Consultation: Urology Reason for Consultation Microscopic hematuria Requesting Provider: EVELIA GIL Subjective Patient states that he is feeling better and has minimal if any pain. Objective Vital Signs Date Temp Pulse Resp B/P (MAP) Pulse Ox O2 O2 Flow FiO2 Time Delivery Rate 09/20/18 65 16:01 09/20/18 98.5 18 95/55 (68) 96 Room Air 15:10 Intake and Output 09/19/18 09/19/18 09/20/18 1515:00 23:00 07:00 IntakeIntake Total 370 ml 1150 ml 1450 ml OutputOutput Total 550 ml 1700 ml 3500 ml BalanceBalance -180 ml -550 ml -2050 ml Exam The abdomen is soft and there is no flank tenderness. Results/Medications Result Diagram: 09/20/1818 09/20/18 0518 Results 24 hrs Laboratory Tests Test 09/20/18 05:18 White Blood Count 11.9 H Red Blood Count 3.00 L Hemoglobin 7.7 L Hematocrit 24.0 L Mean Corpuscular Volume 80.0 L Mean Corpuscular Hemoglobin 25.7 L Mean Corpuscular Hemoglobin Concent 32.1 Red Cell Distribution Width 18.0 H Platelet Count 174 Mean Platelet Volume 9.9 Immature Granulocytes % 0.800 H Neutrophils % 58.3 Lymphocytes % 29.3 Monocytes % 9.4 Eosinophils % 1.8 Basophils % 0.4 Nucleated Red Blood Cells % 0.0 Immature Granulocytes # 0.100 H Neutrophils # 6.9 Lymphocytes # 3.5 H Monocytes # 1.1 H Eosinophils # 0.2 Basophils # 0.1 Nucleated Red Blood Cells # 0.0 Sodium Level 142 Potassium Level 3.3 L Chloride Level 109 Carbon Dioxide Level 22 Anion Gap 11 Blood Urea Nitrogen 19 Creatinine 2.22 H Est Glomerular Filtrat Rate mL/min 35 L Glucose Level 83 Calcium Level 7.9 L Phosphorus Level 4.2 Magnesium Level 1.4 L Medications Current Medications IV Flush (NS 3 ml) 3 ml PER PROTOCOL IV ; Start 09/17/18 at 05:30 Ondansetron HCl (Zofran Tab) 4 mg Q6H PRN PO NAUSEA AND/OR VOMITING Last administered on 09/19/18 00:21; Admin Dose 4 MG; Start 09/17/18 at 05:30 Acetaminophen (Tylenol Tab) 650 mg Q6H PRN PO PAIN LEVEL 1-3 OR FEVER Last administered on 09/17/18at 17:47; Admin Dose 650 MG; Start 09/17/18 at 05:30 Docusate Sodium (Colace) 100 mg Q12H PRN PO CONSTIPATION; Start 09/17/18 at 05:30 Bisacodyl (Dulcolax) 5 mg DAILY PRN PO CONSTIPATION; Start 09/17/18 at 05:30 Methadone HCl (Methadone) 20 mg Q12 PO Last administered on 09/20/18 08:15; Admin Dose 20 MG; Start 09/17/18 at 09:00 Potassium Chloride 30 meq/ Sodium Chloride 1,015 ml @ 20 mls/hr Q24H IV Last administered on 09/20/18 04:14; Admin Dose 50 MLS/HR; Start 09/17/18 at 06:00 Metoprolol Tartrate (Lopressor) 25 mg BID PO Last administered on 09/19/18 09:10; Admin Dose 25 MG; Start 09/18/18 at 21:00 Metoprolol Tartrate (Lopressor) 5 mg Q4H PRN IV HR>110 Hold SBP<100; Start 09/18/18 at 14:00 Ampicillin Sodium/ Sulbactam Sodium 50 ml @ 100 mls/hr Q6 IVPB Last administered on 09/20/18 17:15; Admin Dose 100 MLS/HR; Start 09/18/18 at 18:00 Doxycycline Hyclate 100 mg/ Sodium Chloride 250 ml @ 250 mls/hr Q12 IVPB Last administered on 09/20/18 08:51; Admin Dose 250 MLS/HR; Start 09/18/18 at 21:00 Pantoprazole (Protonix Tab) 40 mg BID@0600,1800 PO Last administered on 09/20/18 17:15; Admin Dose 40 MG; Start 09/19/18 at 18:00 Sucralfate (Carafate Susp) 1 gm QID PO Last administered on 09/20/18 16:29; Admin Dose 1 GM; Start 09/20/18 at 09:00 Epoetin Aj (Epogen (Neserd)) 3,000 units ONCE SC Last administered on 09/20/18at 11:04; Admin Dose 3,000 UNITS; Start 09/20/18 at 10:00; Stop 09/20/18 at 23:59 Assessment/Plan Chief Complaint/Hosp Course 33-year-old male with a past medical history of IV drug use came to [facility] after leaving AMA from [facility]. Patient was admitted to [facility] recently and was diagnosed with sepsis, pneumonia and bacteremia possibly from a permacath. Patient was started vancomycin and Zosyn. Patient reported that he left the hospital AGAINST MEDICAL ADVICE as his pain was was not being properly treated according to him. Urology consultation was requested because of microscopic hematuria on his urine analysis. Patient states that he does have nocturia 1-2 times during the day he urinates 3 times, he has no urgency or urgency incontinence, his urinary stream is strong and he feels he empties his bladder well. No prior history of gross hematuria. Urine cytology has been ordered and the result is still pending EFRAIN MARLEY MD Sep 20, 2018 18:53
--- NOTE | 2018-09-20 19:38 | RADRPT ---
Vent Rate: 98 bpm RR Interval: 0 msec IN Interval: 120 msec QRS Duration: 84 msec QT Interval: 328 msec QTC Interval: 418 msec P-R-T [place]: 60 - 48 - 55 degrees Normal sinus rhythm Nonspecific T wave abnormality Abnormal ECG Electronically Signed By: Erik Love [id number]
--- NOTE | 2018-09-20 19:38 | RADRPT ---
Vent Rate: 83 bpm RR Interval: 0 msec [place] Interval: 122 msec QRS Duration: 84 msec QT Interval: 384 msec QTC Interval: 451 msec P-R-T [place]: 66 - 52 - 52 degrees Normal sinus rhythm T wave abnormality, consider anterior ischemia Abnormal ECG Electronically Signed By: Erik Love [id number]
[2018-09-21] VITALS (7 sets, daily range): BP systolic 97–100; BP diastolic 55–56; PULSE 68–79; RESP 17–18
[2018-09-21] MEDS: AMPICILLIN/SULB 1.5GM/NS (PMX) 50 ML IVPB SCH ×4 (00:03→17:20)
[2018-09-21] MEDS: PANTOPRAZOLE (EC) 40 MG TAB PO SCH ×2 (05:36→17:20)
[2018-09-21] MEDS: METOPROLOL 25 MG TAB PO SCH (08:21)
[2018-09-21] MEDS: SUCRALFATE (100 MG/ML) 10ML CUP PO SCH ×3 (08:29→16:05)
[2018-09-21] MEDS: METHADONE 10 MG TAB PO SCH (08:33)
[2018-09-21] MEDS: DOXYCYCLINE 100 MG in SOD CHLORIDE 0.9% 250 ML IVPB SCH (08:54)
--- NOTE | 2018-09-21 09:47 | PN ---
Date/Time of Note Date/Time of Note DATE: 09/21/18 TIME: 09:47 Assessment/Plan VTE Prophylaxis Risk score (from Ns)>0 risk: 4 SCD applied (from Ns): Yes Pharmacological prophylaxis: other Lines/Catheters IV Catheter Type (from Nrsg): Mid Line Urinary Cath still in place: No Assessment/Plan Hospital Course renal follow up SUBJECTIVE: The patient had EGD and colonoscopy which showed evidence of gastritis. No other events noted. No hemoptysis, hematemesis or hematochezia. OBJECTIVE: HEENT: Head is normocephalic. NECK: Supple. HEART: Regular rate. LUNGS: Show diminished breath sounds at the base. ABDOMEN: Soft, nontender to palpation without rebound or guarding. EXTREMITIES: Negative for clubbing, cyanosis, no edema. DERMATOLOGIC: No rashes. MUSCULOSKELETAL: No joint effusion. NEUROLOGIC: No change in exam. MEDICATIONS: Reviewed. ASSESSMENT AND PLAN: 1. Nonoliguric acute kidney injury on top of chronic kidney disease with unknown baseline creatinine. Etiology of acute kidney injury secondary to hemodynamics. The patient was previously on hemodialysis, has been off dialysis for over 1 month. Patient's renal functions currently improved with IV hy dration. We will continue current treatment plan. Continue gentle IV hydration. Continue supportive care, renally dose meds, avoid nephrotoxins. 2. Hypokalemia and hypomagnesemia. Will replete. Continue to monitor. 3. Anemia. The patient is status post EGD with evidence of gastritis. Contin ue to monitor hemoglobin and hematocrit levels. Continue proton pump inhibitor. Patient is status post blood transfusion. Monitor closely. 4. Mineral bone disorder, monitor calcium and phosphorus levels. 5. Sepsis secondary to pneumonia. Continue current antibiotic regimen. 6. History of hepatitis C. Continue medical management. 7. History of polysubstance abuse. 8. Episode of hematuria. Continue to monitor. We will follow up with urology. 9. Lower extremity wounds. Continue wound care. 10. Episodes of arrhythmia. Continue to monitor. Result Diagram: 09/20/1851709/20/18517 Exam/Review of Systems Vital Signs Vitals Vital Signs Date Temp Pulse Resp B/P (MAP) Pulse Ox O2 O2 Flow FiO2 Time Delivery Rate 09/21/18 73 08:56 09/21/18 98.2 17 99/56 (70) 96 Room Air 07:25 Intake and Output 09/20/18 09/20/18 09/21/18 1515:00 23:00 07:00 IntakeIntake Total 300 ml 1600 ml 1250 ml OutputOutput Total 1500 ml 1400 ml BalanceBalance 300 ml 100 ml -150 ml Medications Medications Current Medications IV Flush (NS 3 ml) 3 ml PER PROTOCOL IV ; Start 09/17/18 at 05:30 Ondansetron HCl (Zofran Tab) 4 mg Q6H PRN PO NAUSEA AND/OR VOMITING Last administered on 09/19/18 00:21; Admin Dose 4 MG; Start 09/17/18 at 05:30 Acetaminophen (Tylenol Tab) 650 mg Q6H PRN PO PAIN LEVEL 1-3 OR FEVER Last administered on 09/17/18at 17:47; Admin Dose 650 MG; Start 09/17/18 at 05:30 Docusate Sodium (Colace) 100 mg Q12H PRN PO CONSTIPATION; Start 09/17/18 at 05:30 Bisacodyl (Dulcolax) 5 mg DAILY PRN PO CONSTIPATION; Start 09/17/18 at 05:30 Methadone HCl (Methadone) 20 mg Q12 PO Last administered on 09/21/18 08:33; Admin Dose 20 MG; Start 09/17/18 at 09:00 Potassium Chloride 30 meq/ Sodium Chloride 1,015 ml @ 20 mls/hr Q24H IV Last administered on 09/20/18 04:14; Admin Dose 50 MLS/HR; Start 09/17/18 at 06:00 Metoprolol Tartrate (Lopressor) 25 mg BID PO Last administered on 09/19/18 09:10; Admin Dose 25 MG; Start 09/18/18 at 21:00 Metoprolol Tartrate (Lopressor) 5 mg Q4H PRN IV HR>110 Hold SBP<100; Start 09/18/18 at 14:00 Ampicillin Sodium/ Sulbactam Sodium 50 ml @ 100 mls/hr Q6 IVPB Last administered on 09/21/18 06:26; Admin Dose 100 MLS/HR; Start 09/18/18 at 18:00 Doxycycline Hyclate 100 mg/ Sodium Chloride 250 ml @ 250 mls/hr Q12 IVPB Last administered on 09/21/18 08:54; Admin Dose 250 MLS/HR; Start 09/18/18 at 21:00 Pantoprazole (Protonix Tab) 40 mg BID@0600,1800 PO Last administered on 09/21/18at 05:36; Admin Dose 40 MG; Start 09/19/18 at 18:00 Sucralfate (Carafate Susp) 1 gm QID PO Last administered on 09/21/18at 08:29; Admin Dose 1 GM; Start 09/20/18 at 09:00 JOSIAS LY DO Sep 21, 2018 09:47
[2018-09-21] MEDS: POTASSIUM CHLORIDE 30 MEQ in SOD CHLORIDE 0.9% 1,000 ML IV SCH (10:15)
--- NOTE | 2018-09-21 10:15 | PDOCDIS ---
Discharge Instructions CONDITION [id number] Patient Condition: [id number] Stable HOME CARE INSTRUCTIONS: [id number] Special Diet: Mofkt2p renal FOLLOW UP/APPOINTMENTS Follow-up Plan Follow-up with primary care physician in 1 week-recommend outpatient nephrology referral for monitoring renal function. SURAJ AIKEN NP Sep 21, 2018 10:15
[2018-09-21] MEDS ORDERED: PANT40TA4 PO (10:21)
[2018-09-21] MEDS ORDERED: LEVO750T8 PO (10:21)
[2018-09-21] MEDS ORDERED: CARAS PO (10:21)
[2018-09-21] MEDS ORDERED: AMPI500C9 PO (10:21)
--- NOTE | 2018-09-21 10:35 | DS ---
Date/Time of Note Date/Time of Note DATE: 09/21/18 TIME: 10:33 Discharge Summary Admission/Discharge Info Admit Date/Time Sep 17, 2018 at 05:02 Discharge Date/Time Discharge Diagnosis 1. Sepsis, multifactorial with unresolved pneumonia/skin ulcers from IVDU.sta ble. 2. Healthcare associated pneumonia. 3. Anemia w/iron deficiency/CKD 4. Non-sustained single episode wide-complex tachycardia, most likely aberrant SVT. Stable 5. Substance abuse/abuse/IV drug abuse history. 6. Acute kidney injury on CKD.stable 7. History of hepatitis C. 8.Gastric ulcers -s/p EGD/Colonoscopy 09/19 9. 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 Chest x-ray IMPRESSION: 1. Bibasilar pulmonary infiltrates are identified consistent with the history of pneumonia. These are improved slightly compared to the prior study. 2. Small pleural effusions with plate-like atelectasis near the left costophrenic angle. 09/17/2018. Renal ultrasound. IMPRESSION: Kidneys demonstrate increased cortical echogenicity in keeping with medical renal disease. No obstructive uropathy. Hospital Course 33-year-old male with history of IV drug abuse, alcoholism, CKD-Off HD 1 month ago, who was recently admitted at [facility] where he was treated for sepsis thought to be secondary to pneumonia and possible line infection with removal of line and iv abx treatment, went home AGAINST MEDICAL ADVICE, prese nted to [facility] with ongoing fever, chills and cough found to have unresolved pneumonia and sepsis. Patient was treated on appropriate IV antimicrobial for underlying sepsis which is multifactorial with unresolved pneumonia hospital-acquired pneumonia and possible IV drug use skin ulcers. Patient's previous culture from outside hospital was positive for outside hospital blood culture 2 sets 09/14/2018 was positive for strep. At [facility], a repeat blood culture was negative assuring eradication of infection. Patient also had a recent echocardiogram with no evidence of vegetation or endocarditis. Patient was treated for hospital-acquired pneumonia. Hospital stay was noted for anemia with iron deficiency and chronic kidney disease for which he also received a unit of PRBC and 1 dose of Epogen with stable hemoglobin thereafter. He was also given IV iron. Patient hemoglobin remained stable. There was no overt bleeding. He also had a EGD/colonoscopy on 09/19/2017 with no bleeding GI sources. He was continued on PPI and Carafate for gastric ulcers. Patient's hospital stay was also noted for 1 single episodes of nonsustained wide-complex tachycardia likely aberrant SVT. Patient had cardiology follow-up for that and was continued on beta-blockers. Patient had social services assistant follow-up for current substance abuse and IV drug abuse history. He was counseled multiple times. At this time, patient with clinical and laboratory findings of sepsis resolution. Patient with no leukocytosis, no cough, no shortness of breath, no wheezing, no fevers or chills. He is tolerating diet and activities well. Kidney function remained stable and much improved from baseline. At this time, patient can be discharged with outpatient follow-up. As per discussion with ID, nephrology team, pulmonary we have decided to keep patient on 7 more days on Augmentin, doxycycline and Levaquin (renally dosed for hospital-acquired pneumonia coverage dose 750 mg every 48 hours). Patient's PICC line should be removed prior to discharge and this was communicated to the nursing staff. Approximately 60 m spent on coordinating the discharge on this patient. Heena was seen in collaboration with [facility] Active Scripts Doxycycline Hyclate* (Doxycycline Hyclate*) 100 Mg Tablet., 100 MG PO BID for 10 Days, #20 TAB Prov:AIKENSURAJ LATHAM V. MICRO LAB ANALYST 09/21/18 Amoxicillin/Potassium Clav (Amox-Clav 875-125 mg Tablet) 875-125 mg Tab, 1 TAB PO BID, #20 TAB Prov:AIKENSURAJ V. MICRO LAB ANALYST 09/21/18 Ferrous Sulfate* (Ferrous Sulfate*) 325 Mg Tabec, 325 MG PO TID, #90 TAB Prov:AIKENSURAJ V. MICRO LAB ANALYST 09/21/18 Metoprolol Tartrate* (Lopressor*) 25 Mg Tab, 25 MG PO BID, #60 TAB Prov:AIKENSURAJ LATHAM V. MICRO LAB ANALYST 09/21/18 Pantoprazole* (Pantoprazole*) 40 Mg Tablet., 40 MG PO BID@0600,1800, #60 TAB Prov:AIKENSURAJ V. MICRO LAB ANALYST 09/21/18 Sucralfate* (Carafate*) 1 Gm/10 Ml Susp, 1 GM PO QID, #120 DOSE Prov:SURAJ AIKEN NP 09/21/18 Levofloxacin* (Levofloxacin*) 750 Mg Tablet, 750 MG PO Q48H, #7 TAB Take 1 pill every other day Prov:SURAJ AIKEN NP 09/21/18 Follow-up Plan Follow-up with primary care physician in 1 week-recommend outpatient nephrology referral for monitoring renal function. Primary Care Provider Not On Staff Doctor Pending Labs Microbiology Date/Time Source Procedure Growth Status 09/20/18 16:45 Luis Felipe MRSA Screen - Preliminary Screening in process Resulted SURAJ AIKEN NP Sep 21, 2018 10:35
[2018-09-21] MEDS ORDERED: METO-448 PO (10:36)
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
[2018-09-21] MEDS ORDERED: FER325 PO (10:56)
[2018-09-21] MEDS ORDERED: AMOX1TAB10 PO (12:58)
[2018-09-21] MEDS ORDERED: DOXY100T20 PO (12:58)
--- NOTE | 2018-09-21 14:25 | CONS ---
Date/Time of Note Date/Time of Note DATE: 09/21/18 TIME: 14:23 Consult Date/Type/Reason Admit Date/Time Sep 17, 2018 at 05:02 Initial Consult Date 09/18/18 Type of Consultation: Urology Reason for Consultation Hematuria Requesting Provider: EVELIA GIL Subjective Patient states that he is feeling better. Objective Vital Signs Date Temp Pulse Resp B/P (MAP) Pulse Ox O2 O2 Flow FiO2 Time Delivery Rate 09/21/18 76 12:21 09/21/18 98.7 18 100/55 94 Room Air 11:05 (70) Intake and Output 09/20/18 09/20/18 09/21/18 1515:00 23:00 07:00 IntakeIntake Total 300 ml 1600 ml 1250 ml OutputOutput Total 1500 ml 1400 ml BalanceBalance 300 ml 100 ml -150 ml Exam He denies any dysuria and no gross hematuria. Abdomen is soft Results/Medications Result Diagram: 09/20/1851709/20/18517 Medications Current Medications IV Flush (NS 3 ml) 3 ml PER PROTOCOL IV ; Start 09/17/18 at 05:30 Ondansetron HCl (Zofran Tab) 4 mg Q6H PRN PO NAUSEA AND/OR VOMITING Last administered on 09/19/18at 00:21; Admin Dose 4 MG; Start 09/17/18 at 05:30 Acetaminophen (Tylenol Tab) 650 mg Q6H PRN PO PAIN LEVEL 1-3 OR FEVER Last administered on 09/17/18at 17:47; Admin Dose 650 MG; Start 09/17/18 at 05:30 Docusate Sodium (Colace) 100 mg Q12H PRN PO CONSTIPATION; Start 09/17/18 at 05:30 Bisacodyl (Dulcolax) 5 mg DAILY PRN PO CONSTIPATION; Start 09/17/18 at 05:30 Methadone HCl (Methadone) 20 mg Q12 PO Last administered on 09/21/18at 08:33; Admin Dose 20 MG; Start 09/17/18 at 09:00 Potassium Chloride 30 meq/ Sodium Chloride 1,015 ml @ 20 mls/hr Q24H IV Last administered on 09/20/18at 04:14; Admin Dose 50 MLS/HR; Start 09/17/18 at 06:00 Metoprolol Tartrate (Lopressor) 25 mg BID PO Last administered on 09/19/18at 09:10; Admin Dose 25 MG; Start 09/18/18 at 21:00 Metoprolol Tartrate (Lopressor) 5 mg Q4H PRN IV HR>110 Hold SBP<100; Start 09/18/18 at 14:00 Ampicillin Sodium/ Sulbactam Sodium 50 ml @ 100 mls/hr Q6 IVPB Last administered on 09/21/18at 11:27; Admin Dose 100 MLS/HR; Start 09/18/18 at 18:00 Doxycycline Hyclate 100 mg/ Sodium Chloride 250 ml @ 250 mls/hr Q12 IVPB Last administered on 09/21/18at 08:54; Admin Dose 250 MLS/HR; Start 09/18/18 at 21:00 Pantoprazole (Protonix Tab) 40 mg BID@0600,1800 PO Last administered on 09/21/18at 05:36; Admin Dose 40 MG; Start 09/19/18 at 18:00 Sucralfate (Carafate Susp) 1 gm QID PO Last administered on 09/21/18at 12:17; Admin Dose 1 GM; Start 09/20/18 at 09:00 Assessment/Plan Chief Complaint/Hosp Course 33-year-old male with a past medical history of IV drug use came to [facility] after leaving AMA from [facility]. Patient was admitted to [facility] recently and was diagnosed with sepsis, pneumonia and bacteremia possibly from a permacath. Patient was started vancomycin and Zosyn. Patient reported that he left the hospital AGAINST MEDICAL ADVICE as his pain was was not being properly treated according to him. Urology consultation was requested because of microscopic hematuria on his urine analysis. Patient states that he does have nocturia 1-2 times during the day he urinates 3 times, he has no urgency or urgency incontinence, his urinary stream is strong and he feels he empties his bladder well. No prior history of gross hematuria. Urine cytology has been ordered and the result from 1 specimen is back and is negative for malignancy. Another specimen is being sent today. The patient may go home as planned and follow-up as an outpatient EFRAIN MARLEY MD Sep 21, 2018 14:25
--- NOTE | 2018-09-21 15:24 | CONS ---
Date/Time of Note Date/Time of Note DATE: 09/21/18 TIME: 15:23 Assessment/Plan Assessment/Plan Hospital Course No acute changes, sleeping, nad, no fevers Microbiology: All cultures negative. Blood culture on September 14 grew strep Chest x-ray this morning revealed bibasilar pulmonary infiltrates consistent with history of pneumonia, slightly improved small pleural effusions Antimicrobials: Doxycycline Unasyn Physical examination: Well-developed well-nourished middle-aged white man who is in no distress. Head atraumatic normocephalic sclera nonicteric. Neck is supple chest rise symmetrical breath sounds diminished bases. Heart: S1-S2 abdomen soft bowel sounds present extremities without cyanosis left lower extremity dressing clean dry and intact Assessment: 1. Resolving sepsis 2. Resolving pneumonia 3. Streptococcal bacteremia on September 14, 2018 with repeat cultures negative 4. Chronic left lower extremity wound status post multiple I&D 5. Acute on chronic kidney disease status post hemodialysis, line was removed recently 6. IV drug abuse and medical noncompliance 7. Acute on chronic anemia Plan: Stable, blood cultures since September 15 negative, ok dc on oral Levaquin, Augmentin and Doxycycline for 7 more days Result Diagram: 09/20/1851709/20/18517 Consultation Date/Type/Reason Admit Date/Time Sep 17, 2018 at 05:02 Initial Consult Date 09/18/18 Type of Consult id Requesting Provider: EVELIA GIL Exam/Review of Systems Vital Signs Vitals Vital Signs Date Temp Pulse Resp B/P (MAP) Pulse Ox O2 O2 Flow FiO2 Time Delivery Rate 09/21/18 76 12:21 09/21/18 98.7 18 100/55 94 Room Air 11:05 (70) Intake and Output 09/20/18 09/20/18 09/21/18 1515:00 23:00 07:00 IntakeIntake Total 300 ml 1600 ml 1250 ml OutputOutput Total 1500 ml 1400 ml BalanceBalance 300 ml 100 ml -150 ml Medications Medications Current Medications IV Flush (NS 3 ml) 3 ml PER PROTOCOL IV ; Start 09/17/18 at 05:30 Ondansetron HCl (Zofran Tab) 4 mg Q6H PRN PO NAUSEA AND/OR VOMITING Last administered on 09/19/18at 00:21; Admin Dose 4 MG; Start 09/17/18 at 05:30 Acetaminophen (Tylenol Tab) 650 mg Q6H PRN PO PAIN LEVEL 1-3 OR FEVER Last administered on 09/17/18at 17:47; Admin Dose 650 MG; Start 09/17/18 at 05:30 Docusate Sodium (Colace) 100 mg Q12H PRN PO CONSTIPATION; Start 09/17/18 at 05:30 Bisacodyl (Dulcolax) 5 mg DAILY PRN PO CONSTIPATION; Start 09/17/18 at 05:30 Methadone HCl (Methadone) 20 mg Q12 PO Last administered on 09/21/18 08:33; Admin Dose 20 MG; Start 09/17/18 at 09:00 Potassium Chloride 30 meq/ Sodium Chloride 1,015 ml @ 20 mls/hr Q24H IV Last administered on 09/20/18 04:14; Admin Dose 50 MLS/HR; Start 09/17/18 at 06:00 Metoprolol Tartrate (Lopressor) 25 mg BID PO Last administered on 09/19/18 09:10; Admin Dose 25 MG; Start 09/18/18 at 21:00 Metoprolol Tartrate (Lopressor) 5 mg Q4H PRN IV HR>110 Hold SBP<100; Start 09/18/18 at 14:00 Ampicillin Sodium/ Sulbactam Sodium 50 ml @ 100 mls/hr Q6 IVPB Last administered on 09/21/18 11:27; Admin Dose 100 MLS/HR; Start 09/18/18 at 18:00 Doxycycline Hyclate 100 mg/ Sodium Chloride 250 ml @ 250 mls/hr Q12 IVPB Last administered on 09/21/18 08:54; Admin Dose 250 MLS/HR; Start 09/18/18 at 21:00 Pantoprazole (Protonix Tab) 40 mg BID@0600,1800 PO Last administered on 09/21/18 05:36; Admin Dose 40 MG; Start 09/19/18 at 18:00 Sucralfate (Carafate Susp) 1 gm QID PO Last administered on 09/21/18 12:17; Admin Dose 1 GM; Start 09/20/18 at 09:00 JOSE ELIAS CASTILLO NP Sep 21, 2018 15:24
--- NOTE | 2018-09-21 17:24 | NUR ---
Discharge summary Pt stable for discharge, pt denies c/o pain, no sob or respiratory distress noted. Pt on room air. Mid line discontinued, tele monitor removed. 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 All needs were met.
--- NOTE | 2018-09-21 17:47 | CONS ---
Date/Time of Note Date/Time of Note DATE: 09/21/18 TIME: 17:44 Assessment/Plan Assessment/Plan Hospital Course IMPRESSION: 1. Wide complex tachycardia concerning for possible non-SVT versus aberrant SVT with the patient's EF normal recently in favor of the latter.- no recurrence on BB, neg trop x 3. NL TSH 2. Abnormal electrocardiogram with nonspecific ST-T abnormalities, assess for acute coronary syndrome 3. Hypotension, borderline. 4. History of drug abuse with methamphetamines by tox screen. 5. Status post sepsis. 6. History of sternal osteomyelitis, chronic anemia. 7. Left lower extremity wounds. 8. hematuria Recc -Continue BB and follow rhythm closely -pain control -urology eval ongoing Result Diagram: 09/20/1851709/20/18517 Consultation Date/Type/Reason Admit Date/Time Sep 17, 2018 at 05:02 Initial Consult Date 09/18/18 Type of Consult cardiology Reason for Consultation tachycardia Requesting Provider: EVELIA GIL Exam/Review of Systems Vital Signs Vitals Vital Signs Date Temp Pulse Resp B/P (MAP) Pulse Ox O2 O2 Flow FiO2 Time Delivery Rate 09/21/18 76 12:21 09/21/18 98.7 18 100/55 94 Room Air 11:05 (70) Intake and Output 09/20/18 09/20/18 09/21/18 1515:00 23:00 07:00 IntakeIntake Total 300 ml 1600 ml 1250 ml OutputOutput Total 1500 ml 1400 ml BalanceBalance 300 ml 100 ml -150 ml Exam Review of Systems: CONSTITUTIONAL: No fevers, chills. PULMONARY: No sob CARDIOVASCULAR: No chest pain/palpitations GASTROINTESTINAL: No nausea/vomiting. GENITOURINARY: No hematuria/dysuria. MUSCULOSKELETAL: No myagias/arthalgias. PSYCHIATRIC: The patient denies depression. NEUROLOGIC: No weakness Constitutional: alert Psych: no complaints Head: normocephalic ENMT: mucosa pink and moist Neck: supple, jvd (9 cm water) Respiratory: diminished breath sounds Cardiovascular: regular rate and rhythm Gastrointestinal: soft, non-tender Musculoskeletal: muscle tone (normal) Extremities: edema (none) Neurological: lethargic Medications Medications Current Medications IV Flush (NS 3 ml) 3 ml PER PROTOCOL IV ; Start 09/17/18 at 05:30 Ondansetron HCl (Zofran Tab) 4 mg Q6H PRN PO NAUSEA AND/OR VOMITING Last administered on 09/19/18 00:21; Admin Dose 4 MG; Start 09/17/18 at 05:30 Acetaminophen (Tylenol Tab) 650 mg Q6H PRN PO PAIN LEVEL 1-3 OR FEVER Last administered on 09/17/18at 17:47; Admin Dose 650 MG; Start 09/17/18 at 05:30 Docusate Sodium (Colace) 100 mg Q12H PRN PO CONSTIPATION; Start 09/17/18 at 05:30 Bisacodyl (Dulcolax) 5 mg DAILY PRN PO CONSTIPATION; Start 09/17/18 at 05:30 Methadone HCl (Methadone) 20 mg Q12 PO Last administered on 09/21/18 08:33; Admin Dose 20 MG; Start 09/17/18 at 09:00 Potassium Chloride 30 meq/ Sodium Chloride 1,015 ml @ 20 mls/hr Q24H IV Last administered on 09/20/18 04:14; Admin Dose 50 MLS/HR; Start 09/17/18 at 06:00 Metoprolol Tartrate (Lopressor) 25 mg BID PO Last administered on 09/19/18 09:10; Admin Dose 25 MG; Start 09/18/18 at 21:00 Metoprolol Tartrate (Lopressor) 5 mg Q4H PRN IV HR>110 Hold SBP<100; Start 09/18/18 at 14:00 Ampicillin Sodium/ Sulbactam Sodium 50 ml @ 100 mls/hr Q6 IVPB Last administered on 09/21/18 11:27; Admin Dose 100 MLS/HR; Start 09/18/18 at 18:00 Doxycycline Hyclate 100 mg/ Sodium Chloride 250 ml @ 250 mls/hr Q12 IVPB Last administered on 09/21/18 08:54; Admin Dose 250 MLS/HR; Start 09/18/18 at 21:00 Pantoprazole (Protonix Tab) 40 mg BID@0600,1800 PO Last administered on 09/21/18 05:36; Admin Dose 40 MG; Start 09/19/18 at 18:00 Sucralfate (Carafate Susp) 1 gm QID PO Last administered on 09/21/18 16:05; Admin Dose 1 GM; Start 09/20/18 at 09:00 COLLIN HOANG Sep 21, 2018 17:47
== END 2018-09-21 17:44 | disposition home or self-care (01) | DRG 871 ==
LOC: E/R 03:03 → 6WM 05:02
PROVIDERS: ADMIT Family Medicine; ATTEND Family Medicine
PROC: 30233N1 Transfusion of Nonautologous Red Blood Cells into Peripheral Vein, Percutaneous Approach (ICD-10-PCS; principal; 2018-09-17)
PROC: 0DJ08ZZ Inspection of Upper Intestinal Tract, Via Natural or Artificial Opening Endoscopic (ICD-10-PCS; 2018-09-19)
PROC: 0DJD8ZZ Inspection of Lower Intestinal Tract, Via Natural or Artificial Opening Endoscopic (ICD-10-PCS; 2018-09-19 14:00)
DX: A41.9 Sepsis, unspecified organism (principal); J18.9 Pneumonia, unspecified organism; N17.0 Acute kidney failure with tubular necrosis; N30.01 Acute cystitis with hematuria; E87.1 Hypo-osmolality and hyponatremia; F11.23 Opioid dependence with withdrawal; I47.1 Supraventricular tachycardia; R65.20 Severe sepsis without septic shock; D69.6 Thrombocytopenia, unspecified; N18.9 Chronic kidney disease, unspecified; Z79.899 Other long term (current) drug therapy; Z72.0 Tobacco use; E87.6 Hypokalemia; D53.9 Nutritional anemia, unspecified; R31.9 Hematuria, unspecified; Z59.0 Homelessness; Q54.0 Hypospadias, balanic; B19.20 Unspecified viral hepatitis C without hepatic coma; E02 Subclinical iodine-deficiency hypothyroidism; F15.90 Other stimulant use, unspecified, uncomplicated; K25.9 Gastric ulcer, unspecified as acute or chronic, without hemorrhage or perforation; E83.42 Hypomagnesemia; S80.929A Unspecified superficial injury of unspecified lower leg, initial encounter
CPT/HCPCS: 36415; 36430; 71045; 76775; 80048; 80053; 80202; 80307; 81001; 81003; 82043; 82270; 82728; 83036; 83540; 83605; 83735; 84100; 84155; 84300; 84439; 84443; 84484; 85025; 85610; 85730; 86850; 86900; 86901; 86920; 87040; 87081; 87086; 88104; 88107; 93005; C9113; J0295; J0885; J2543; J2916; J3010; J3370; J3475; J3480; J7030; J7040; J7050; P9016

== ENCOUNTER 2019-02-14 19:16 | Inpatient (IN) | payer OTHER ==
[~2019-02-14] VITALS: Ht 182.9 cm; Wt 75.5 kg
[~2019-02-14 19:16] MED LIST changes: +AMOX1TAB10 PO; -BACTDS PO; +CARAS PO; -CEPH500C PO; -CEPH750C6 PO; +DOXY100T20 PO; +FER325 PO; +LEVO750T8 PO; +METO-448 PO; +PANT40TA4 PO
[2019-02-14] MEDS ORDERED: PIPER-TAZO 3.375 GM IV (PMX) 100 ML IVPB STA (21:09)
[2019-02-14] MEDS ORDERED: KETOROLAC 30 MG INJ IV STA (21:09)
[2019-02-14] MEDS ORDERED: VANCOMYCIN 1 GM (PMX) 250 ML IVPB STA (21:09)
[2019-02-14] MEDS ORDERED: SODIUM CHLORIDE 0.9% 1L BAG IV* STA (21:09)
[2019-02-14] MEDS ORDERED: ACETAMINOPHEN 325 MG TAB PO PRN ×2 (22:30→23:00)
[2019-02-14] MEDS ORDERED: ONDANSETRON 4 MG INJ IV PRN ×2 (22:30→23:00)
[2019-02-14] MEDS ORDERED: NACL 0.9% 3 ML SYG IV SCH (23:00)
[2019-02-14] MEDS ORDERED: BISACODYL (EC) 5 MG TAB PO PRN (23:00)
[2019-02-14] MEDS ORDERED: DOCUSATE SODIUM 100 MG CAP PO PRN (23:00)
[2019-02-14] MEDS ORDERED: HYDROCODONE/APAP (5/325) TAB PO PRN (23:00)
[2019-02-14] MEDS ORDERED: morphine 2 MG INJ IV PRN (23:00)
[2019-02-14] MEDS ORDERED: VANCOMYCIN IV PER PHARMACY XX SCH (23:30)
--- NOTE | 2019-02-14 23:41 | ERD ---
ER Documentation Chief Complaint Chief Complaint RIGHT LOWER EXT SWELLING, REDNESS, BLISTERING DRAINING HPI Patient is a 33-year-old male with history of heroin abuse presents with right leg infection. The leg infection has been worsening over the past 1 week. Its blistering. He has fevers as well reported from home. He has not been on any antibiotics. He said that he has not used heroin for the past few months and he does not inject into the right leg. Upon review of old medical records this is the patient's eighth visit to the ER since 2017 with previous admissions. He does not currently have a primary doctor. ROS All systems reviewed and are negative except as per history of present illness. Medications Home Meds Active Scripts Doxycycline Hyclate* (Doxycycline Hyclate*) 100 Mg Tablet.dr, 100 MG PO BID for 10 Days, #20 TAB Prov:SURAJ AIKEN V. GUIDE CHANGER 09/21/18 Amoxicillin/Potassium Clav (Amox-Clav 875-125 mg Tablet) 875-125 mg Tab, 1 TAB P O BID, #20 TAB Prov:SURAJ AIKEN V. GUIDE CHANGER 09/21/18 Ferrous Sulfate* (Ferrous Sulfate*) 325 Mg Tabec, 325 MG PO TID, #90 TAB Prov:SURAJ AIKEN V. GUIDE CHANGER 09/21/18 Metoprolol Tartrate* (Lopressor*) 25 Mg Tab, 25 MG PO BID, #60 TAB Prov:SURAJ AIKEN V. GUIDE CHANGER 09/21/18 Pantoprazole* (Pantoprazole*) 40 Mg Tablet.dr, 40 MG PO BID@0600,1800, #60 TAB Prov:SURAJ AIKEN V. GUIDE CHANGER 09/21/18 Sucralfate* (Carafate*) 1 Gm/10 Ml Susp, 1 GM PO QID, #120 DOSE Prov:SURAJ AIKEN V. GUIDE CHANGER 09/21/18 Levofloxacin* (Levofloxacin*) 750 Mg Tablet, 750 MG PO Q48H, #7 TAB Take 1 pill every other day Prov:SURAJ AIKEN V. GUIDE CHANGER 09/21/18 Allergies Allergies: Coded Allergies: No Known Allergy (Unverified , 08/09/18) PMhx/Soc History of Surgery: Yes (COSMETIC SCAR) Anesthesia Reaction: No Hx Neurological Disorder: No Hx Respiratory Disorders: No Hx Cardiac Disorders: Yes (HTN) Hx Psychiatric Problems: No Hx Miscellaneous Medical Probl: No Hx Alcohol Use: No Hx Substance Use: Yes (heroin ) Hx Tobacco Use: Yes Smoking Status: Current every day smoker FmHx Family History: No diabetes Physical Exam Vitals Vital Signs Date Temp Pulse Resp B/P (MAP) Pulse Ox O2 O2 Flow FiO2 Time Delivery Rate 02/14/19 101 18 121/89 100 Room Air 23:00 (100) 02/14/19 97 17 136/89 100 Room Air 22:56 (105) 02/14/19 99 17 127/86 100 Room Air 22:13 (100) 02/14/19 98.9 99 18 142/92 100 Room Air 21:41 (109) 02/14/19 99.6 121 22 163/81 100 19:41 (108) Physical Exam Const: No acute distress Head: Atraumatic Eyes: Normal Conjunctiva ENT: Normal External Ears, Nose and Mouth. Neck: Full range of motion. No meningismus. Resp: Clear to auscultation bilaterally Cardio: Regular rate and rhythm, no murmurs Abd: Soft, non tender, non distended. Normal bowel sounds Skin: Blister formation and weeping to the right lower extremity consistent with cellulitis with erythema, chronic looking ulcer to the left lower extremity Back: No midline or flank tenderness Ext: No cyanosis, or edema Neur: Awake and alert Psych: Normal Mood and Affect Result Diagram: 02/14/19211602/14/192116 Results 24 hrs Laboratory Tests Test 02/14/19 21:17 02/14/19 21:20 White Blood Count 10.9 10^3/ul Red Blood Count 3.50 10^6/ul Hemoglobin 9.2 g/dl Hematocrit 30.1 % Mean Corpuscular Volume 86.0 fl Mean Corpuscular Hemoglobin 26.3 pg Mean Corpuscular Hemoglobin Concent 30.6 g/dl Red Cell Distribution Width 14.9 % Platelet Count 408 10^3/UL Mean Platelet Volume 8.4 fl Immature Granulocytes % 0.500 % Neutrophils % 70.7 % Lymphocytes % 20.3 % Monocytes % 6.1 % Eosinophils % 2.2 % Basophils % 0.2 % Nucleated Red Blood Cells % 0.0 /100WBC Immature Granulocytes # 0.050 10^3/ul Neutrophils # 7.7 10^3/ul Lymphocytes # 2.2 10^3/ul Monocytes # 0.7 10^3/ul Eosinophils # 0.2 10^3/ul Basophils # 0.0 10^3/ul Nucleated Red Blood Cells # 0.0 10^3/ul Prothrombin Time 14.0 Sec Prothrombin Time Ratio 1.1 INR International Normalized Ratio 1.07 Activated Partial Thromboplast Time 54.2 Sec Sodium Level 140 mmol/L Potassium Level 3.5 mmol/L Chloride Level 100 mmol/L Carbon Dioxide Level 35 mmol/L Anion Gap 5 Blood Urea Nitrogen 19 mg/dl Creatinine 1.55 mg/dl Est Glomerular Filtrat Rate mL/min 53 mL/min Glucose Level 88 mg/dl Calcium Level 8.8 mg/dl Total Bilirubin 0.2 mg/dl Direct Bilirubin 0.00 mg/dl Indirect Bilirubin 0.2 mg/dl Aspartate Amino Transf (AST/SGOT) 14 IU/L Alanine Aminotransferase (ALT/SGPT) 13 IU/L Alkaline Phosphatase 192 IU/L Troponin I < 0.012 ng/ml C-Reactive Protein Pending Total Protein 8.9 g/dl Albumin 3.5 g/dl Globulin 5.40 g/dl Albumin/Globulin Ratio 0.64 Ethyl Alcohol Level < 10.0 mg/dl POC Venous Lactate 1.2 mmol/L Current Medications Medications Dose Sig/Renea Start Time Status Last (Trade) Ordered Route PRN Stop Time Admin Dose Reason Admin Sodium 2,260 ml BOLUS OVER 2 02/14/19 DC 02/14/19 Chloride HOURS STAT 21: 21:22 (NS) IV* 02/14/19 21:11 Vancomycin 250 ml @ ONCE STAT 02/14/19 DC 02/14/19 HCl 125 mls/hr IVPB 21:09 22:09 02/14/19 23:08 Piperacillin 100 ml @ ONCE STAT 02/14/19 DC 02/14/19 Sod/ 200 mls/hr IVPB 21:09 21:33 Tazobactam 02/14/19 21:38 Sod Ketorolac 30 mg ONCE STAT 02/14/19 DC 02/14/19 Tromethamine IV 21:09 21:23 (Toradol) 02/14/19 21:11 Ondansetron 4 mg BRIDGE ORDER 02/14/19 HCl (Zofran PRN IV 22:30 Inj) NAUSEA/VOMITI 5/31/19 22:29 NG 650 mg ER BRIDGE 02/14/19 Acetaminophen PRN PO 22:30 (Tylenol .MILD PAIN 02/15/19 22:29 Tab) 1-3 OR TEMP IV Flush 3 ml PER 02/14/19 (NS 3 ml) PROTOCOL IV 23:00 Ondansetron 4 mg Q6H PRN 02/14/19 HCl (Zofran IV 23:00 Inj) NAUSEA/VOMITI NG 650 mg Q6H PRN 02/14/19 Acetaminophen PO .PAIN 1-3 23:00 (Tylenol OR TEMP Tab) 1 tab Q6H PRN 02/14/19 Acetaminophen PO .MOD PAIN 23:00 / 4-6 Hydrocodone Bitart ([place] (5/325)) Morphine 2 mg Q4H PRN 02/14/19 Sulfate IV .SEVERE 23:00 (morphine) PAIN 7-10 Docusate 100 mg Q12H PRN 02/14/19 Sodium PO 23:00 (Colace) .CONSTIPATION Bisacodyl 5 mg DAILY PRN 02/14/19 (Dulcolax) PO 23:00 .CONSTIPATION Vancomycin VANCOMYCIN PER 02/14/19 UNV HCl (Vanco PER PHARMACY PROTOCOL XX 23:30 Iv Per Pharmacy) Piperacillin 100 ml @ Q6 IVPB 02/15/19 Sod/ 200 mls/hr 02:00 Tazobactam Sod Procedures/MDM Sepsis Documentation: Patient's infectious symptoms have not stabilized and the patient is at risk of rapid decompensation. The patient will be admitted for careful hydration, antibiotic therapy, and infectious source control. SEVERE SEPSIS CRITERIA: Infectious source: Cellulitis End organ damage indicated by: No endorgan damage at this time SEPSIS MANAGEMENT Time of recognition of sepsis: 2116. Time of recognition of severe sepsis: No severe sepsis at this time. Time of recognition of septic shock: No septic shock at this time. 3 HOUR BUNDLE Blood cultures x 2 before broad-spectrum antibiotics: Yes 30 ml/kg NS bolus completed Initial lactate 1.2 Repeat lactate pending SEPTIC SHOCK ASSESSMENT: No lactic acid > 4.0 No persistent hypotension (SBP < 90 or 40 mmHg drop, MAP < 65) despite 30 mL/kg IV fluid bolus VOLUME REASSESSMENT FOR SEPTIC SHOCK: No septic shock at this time PERSISTENT HYPOTENSION TREATMENT: Comfort care no Central line not Required Vasopressor started not required I considered further perfusion assessment with CVP measurement, SCVO2, bedside ultrasound volume assessment, passive leg raise, trial of further fluid bolus. And proceeded with 30 ml/kg fluid bolus of NSS, broad spectrum antibiotics, and admission. I spoke with Dr. Kraus from the panel team for admission to a medical surgical inpatient bed. CRITICAL CARE Critical care time 35 minutes Emergent fluid management while maintaining close respiratory support. Provis ion of immediate and broad-spectrum antibiotic therapy. Simultaneous assessment for possible sources in order to direct targeted therapy. Consideration for invasive and chemical support to prevent cardiopulmonary collapse. Critical care time is independent of procedures performed. Departure Diagnosis: Primary Impression: Cellulitis Site of cellulitis: extremity Site of cellulitis of extremity: lower extremity Laterality: right Qualified Codes: L03.115 - Cellulitis of right lower limb Additional Impression: Sepsis Sepsis type: sepsis due to unspecified organism Qualified Codes: A41.9 - Sepsis, unspecified organism Condition: EDIN Armando MD February 14, 2019 23:41
[2019-02-15 00:37] VITALS: Ht 182.9 cm; Wt 75.5 kg
[2019-02-15 00:50] VITALS: BP 127/80; PULSE 85; RESP 18
[2019-02-15] MEDS ORDERED: PENDING SANTYL ORDER FOR WOUND CARE XX PRN (02:00)
[2019-02-15] MEDS: PIPER-TAZO 3.375 GM IV (PMX) 100 ML IVPB SCH ×4 (02:29→17:08)
[2019-02-15 02:34] VITALS: BP 125/78; PULSE 79; RESP 18
--- NOTE | 2019-02-15 03:28 | HP ---
Date/Time of Note Date/Time of Note DATE: 02/15/19 TIME: 03:28 Assessment/Plan VTE Prophylaxis SCD applied (from Nsg): No SCD contraindicated: low risk/ambulating Pharmacological prophylaxis: NA/contraindicated Pharm contraindication: surgical contra Lines/Catheters IV Catheter Type (from Nrs): Peripheral IV Assessment/Plan Hospital Course This is a 33-year-old male being admitted to the [facility] floor for: #1 sepsis: Secondary to cellulitis, chronic purulent wound of the left lower extremity: We will check a ESR, CRP. I am concerned for underlying abscess formation. His left lower extremity wound is purulent and and has foul odor. We will put the patient on vancomycin and Zosyn. Will obtain CT of the bilateral lower extremities for further evaluation. #2 left lower extremity cellulitis: With weeping and blister formation. IV antibiotics, CT of the lower extremity to evaluate for any underlying processes such as abscess/fluid collection. #3 Right lower extremity chronic purulent wound: Approximately 5 cm x 5 cm purulent foul smelling wound. Will obtain CT of the lower extremity further evaluate. Broad-spectrum antibiotics as per 1. #4 nonoliguric, acute versus acute on chronic kidney disease: Creatinine is 1.55 which is improved from previous admission we will avoid nephrotoxic agents. Renally dose antibiotics. Nephrology consultation. Dr. Barba #5 History of iron deficiency anemia: Hemoglobin appears stable at the current time no signs of bleeding. Monitor closely. #6 History of IV drug use: Patient has a history of IV drug use. Reports that he has not recently used IV drugs. Nonetheless we will check a urine drug scre en and ethanol level. Patient does have extensive wound on his bilateral lower extremities though I am still suspicious of the patient using IV drugs. #7 DVT GI prophylaxis: SCDs, no GI prophylaxis indicated Further treatment strategy will be implemented as per the clinical course. We will need to maintain a close eye on the patient as he does have a history of using illicit drugs as an inpatient in the past. Result Diagram: 02/14/19211602/14/192116 Results 24hrs Laboratory Tests Test 02/14/19 21:17 02/14/19 21:20 02/14/19 23:26 White Blood Count 10.9 H Red Blood Count 3.50 L Hemoglobin 9.2 L Hematocrit 30.1 #L Mean Corpuscular Volume 86.0 Mean Corpuscular Hemoglobin 26.3 L Mean Corpuscular Hemoglobin Concent 30.6 L Red Cell Distribution Width 14.9 H Platelet Count 408 # Mean Platelet Volume 8.4 Immature Granulocytes % 0.500 H Neutrophils % 70.7 Lymphocytes % 20.3 Monocytes % 6.1 Eosinophils % 2.2 Basophils % 0.2 Nucleated Red Blood Cells % 0.0 Immature Granulocytes # 0.050 H Neutrophils # 7.7 H Lymphocytes # 2.2 Monocytes # 0.7 Eosinophils # 0.2 Basophils # 0.0 Nucleated Red Blood Cells # 0.0 Erythrocyte Sedimentation Rate 130 H Prothrombin Time 14.0 Prothrombin Time Ratio 1.1 INR International Normalized Ratio 1.07 Activated Partial Thromboplast Time 54.2 H Sodium Level 140 Potassium Level 3.5 Chloride Level 100 Carbon Dioxide Level 35 H Anion Gap 5 Blood Urea Nitrogen 19 Creatinine 1.55 H Est Glomerular Filtrat Rate mL/min 53 L Glucose Level 88 Calcium Level 8.8 Total Bilirubin 0.2 Direct Bilirubin 0.00 Indirect Bilirubin 0.2 Aspartate Amino Transf (AST/SGOT) 14 L Alanine Aminotransferase (ALT/SGPT) 13 Alkaline Phosphatase 192 H Troponin I < 0.012 C-Reactive Protein 23.8 H Total Protein 8.9 H Albumin 3.5 Globulin 5.40 H Albumin/Globulin Ratio 0.64 Ethyl Alcohol Level < 10.0 H POC Venous Lactate 1.2 Lactic Acid Level 1.3 HPI/ROS Admit Date/Time Admit Date/Time February 14, 2019 at 22:31 Hx of Present Illness cc: right leg infection worse over the last 1 week Patient is a 33-year-old male with history of heroin abuse presents with right leg infection. The leg infection has been worsening over the past 1 week. Its blistering. He has fevers as well reported from home. He also is noted to have approximately 5cm x 5cm purulent wound of the left lateral leg. He has not been on any antibiotics. He said that he has not used heroin for the past few months and he does not inject into the right leg. He denies any chest pain or nausea vomiting or shortness of breath. He denies any fevers. Allergies: NKDA Medications: Denies any current medication use ROS Const: As per HPI Eyes : No pain discharge or redness or change in visual acuity ENT: No pain, sore throat, congestion, congestion, dysphagia or discharge Respiratory: No shortness of breath, cough, sputum, wheezing, or pleuritic pain Cardiovascular: No chest pain, palpitation, PND, or edema GI : no change in appetite, abdominal pain, nausea, vomiting, diarrhea, constipation, or change in the color his stool Genitourinary: No dysuria, hematuria, flank pain , discharge or CVA tenderness Musculoskeletal: As per HPI Skin: As per HPI Neuro: No headache, dizziness, syncope, seizure, focal weakness Endocrine: No polyuria, polydipsia, temperature intolerance Psych: No hallucination, depression, anxiety or suicidal ideation PMH/Family/Social Past Medical History IV drug use disorder, 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, iron deficiency anemia, history of infectious glomerulonephritis requiring HD,History of sternal osteomyelitis, MRSA flank abscess and MRSA bacteremia Medications Current Medications Ondansetron HCl (Zofran Inj) 4 mg BRIDGE ORDER PRN IV NAUSEA/VOMITING; Start 02/14/19 at 22:30; Stop 02/15/19 at 22:29 Acetaminophen (Tylenol Tab) 650 mg ER BRIDGE PRN PO .MILD PAIN 1-3 OR TEMP; Start 02/14/19 at 22:30; Stop 02/15/19 at 22:29 IV Flush (NS 3 ml) 3 ml PER PROTOCOL IV ; Start 02/14/19 at 23:00 Ondansetron HCl (Zofran Inj) 4 mg Q6H PRN IV NAUSEA/VOMITING; Start 02/14/19 at 23:00 Acetaminophen (Tylenol Tab) 650 mg Q6H PRN PO .PAIN 1-3 OR TEMP; Start 02/14/19 at 23:00 Acetaminophen/ Hydrocodone Bitart ([place] (5/325)) 1 tab Q6H PRN PO .MOD PAIN 4- 6; Start 02/14/19 at 23:00 Morphine Sulfate (morphine) 2 mg Q4H PRN IV .SEVERE PAIN 7-10 Last administered on 02/15/19at 01:01; Admin Dose 2 MG; Start 02/14/19 at 23:00 Docusate Sodium (Colace) 100 mg Q12H PRN PO .CONSTIPATION; Start 02/14/19 at 23:00 Bisacodyl (Dulcolax) 5 mg DAILY PRN PO .CONSTIPATION; Start 02/14/19 at 23:00 Vancomycin HCl (Vanco Iv Per Pharmacy) VANCOMYCIN PER PHARMACY PER PROTOCOL XX ; Start 02/14/19 at 23:30 Piperacillin Sod/ Tazobactam Sod 100 ml @ 200 mls/hr Q6 IVPB Last administered on 02/15/19at 02:29; Admin Dose 200 MLS/HR; Start 02/15/19 at 02:00 Vancomycin HCl 250 ml @ 125 mls/hr Q12H IVPB ; Start 02/15/19 at 09:00 Miscellaneous Information (Pending [facility] Order For Wound Care) This patient singh... PRN PRN XX WOUND CARE; Start 02/15/19 at 02:00 Coded Allergies: No Known Allergy (Unverified , 08/09/18) Past Surgical History Multiple abscess I&D, permacath placement and subsequent removal Past Surgical Hx: other Family History Significant Family History: no pertinent family hx Social History History of IV drug use Smoking Status: Current every day smoker Drug Use: other (History of meth use) Exam/Review of Systems Vital Signs Vitals Vital Signs Date Temp Pulse Resp B/P (MAP) Pulse Ox O2 O2 Flow FiO2 Time Delivery Rate 02/15/19 98.5 79 18 125/78 99 02:34 (94) 02/15/19 Room Air 00:14 Intake and Output 02/14/19 02/14/19 02/15/19 1515:00 23:00 07:00 IntakeIntake Total 450 ml BalanceBalance 450 ml Exam Exam General: Patient is currently lying in bed in no acute distress HEENT: Atraumatic, normocephalic. The pupils are equal, round and reactive. Extraocular motor are intact Neck: Supple with full range of motion. No rigidity or meningismus Chest: Nontender Lungs: Clear to auscultation bilaterally no crackles rales or wheezing Heart: Sinus tachycardia Abdomen: Soft , nontender, nondistended , bowel sounds are present. No guarding no rebound tenderness , No masses or organomegaly. No costovertebral temporal angle mass Extremities: right lower extremity swelling, erythema, weeping, blister formation. Left lower extremity approximately 5 out of 5 purulent foul-smelling wound right lower extremity swelling, erythema, weeping, blister formation. Left lower extremity approximately 5 out of 5 purulent foul-smelling wound Neurologic: Normal mental status, speech normal, cranial nerves II through XII are intact, motor and sensory are intact, Additional Comments PROCEDURE: XR Chest. CLINICAL INDICATION: Sepsis TECHNIQUE: Frontal chest x-ray was obtained. COMPARISON: Chest x-ray September 14, 2018 and September FINDINGS: The heart is not enlarged. Mediastinum is not widened. No hilar masses seen. Lungs are clear of any infiltrates. There is no effusion or pneumothorax. The osseous structures appear normal. IMPRESSION: No evidence for active cardiopulmonary disease. .Blane Zheng MD, MD Date Time Electronically viewed and signed by .Blane Zheng MD, MD on 02/14/2019 22:06 .A/ CC: EDIN GALLO MD [id number] EVELIA GIL February 15, 2019 03:28
[2019-02-15] MEDS ORDERED: FUROSEMIDE 40 MG INJ IV ONE (03:30)
[2019-02-15] MEDS ORDERED: VANCOMYCIN 1 GM 250 ML IVPB SCH (09:00)
[2019-02-15 10:39] VITALS: BP 105/63; PULSE 93; RESP 19
--- NOTE | 2019-02-15 13:47 | CONS ---
Assessment/Plan Assessment/Plan Assessment/Plan (Daily) Right lower extremity venous ulceration Non pressure ulceration to left lower extremity Cellulitis Left lower extremity concern for osteomyelitis Hx of IV drug abuse Plan Patient was seen and examined and reviewed CT and X-ray findings. There is concern for osteomyelitis to the left tib/fib region and MRI has been ordered/pending. Obtain wound cultures of bilateral infected wound sites. Patient will need OR debridement and likely staged procedures. Continue with a bx as recommended and patient wound benefit from ID consult. Venous studies showing bilateral inguinal lymphadenopathy and negative for DVT. Continue with daily dressing changes. Non invasive arterial studies ordered Consultation Date/Type/Reason Admit Date/Time February 14, 2019 at 22:31 Date/Time of Note DATE: 02/15/19 TIME: 13:46 Hx of Present Illness 33 y/o IV heroin drug abuser presents to the floor with bilateral lower extremity ulcerations. Patient states the right lower extremity ulceration, swelling, and redness started a couple days ago. He denies injected into his right lower extremity but states he has injected to the right lower extremity. Reports the ulceration to the right is chronic appearing almost a year ago. Presented initially with low grade fevers. Patient states he lives with a friend. He has reported previous abscess formations in his kidney. Reports pain to the right lower extremity more than the left. Dull and aching in nature rated 6/10 relieved when resting and worsened with direct palpation. 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 [employer] 09/21/18 Amoxicillin/Potassium Clav (Amox-Clav 875-125 mg Tablet) 875-125 mg Tab, 1 TAB PO BID, #20 TAB Prov:AIKEN,SURAJ V. [employer] 09/21/18 Ferrous Sulfate* (Ferrous Sulfate*) 325 Mg Tabec, 325 MG PO TID, #90 TAB Prov:AIKEN,SURAJ V. [employer] 09/21/18 Metoprolol Tartrate* (Lopressor*) 25 Mg Tab, 25 MG PO BID, #60 TAB Prov:AIKEN,SURAJ V. [employer] 09/21/18 Pantoprazole* (Pantoprazole*) 40 Mg Tablet.dr, 40 MG PO BID@0600,1800, #60 TAB Prov:SURAJ AIKEN V. [employer] 09/21/18 Sucralfate* (Carafate*) 1 Gm/10 Ml Susp, 1 GM PO QID, #120 DOSE Prov:AIKENSURAJ LATHAM V. [employer] 09/21/18 Levofloxacin* (Levofloxacin*) 750 Mg Tablet, 750 MG PO Q48H, #7 TAB Take 1 pill every other day Prov:SURAJ AIKEN V. [employer] 09/21/18 Medications Current Medications IV Flush (NS 3 ml) 3 ml PER PROTOCOL IV ; Start 02/14/19 at 23:00 Ondansetron HCl (Zofran Inj) 4 mg Q6H PRN IV NAUSEA/VOMITING; Start 02/14/19 at 23:00 Acetaminophen (Tylenol Tab) 650 mg Q6H PRN PO .PAIN 1-3 OR TEMP; Start 02/14/19 at 23:00 Acetaminophen/ Hydrocodone Bitart ([place] (5/325)) 1 tab Q6H PRN PO .MOD PAIN 4- 6; Start 02/14/19 at 23:00 Morphine Sulfate (morphine) 2 mg Q4H PRN IV .SEVERE PAIN 7-10 Last administered on 02/15/19at 01:01; Admin Dose 2 MG; Start 02/14/19 at 23:00 Docusate Sodium (Colace) 100 mg Q12H PRN PO .CONSTIPATION; Start 02/14/19 at 23:00 Bisacodyl (Dulcolax) 5 mg DAILY PRN PO .CONSTIPATION; Start 02/14/19 at 23:00 Vancomycin HCl (Vanco Iv Per Pharmacy) VANCOMYCIN PER PHARMACY PER PROTOCOL XX ; Start 02/14/19 at 23:30 Piperacillin Sod/ Tazobactam Sod 100 ml @ 200 mls/hr Q6 IVPB Last administered on 02/15/19at 02:29; Admin Dose 200 MLS/HR; Start 02/15/19 at 02:00 Vancomycin HCl 250 ml @ 125 mls/hr Q12H IVPB ; Start 02/15/19 at 09:00 Miscellaneous Information (Pending [facility] Order For Wound Care) This patient singh... PRN PRN XX WOUND CARE; Start 02/15/19 at 02:00 Allergies: Coded Allergies: No Known Allergy (Unverified , 08/09/18) Past Surgical History previous drainage of kidney of abscess Past Surgical Hx: other Family History Significant Family History: cancer Social History Smoking Status: Current every day smoker Drug Use: other (History of meth use) Exam/Review of Systems Exam Vitals Vital Signs Date Temp Pulse Resp B/P (MAP) Pulse Ox O2 O2 Flow FiO2 Time Delivery Rate 02/15/19 98.5 93 19 105/63 95 Room Air 10:39 (77) Intake and Output 02/14/19 02/14/19 02/15/19 1515:00 23:00 07:00 IntakeIntake Total 550 ml BalanceBalance 550 ml Exam DP/PT pulses palpable 2+ pitting edema right worse than left Right lower extremity with diffuse erythema with extensive mixed partial and full thickness ulceration presenting circumferentially measuring 15 x 10 x 0.2cm, multiple purulent blistering sites with superficial epidermalysis noted Left lower extremity with proximal anterior lateral leg ulcer measuring 7 x 8 x 0.5cm fibrotic ulceration with purulent drainage. Unable to probe to bone Muscle strength 5/5 in all compartments of the foot Left tib/fib X-ray IMPRESSION: Large skin ulcer seen in the left upper calf. Associated periosteal reaction of the left fibula, suspicious for osteomyelitis. Follow-up MRI is recommended. CT right lower extremity IMPRESSION: Diffuse soft tissue swelling and skin thickening consistent with provided history of cellulitis. No soft tissue gas or drainable abscess. Tiny linear density in the soft tissues at the level of the anteromedial distal tibia may represent a small focus of calcification, however correlate clinically for evidence of small foreign body/needle in that area. CT left lower extremity IMPRESSION: Large soft tissue wound/ulcer at the anterolateral aspect of the proximal lower leg with subjacent edema and possible phlegmonous material or abscess formation, however evaluation is limited without IV contrast. There is also subjacent periosteal thickening/irregularity of the adjacent fibular diaphysis. Consider MRI to evaluate for osteomyelitis at that location. No soft tissue gas. Results Result Diagram: 02/15/19 0455 02/15/19 0456 Results 24hrs Laboratory Tests Test 02/14/19 21:17 02/14/19 21:20 02/14/19 23:26 02/15/19 04:51 White Blood Count 10.9 H Red Blood Count 3.50 L Hemoglobin 9.2 L Hematocrit 30.1 #L Mean Corpuscular 86.0 Volume Mean Corpuscular 26.3 L Hemoglobin Mean Corpuscular 30.6 L Hemoglobin Concent Red Cell 14.9 H Distribution Width Platelet Count 408 # Mean Platelet Volume 8.4 Immature 0.500 H Granulocytes % Neutrophils % 70.7 Lymphocytes % 20.3 Monocytes % 6.1 Eosinophils % 2.2 Basophils % 0.2 Nucleated Red Blood 0.0 Cells % Immature 0.050 H Granulocytes # Neutrophils # 7.7 H Lymphocytes # 2.2 Monocytes # 0.7 Eosinophils # 0.2 Basophils # 0.0 Nucleated Red Blood 0.0 Cells # Erythrocyte 130 H Sedimentation Rate Prothrombin Time 14.0 Prothrombin Time 1.1 Ratio INR International 1.07 Normalized Ratio Activated 54.2 H Partial Thromboplast Time Sodium Level 140 Potassium Level 3.5 Chloride Level 100 Carbon Dioxide Level 35 H Anion Gap 5 Blood Urea Nitrogen 19 Creatinine 1.55 H Est Glomerular 53 L Filtrat Rate mL/min Glucose Level 88 Calcium Level 8.8 Total Bilirubin 0.2 Direct Bilirubin 0.00 Indirect Bilirubin 0.2 Aspartate Amino 14 L Transf (AST/SGOT) Alanine 13 Aminotransferase (AL T/SGPT) Alkaline Phosphatase 192 H Troponin I < 0.012 C-Reactive Protein 23.8 H Total Protein 8.9 H Albumin 3.5 Globulin 5.40 H Albumin/Globulin 0.64 Ratio Ethyl Alcohol Level < 10.0 H POC Venous Lactate 1.2 Lactic Acid Level 1.3 Hemoglobin A1c 5.7 Test 02/15/19 04:55 02/15/19 04:56 White Blood Count 8.4 # Red Blood Count 3.13 L Hemoglobin 8.2 L Hematocrit 26.9 L Mean Corpuscular 85.9 Volume Mean Corpuscular 26.2 L Hemoglobin Mean Corpuscular 30.5 L Hemoglobin Concent Red Cell 14.9 H Distribution Width Platelet Count 373 Mean Platelet Volume 9.0 Immature 0.500 H Granulocytes % Neutrophils % 60.4 Lymphocytes % 29.7 Monocytes % 6.3 Eosinophils % 2.7 Basophils % 0.4 Nucleated Red Blood 0.0 Cells % Immature 0.040 H Granulocytes # Neutrophils # 5.1 Lymphocytes # 2.5 Monocytes # 0.5 Eosinophils # 0.2 Basophils # 0.0 Nucleated Red Blood 0.0 Cells # Erythrocyte 133 H Sedimentation Rate Sodium Level 141 Potassium Level 4.1 Chloride Level 106 Carbon Dioxide Level 29 Anion Gap 6 Blood Urea Nitrogen 21 H Creatinine 1.54 H Est Glomerular 53 L Filtrat Rate mL/min Glucose Level 97 Lactic Acid Level 0.9 Calcium Level 8.2 L Magnesium Level 2.0 Total Bilirubin 0.2 Direct Bilirubin 0.00 Indirect Bilirubin 0.2 Aspartate Amino 10 L Transf (AST/SGOT) Alanine 16 Aminotransferase (AL T/SGPT) Alkaline Phosphatase 130 H Total Protein 6.5 # Albumin 2.5 #L Globulin 4.00 H Albumin/Globulin 0.62 Ratio Triglycerides Level 111 Cholesterol Level 83 L LDL Cholesterol, 43 Calculated HDL Cholesterol 18 L Cholesterol/HDL 4.6 Ratio Thyroid Stimulating 2.500 Hormone (TSH) Medications Medication Current Medications IV Flush (NS 3 ml) 3 ml PER PROTOCOL IV ; Start 02/14/19 at 23:00 Ondansetron HCl (Zofran Inj) 4 mg Q6H PRN IV NAUSEA/VOMITING; Start 02/14/19 at 23:00 Acetaminophen (Tylenol Tab) 650 mg Q6H PRN PO .PAIN 1-3 OR TEMP; Start 02/14/19 at 23:00 Acetaminophen/ Hydrocodone Bitart ([place] (5/325)) 1 tab Q6H PRN PO .MOD PAIN 4- 6; Start 02/14/19 at 23:00 Morphine Sulfate (morphine) 2 mg Q4H PRN IV .SEVERE PAIN 7-10 Last administered on 02/15/19at 01:01; Admin Dose 2 MG; Start 02/14/19 at 23:00 Docusate Sodium (Colace) 100 mg Q12H PRN PO .CONSTIPATION; Start 02/14/19 at 23:00 Bisacodyl (Dulcolax) 5 mg DAILY PRN PO .CONSTIPATION; Start 02/14/19 at 23:00 Vancomycin HCl (Vanco Iv Per Pharmacy) VANCOMYCIN PER PHARMACY PER PROTOCOL XX ; Start 02/14/19 at 23:30 Piperacillin Sod/ Tazobactam Sod 100 ml @ 200 mls/hr Q6 IVPB Last administered on 02/15/19at 02:29; Admin Dose 200 MLS/HR; Start 02/15/19 at 02:00 Vancomycin HCl 250 ml @ 125 mls/hr Q12H IVPB ; Start 02/15/19 at 09:00 Miscellaneous Information (Pending Santyl Order For Wound Care) This patient singh... PRN PRN XX WOUND CARE; Start 02/15/19 at 02:00 LUIS CARLOS CASEY DPM February 15, 2019 13:47
[2019-02-15 14:36] VITALS: BP 116/78; PULSE 89; RESP 18
[2019-02-15] MEDS ORDERED: DAKINS 0.0125%(1/40) 473 ML SOLUTION TP SCH (15:00)
--- NOTE | 2019-02-15 15:15 | PN ---
Date/Time of Note Date/Time of Note DATE: 02/15/19 TIME: 15:12 Assessment/Plan VTE Prophylaxis Risk score (from Nsg)>0 risk: 3 SCD applied (from Nsg): Yes Pharmacological prophylaxis: heparin Lines/Catheters IV Catheter Type (from Nrs): Peripheral IV Assessment/Plan Hospital Course 33 yo male with CKD, IVDU opiate use d/o presents with leg infection - MRI leg to assess for osteo - IV vanco/zosyn - Surgical management pending, needs debridement Opiate use d/o: - Methadone maintenance Result Diagram: 02/15/19 0455 02/15/19 0456 Results 24hrs Laboratory Tests Test 02/14/19 21:17 02/14/19 21:20 02/14/19 23:26 02/15/19 04:51 White Blood Count 10.9 H Red Blood Count 3.50 L Hemoglobin 9.2 L Hematocrit 30.1 #L Mean Corpuscular 86.0 Volume Mean Corpuscular 26.3 L Hemoglobin Mean Corpuscular 30.6 L Hemoglobin Concent Red Cell 14.9 H Distribution Width Platelet Count 408 # Mean Platelet Volume 8.4 Immature 0.500 H Granulocytes % Neutrophils % 70.7 Lymphocytes % 20.3 Monocytes % 6.1 Eosinophils % 2.2 Basophils % 0.2 Nucleated Red Blood 0.0 Cells % Immature 0.050 H Granulocytes # Neutrophils # 7.7 H Lymphocytes # 2.2 Monocytes # 0.7 Eosinophils # 0.2 Basophils # 0.0 Nucleated Red Blood 0.0 Cells # Erythrocyte 130 H Sedimentation Rate Prothrombin Time 14.0 Prothrombin Time 1.1 Ratio INR International 1.07 Normalized Ratio Activated 54.2 H Partial Thromboplast Time Sodium Level 140 Potassium Level 3.5 Chloride Level 100 Carbon Dioxide Level 35 H Anion Gap 5 Blood Urea Nitrogen 19 Creatinine 1.55 H Est Glomerular 53 L Filtrat Rate mL/min Glucose Level 88 Calcium Level 8.8 Total Bilirubin 0.2 Direct Bilirubin 0.00 Indirect Bilirubin 0.2 Aspartate Amino 14 L Transf (AST/SGOT) Alanine 13 Aminotransferase (AL T/SGPT) Alkaline Phosphatase 192 H Troponin I < 0.012 C-Reactive Protein 23.8 H Total Protein 8.9 H Albumin 3.5 Globulin 5.40 H Albumin/Globulin 0.64 Ratio Ethyl Alcohol Level < 10.0 H POC Venous Lactate 1.2 Lactic Acid Level 1.3 Hemoglobin A1c 5.7 Procalcitonin 15.80 H Test 02/15/19 04:55 02/15/19 04:56 White Blood Count 8.4 # Red Blood Count 3.13 L Hemoglobin 8.2 L Hematocrit 26.9 L Mean Corpuscular 85.9 Volume Mean Corpuscular 26.2 L Hemoglobin Mean Corpuscular 30.5 L Hemoglobin Concent Red Cell 14.9 H Distribution Width Platelet Count 373 Mean Platelet Volume 9.0 Immature 0.500 H Granulocytes % Neutrophils % 60.4 Lymphocytes % 29.7 Monocytes % 6.3 Eosinophils % 2.7 Basophils % 0.4 Nucleated Red Blood 0.0 Cells % Immature 0.040 H Granulocytes # Neutrophils # 5.1 Lymphocytes # 2.5 Monocytes # 0.5 Eosinophils # 0.2 Basophils # 0.0 Nucleated Red Blood 0.0 Cells # Erythrocyte 133 H Sedimentation Rate Sodium Level 141 Potassium Level 4.1 Chloride Level 106 Carbon Dioxide Level 29 Anion Gap 6 Blood Urea Nitrogen 21 H Creatinine 1.54 H Est Glomerular 53 L Filtrat Rate mL/min Glucose Level 97 Lactic Acid Level 0.9 Calcium Level 8.2 L Magnesium Level 2.0 Total Bilirubin 0.2 Direct Bilirubin 0.00 Indirect Bilirubin 0.2 Aspartate Amino 10 L Transf (AST/SGOT) Alanine 16 Aminotransferase (AL T/SGPT) Alkaline Phosphatase 130 H Total Protein 6.5 # Albumin 2.5 #L Globulin 4.00 H Albumin/Globulin 0.62 Ratio Triglycerides Level 111 Cholesterol Level 83 L LDL Cholesterol, 43 Calculated HDL Cholesterol 18 L Cholesterol/HDL 4.6 Ratio Thyroid Stimulating 2.500 Hormone (TSH) Subjective 24 Hr Interval Summary Free Text/Dictation No complaints Using drugs Exam/Review of Systems Exam Vitals Vital Signs Date Temp Pulse Resp B/P (MAP) Pulse Ox O2 O2 Flow FiO2 Time Delivery Rate 02/15/19 98.4 89 18 116/78 99 Room Air 14:36 (91) Intake and Output 02/14/19 02/14/19 02/15/19 1515:00 23:00 07:00 IntakeIntake Total 550 ml BalanceBalance 550 ml Results Results 24hrs Laboratory Tests Test 02/14/19 21:17 02/14/19 21:20 02/14/19 23:26 02/15/19 04:51 White Blood Count 10.9 H Red Blood Count 3.50 L Hemoglobin 9.2 L Hematocrit 30.1 #L Mean Corpuscular 86.0 Volume Mean Corpuscular 26.3 L Hemoglobin Mean Corpuscular 30.6 L Hemoglobin Concent Red Cell 14.9 H Distribution Width Platelet Count 408 # Mean Platelet Volume 8.4 Immature 0.500 H Granulocytes % Neutrophils % 70.7 Lymphocytes % 20.3 Monocytes % 6.1 Eosinophils % 2.2 Basophils % 0.2 Nucleated Red Blood 0.0 Cells % Immature 0.050 H Granulocytes # Neutrophils # 7.7 H Lymphocytes # 2.2 Monocytes # 0.7 Eosinophils # 0.2 Basophils # 0.0 Nucleated Red Blood 0.0 Cells # Erythrocyte 130 H Sedimentation Rate Prothrombin Time 14.0 Prothrombin Time 1.1 Ratio INR International 1.07 Normalized Ratio Activated 54.2 H Partial Thromboplast Time Sodium Level 140 Potassium Level 3.5 Chloride Level 100 Carbon Dioxide Level 35 H Anion Gap 5 Blood Urea Nitrogen 19 Creatinine 1.55 H Est Glomerular 53 L Filtrat Rate mL/min Glucose Level 88 Calcium Level 8.8 Total Bilirubin 0.2 Direct Bilirubin 0.00 Indirect Bilirubin 0.2 Aspartate Amino 14 L Transf (AST/SGOT) Alanine 13 Aminotransferase (AL T/SGPT) Alkaline Phosphatase 192 H Troponin I < 0.012 C-Reactive Protein 23.8 H Total Protein 8.9 H Albumin 3.5 Globulin 5.40 H Albumin/Globulin 0.64 Ratio Ethyl Alcohol Level < 10.0 H POC Venous Lactate 1.2 Lactic Acid Level 1.3 Hemoglobin A1c 5.7 Procalcitonin 15.80 H Test 02/15/19 04:55 02/15/19 04:56 White Blood Count 8.4 # Red Blood Count 3.13 L Hemoglobin 8.2 L Hematocrit 26.9 L Mean Corpuscular 85.9 Volume Mean Corpuscular 26.2 L Hemoglobin Mean Corpuscular 30.5 L Hemoglobin Concent Red Cell 14.9 H Distribution Width Platelet Count 373 Mean Platelet Volume 9.0 Immature 0.500 H Granulocytes % Neutrophils % 60.4 Lymphocytes % 29.7 Monocytes % 6.3 Eosinophils % 2.7 Basophils % 0.4 Nucleated Red Blood 0.0 Cells % Immature 0.040 H Granulocytes # Neutrophils # 5.1 Lymphocytes # 2.5 Monocytes # 0.5 Eosinophils # 0.2 Basophils # 0.0 Nucleated Red Blood 0.0 Cells # Erythrocyte 133 H Sedimentation Rate Sodium Level 141 Potassium Level 4.1 Chloride Level 106 Carbon Dioxide Level 29 Anion Gap 6 Blood Urea Nitrogen 21 H Creatinine 1.54 H Est Glomerular 53 L Filtrat Rate mL/min Glucose Level 97 Lactic Acid Level 0.9 Calcium Level 8.2 L Magnesium Level 2.0 Total Bilirubin 0.2 Direct Bilirubin 0.00 Indirect Bilirubin 0.2 Aspartate Amino 10 L Transf (AST/SGOT) Alanine 16 Aminotransferase (AL T/SGPT) Alkaline Phosphatase 130 H Total Protein 6.5 # Albumin 2.5 #L Globulin 4.00 H Albumin/Globulin 0.62 Ratio Triglycerides Level 111 Cholesterol Level 83 L LDL Cholesterol, 43 Calculated HDL Cholesterol 18 L Cholesterol/HDL 4.6 Ratio Thyroid Stimulating 2.500 Hormone (TSH) Medications Medication Current Medications IV Flush (NS 3 ml) 3 ml PER PROTOCOL IV ; Start 02/14/19 at 23:00 Ondansetron HCl (Zofran Inj) 4 mg Q6H PRN IV NAUSEA/VOMITING; Start 02/14/19 at 23:00 Acetaminophen (Tylenol Tab) 650 mg Q6H PRN PO .PAIN 1-3 OR TEMP; Start 02/14/19 at 23:00 Acetaminophen/ Hydrocodone Bitart ([place] (5/325)) 1 tab Q6H PRN PO .MOD PAIN 4- 6; Start 02/14/19 at 23:00 Morphine Sulfate (morphine) 2 mg Q4H PRN IV .SEVERE PAIN 7-10 Last administered on 02/15/19at 01:01; Admin Dose 2 MG; Start 02/14/19 at 23:00 Docusate Sodium (Colace) 100 mg Q12H PRN PO .CONSTIPATION; Start 02/14/19 at 23:00 Bisacodyl (Dulcolax) 5 mg DAILY PRN PO .CONSTIPATION; Start 02/14/19 at 23:00 Vancomycin HCl (Vanco Iv Per Pharmacy) VANCOMYCIN PER PHARMACY PER PROTOCOL XX ; Start 02/14/19 at 23:30 Piperacillin Sod/ Tazobactam Sod 100 ml @ 200 mls/hr Q6 IVPB Last administered on 02/15/19at 02:29; Admin Dose 200 MLS/HR; Start 02/15/19 at 02:00 Vancomycin HCl 250 ml @ 125 mls/hr Q12H IVPB ; Start 02/15/19 at 09:00 Miscellaneous Information (Pending Santyl Order For Wound Care) This patient singh... PRN PRN XX WOUND CARE; Start 02/15/19 at 02:00 Methadone HCl (Methadone) 10 mg Q8 PO ; Start 02/15/19 at 22:00 Sodium Hypochlorite (Dakins Diluted (40)) 1 applic DAILY TP ; Start 02/15/19 at 15:00 MARY JANE KELLY MD February 15, 2019 15:15
--- NOTE | 2019-02-15 15:54 | CONS ---
DATE OF ADMISSION: 02/14/2019 DATE OF CONSULTATION: 02/15/2019 TYPE OF CONSULTATION: Infectious disease. REASON FOR CONSULTATION: Antibiotic management. HISTORY OF PRESENT ILLNESS: Jonathan Sahu is a 33-year-old male who was seen in the emergency room with right lower extremity swelling, redness and blistering and draining red drainage. The patient h as a history of heroin abuse and he presented with right leg infection. The left leg has been worsen ing over the past week with blisters. He has fevers as well. He has not been on any antibiotics. Charmaine blackwell has not used heroin for the past few months and he states he did not inject into the right leg. Grey s past problems also include cosmetic scar, hypertension. FAMILY HISTORY: Noncontributory. SOCIAL HISTORY: He abuses heroin. He does not drink, but he does smoke and is an everyday smoker. ALLERGIES: NONE TO PENICILLIN, SULFA OR FOODS. MEDICATIONS: Per chart. REVIEW OF SYSTEMS: As per HPI. PHYSICAL EXAMINATION: GENERAL: He is a well-developed, well-nourished male who is in no acute distress. VITAL SIGNS: Stable. He is afebrile. SKIN: Without generalized rash. HEENT: Within normal limits. NECK: Supple. LYMPH NODES: None palpable. CHEST: Decreased breath sounds at the bases. HEART: Without murmur or gallop. ABDOMEN: Soft, nontender without organosplenomegaly or masses. EXTREMITIES: Without cyanosis, clubbing or edema. There is blister formation and weeping of the rig ht lower extremity consistent with cellulitis and with erythema, chronic looking ulcer in the left lo wer extremity. RECTAL AND GENITAL: Deferred. NEUROLOGIC: No focal neurological abnormality. HOSPITAL COURSE: White count is 10.9, H and H 9.2 and 30.1, platelet count 408,000. BUN and creatin ine is 19/1.55, glucose of 88. The patient was started on vancomycin and Zosyn. Blood cultures were drawn. His lactic acid was not remarkable. Chest x-ray: No evidence for acute cardiopulmonary dis ease. X-ray of the tibia and fibula: Large skin also seen in left upper calf associated with perios teal reaction of the left fibula, suspicious for osteomyelitis. Followup MRI is recommended. On lef t leg, there is large soft tissue wound and ulcer, possible phlegmonous material or abscess formation ; however, evaluation is limited without IV contrast. There is also some adjacent mucoperiosteal thi ckening and irregularity of the adjacent fibular diaphysis. Consider MRI to evaluate for osteomyelit is at the location. Lower extremity CT: Diffuse soft tissue swelling of the right leg. DVT study i s negative. Bilateral inguinal lymphadenopathy. We will continue him currently on vancomycin and Zo syn for cellulitis. We will check ESR and CRP and the possibility of abscess formation. Left lower extremity wound is purulent, has foul odor. We may need a surgeon to take a look at him and further imaging studies have been ordered. I will dictate my findings to the hospitalist. Dictated By: MILAGROS FULTON MD KETTY/NTS Conf#: [id number] DID#: [id number] CC: MARY JANE KELLY MD; EVELIA GIL MD;*End*
--- NOTE | 2019-02-15 16:01 | CONS ---
DATE OF ADMISSION: 02/14/2019 DATE OF CONSULTATION: TYPE OF CONSULTATION: Nephrology. REASON FOR CONSULTATION: Chronic kidney disease, possible acute injury. PHYSICIAN REQUESTING CONSULT: Dr. Gil. HISTORY OF PRESENT ILLNESS: This is a 33-year-old male well known to me with a past medical history of chronic kidney disease, history of IV drug use, history of perirenal abscess, history of anemia, w ho presents to [facility] with complaints of right leg infections, weakness and let hargy. The patient states he has been using IV heroin and the patient states he has been injecting i n his left leg. The patient denied any heroin injections in his right leg. The patient states he singh s noted blister on his right lower extremity that has progressively worsened with increased weakness and as a result, he came to the emergency room. On arrival, the patient had imaging studies includin g x-ray of his lower extremity showed no evidence of gas, soft tissue edema, possible abscess. The p atient was placed on antibiotic therapy and admitted to med/surg for evaluation. 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 The patient had recovery, has been off hemodialysis for several mon ths. The patient's baseline creatinine in the past has been around 2.2 mg/dL. Currently, the patien t's creatinine is 1.5 mg/dL. He denies any hemoptysis, hematemesis, hematochezia. PAST MEDICAL HISTORY: As stated above, history of chronic kidney disease, history of IV drug abuse, history of cellulitis, history of tobacco use. PAST SURGICAL HISTORY: Status post multiple abscess incision and drainage, status post PermCath plac ement and removal. FAMILY HISTORY: No family history of kidney disease. SOCIAL HISTORY: Positive IV drug use. MEDICATIONS: The patient's medications have been reviewed. REVIEW OF SYSTEMS: A 14-point review of systems was conducted. Pertinent positives stated in HPI, o therwise negative. PHYSICAL EXAMINATION: VITAL SIGNS: Blood pressure is 125/78, respiration 18, pulse 79, temperature 98.5. HEENT: Head is normocephalic. NECK: Supple. HEART: Regular rate. LUNGS: Show diminished breath sounds at the base. ABDOMEN: Soft, nontender to palpation without rebound or guarding. EXTREMITIES: Negative for clubbing, cyanosis. Positive wound over the right leg with dressing clean , dry and intact. DERMATOLOGIC: No rashes. MUSCULOSKELETAL: No joint effusions. NEUROLOGIC: No focal deficits. LABORATORY DATA: Has been reviewed. ASSESSMENT AND PLAN: This is a 33-year-old male who presents with: 1. Chronic kidney disease. The patient's previous creatinine was noted to be around 2.2 mg/dL. The patient's creatinine is currently below previous baseline. The patient is possibly recovering from previous episode of acute kidney injury. At this point, we will check UA with microanalysis, check u rine lytes. We will continue to renally dose all meds, avoid nephrotoxins, monitor renal function an d electrolytes closely. 2. Anemia. Monitor hemoglobin and hematocrit levels. Check an iron panel. 3. Mineral bone disorder, monitor calcium and phosphorus levels. 4. Sepsis secondary to cellulitis. Continue current antibiotic regimen. Follow up with podiatry. 5. Right lower extremity chronic purulent wound. The patient has noted erythema and discharge. CT scan was evaluated. No evidence of gas, but possible abscess formation. Would continue current anti biotic regimen. Follow up with podiatry. 6. History of IV drug abuse. Continue to monitor, continue supportive care. 7. GI and deep venous thrombosis prophylaxis. Thank you, Dr. Gil, for this interesting consult. It will be a pleasure to follow patient with y uriah throughout the hospital course. Dictated By: KHANH QUESADA/NTS Conf#: [id number] DID#: [id number] CC: EVELIA GIL MD;*EndCC*
--- NOTE | 2019-02-15 16:06 | CONS ---
Assessment/Plan Assessment/Plan Hospital Course (Demo Recall) 33-year-old male with history of IV drug abuse with bilateral lower extremity infections. The right lower extremity appears to be isolated cellulitis. The sloughing of skin is likely from significant swelling and a quick rate. Currently low concern for necrotizing fasciitis. Will need to continue to follow this. In regards to his left lower extremity wound he will need a surgical debridement to encourage healthy granulation tissue in the base of the wound. He will likely need wound VAC for several weeks with intermittent debridements to keep the wound healthy. Once there is no further signs of infection and hopefully the patient has stop smoking and using illicit drugs he would likely need coverage with a skin graft. An MRI of the left lower extremity with and without contrast would be helpful to further characterize the periosteal reaction along the fibula to determine if there is osteomyelitis which would necessitate longer IV antibiotics. The most challenging aspect of treating his wound is a social aspect. He would need regular follow-up at a wound care center for intermittent debridements and wound VAC changes. Unfortunately my clinic does not have the resources are set up to perform these intermittent debridements and wound VAC changes. I am recommending that someone from the wound care center is be consulted. If they are willing to perform the initial surgical debridement and follow-up that would be an appropriate plan. If that is not possible I would be able to perform the initial surgical debridement with outpatient follow-up to the wound care center. Consultation Date/Type/Reason Admit Date/Time February 14, 2019 at 22:31 Date of Consultation: February 15, 2019 Reason for Consultation Bilateral lower extremity infection Date/Time of Note DATE: 02/15/19 TIME: 15:41 Hx of Present Illness 33-year-old male with history of IV drug abuse and hepatitis C presented to the emergency department at [facility] yesterday. States his last use of IV drugs was 2 weeks ago. He was admitted by the medicine service. Medicine service started the patient on broad-spectrum IV antibiotics. Today orthopedics was consulted for evaluation and treatment of this bilateral lower extremity infections. The right lower extremity began to have erythema and swelling starting this past week. The erythema continued to spread. He began to have some blistering of his skin with drainage. Denies any numbness and tingling in the right lower extremity. Regards the left lower extremity he has had a chronic wound on the anterolateral aspect of his mid lower leg for at least one year. He has been doing self wound care. States there has been purulent drainage from this wound. States that it sounds get smaller than larger and smaller and larger again. He has no pain in this area. He denies numbness and tingling in the left lower extremity as well. Patient denies with shortness of breath, chest pain, nausea/vomiting, cons tipation, diarrhea, numbness, and tingling. Past Medical History Hepatitis C Kidney failure Home Meds Active Scripts Doxycycline Hyclate* (Doxycycline Hyclate*) 100 Mg Tablet., 100 MG PO BID for 10 Days, #20 TAB Prov:SURAJ AIKEN V. GUARDIAN AD LITEM 09/21/18 Amoxicillin/Potassium Clav (Amox-Clav 875-125 mg Tablet) 875-125 mg Tab, 1 TAB PO BID, #20 TAB Prov:SURAJ AIKEN V. GUARDIAN AD LITEM 09/21/18 Ferrous Sulfate* (Ferrous Sulfate*) 325 Mg Tabec, 325 MG PO TID, #90 TAB Prov:SURAJ AIKEN V. GUARDIAN AD LITEM 09/21/18 Metoprolol Tartrate* (Lopressor*) 25 Mg Tab, 25 MG PO BID, #60 TAB Prov:SURAJ AIKEN V. GUARDIAN AD LITEM 09/21/18 Pantoprazole* (Pantoprazole*) 40 Mg Tablet., 40 MG PO BID@0600,1800, #60 TAB Prov:SURAJ AIKEN V. GUARDIAN AD LITEM 09/21/18 Sucralfate* (Carafate*) 1 Gm/10 Ml Susp, 1 GM PO QID, #120 DOSE Prov:SURAJ AIKEN V. GUARDIAN AD LITEM 09/21/18 Levofloxacin* (Levofloxacin*) 750 Mg Tablet, 750 MG PO Q48H, #7 TAB Take 1 pill every other day Prov:SURAJ AIKEN V. GUARDIAN AD LITEM 09/21/18 Medications Current Medications IV Flush (NS 3 ml) 3 ml PER PROTOCOL IV ; Start 02/14/19 at 23:00 Ondansetron HCl (Zofran Inj) 4 mg Q6H PRN IV NAUSEA/VOMITING; Start 02/14/19 at 23:00 Acetaminophen (Tylenol Tab) 650 mg Q6H PRN PO .PAIN 1-3 OR TEMP; Start 02/14/19 at 23:00 Acetaminophen/ Hydrocodone Bitart ([place] (5/325)) 1 tab Q6H PRN PO .MOD PAIN 4- 6; Start 02/14/19 at 23:00 Morphine Sulfate (morphine) 2 mg Q4H PRN IV .SEVERE PAIN 7-10 Last administered on 02/15/19at 01:01; Admin Dose 2 MG; Start 02/14/19 at 23:00 Docusate Sodium (Colace) 100 mg Q12H PRN PO .CONSTIPATION; Start 02/14/19 at 23:00 Bisacodyl (Dulcolax) 5 mg DAILY PRN PO .CONSTIPATION; Start 02/14/19 at 23:00 Vancomycin HCl (Vanco Iv Per Pharmacy) VANCOMYCIN PER PHARMACY PER PROTOCOL XX ; Start 02/14/19 at 23:30 Piperacillin Sod/ Tazobactam Sod 100 ml @ 200 mls/hr Q6 IVPB Last administered on 02/15/19at 02:29; Admin Dose 200 MLS/HR; Start 02/15/19 at 02:00 Vancomycin HCl 250 ml @ 125 mls/hr Q12H IVPB ; Start 02/15/19 at 09:00 Miscellaneous Information (Pending Santyl Order For Wound Care) This patient singh... PRN PRN XX WOUND CARE; Start 02/15/19 at 02:00 Methadone HCl (Methadone) 10 mg Q8 PO ; Start 02/15/19 at 22:00 Sodium Hypochlorite (Dakins Diluted (1/40)) 1 applic DAILY TP ; Start 02/15/19 at 15:00 Allergies: Coded Allergies: No Known Allergy (Unverified , 08/09/18) Past Surgical History Past Surgical Hx: noncontributory, other Social History Smoking Status: Current every day smoker Drug Use: other (History of heroin and meth use) Exam/Review of Systems Exam Vitals Vital Signs Date Temp Pulse Resp B/P (MAP) Pulse Ox O2 O2 Flow FiO2 Time Delivery Rate 02/15/19 98.4 89 18 116/78 99 Room Air 14:36 (91) Intake and Output 02/14/19 02/14/19 02/15/19 1515:00 23:00 07:00 IntakeIntake Total 550 ml BalanceBalance 550 ml Exam General: Awake, alert, in no acute distress, pleasant and cooperative Heart: regular rhythm Lungs: breathing comfortably, no tachypnea or dyspnea MUSCULOSKELETAL: Right lower extremity: The lower leg starting proximal tibia down to the ankle is erythematous, edematous, tender to palpation. There are multiple areas of skin sloughing. There is no crepitance to palpation. There is serous drainage from the leg. No purulent drainage. No pain to the ankle with axial loading. Ankle joint itself is not swollen. Left lower extremity: There is a chronic appearing wound overlying the lateral aspect of the mid fibula. The wound is approximately 10 x 6 cm the base of the wound does not have healthy granulation tissue. There is fibrous tissue. There is purulent drainage. The surrounding tissue is nontender to palpation. There is no erythema spreading proximally distally. Bilateral lower extremity sensation intact to light touch in a sural, saphenous, deep peroneal, superficial peroneal, medial and lateral plantar nerve distribution. Motor is intact, patient able to dorsiflex and plantarflex ankle and extend and flex great toe. Dorsalis Pedis pulse +2, Brisk capillary refill. Compartments are soft. Calves non-tender to palpation bilaterally. Results Result Diagram: 02/15/19 0455 02/15/19 0456 Results 24hrs Laboratory Tests Test 02/14/19 21:17 02/14/19 21:20 02/14/19 23:26 02/15/19 04:51 White Blood Count 10.9 H Red Blood Count 3.50 L Hemoglobin 9.2 L Hematocrit 30.1 #L Mean Corpuscular 86.0 Volume Mean Corpuscular 26.3 L Hemoglobin Mean Corpuscular 30.6 L Hemoglobin Concent Red Cell 14.9 H Distribution Width Platelet Count 408 # Mean Platelet Volume 8.4 Immature 0.500 H Granulocytes % Neutrophils % 70.7 Lymphocytes % 20.3 Monocytes % 6.1 Eosinophils % 2.2 Basophils % 0.2 Nucleated Red Blood 0.0 Cells % Immature 0.050 H Granulocytes # Neutrophils # 7.7 H Lymphocytes # 2.2 Monocytes # 0.7 Eosinophils # 0.2 Basophils # 0.0 Nucleated Red Blood 0.0 Cells # Erythrocyte 130 H Sedimentation Rate Prothrombin Time 14.0 Prothrombin Time 1.1 Ratio INR International 1.07 Normalized Ratio Activated 54.2 H Partial Thromboplast Time Sodium Level 140 Potassium Level 3.5 Chloride Level 100 Carbon Dioxide Level 35 H Anion Gap 5 Blood Urea Nitrogen 19 Creatinine 1.55 H Est Glomerular 53 L Filtrat Rate mL/min Glucose Level 88 Calcium Level 8.8 Total Bilirubin 0.2 Direct Bilirubin 0.00 Indirect Bilirubin 0.2 Aspartate Amino 14 L Transf (AST/SGOT) Alanine 13 Aminotransferase (AL T/SGPT) Alkaline Phosphatase 192 H Troponin I < 0.012 C-Reactive Protein 23.8 H Total Protein 8.9 H Albumin 3.5 Globulin 5.40 H Albumin/Globulin 0.64 Ratio Ethyl Alcohol Level < 10.0 H POC Venous Lactate 1.2 Lactic Acid Level 1.3 Hemoglobin A1c 5.7 Procalcitonin 15.80 H Test 02/15/19 04:55 02/15/19 04:56 White Blood Count 8.4 # Red Blood Count 3.13 L Hemoglobin 8.2 L Hematocrit 26.9 L Mean Corpuscular 85.9 Volume Mean Corpuscular 26.2 L Hemoglobin Mean Corpuscular 30.5 L Hemoglobin Concent Red Cell 14.9 H Distribution Width Platelet Count 373 Mean Platelet Volume 9.0 Immature 0.500 H Granulocytes % Neutrophils % 60.4 Lymphocytes % 29.7 Monocytes % 6.3 Eosinophils % 2.7 Basophils % 0.4 Nucleated Red Blood 0.0 Cells % Immature 0.040 H Granulocytes # Neutrophils # 5.1 Lymphocytes # 2.5 Monocytes # 0.5 Eosinophils # 0.2 Basophils # 0.0 Nucleated Red Blood 0.0 Cells # Erythrocyte 133 H Sedimentation Rate Sodium Level 141 Potassium Level 4.1 Chloride Level 106 Carbon Dioxide Level 29 Anion Gap 6 Blood Urea Nitrogen 21 H Creatinine 1.54 H Est Glomerular 53 L Filtrat Rate mL/min Glucose Level 97 Lactic Acid Level 0.9 Calcium Level 8.2 L Magnesium Level 2.0 Total Bilirubin 0.2 Direct Bilirubin 0.00 Indirect Bilirubin 0.2 Aspartate Amino 10 L Transf (AST/SGOT) Alanine 16 Aminotransferase (AL T/SGPT) Alkaline Phosphatase 130 H Total Protein 6.5 # Albumin 2.5 #L Globulin 4.00 H Albumin/Globulin 0.62 Ratio Triglycerides Level 111 Cholesterol Level 83 L LDL Cholesterol, 43 Calculated HDL Cholesterol 18 L Cholesterol/HDL 4.6 Ratio Thyroid Stimulating 2.500 Hormone (TSH) Imaging Imaging 2v Left Tib/Fib Large skin ulcer seen in the left upper calf. Associated periosteal reaction of the left fibula, suspicious for osteomyelitis. Follow-up MRI is recommended. CT Left LE Large soft tissue wound/ulcer at the anterolateral aspect of the proximal lower leg with subjacent edema and possible phlegmonous material or abscess formation, however evaluation is limited without IV contrast. There is also subjacent periosteal thickening/irregularity of the adjacent fibular diaphysis. Consider MRI to evaluate for osteomyelitis at that location. CT Right LE Diffuse soft tissue swelling and skin thickening consistent with provided history of cellulitis. No soft tissue gas or drainable abscess. Tiny linear density in the soft tissues at the level of the anteromedial distal tibia may represent a small focus of calcification, however correlate clinically for evidence of small foreign body/needle in that area. Medications Medication Current Medications IV Flush (NS 3 ml) 3 ml PER PROTOCOL IV ; Start 02/14/19 at 23:00 Ondansetron HCl (Zofran Inj) 4 mg Q6H PRN IV NAUSEA/VOMITING; Start 02/14/19 at 23:00 Acetaminophen (Tylenol Tab) 650 mg Q6H PRN PO .PAIN 1-3 OR TEMP; Start 02/14/19 at 23:00 Acetaminophen/ Hydrocodone Bitart ([place] (5/325)) 1 tab Q6H PRN PO .MOD PAIN 4- 6; Start 02/14/19 at 23:00 Morphine Sulfate (morphine) 2 mg Q4H PRN IV .SEVERE PAIN 7-10 Last administered on 02/15/19at 01:01; Admin Dose 2 MG; Start 02/14/19 at 23:00 Docusate Sodium (Colace) 100 mg Q12H PRN PO .CONSTIPATION; Start 02/14/19 at 23:00 Bisacodyl (Dulcolax) 5 mg DAILY PRN PO .CONSTIPATION; Start 02/14/19 at 23:00 Vancomycin HCl (Vanco Iv Per Pharmacy) VANCOMYCIN PER PHARMACY PER PROTOCOL XX ; Start 02/14/19 at 23:30 Piperacillin Sod/ Tazobactam Sod 100 ml @ 200 mls/hr Q6 IVPB Last administered on 02/15/19at 02:29; Admin Dose 200 MLS/HR; Start 02/15/19 at 02:00 Vancomycin HCl 250 ml @ 125 mls/hr Q12H IVPB ; Start 02/15/19 at 09:00 Miscellaneous Information (Pending Santyl Order For Wound Care) This patient singh... PRN PRN XX WOUND CARE; Start 02/15/19 at 02:00 Methadone HCl (Methadone) 10 mg Q8 PO ; Start 02/15/19 at 22:00 Sodium Hypochlorite (Dakins Diluted ()) 1 applic DAILY TP ; Start 02/15/19 at 15:00 ULISSES LATHAM MD February 15, 2019 15:55
[2019-02-15] MEDS ORDERED: METHADONE 10 MG TAB PO SCH (22:00)
== END 2019-02-15 18:00 | disposition left against medical advice (07) | DRG 602 ==
LOC: E/R 19:16 → PP2 22:31
PROVIDERS: ADMIT Family Medicine; ATTEND Internal Medicine
DX: L03.115 Cellulitis of right lower limb (principal); A41.9 Sepsis, unspecified organism; N17.9 Acute kidney failure, unspecified; N18.9 Chronic kidney disease, unspecified; D64.9 Anemia, unspecified
CPT/HCPCS: 36415; 71045; 73590; 73700; 80053; 80061; 80307; 83036; 83605; 83735; 84145; 84443; 84484; 85025; 85610; 85651; 85730; 86140; 87070; 93005; 93970; 96365; 96368; 96375; J1885; J1940; J2270; J2543; J3370; J7030

== ENCOUNTER 2019-02-15 18:15 | Emergency (ER) | payer SELFPAY ==
[~2019-02-15] VITALS: Ht 182.9 cm; Wt 72.7 kg
[2019-02-15 18:18] VITALS: BP 128/76; PULSE 117; RESP 18; Ht 182.9 cm; Wt 72.7 kg
== END 2019-02-15 18:42 | disposition left against medical advice (07) ==
LOC: E/R 18:15
DX: Z53.21 Procedure and treatment not carried out due to patient leaving prior to being seen by health care provider (principal)